=== PATIENT | male | born 1935 | race Caucasian/White ===

== ENCOUNTER 2016-04-25 06:14 | Inpatient (IN) | payer OTHER ==
[~2016-04-25] VITALS: Ht 172.7 cm; Wt 81.6 kg
[~2016-04-25 06:14] MED LIST: ASPI-COR81 M1 PO; ATIVAN0.5 M1 PO; BENICAR HCT 12.1 TA1 PO; BENICAR HCT 251 TAB PO; BENICAR40 M1 PO; GABAPENTIN100 M2 PO; HYDROCODONE/ACE1 TA2 PO; LASIX40 MG PO; METOPROLOL SUCC25 M1 PO; NEURONTIN400 M1 PO; OMEPRAZOLE40 MG PO; POTASSIUM CHLO10 ME1 PO; WARFARIN SOD2 MG PO; XARELTO20 MG PO; ZOCOR 40MG TAB40 MG PO
--- NOTE | 2016-04-25 06:28 | ED CARDIAC/CP/PALPITATIONS ---
See Addendum History of Present Illness General Chief Complaint: Chest Pain Stated Complaint: PT C/O CHEST PAIN CARDIAC HX Source: patient Exam Limitations: no limitations Vital Signs & Intake/Output Vital Signs & Intake/Output . Allergies Coded Allergies: NO KNOWN ALLERGIES (03/09/16) Reconcile Medications Furosemide (Lasix) 40 MG TAB 1 TAB PO DAILY HEART HEALTH Gabapentin 400 MG CAPSULE 1 CAP PO QPM NEUROPATHY (Reported) Gabapentin 100 MG CAPSULE 2 CAP PO 1200 NEUROPATHY (Reported) HYDROCODONE/ACETAMINOPHEN (Hydrocodon-Acetaminoph 7.5-325) 1 TAB TAB 1 TAB PO Q8H PAIN (Reported) Lorazepam (Ativan) 0.5 MG TAB 1 TAB PO BID ANXIETY (Reported) Metoprolol Succinate 25 MG TAB 0.5 TAB PO DAILY HIGH BP (Reported) Olmesartan Medoxomil (Benicar) 40 MG TABLET 1 TAB PO DAILY HEART (Reported) Omeprazole 40 MG ECC 1 CAP PO DAILY GI (Reported) Potassium Chloride [address] 1 TAB PO DAILY SUPPLEMENT (Reported) Rivaroxaban (Xarelto) 20 MG TAB 1 TAB PO QPM BLOOD THINNER (Reported) with food Simvastatin (Zocor 40MG Tab) 40 MG TAB 1 TAB PO QPM CHOLESTEROL (Reported) Triage Nurses Notes Reviewed? yes Onset: Gradual Duration: day(s):, waxing and waning Timing: recent history Quality/Severity: moderate Location: central Radiation: no radiation Activities at Onset: none Prior Chest Pain/Card Workup: cardiac cath, heart attack Modifying Factors: Improves With: rest. Associated Symptoms: diaphoresis, dizziness, chest pain HPI: 80 yo gentleman h/o cad, cardiac arrest (1993), presents with 7-8/10 of substernal chest pain, associated with shortness of breath, diaphoresis and dizziness. Non radiating. His symptoms began 1 day ago, "and they've been coming and going." Mild "congestion" and "pressure" feeling. No fever, chills, cough, wheezing, sputum, lower extremity swelling. Past History Medical History Any Pertinent Medical History? see below for history Neurological: NONE EENT: NONE Cardiovascular: AFIB, CHF, hypertension, [place] WITH STENTS Respiratory: NONE Gastrointestinal: NONE Hepatic: NONE Renal: NONE Musculoskeletal: disk herniation Psychiatric: NONE Endocrine: NONE Blood Disorders: NONE Cancer(s): NONE FINANCIAL ANALYSIS CONSULTANT/Reproductive: NONE History of MRSA: No History of VRE: No History of CDIFF: No Surgical History Surgical History: non-contributory Psychosocial History Who do you live with Spouse Services at Home None What is your primary language Kuwaiti Family History Hx Contributory? No Review of Systems Review of Systems Constitutional: Reports: no symptoms. EENTM: Reports: no symptoms. Respiratory: Reports: no symptoms. Cardiovascular: Reports: no symptoms. GI: Reports: no symptoms. Genitourinary: Reports: no symptoms. Musculoskeletal: Reports: no symptoms. Skin: Reports: no symptoms. Neurological/Psychological: Reports: no symptoms. Hematologic/Endocrine: Reports: no symptoms. Immunologic/Allergic: Reports: no symptoms. All Other Systems: Reviewed and Negative Physical Exam Physical Exam General Appearance: well developed/nourished, mild distress Head: atraumatic, normal appearance Eyes: Bilateral: normal appearance. Ears, Nose, Throat: normal pharynx, normal ENT inspection Neck: normal inspection, supple, full range of motion Respiratory: normal breath sounds, chest non-tender, no respiratory distress, quiet respiration, lungs clear Cardiovascular: regular rate/rhythm Gastrointestinal: normal bowel sounds, soft, non-tender, no organomegaly Back: normal inspection, normal range of motion Extremities: normal inspection, normal capillary refill, normal range of motion, no edema Neurologic/Psych: no motor/sensory deficits, awake, alert, oriented x 3 Skin: intact, normal color, warm/dry Core Measures ACS in differential dx? Yes Severe Sepsis Present: No Septic Shock Present: No Progress Differential Diagnosis: AMI, musculoskeletal pain, pneumonia, unstable angina Plan of Care: Orders Procedure Date/time Status XRY-PORTABLE CHEST XRAY 04/25 627 Active TROPONIN LEVEL 04/25 627 Active D-DIMER 04/25 627 Active COMPREHENSIVE METABOLIC PANEL 04/25 627 Active CBC WITHOUT DIFFERENTIAL 04/25 627 Active EKG 04/25 614 Active Current Medications Sig/[place] Start time Last Medication Dose Stop Time Status Admin Aspirin 325 MG ONCE ONE 04/25 0545 UNVr (Aspirin) 04/25 645 Labetalol HCl 10 MG ONCE ONE 04/25 0545 UNVr (Trandate) 04/25 06 Nitroglycerin 0.4 MG ONCE ONE 04/25 0545 UNVr (Nitrostat) 04/25 0646 Diagnostic Imaging: Viewed by Me: Radiology Read. Discussed w/RAD: Radiology Read. Initial ED EKG: afib with diffuse st depressions... unchanged from prior. Hand-Off Endorsed To: ABE JOHNS MD Endorsed Time: 0700 Pending: labs, Xray Departure Departure Disposition: STILL A PATIENT Condition: Stable Clinical Impression Primary Impression: Chest pain Referrals: GINA BARCENAS MD (PCP/Family) Referred to [facility] as new patient No Departure Forms: Customer Survey General Discharge Information Critical Care Note Critical Care Note Critical Care Time: non-applicable
--- NOTE | 2016-04-25 06:53 | RADIOLOGY REPORT ---
EXAMINATION: XR PORTABLE CHEST CLINICAL INFORMATION: Chest pain COMPARISON: 11/04/2015 TECHNIQUE: AP portable upright view of the chest FINDINGS: Cardiac silhouette is enlarged. Calcific atherosclerosis is present in the thoracic aorta. Airspace opacities are present in the medial aspect of the lung bases, most likely atelectasis. Superimposed consolidation is less likely. Pulmonary vasculature is normal. No pneumothorax or pleural effusion. Osseous thorax is unremarkable. IMPRESSION: 1. Unchanged cardiomegaly. 2. Opacities in the medial aspects of the lower lobes, most likely due to atelectasis and underpenetration. Superimposed consolidation is less likely.
[2016-04-25 07:04] LABS: ABSOLUTE BASOPHIL COUNT 0 /CUMM (0.0-0.2); ABSOLUTE EOSINOPHIL COUNT 0.1 /CUMM (0.0-0.7); ABSOLUTE GRANULOCYTE CT 4.6 /CUMM (1.4-6.5); ABSOLUTE LYMPH COUNT 1.1 /CUMM (1.2-3.4); ABSOLUTE MONOCYTE COUNT 0.6 /CUMM (0.10-0.60); BASOPHIL % 0.5 % (0.0-2.0); EOSINOPHIL % 0.8 % (0-5); GRANULOCYTE % 72.7 % (42.2-75.2); HEMATOCRIT 34.2 % (42-52); MEAN CORPUSCULAR HGB 25.1 PG (27.0-31.0); MEAN CORPUSCULAR VOLUME 78.6 FL (80.0-94.0); MEAN PLATELET VOLUME 9.1 FL (7.4-10.4); PLATELET COUNT 151 /CUMM (130-400); RBC DISTRIBUTION WIDTH 18.8 % (11.5-14.5); RED BLOOD CELL CT 4.35 /CUMM (4.70-6.10); WHITE BLOOD CELL COUNT 6.4 /CUMM (4.8-10.8)
[2016-04-25] MEDS ORDERED: TYLENOL EXTRA500 M2 PO (07:49)
--- NOTE | 2016-04-25 08:51 | History & Physical ---
See Addendum General Information and HPI MD Statement: I have seen and personally examined HARLAN BLAIR and documented this H& P. The patient is a 80 year old M who presented with a patient stated chief complaint of indigestion. Source of Information: patient Exam Limitations: no limitations History of Present Illness: 80-year-old man with a past medical history of paroxysmal A. fib on several to and metoprolol, coronary artery disease status post myocardial infarction in 1993, cardiac cath at [facility] 2003, [id number] aortic regurgitation, status post laminectomy in January 2004, went into rapid ventricular rate after surgery, and amiodarone and reverted to sinus rhythm, history of hyperlipidemia and hypertension, presented with a two-day history of symptoms of indigestion. Accorded the patient started having symptoms of indigestion 2 days ago, that included burping, burning in the chest, pressure in the chest, feeling that he won't be able to eat anything however he was able to keep it down, nausea or vomiting, intermittent, no specific aggravating or relieving factors, at rest as well as on exertion. The pressure on the chest but really was last night, became more constant, 6-7/10 in intensity, no radiation, associated with lightheadedness and dizziness. Also reported a feeling that he is unable to place and wanted to walk out of the house to be able to breathe. He denies any orthopnea, trace leg swelling that has not changed. No headaches, visual changes. Has been experiencing some weakness on and off since the past month, and started using a cane on and off. According to the patient's , the patient's last nuclear stress test and echocardiogram was last year, early 2015, was what she said, however according to the integration specialist boluses that were in 2014. Allergies/Medications Allergies: Coded Allergies: NO KNOWN ALLERGIES (03/09/16) Home Med list Acetaminophen (Tylenol Extra Strength) 500 MG TABLET 1 TAB PO TID PAIN ( Reported) Furosemide (Lasix) 40 MG TAB 1 TAB PO DAILY HEART HEALTH Gabapentin 100 MG CAPSULE 2 CAP PO SEE ADMIN CRITERIA NEUROPATHY (Reported) 400 IN AM 200 AT LUNCH TIME 800 AT NIGHT Gabapentin (Neurontin) 400 MG CAPSULE 2 CAP PO QPM NEUROPATHY (Reported) HYDROCODONE/ACETAMINOPHEN (Hydrocodon-Acetaminoph 7.5-325) 1 TAB TAB 1 TAB PO Q8H PAIN (Reported) Lorazepam (Ativan) 0.5 MG TABLET 1 TAB PO BID ANXIETY (Reported) Metoprolol Succinate 25 MG TAB 0.5 TAB PO DAILY HIGH BP (Reported) Olmesartan Medoxomil (Benicar) 40 MG TABLET 1 TAB PO DAILY HEART (Reported) Omeprazole 40 MG ECC 1 CAP PO DAILY GI (Reported) Potassium Chloride [address] 1 TAB PO DAILY SUPPLEMENT (Reported) Rivaroxaban (Xarelto) 20 MG TAB 1 TAB PO QPM BLOOD THINNER (Reported) with food Simvastatin (Zocor 40MG Tab) 40 MG TAB 1 TAB PO QPM CHOLESTEROL (Reported) Compliance With Home Meds: GOOD Past History Travel History Traveled to [place] past 21 day No Medical History Neurological: NONE EENT: NONE Cardiovascular: AFIB, CHF, hypertension, hyperlipidemia, NSTEMI, [place] WITH STENTS Respiratory: NONE Gastrointestinal: NONE Hepatic: NONE Renal: NONE Musculoskeletal: disk herniation Psychiatric: NONE Endocrine: NONE Blood Disorders: NONE Cancer(s): NONE SAMPLE WRAPPER/Reproductive: NONE History of MRSA: No History of VRE: No History of CDIFF: No Surgical History Surgical History: laminectomy, cardiac cath Past Family/Social History Family History Relations & Conditions if any BROTHER (2 Brothers had premature coronary artery disease. One brother of pulmonary embolism.). Psychosocial History Where do you live? Home Who Do You Live With? spouse Services at Home: None ETOH Use: occasional use Illicit Drug Use: denies illicit drug use Living Will? yes Functional Ability ADLs Independent: dressing, eating, toileting, bathing. Ambulation: independent IADLs Independent: shopping, housework, finances, food prep, telephone, transportation , medication admin. Review of Systems Review of Systems Constitutional: Reports: weakness. EENTM: Reports: no symptoms. Cardiovascular: Reports: chest pain. Denies: orthopena, palpitations. Respiratory: Denies: cough, orthopnea, short of breath, sputum production, wheezing. GI: Reports: no symptoms. Genitourinary: Reports: no symptoms. Musculoskeletal: Reports: back pain. Neurological/Psychological: Reports: no symptoms. Hematologic/Endocrine: Reports: no symptoms. Immunologic/Allergic: Reports: no symptoms. Exam & Diagnostic Data Last 24 Hrs of Vital Signs/I&O Vital Signs Date Time Temp Pulse Resp B/P Pulse O2 O2 Flow FiO2 Ox Delivery Rate 04/25 1115 97.7 62 18 170/73 04/25 1115 97.7 62 18 170/73 04/25 1044 97.7 62 18 170/73 93 Room Air 04/25 0815 99.2 75 20 167/88 95 Room Air Room Air 04/25 0737 72 20 156/67 95 Room Air Room Air 04/25 0720 99.2 77 20 148/67 97 Room Air Room Air 04/25 0707 68 166/69 97 Room Air 04/25 0706 180/60 04/25 0640 98.1 80 18 206/50 98 Room Air Intake & Output 04/25 1600 04/25 0800 04/25 0000 Intake Total 0 Output Total Balance 0 Intake, Oral 0 Patient 181 lb Weight Physical Exam General Appearance Alert, Oriented X3, Cooperative, No Acute Distress Skin macular, irregular, small, erythema bilateral anterior shins HEENT Atraumatic, PERRLA, EOMI, Mucous Membr. moist/pink Neck Supple, No JVD Cardiovascular Normal S1, Normal S2, irregularly irregular, diastolic murmur Lungs Clear to Auscultation, Normal Air Movement Abdomen Normal Bowel Sounds, Soft, No Tenderness Neurological Normal Speech, Strength at 5/5 X4 Ext, Normal Tone, Sensation Intact Extremities Normal Pulses, trace ankle edema bilateral Vascular Pulses Symmetrical Last 24 Hrs of Labs/Teo: Laboratory Tests 04/25/16 0645: Anion Gap 18 H, Estimated GFR > 60, BUN/Creatinine Ratio 18.0, Glucose 138 H, Calcium 9.7, Total Bilirubin 1.1, AST 28, ALT 18 L, Alkaline Phosphatase 76, Troponin I 0.02, Total Protein 7.2, Albumin 4.4, Globulin 2.8, Albumin/Globulin Ratio 1.6, D-Dimer < 200, CBC w Diff NO MAN DIFF REQ, RBC 4.35 L, MCV 78.6 L, MCH 25.1 L, RDW 18.8 H, MPV 9.1, Gran % 72.7, Lymphocytes % 17.3 L, Monocytes % 8.7, Eosinophils % 0.8, Basophils % 0.5, Absolute Granulocytes 4.6, Absolute Lymphocytes 1.1 L, Absolute Monocytes 0.6, Absolute Eosinophils 0.1, Absolute Basophils 0, PUBS MCHC 32.0 L Diagnostic Data EKG Results A. fib is rate of 87, T-wave inversions in leads V4 through V6 that are unchanged from the previous EKG CXR Results IMPRESSION: 1. Unchanged cardiomegaly. 2. Opacities in the medial aspects of the lower lobes, most likely due to atelectasis and underpenetration. Superimposed consolidation is less likely. Assessment/Plan Assessment: 80-year-old man with a past medical history of paroxysmal A. fib on several to and metoprolol, coronary artery disease status post myocardial infarction in 1993, cardiac cath at [facility] 2003, [id number] aortic regurgitation, status post laminectomy in January 2004, went into rapid ventricular rate after surgery, and amiodarone and reverted to sinus rhythm, history of hyperlipidemia and hypertension, presented with a two-day history of symptoms of intermittent chest pain, waxing and waning, and he changes, first were negative, being admitted to telemetry for unstable angina. Assessment and plan: Admit to telemetry Vitals every shift 1. Unstable angina: The patient presented with intermittent chest pain, waxing and waning, negative troponins, no new EKG changes, previous history of myocardial infarction, status post cath in 2003, last echocardiogram and nuclear stress test in 2014, no clinical signs of cardiac failure. - We'll monitor on telemetry - We'll check troponins and EKGs at 1 PM and 7 PM and trend them, first negative - We'll check an echocardiogram, last was done in 2014 - We'll give aspirin 81 mg by mouth daily, the patient, despite having a history of CAD is not on aspirin at home - We will keep on nitroglycerin sublingual tablet 0.5 mg every 5 minutes when necessary for chest pain - We'll check lipid panel in the morning - The patient will likely benefit from cardiac cath, will follow cardiology recommendations - In anticipation for possible cardiac cath, will hold the rectal and start IV heparin - The patient is guaiac NEGATIVE! - Continue to consult placed (the patient normally follows Dr. Hays) - We'll continue with metoprolol - NPO after midnight order is not in yet. It has been communicated to the team to clarify and confirm trey time of tranfer to [facility] for cardiac cath and place an order accordingly as the patient is particular about getting his food in time. And this is important for patient satisfaction. 2. Paroxysmal A. fib: - Rate controlled, rate of 87 on the EKG done on admission - We'll continue with metoprolol 25 mg extended release by mouth daily - For now will hold off on Benavides to, as the patient might go for cardiac cath, instead will start IV heparin in anticipation for cardiac cath tomorrow 3. Hypertension: The patient has history of hypertension, is uncontrolled - 206/50 on admission, decreased to 140/67 with increased to 170s again - We'll continue with metoprolol and Benicar for now - If required may need optimizing off his blood pressure, or an IV dose 4. 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 Hyperlipidemia: - She takes simvastatin 40 mg at home, will continue with atorvastatin 20 mg which is a pharmacy substitution 6. Heartburn: - Continue all present 40 mg by mouth daily 7. Anxiety: - We'll continue with Ativan 0.5 mg twice a day 8. History of stage I diastolic heart failure: - Continue with Lasix 40 mg by mouth daily - Last EF in 2014 was 55% - Currently is not in acute heart failure, no clinical signs of fluid overload - No orthopnea, mild trace bilateral ankle edema which is at baseline 9. Heart healthy diet 10. Pain pathway, patient is an acetaminophen [id number], isn't Vicodin [id number], these are the home doses. Have also placed on Percocet 1 tablet when necessary for [id number] pain and 2 tablets Percocet when necessary for severe pain 11. DVT prophylaxis: Patient is on Xarelto at home, for now will hold it in activation of cardiac cath, and start an IV heparin 12. Full CODE STATUS It is important to note that the patient was admitted to [facility] in Feb 2016 and stated he had a very bad experience, he did not get his food in time, he wasnt cleaned, his Burt coat wasnt changed in 3 days, and that his needs were not looked into. Although last time it was a different floor, but as the patient is currently in the ED, and may stay there untill a bed is available on Tele and we all work as a team in the hospital, I personally made sure the ED nurse, Sharmin, is aware of patient's needs and the situation that occurred last time, does not happen again, and that this information should be forwarded on sign out to the floor as well. This is important for patient satisfaction. As Ranked By This Provider Problem List: 1. Unstable angina 2. Hypertension 3. Atrial fibrillation with controlled ventricular response 4. Spinal stenosis Core Measures/Miscellaneous Acute Coronary Syndrome ACS Diagnosis: Yes Date of most recent Echo 04/23/14 Last Known EF % 55 GEORGE/ARB For EF <40% No No GEORGE/ARB d/t EF > 40% ASA W/I 24hr of admit Yes Beta-Yobani W/I 24hrs Yes LDL assessed W/I 24 hrs Yes Currently on Statin Yes Cerebrovascular Accident CVA/TIA Diagnosis: No Congestive Heart Failure CHF Diagnosis: No Venous Thromboembolism VTE Risk Factors: Acute medical illness, Age > 40, Obesity VTE Prophylaxis Ordered Inpt: Pharm- Heparin (on Xarelto at home) No [facility] VTE prophylaxis d/t: No contraindications No VTE Pharm Prophylaxis d/t: No contraindications VTE Diagnosis: No VTE Type: NONE VTE Confirmed by (Test): NONE Severe Sepsis Severe Sepsis Present: No Septic Shock Septic Shock Present: No Miscellaneous Documentation Attending Case Discussed With: GINA BARCENAS MD Primary Care Physician: GINA BARCENAS MD Patient sees these Specialists Dr. Gio Wilson Level of Patient Care: Telemetry Consults Needed: Consulting Specialty: Cardiology Consulting Physician: Dr. Santiago Reason for Consult: Unstable Angina Resident Review Statement Resident Statement: examined this patient, discussed with international tax manager, reviewed EMR data (avail), reviewed images Other Findings: Stella as Above
--- NOTE | 2016-04-25 09:46 | Admission Certification ---
Admission Certification Certification Statement - As attending physician, I certify that at the time of - admission, based on clinical presentation, severity of - symptoms, need for further diagnostic testing and - therapeutic interventions, and risk of adverse outcomes - without in-hospital treatment, in my clinical assessment, - this patient requires an acute hospital stay for a minimum - of two nights or longer. I have also considered psychsocial - factors such as support system, advanced age, financial - issues, cognitive issues, and failed out-patient treatments, - past re-admission history, safety of patient, and lack of - compliance as applicable. Specific rationale supporting this admission is: Chest pain in a patient with history of coronary artery disease
--- NOTE | 2016-04-25 09:49 | PN- Att Addend ---
Attending Addendum Attending Brief Note 80-year-old white male history of coronary artery disease is again had severe chest pain made him come to the emergency room at first not relieved with nitroglycerin. After that cut stronger analgesics at the time I saw him, he was free of pain patient will be admitted and have serial EKGs and serial troponins will be seen by the casting cleaner and will follow cardiology's recommendations Laboratory Tests 04/25 644 Chemistry Sodium (137 - 145 mmol/L) 142 Potassium (3.5 - 5.1 mmol/L) 3.8 Chloride (98 - 107 mmol/L) 102 Carbon Dioxide (22 - 30 mmol/L) 21 L Anion Gap (5 - 16) 18 H BUN (9 - 20 mg/dL) 18 Creatinine (0.7 - 1.2 mg/dL) 1.0 Estimated GFR (>60 ml/min) > 60 BUN/Creatinine Ratio (7 - 25 %) 18.0 Glucose (65 - 99 mg/dL) 138 H Calcium (8.4 - 10.2 mg/dL) 9.7 Total Bilirubin (0.2 - 1.3 mg/dL) 1.1 AST (17 - 59 U/L) 28 ALT (21 - 72 U/L) 18 L Alkaline Phosphatase (< 127 U/L) 76 Troponin I (<0.11 ng/ml) 0.02 Total Protein (6.3 - 8.2 g/dL) 7.2 Albumin (3.5 - 5.0 g/dL) 4.4 Globulin (1.9 - 4.2 gm/dL) 2.8 Albumin/Globulin Ratio (1.1 - 2.2 %) 1.6 Coagulation D-Dimer (70 - 232 ng/ml) < 200 Hematology CBC w Diff NO MAN DIFF REQ WBC (4.8 - 10.8 /CUMM) 6.4 RBC (4.70 - 6.10 /CUMM) 4.35 L Hgb (14.0 - 18.0 G/DL) 10.9 L Hct (42 - 52 %) 34.2 L MCV (80.0 - 94.0 FL) 78.6 L MCH (27.0 - 31.0 PG) 25.1 L RDW (11.5 - 14.5 %) 18.8 H Plt Count (130 - 400 /CUMM) 151 MPV (7.4 - 10.4 FL) 9.1 Gran % (42.2 - 75.2 %) 72.7 Lymphocytes % (20.5 - 51.1 %) 17.3 L Monocytes % (1.7 - 9.3 %) 8.7 Eosinophils % (0 - 5 %) 0.8 Basophils % (0.0 - 2.0 %) 0.5 Absolute Granulocytes (1.4 - 6.5 /CUMM) 4.6 Absolute Lymphocytes (1.2 - 3.4 /CUMM) 1.1 L Absolute Monocytes (0.10 - 0.60 /CUMM) 0.6 Absolute Eosinophils (0.0 - 0.7 /CUMM) 0.1 Absolute Basophils (0.0 - 0.2 /CUMM) 0 PUBS MCHC (33.0 - 37.0 G/DL) 32.0 L Chest x-ray showed unchanged cardiomegaly and bibasilar atelectasis.
--- NOTE | 2016-04-25 11:19 | Cons- Cardiology ---
General Information and HPI Consulting Request Date of Consult: 04/25/16 Requested By: GINA BARCENAS MD Reason for Consult: Chest pain or shortness of breath Source of Information: patient, family Exam Limitations: no limitations History of Present Illness: Patient 80-year-old male with history of coronary disease status post myocardial infarction with PTCA in 1993, chronic diastolic heart failure ejection fraction 55%, hypertension, hyperlipidemia, persistent atrial fibrillation on Xarelto, who now presents with increasing shortness of breath and epigastric discomfort. He states that he's been noting increased dyspnea with minimal exertion. He denied PND or orthopnea. He then noted epigastric discomfort which is similar to his symptoms prior to his myocardial infarction. At that time, according to his , he had presented to the emergency room and coded 3 times requiring defibrillation. He was transferred to [facility] where he underwent PTCA. In the emergency room the patient was given sublingual nitroglycerin with relief of his discomfort. He has not had any recurrence. The patient's most recent nuclear stress test was 2014 which demonstrated an area of anterior infarct but no reversible ischemia His most recent echocardiogram was also 2014 demonstrating ejection fraction 55% with mild to moderate aortic insufficiency. Allergies/Medications Allergies: Coded Allergies: NO KNOWN ALLERGIES (03/09/16) Home Med List: Acetaminophen (Tylenol Extra Strength) 500 MG TABLET 1 TAB PO TID PAIN ( Reported) Furosemide (Lasix) 40 MG TAB 1 TAB PO DAILY HEART HEALTH Gabapentin 100 MG CAPSULE 2 CAP PO SEE ADMIN CRITERIA NEUROPATHY (Reported) 400 IN AM 200 AT LUNCH TIME 800 AT NIGHT Gabapentin (Neurontin) 400 MG CAPSULE 2 CAP PO QPM NEUROPATHY (Reported) HYDROCODONE/ACETAMINOPHEN (Hydrocodon-Acetaminoph 7.5-325) 1 TAB TAB 1 TAB PO Q8H PAIN (Reported) Lorazepam (Ativan) 0.5 MG TABLET 1 TAB PO BID ANXIETY (Reported) Metoprolol Succinate 25 MG TAB 0.5 TAB PO DAILY HIGH BP (Reported) Olmesartan Medoxomil (Benicar) 40 MG TABLET 1 TAB PO DAILY HEART (Reported) Omeprazole 40 MG ECC 1 CAP PO DAILY GI (Reported) Potassium Chloride [address] 1 TAB PO DAILY SUPPLEMENT (Reported) Rivaroxaban (Xarelto) 20 MG TAB 1 TAB PO QPM BLOOD THINNER (Reported) with food Simvastatin (Zocor 40MG Tab) 40 MG TAB 1 TAB PO QPM CHOLESTEROL (Reported) Current Medications: Current Medications Sig/[place] Start time Last Medication Dose Route Stop Time Status Admin Acetaminophen 500 MG TID 04/25 1600 UNVr PO Acetaminophen 650 MG Q6P PRN 04/25 1015 AC PO Acetaminophen/ 1 TAB Q8 04/25 1400 UNVr Hydrocodone Bitart PO Aspirin 0 .STK-MED ONE 04/25 0649 DC PO Aspirin 0 .STK-MED ONE 04/25 0647 DC PO Aspirin 325 MG ONCE ONE 04/25 0645 DC 04/25 PO 04/25 0646 0652 Atorvastatin Calcium 20 MG 1700 04/25 1700 AC PO Furosemide 0 .STK-MED ONE 04/25 1105 DC PO Furosemide 40 MG DAILY 04/25 1029 AC PO Gabapentin 800 MG QPM 04/25 2200 UNVr PO Gabapentin 200 MG .[LUNCH TIME] 04/25 1115 UNVr PO Gabapentin 400 MG QAM 04/25 1102 UNVr PO Gabapentin 200 MG SEE ADMIN CRITERIA 04/25 1045 DCr PO Labetalol HCl 10 MG ONCE ONE 04/25 0645 CAN IV 04/25 0646 Lorazepam 0.5 MG BID 04/25 1035 AC PO 05/02 1034 Losartan Potassium 100 MG DAILY 04/25 1036 AC PO Metoprolol Tartrate 0 .STK-MED ONE 04/25 1104 DC PO Metoprolol Tartrate 12.5 MG DAILY 04/25 1036 UNVr PO Morphine Sulfate 0 .STK-MED ONE 04/25 0813 DC .ROUTE Morphine Sulfate 2 MG ONCE ONE 04/25 0800 DC 04/25 IV 04/25 0801 0815 Nitroglycerin 0.4 MG Q 5 MINUTES X 3 DO.. 04/25 1045 AC SL Nitroglycerin 1 GM ONCE ONE 04/25 0915 DC 04/25 TOP 04/25 0916 0915 Nitroglycerin 0 .STK-MED ONE 04/25 0849 DC TOP Nitroglycerin 0.4 MG ONCE ONE 04/25 0800 DC 04/25 SL 04/25 0801 0815 Nitroglycerin 0.4 MG ONCE ONE 04/25 0745 DC 04/25 SL 04/25 0746 0745 Nitroglycerin 0.4 MG ONCE ONE 04/25 0715 DC 04/25 SL 04/25 0716 0712 Nitroglycerin 0 .STK-MED ONE 04/25 0647 DC SL Nitroglycerin 0.4 MG ONCE ONE 04/25 0645 DC 04/25 SL 04/25 0646 0652 Omeprazole 0 .STK-MED ONE 04/25 1105 DC PO Omeprazole 40 MG DAILY AC 04/25 1037 AC PO Oxycodone/ 1 TAB Q6P PRN 04/25 1015 AC Acetaminophen PO Oxycodone/ 2 TAB Q6P PRN 04/25 1015 AC Acetaminophen PO Polyethylene Glycol 17 GM AT BEDTIME PRN 04/25 1015 AC PO Potassium Chloride 0 .STK-MED ONE 04/25 1105 DC PO Potassium Chloride 10 MEQ DAILY 04/25 1037 AC PO Rivaroxaban 20 MG QPM 04/25 2200 AC PO Review of Systems Review of Systems: Eyes no blurred or double vision Ears no deafness or ringing Nose and throat no recurrent sinusitis Lungs per history of present illness Heart per history of present illness Abdomen no nausea vomiting Musculoskeletal occasional muscle and joint pains Psych no anxiety or depression Neuro without recurrent headache or seizures Endocrine no heat or cold intolerance Past History Travel History Traveled to [place] past 21 day No Medical History Neurological: NONE EENT: NONE Cardiovascular: AFIB, CHF, hypertension, CO WITH STENTS Respiratory: NONE Gastrointestinal: NONE Hepatic: NONE Renal: NONE Musculoskeletal: disk herniation Psychiatric: NONE Endocrine: NONE Blood Disorders: NONE Cancer(s): NONE 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 spouse Services at Home: None ETOH Use: occasional use Illicit Drug Use: denies illicit drug use Functional Ability ADLs Independent: dressing, eating, toileting, bathing. Ambulation: independent IADLs Independent: shopping, housework, finances, food prep, telephone, transportation , medication admin. Exam & Diagnostic Data Vital Signs and I&O Vital Signs Date Time Temp Pulse Resp B/P Pulse O2 O2 Flow FiO2 Ox Delivery Rate 04/25 1044 97.7 62 18 170/73 93 Room Air 04/25 0815 99.2 75 20 167/88 95 Room Air Room Air 04/25 0737 72 20 156/67 95 Room Air Room Air 04/25 0720 99.2 77 20 148/67 97 Room Air Room Air 04/25 0707 68 166/69 97 Room Air 04/25 0706 180/60 04/25 0640 98.1 80 18 206/50 98 Room Air Intake & Output 04/25 0804/25 0000 04/24 1600 04/24 0804/24 0000 Intake Total 0 Output Total Balance 0 Intake, Oral 0 Patient 181 lb Weight Physical Exam: Patient is a well-developed well-nourished male appearing in no acute distress HEENT is unremarkable Neck is supple there is no JVD Lungs are clear Heart irregular rhythm S1 and S2 are normal no gallops or rubs 1/6 diastolic murmur Abdomen bowel sounds positive Extremities without edema Labs/Teo Results: Laboratory Tests 04/25 0645 Chemistry Sodium (137 - 145 mmol/L) 142 Potassium (3.5 - 5.1 mmol/L) 3.8 Chloride (98 - 107 mmol/L) 102 Carbon Dioxide (22 - 30 mmol/L) 21 L Anion Gap (5 - 16) 18 H BUN (9 - 20 mg/dL) 18 Creatinine (0.7 - 1.2 mg/dL) 1.0 Estimated GFR (>60 ml/min) > 60 BUN/Creatinine Ratio (7 - 25 %) 18.0 Glucose (65 - 99 mg/dL) 138 H Calcium (8.4 - 10.2 mg/dL) 9.7 Total Bilirubin (0.2 - 1.3 mg/dL) 1.1 AST (17 - 59 U/L) 28 ALT (21 - 72 U/L) 18 L Alkaline Phosphatase (< 127 U/L) 76 Troponin I (<0.11 ng/ml) 0.02 Total Protein (6.3 - 8.2 g/dL) 7.2 Albumin (3.5 - 5.0 g/dL) 4.4 Globulin (1.9 - 4.2 gm/dL) 2.8 Albumin/Globulin Ratio (1.1 - 2.2 %) 1.6 Coagulation D-Dimer (70 - 232 ng/ml) < 200 Hematology CBC w Diff NO MAN DIFF REQ WBC (4.8 - 10.8 /CUMM) 6.4 RBC (4.70 - 6.10 /CUMM) 4.35 L Hgb (14.0 - 18.0 G/DL) 10.9 L Hct (42 - 52 %) 34.2 L MCV (80.0 - 94.0 FL) 78.6 L MCH (27.0 - 31.0 PG) 25.1 L RDW (11.5 - 14.5 %) 18.8 H Plt Count (130 - 400 /CUMM) 151 MPV (7.4 - 10.4 FL) 9.1 Gran % (42.2 - 75.2 %) 72.7 Lymphocytes % (20.5 - 51.1 %) 17.3 L Monocytes % (1.7 - 9.3 %) 8.7 Eosinophils % (0 - 5 %) 0.8 Basophils % (0.0 - 2.0 %) 0.5 Absolute Granulocytes (1.4 - 6.5 /CUMM) 4.6 Absolute Lymphocytes (1.2 - 3.4 /CUMM) 1.1 L Absolute Monocytes (0.10 - 0.60 /CUMM) 0.6 Absolute Eosinophils (0.0 - 0.7 /CUMM) 0.1 Absolute Basophils (0.0 - 0.2 /CUMM) 0 PUBS MCHC (33.0 - 37.0 G/DL) 32.0 L Diagnostic Data EKG Results Atrial fibrillation interval myocardial infarction age undetermined CXR Results IMPRESSION: 1. Unchanged cardiomegaly. 2. Opacities in the medial aspects of the lower lobes, most likely due to atelectasis and underpenetration. Superimposed consolidation is less likely. Assessment/Plan Assessment/Plan 1. Coronary disease by history status post myocardial infarctions 1993 with PTCA now with chest discomfort similar to his prior presentation. The etiology is most likely unstable angina given his history. His initial troponin is negative. 2. Persistent atrial fibrillation on Xarelto 3. Hypertension 4. Chronic diastolic heart failure currently stable 5. Chronic back pain Recommendations 1. Patient will be placed on telemetry 2. Obtain serial EKGs and troponins 3. I had a long discussion with the patient and his , given his presentation and history of prior myocardial infarction I do recommend early cardiac catheterization. They both agree to proceed. Will plan to [facility] 4. Would hold Xarelto preparation for cardiac catheterization and start heparin 5. Continue his other medications 6. Would place him on daily aspirin Thank you for allowing [facility] to participate in the care of your patient. Consult Acknowledgment - Thank you for your consult request.
[2016-04-25 17:06] VITALS: BP 164/60
--- NOTE | 2016-04-25 18:05 | Event Note ---
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 The nurse stated the patient was asymptomatic. The resident concrete pipe machine operator was made aware. A lab add on of magnesium was ordered. An EKG was ordered. This was signed out to the night team.
[2016-04-25 19:40] LABS: PT 19.8 SEC (9.4-12.5); PTT 61 SEC (25-37)
--- NOTE | 2016-04-25 22:04 | Discharge Summary ---
See Addendum Visit Information Visit Dates Admission Date: 04/25/16 Discharge Date: 04/27/16 Hospital Course Course Attending Physician: GINA BARCENAS MD Primary Care Physician: GINA BARCENAS MD Consulting Request: Consulting Specialty: Cardiology Consulting Physician: Dr. Santiago Reason for Consult: Unstable Angina Hospital Course: This is a 80-year-old male with PMH significant for coronary disease; myocardial infarction s/p PTCA in 1993, chronic diastolic heart failure, hypertension, hyperlipidemia, persistent atrial fibrillation on Xarelto, who presented with increasing exertional shortness of breath and epigastric discomfort. Most recent nuclear stress test in 2014 demonstrated an area of anterior infarct but no reversible ischemia. Most recent echocardiogram in 2015 demonstrated ejection fraction 55% with mild to moderate aortic insufficiency. In the emergency room the patient was given sublingual nitroglycerin with relief of his discomfort. Vital signs on admission: Date Time Temp Pulse Resp B/P Pulse O2 O2 Flow FiO2 Ox Delivery Rate 04/25 1115 97.7 62 18 170/73 04/25 1115 97.7 62 18 170/73 04/25 1044 97.7 62 18 170/73 93 Room Air 04/25 0815 99.2 75 20 167/88 95 Room Air Room Air 04/25 0737 72 20 156/67 95 Room Air Room Air 04/25 0720 99.2 77 20 148/67 97 Room Air Room Air 04/25 0707 68 166/69 97 Room Air 04/25 0706 180/60 / 0640 98.1 80 18 206/50 98 Room Air Pertinent physical exam at the time of admission: General Appearance Alert, Oriented X3, Cooperative, No Acute Distress Skin macular, irregular, small, erythema bilateral anterior shins HEENT Atraumatic, PERRLA, EOMI, Mucous Membr. moist/pink Neck Supple, No JVD Cardiovascular Normal S1, Normal S2, irregularly irregular, diastolic murmur Lungs Clear to Auscultation, Normal Air Movement Abdomen Normal Bowel Sounds, Soft, No Tenderness Neurological Normal Speech, Strength at 5/5 X4 Ext, Normal Tone, Sensation Intact Extremities Normal Pulses, No LE edema Vascular Pulses Symmetrical Pertinent Lab Data on admission: Anion Gap 18 H, Estimated GFR > 60, BUN/Creatinine Ratio 18.0, Glucose 138 H, Calcium 9.7, Total Bilirubin 1.1, AST 28, ALT 18 L, Alkaline Phosphatase 76, Troponin I 0.02, Total Protein 7.2, Albumin 4.4, Globulin 2.8, Albumin/Globulin Ratio 1.6, D-Dimer < 200, CBC w Diff NO MAN DIFF REQ, RBC 4.35 L, MCV 78.6 L, MCH 25.1 L, RDW 18.8 H, MPV 9.1, Gran % 72.7, Lymphocytes % 17.3 L, Monocytes % 8.7, Eosinophils % 0.8, Basophils % 0.5, Absolute Granulocytes 4.6, Absolute Lymphocytes 1.1 L, Absolute Monocytes 0.6, Absolute Eosinophils 0.1, Absolute Basophils 0, PUBS MCHC 32.0 L Diagnostic Data EKG Results: A. fib is rate of 87, T-wave inversions in leads V4 through V6 that are unchanged from the previous EKG CXR Results:IMPRESSION: 1. Unchanged cardiomegaly. 2. Opacities in the medial aspects of the lower lobes, most likely due to atelectasis and underpenetration. Superimposed consolidation is less likely. The patient was admitted to telemety monitored service. The following problems were addressed during the course of his hospital stay: #NSTE-ACS: Cardiology was consulted who recommended serial troponin/ EKG and IV heparin. Home medication of Xarelto was held on admission. The patient was placed on aspirin. Early cardiac catheterization was suggested by cardiology. Echocardiogram was ordered. Troponins: 0.02, 0.12, 0.13, 0.08 EKGs did not reveal any significant change. #Persistent atrial fibrillation: Home medication of Xarelton was held on admission(Last dose was April 24 at around 6:30 PM). The patient was maintained on IV heparin. Home medication of metoprolol was continued. #Hypertension,Hyperlipidemia, chronic pain, anxiety, diastolic heart failure: The rest of patient's home medications including gabapentin, furosemide, omeprazole, lorazepam, statin, hydrocodone/acetaminophen were continued. Home medication of Olmesartan, was replaced with losartan as Olmesartan is not available in our pharmacy. Morning doses of PO Furosemide and PO Losartan were held on 04/27/16 in anticipation of cardiac cath. #DVT prophylaxis: On IV heparin. #CODE STATUS: Full code. Complications: None Allergies: Coded Allergies: NO KNOWN ALLERGIES (03/09/16) Disposition Summary Disposition Principal Diagnosis: NSTE-ACS Additional Diagnosis: Persistent atrial fibrillation Discharge Disposition: other general hospital Discharge Instructions General Discharge Information Code Status: Full Code Patient's Diet: Cardiac diet Patient's Activity: As tolerated Follow-Up Instructions/Appts: -To follow-up with PCP within a week of discharge. -Follow-up with guard captain, Dr. Santiago within a week of discharge. -To return to the hospital if symptoms not improved/worsen. -Decision to be made after cardiac cath regarding when to restart Xarelto. Medications at Discharge Discharge Medications: Stop taking the following medications: Rivaroxaban (Xarelto) 20 MG TAB ORAL Every night Continue taking these medications: Metoprolol Succinate (Metoprolol Succinate) 25 MG TAB 0.5 Tablet ORAL DAILY Comments: Last Taken: 04/27/16 Time: 840 AM Omeprazole (Omeprazole) 40 MG ECC 1 Capsule ORAL DAILY Qty = 30 Comments: GIVEN 06/14/15 @ 0600 Lorazepam (Ativan) 0.5 MG TABLET 1 Tablet ORAL TWICE DAILY Comments: Last Taken: 04/27/16 Time: 840 AM Simvastatin (Zocor 40MG Tab) 40 MG TAB 1 Tablet ORAL Every night Qty = 90 Comments: GIVEN 06/13/15 @ 4:45 PM HYDROCODONE/ACETAMINOPHEN (Hydrocodon-Acetaminoph 7.5-325) 1 TAB TAB 1 Tablet ORAL Q8H Qty = 90 Comments: GIVEN 06/14/15 @ 0930 Potassium Chloride (Potassium Chloride) [address] Tablet ORAL DAILY Qty = 90 Comments: GIVEN 06/14/15 @ 0930 Gabapentin (Neurontin) 400 MG CAPSULE 2 Capsule ORAL Every night Comments: Last Taken: 04/26/16 Time: 915 PM Furosemide (Lasix) 40 MG TAB 1 Tablet ORAL DAILY Qty = 30 Comments: GIVEN 06/14/15 @ 0930 Olmesartan Medoxomil (Benicar) 40 MG TABLET 1 Tablet ORAL DAILY Qty = 90 Comments: NOT GIVEN IN THE HOSPITAL Gabapentin (Gabapentin) 100 MG CAPSULE 2 Capsule ORAL SEE INSTRUCTIONS Instructions: 400 IN AM 200 AT LUNCH TIME 800 AT NIGHT Comments: Last Taken: 04/27/16 Time: 615 AM Acetaminophen (Tylenol Extra Strength) 500 MG TABLET 1 Tablet ORAL THREE TIMES DAILY Comments: Last Taken: 04/27/16 Time: 615 AM Start taking the following new medications: Atorvastatin Calcium (Atorvastatin Calcium) 20 MG TABLET 1 Tablet ORAL DAILY Qty = 30 No Refills Comments: Last Taken: 04/26/16 Time: 445 PM Aspirin (Ecotrin*) 81 MG TABLET.DR 1 Tablet ORAL DAILY Qty = 30 No Refills Comments: Last Taken: 04/27/16 Time: 840 AM Copies To: ROBINSON CHUNG,ERIN Fisher; NARINDER CHUNG,GINA
--- NOTE | 2016-04-25 22:17 | Patient Discharge Instructions ---
Discharge Instructions General Discharge Information You were seen/treated for: Worsening shortness of breath Chest discomfort Special Instructions: -To follow-up with PCP within a week of discharge. -Follow-up with acds block 1 operator, Dr. Santiago within a week of discharge. -To return to the hospital if symptoms not improved/worsen. -Decision to be made after your cardiac cath regarding when to restart your Xarelto. - xaralto on hold for now as patient is going to cardiac catheterisation on . -morning doses of lasix and losartan were on hold. can continue after the procedure. Diet Continue normal diet: Yes Recommended Diet: Heart Healthy Activity Additional ACTIVITY Info: As tolerated Acute Coronary Syndrome Inclusion Criteria At DC or during hospital stay patient has or had the following: ACS DIAGNOSIS Yes Discharge Core Measures Meds if any: Prescribed or Continued at Discharge GEORGE/ARB if EF <40% Yes (pt is on ARB at home) Aspirin Yes Beta-Yobani Yes Statin Yes Meds if any: NOT Prescribed or Continued at Discharge Congestive Heart Failure Inclusion Criteria At DC or during hospital stay patient has or had the following: CHF DIAGNOSIS No Discharge Core Measures Meds if any: Prescribed or Continued at Discharge Meds if any: NOT Prescribed or Continued at Discharge Cerebrovascular accident Inclusion Criteria At DC or during hospital stay patient has or had the following: CVA/TIA Diagnosis No Discharge Core Measures Meds if any: Prescribed or Continued at Discharge Meds if any: NOT Prescribed or Continued at Discharge Venous thromboembolism Inclusion Criteria VTE Diagnosis No VTE Type NONE VTE Confirmed by (Test) NONE Discharge Core Measures - Per Current guidelines, there needs to be overlap - treatment for the first 5 days of Warfarin therapy. - If discharged on Warfarin prior to 5 days of - overlap therapy, the patient will need to be - assessed for post discharge needs including - *Post discharge parental anticoagulation - *Warfarin and/or parental anticoagulation education - *Follow up date to check INR post discharge At least 5 days overlap therapy as Inpatient No Meds if any: Prescribed or Continued at Discharge Note: Overlap Therapy is Warfarin and Anticoagulant Meds if any: NOT Prescribed or Continued at Discharge
[2016-04-25] MEDS ORDERED: ASPIRIN EC81 M1 PO (22:19)
[2016-04-25 22:54] VITALS: BP 160/58
--- NOTE | 2016-04-26 07:29 | PN- Housestaff ---
Subjective Follow-up For: Chest pain/unstable angina Persistent atrial fibrillation Chronic diastolic heart failure-stable Complaints: pain scale (0-10) Tele-Events Since Last Visit: Atrial fibrillation Rate 40-60 2.8 second pAUSE early in the morning around 3 AM PVC No other events Subjective: Patient was seen and examined this morning. He is alert awake and oriented to time place and person. No other acute events noticed overnight. He denied any chest pain, palpitations, short of breath, sweating, headache, dizziness or lightheadedness. Patient was on IV heparin drip. He denied any other complaints. Vitals were stable. Afebrile. Heart rate 80, blood pressure 160/58, saturating at 94% on room air. Review of Systems Constitutional: Denies: see HPI. Objective Last 24 Hrs of Vital Signs/I&O Vital Signs Date Time Temp Pulse Resp B/P Pulse O2 O2 Flow FiO2 Ox Delivery Rate 04/26 0926 78 180/80 04/26 0923 78 180/80 04/26 0823 98.2 78 20 180/80 94 Room Air 04/25 2254 98.1 80 20 160/58 94 Room Air 04/25 1706 98.4 70 20 164/60 95 Room Air Intake & Output 04/26 1600 04/26 0800 04/26 0000 Intake Total 257.6 456.8 Output Total 650 450 Balance -392.4 6.8 Intake, IV 157.6 156.8 Intake, Oral 100 300 Number 0 0 Bowel Movements Output, Urine 650 450 Patient 81.647 kg Weight Physical Exam General Appearance: Alert, Oriented X3, Cooperative, No Acute Distress Skin: No Rashes, No Breakdown HEENT: Atraumatic, Mucous Membr. moist/pink Neck: Supple, No JVD Lymphatic: Cervical nl Cardiovascular: Normal S1, Normal S2, No Murmurs, irregular rhythm Lungs: Normal Air Movement Abdomen: Normal Bowel Sounds, Soft, No Tenderness Extremities: No Clubbing, No Cyanosis, No Edema Vascular: Normal Pulses Current Medications: Current Medications Sig/[place] Start time Last Medication Dose Route Stop Time Status Admin Acetaminophen 500 MG 0600,1200,2200 04/26 1200 AC 04/26 PO 1213 Acetaminophen 500 MG TID 04/25 1600 DC 04/25 PO 2124 Acetaminophen/ 1 TAB 0600,1200,2200 04/26 1200 AC 04/26 Hydrocodone Bitart PO 1213 Acetaminophen/ 1 TAB Q8 04/25 1400 DC 04/26 Hydrocodone Bitart PO 0603 Aspirin 81 MG DAILY 04/25 1123 AC 04/26 PO 0925 Atorvastatin Calcium 20 MG 1700 04/25 1700 AC 04/25 PO 1612 Furosemide 40 MG DAILY 04/25 1029 AC 04/26 PO 0926 Gabapentin 400 MG 0600 04/27 0600 AC PO Gabapentin 800 MG QPM 04/25 2200 AC 04/25 PO 2124 Gabapentin 200 MG 1200 04/25 1200 AC 04/26 PO 1321 Gabapentin 400 MG QAM 04/25 1102 DC 04/26 PO 0928 Heparin Sodium 25,000 UNIT Q24H 04/25 1130 AC 04/26 (Porcine) IV 0603 Sodium Chloride 500 ML Lorazepam 0.5 MG BID 04/25 1035 AC 04/26 PO 05/02 1034 0925 Losartan Potassium 100 MG DAILY 04/25 1036 AC 04/26 PO 0926 Metoprolol Succinate 12.5 MG DAILY 04/25 1036 AC 04/26 PO 0923 Nitroglycerin 0.4 MG Q 5 MINUTES X 3 DO.. 04/25 1045 AC SL Omeprazole 40 MG DAILY AC 04/25 1037 AC 04/26 PO 0603 Oxycodone/ 1 TAB Q6P PRN 04/25 1015 AC Acetaminophen PO Oxycodone/ 2 TAB Q6P PRN 04/25 1015 AC Acetaminophen PO Polyethylene Glycol 17 GM AT BEDTIME PRN 04/25 1015 AC PO Potassium Chloride 10 MEQ DAILY 04/25 1037 AC 04/26 PO 0926 Sodium Chloride 2 SPRAY Q4P PRN 04/25 2300 AC MELI Last 24 Hrs of Lab/Teo Results Last 24 Hrs of Labs/Mics: Laboratory Tests 04/26/16 0702: Anion Gap 14, Estimated GFR > 60, BUN/Creatinine Ratio 20.0, Triglycerides 103, Cholesterol 112, LDL Cholesterol, Calc 52 L, HDL Cholesterol 40, Cholesterol/ HDL Ratio 3, APTT 71 H, CBC w Diff NO MAN DIFF REQ, RBC 3.94 L, MCV 78.8 L, MCH 25.6 L, RDW 18.0 H, MPV 9.4, Gran % 63.0, Lymphocytes % 21.6, Monocytes % 12.6 H, Eosinophils % 2.2, Basophils % 0.6, Absolute Granulocytes 3.4, Absolute Lymphocytes 1.2, Absolute Monocytes 0.7 H, Absolute Eosinophils 0.1, Absolute Basophils 0, PUBS MCHC 32.5 L 04/26/16 0100: Troponin I 0.08 04/25/16 1850: Troponin I 0.13 *H, PT 19.8 H, INR 1.90 H, APTT 61 H Assessment/Plan Assessment: 80-year-old man with a past medical history of paroxysmal A. fib on xaralto and metoprolol, coronary artery disease status post myocardial infarction in 1993, cardiac cath at [facility] 2003, [id number] aortic regurgitation, status post laminectomy in January 2004, went into rapid ventricular rate after surgery , and amiodarone and reverted to sinus rhythm, history of hyperlipidemia and hypertension, presented with a two-day history of symptoms of intermittent chest pain, waxing and waning. 1. Unstable angina: The patient presented with intermittent chest pain, waxing and waning, elevtaed troponins, no new EKG changes, previous history of myocardial infarction, status post cath in 2003, last echocardiogram and nuclear stress test in 2014, no clinical signs of cardiac failure. - We'll monitor on telemetry -Serial EKGs were negative -Serial troponins 0.02, 0.12, 0.13, 0.08 -aspirin 81 mg by mouth daily -on nitroglycerin sublingual tablet 0.5 mg every 5 minutes when necessary for chest pain - The patient will likely benefit from cardiac cath, will follow cardiology recommendations - In anticipation for possible cardiac cath, xaralto on hold and started IV heparin,The patient is guaiac NEGATIVE! - We'll continue with metoprolol - NPO after midnight. 2. Paroxysmal A. fib: - Rate controlled - We'll continue with metoprolol 25 mg extended release by mouth daily - For now will hold off xaralto, as the patient might go for cardiac cath - started IV heparin in anticipation for cardiac cath tomorrow 3. Hypertension: The patient has history of hypertension - We'll continue with metoprolol and Benicar for now 4. 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 Hyperlipidemia: - She takes simvastatin 40 mg at home, will continue with atorvastatin 20 mg which is a pharmacy substitution 6. Heartburn: - Continue omeprazole 40 mg by mouth daily 7. Anxiety: - We'll continue with Ativan 0.5 mg twice a day 8. History of stage I diastolic heart failure: - Continue with Lasix 40 mg by mouth daily - Last EF in 2014 was 55% - Currently is not in acute heart failure, no clinical signs of fluid overload - No orthopnea, mild trace bilateral ankle edema which is at baseline Heart healthy diet Pain pathway- tylinol, percocet, gabapentin DVT prophylaxis: Patient is on Xarelto at home, for now will hold it in activation of cardiac cath, and started on IV heparin full code npo tonight Problem List: 1. Unstable angina 2. Chest pain Pain Ratin Pain Location: none Pain Goal: Remain pain free Pain Plan: tylinol gabapentin Tomorrow's Labs & Rationales: none Consulting Request: Consulting Specialty: Cardiology Consulting Physician: Dr. Santiago Reason for Consult: Unstable Angina
[2016-04-26 08:05] LABS: ABSOLUTE BASOPHIL COUNT 0 /CUMM (0.0-0.2); ABSOLUTE EOSINOPHIL COUNT 0.1 /CUMM (0.0-0.7); ABSOLUTE GRANULOCYTE CT 3.4 /CUMM (1.4-6.5); ABSOLUTE LYMPH COUNT 1.2 /CUMM (1.2-3.4); ABSOLUTE MONOCYTE COUNT 0.7 /CUMM (0.10-0.60); BASOPHIL % 0.6 % (0.0-2.0); EOSINOPHIL % 2.2 % (0-5); MEAN CORPUSCULAR HGB 25.6 PG (27.0-31.0); MEAN CORPUSCULAR HGB CONC 32.5 G/DL (33.0-37.0); MEAN CORPUSCULAR VOLUME 78.8 FL (80.0-94.0); MEAN PLATELET VOLUME 9.4 FL (7.4-10.4); PLATELET COUNT 138 /CUMM (130-400); RED BLOOD CELL CT 3.94 /CUMM (4.70-6.10); WHITE BLOOD CELL COUNT 5.3 /CUMM (4.8-10.8)
[2016-04-26 08:21] LABS: PTT 71 SEC (25-37)
[2016-04-26 08:23] VITALS: BP 180/80
--- NOTE | 2016-04-26 15:02 | PN- Cardiology ---
Subjective Subjective: Comfortable, denies recurrent symptoms. Remains on IV Heparin gtt. His last dose of Xarelto was April 24 around 6:30 PM. Objective Vital Signs and I&Os Vital Signs Date Time Temp Pulse Resp B/P Pulse O2 O2 Flow FiO2 Ox Delivery Rate 04/26 1659 98.2 77 20 150/70 95 Room Air 04/26 0926 78 180/80 04/26 0923 78 180/80 04/26 0823 98.2 78 20 180/80 94 Room Air 04/25 2254 98.1 80 20 160/58 94 Room Air Intake & Output 04/26 1600 04/26 0800 04/26 0000 04/25 1600 04/25 0800 04/25 0000 Intake Total 557.6 257.6 456.8 0 Output Total 200 650 450 400 Balance 357.6 -392.4 6.8 -400 0 Intake, IV 157.6 157.6 156.8 Intake, Oral 400 100 300 0 Number 0 0 Bowel Movements Output, Urine 200 650 450 400 Patient 180 lb 181 lb Weight Physical Exam: General: No distress at rest. Eyes: No obvious scleral icterus. HEENT: No jugular venous distention or abnormal jugular venous pulsations. Cardiovascular: Normal intensity S1/S2. Irregular. Respiratory: no rales or ronchi Abdomen: soft, no rebound tenderness Musculoskeletal: No cyanosis noted Skin: Warm Neurologic: No gross focal deficits noted. Current Medications: Current Medications Sig/[place] Start time Last Medication Dose Route Stop Time Status Admin Acetaminophen 500 MG 0600,1200,2200 04/26 1200 AC 04/26 PO 2113 Acetaminophen 500 MG TID 04/25 1600 DC 04/25 PO 2124 Acetaminophen/ 1 TAB 0600,1200,2200 04/26 1200 AC 04/26 Hydrocodone Bitart PO 2112 Acetaminophen/ 1 TAB Q8 04/25 1400 DC 04/26 Hydrocodone Bitart PO 0603 Aspirin 81 MG DAILY 04/25 1123 AC 04/26 PO 0925 Atorvastatin Calcium 20 MG 1700 04/25 1700 AC 04/26 PO 1645 Furosemide 40 MG DAILY 04/25 1029 AC 04/26 PO 0926 Gabapentin 400 MG 0600 04/27 0600 AC PO Gabapentin 800 MG QPM 04/25 2200 AC 04/26 PO 2113 Gabapentin 200 MG 1200 04/25 1200 AC 04/26 PO 1321 Gabapentin 400 MG QAM 04/25 1102 DC 04/26 PO 0928 Heparin Sodium 25,000 UNIT Q24H 04/25 1130 AC 04/26 (Porcine) IV 0603 Sodium Chloride 500 ML Lorazepam 0.5 MG BID 04/25 1035 AC 04/26 PO 05/02 1034 2113 Losartan Potassium 100 MG DAILY 04/25 1036 AC 04/26 PO 0926 Metoprolol Succinate 12.5 MG DAILY 04/25 1036 AC 04/26 PO 0923 Nitroglycerin 0.4 MG Q 5 MINUTES X 3 DO.. 04/25 1045 AC SL Omeprazole 40 MG DAILY AC 04/25 1037 AC 04/26 PO 0603 Oxycodone/ 1 TAB Q6P PRN 04/25 1015 AC Acetaminophen PO Oxycodone/ 2 TAB Q6P PRN 04/25 1015 AC Acetaminophen PO Polyethylene Glycol 17 GM AT BEDTIME PRN 04/25 1015 AC PO Potassium Chloride 10 MEQ DAILY 04/25 1037 AC 04/26 PO 0926 Sodium Chloride 2 SPRAY Q4P PRN 04/25 2300 AC MELI Results Last 48 Hrs of Labs/Mics: Laboratory Tests 04/26/16 1925: APTT 65 H 04/26/16 0702: Anion Gap 14, Estimated GFR > 60, BUN/Creatinine Ratio 20.0, Triglycerides 103, Cholesterol 112, LDL Cholesterol, Calc 52 L, HDL Cholesterol 40, Cholesterol/ HDL Ratio 3, APTT 71 H, CBC w Diff NO MAN DIFF REQ, RBC 3.94 L, MCV 78.8 L, MCH 25.6 L, RDW 18.0 H, MPV 9.4, Gran % 63.0, Lymphocytes % 21.6, Monocytes % 12.6 H, Eosinophils % 2.2, Basophils % 0.6, Absolute Granulocytes 3.4, Absolute Lymphocytes 1.2, Absolute Monocytes 0.7 H, Absolute Eosinophils 0.1, Absolute Basophils 0, PUBS MCHC 32.5 L 04/26/16 0100: Troponin I 0.08 04/25/16 1850: Troponin I 0.13 *H, PT 19.8 H, INR 1.90 H, APTT 61 H 04/25/16 1255: Magnesium 1.8, Troponin I 0.12 *H 04/25/16 0645: Anion Gap 18 H, Estimated GFR > 60, BUN/Creatinine Ratio 18.0, Glucose 138 H, Calcium 9.7, Total Bilirubin 1.1, AST 28, ALT 18 L, Alkaline Phosphatase 76, Troponin I 0.02, Total Protein 7.2, Albumin 4.4, Globulin 2.8, Albumin/Globulin Ratio 1.6, D-Dimer < 200, CBC w Diff NO MAN DIFF REQ, RBC 4.35 L, MCV 78.6 L, MCH 25.1 L, RDW 18.8 H, MPV 9.1, Gran % 72.7, Lymphocytes % 17.3 L, Monocytes % 8.7, Eosinophils % 0.8, Basophils % 0.5, Absolute Granulocytes 4.6, Absolute Lymphocytes 1.1 L, Absolute Monocytes 0.6, Absolute Eosinophils 0.1, Absolute Basophils 0, PUBS MCHC 32.0 L Recent Imaging Studies: Telemetry shows afib with grossly controlled VRR Assessment/Plan Assessment/Plan 1. Coronary disease by history status post myocardial infarctions 1993 with PTCA now with chest discomfort similar to his prior presentation. The etiology is most likely unstable angina given his history. Troponins are mildly elevated. 2. Persistent atrial fibrillation on Xarelto 3. Hypertension 4. Chronic diastolic heart failure currently stable 5. Chronic back pain Needs full 48 hours off Xarelto prior to cardiac cath. Last dose was April 24 at around 6:30 PM. Continue IV Heparin gtt. Keep NPO after midnight for cath tomorrow. Echo is pending. If BP remains above goal can increase Toprol to 25 mg daily. Would hold AM Lasix and ARB in anticipation of cardiac cath tomorrow. Keep NPO after midnight. Continue ASA and statin. Continue telemetry. Remains in afib with controlled VRR. HD status is stable. Steffen Orta MD [facility] Continue telemetry? Yes
--- NOTE | 2016-04-26 15:14 | PN- Att Addend ---
Attending Addendum Attending Brief Note Patient comfortable in the chair, no more chest pain, and IV heparin, has been off Xarelto for 1 day. Appreciate cardiology's input and recommendations are that he needs to be off the [place] anticoagulation for 48 hours for going for his cardiac catheterization she's gone to be tomorrow no major changes on physical , monitoring troponins Current Medications Sig/[place] Start time Last Medication Dose Route Stop Time Status Admin Acetaminophen 500 MG 0600,1200,2200 04/26 1200 AC 04/26 PO 1213 Acetaminophen 0 .STK-MED ONE 04/25 1610 DC PO Acetaminophen 0 .STK-MED ONE 04/25 1608 DC PO Acetaminophen 500 MG TID 04/25 1600 DC 04/25 PO 2124 Acetaminophen/ 1 TAB 0600,1200,2200 04/26 1200 AC 04/26 Hydrocodone Bitart PO 1213 Acetaminophen/ 1 TAB Q8 04/25 1400 DC 04/26 Hydrocodone Bitart PO 0603 Aspirin 81 MG DAILY 04/25 1123 AC 04/26 PO 0925 Atorvastatin Calcium 20 MG 1700 04/25 1700 AC 04/25 PO 1612 Furosemide 40 MG DAILY 04/25 1029 AC 04/26 PO 0926 Gabapentin 400 MG 0600 04/27 0600 AC PO Gabapentin 800 MG QPM 04/25 2200 AC 04/25 PO 2124 Gabapentin 200 MG 1200 04/25 1200 AC 04/26 PO 1321 Gabapentin 400 MG QAM 04/25 1102 DC 04/26 PO 0928 Heparin Sodium 25,000 UNIT Q24H 04/25 1130 AC 04/26 (Porcine) IV 0603 Sodium Chloride 500 ML Lorazepam 0.5 MG BID 04/25 1035 AC 04/26 PO 05/02 1034 0925 Losartan Potassium 100 MG DAILY 04/25 1036 AC 04/26 PO 0926 Metoprolol Succinate 12.5 MG DAILY 04/25 1036 AC 04/26 PO 0923 Nitroglycerin 0.4 MG Q 5 MINUTES X 3 DO.. 04/25 1045 AC SL Omeprazole 40 MG DAILY AC 04/25 1037 AC 04/26 PO 0603 Oxycodone/ 1 TAB Q6P PRN 04/25 1015 AC Acetaminophen PO Oxycodone/ 2 TAB Q6P PRN 04/25 1015 AC Acetaminophen PO Polyethylene Glycol 17 GM AT BEDTIME PRN 04/25 1015 AC PO Potassium Chloride 10 MEQ DAILY 04/25 1037 AC 04/26 PO 0926 Sodium Chloride 2 SPRAY Q4P PRN 04/25 2300 AC MELI Laboratory Tests 04/26/16 0702: Anion Gap 14, Estimated GFR > 60, BUN/Creatinine Ratio 20.0, Triglycerides 103, Cholesterol 112, LDL Cholesterol, Calc 52 L, HDL Cholesterol 40, Cholesterol/ HDL Ratio 3, APTT 71 H, CBC w Diff NO MAN DIFF REQ, RBC 3.94 L, MCV 78.8 L, MCH 25.6 L, RDW 18.0 H, MPV 9.4, Gran % 63.0, Lymphocytes % 21.6, Monocytes % 12.6 H, Eosinophils % 2.2, Basophils % 0.6, Absolute Granulocytes 3.4, Absolute Lymphocytes 1.2, Absolute Monocytes 0.7 H, Absolute Eosinophils 0.1, Absolute Basophils 0, PUBS MCHC 32.5 L 04/26/16 0100: Troponin I 0.08 04/25/16 1850: Troponin I 0.13 *H, PT 19.8 H, INR 1.90 H, APTT 61 H 04/25/16 1255: Magnesium 1.8, Troponin I 0.12 *H 04/25/16 0645: Anion Gap 18 H, Estimated GFR > 60, BUN/Creatinine Ratio 18.0, Glucose 138 H, Calcium 9.7, Total Bilirubin 1.1, AST 28, ALT 18 L, Alkaline Phosphatase 76, Troponin I 0.02, Total Protein 7.2, Albumin 4.4, Globulin 2.8, Albumin/Globulin Ratio 1.6, D-Dimer < 200, CBC w Diff NO MAN DIFF REQ, RBC 4.35 L, MCV 78.6 L, MCH 25.1 L, RDW 18.8 H, MPV 9.1, Gran % 72.7, Lymphocytes % 17.3 L, Monocytes % 8.7, Eosinophils % 0.8, Basophils % 0.5, Absolute Granulocytes 4.6, Absolute Lymphocytes 1.1 L, Absolute Monocytes 0.6, Absolute Eosinophils 0.1, Absolute Basophils 0, PUBS MCHC 32.0 L Vital Signs Date Time Temp Pulse Resp B/P Pulse O2 O2 Flow FiO2 Ox Delivery Rate 04/26 925 78 180/80 04/26 922 78 180/80 04/26 08 98.2 78 20 180/80 94 Room Air 04/25 2254 98.1 80 20 160/58 94 Room Air 04/25 1706 98.4 70 20 164/60 95 Room Air 04/25 1546 99.0 58 20 155/67 96 Room Air Intake & Output 04/26 1600 04/26 0800 04/26 0000 Intake Total 257.6 456.8 Output Total 650 450 Balance -392.4 6.8 Intake, IV 157.6 156.8 Intake, Oral 100 300 Number 0 0 Bowel Movements Output, Urine 650 450 Patient 180 lb Weight
[2016-04-26 16:59] VITALS: BP 150/70
[2016-04-26 20:46] LABS: PTT 65 SEC (25-37)
[2016-04-26 23:30] VITALS: BP 138/62
--- NOTE | 2016-04-27 07:32 | PN- Housestaff ---
Subjective Follow-up For: Chest pain/unstable angina Persistent atrial fibrillation Chronic diastolic heart failure-stable Complaints: pain scale (0-10) Tele-Events Since Last Visit: Atrial fibrillation Rate 44-66 Subjective: Patient was seen and examined this morning. He is alert awake and oriented to time place and person. No other acute events noticed overnight. He denied any chest pain, palpitations, short of breath, sweating, headache, dizziness or lightheadedness. Patient was on IV heparin drip. He denied any other complaints. Vitals were stable. Afebrile. Heart rate 64, blood pressure 130/60, saturating at 94% on room air. Patient is NPO, waiting to go for cardiac catheterisation this morning. Review of Systems Constitutional: Denies: see HPI. Objective Last 24 Hrs of Vital Signs/I&O Vital Signs Date Time Temp Pulse Resp B/P Pulse O2 O2 Flow FiO2 Ox Delivery Rate 04/26 2330 97.7 64 20 138/62 95 04/26 1659 98.2 77 20 150/70 95 Room Air 04/26 0926 78 180/80 04/26 0923 78 180/80 04/26 0823 98.2 78 20 180/80 94 Room Air Intake & Output 04/27 0800 04/27 0000 04/26 1600 Intake Total 257.6 760 557.6 Output Total 450 700 200 Balance -192.4 60 357.6 Intake, IV 157.6 160 157.6 Intake, Oral 100 600 400 Output, Urine 450 700 200 Physical Exam General Appearance: Alert, Oriented X3, Cooperative, No Acute Distress Skin: No Rashes, No Breakdown HEENT: Atraumatic, Mucous Membr. moist/pink Neck: Supple, No JVD Lymphatic: Cervical nl Cardiovascular: Normal S1, Normal S2, irregular rhythm Lungs: Normal Air Movement Abdomen: Normal Bowel Sounds, Soft, No Tenderness Extremities: No Clubbing, No Cyanosis, No Edema Vascular: Normal Pulses Current Medications: Current Medications Sig/[place] Start time Last Medication Dose Route Stop Time Status Admin Acetaminophen 500 MG 0600,1200,2200 04/26 1200 AC 04/27 PO 0617 Acetaminophen 500 MG TID 04/25 1600 DC 04/25 PO 2124 Acetaminophen/ 1 TAB 0600,1200,2200 04/26 1200 AC 04/27 Hydrocodone Bitart PO 0618 Acetaminophen/ 1 TAB Q8 04/25 1400 DC 04/26 Hydrocodone Bitart PO 0603 Aspirin 81 MG DAILY 04/25 1123 AC 04/26 PO 0925 Atorvastatin Calcium 20 MG 1700 04/25 1700 AC 04/26 PO 1645 Furosemide 40 MG DAILY 04/25 1029 DC 04/26 PO 0926 Gabapentin 400 MG 0600 04/27 0600 AC 04/27 PO 0617 Gabapentin 800 MG QPM 04/25 2200 AC 04/26 PO 2113 Gabapentin 200 MG 1200 04/25 1200 AC 04/26 PO 1321 Gabapentin 400 MG QAM 04/25 1102 DC 04/26 PO 0928 Heparin Sodium 25,000 UNIT Q24H 04/25 1130 AC 04/26 (Porcine) IV 0603 Sodium Chloride 500 ML Lorazepam 0.5 MG BID 04/25 1035 AC 04/26 PO 05/02 1034 2113 Losartan Potassium 100 MG DAILY 04/25 1036 DC 04/26 PO 0926 Metoprolol Succinate 12.5 MG DAILY 04/25 1036 AC 04/26 PO 0923 Nitroglycerin 0.4 MG Q 5 MINUTES X 3 DO.. 04/25 1045 AC SL Omeprazole 40 MG DAILY AC 04/25 1037 AC 04/27 PO 0617 Oxycodone/ 1 TAB Q6P PRN 04/25 1015 AC Acetaminophen PO Oxycodone/ 2 TAB Q6P PRN 04/25 1015 AC Acetaminophen PO Polyethylene Glycol 17 GM AT BEDTIME PRN 04/25 1015 AC PO Potassium Chloride 10 MEQ DAILY 04/25 1037 AC 04/26 PO 0926 Sodium Chloride 2 SPRAY Q4P PRN 04/25 2300 AC MELI Last 24 Hrs of Lab/Teo Results Last 24 Hrs of Labs/Mics: Laboratory Tests 04/27/16 0742: APTT Pending 04/26/16 1925: APTT 65 H Assessment/Plan Assessment: 80-year-old man with a past medical history of paroxysmal A. fib on xaralto and metoprolol, coronary artery disease status post myocardial infarction in 1993, cardiac cath at [facility] 2003, [id number] aortic regurgitation, status post laminectomy in January 2004, went into rapid ventricular rate after surgery , and amiodarone and reverted to sinus rhythm, history of hyperlipidemia and hypertension, presented with a two-day history of symptoms of intermittent chest pain, waxing and waning. 1. Unstable angina: The patient presented with intermittent chest pain, waxing and waning, elevtaed troponins, no new EKG changes, previous history of myocardial infarction, status post cath in 2003, last echocardiogram and nuclear stress test in 2014, no clinical signs of cardiac failure. -monitor on telemetry -Serial EKGs were negative -Serial troponins 0.02, 0.12, 0.13, 0.08 -aspirin 81 mg by mouth daily -atorvastatin 20 daily. -on nitroglycerin sublingual tablet 0.5 mg every 5 minutes when necessary for chest pain - The patient will likely benefit from cardiac cath, will follow cardiology recommendations - In anticipation for possible cardiac cath, xaralto on hold for 48 hours and started on IV heparin,The patient is guaiac NEGATIVE! - We'll continue with metoprolol. - NPO after midnight-possible catheterisation on 04/27/16. 2. Paroxysmal A. fib: - Rate controlled - We'll continue with metoprolol 25 mg extended release by mouth daily - For now will hold off xaralto, as the patient might go for cardiac cath - started IV heparin in anticipation for cardiac cath. 3. Hypertension: The patient has history of hypertension - We'll continue with metoprolol. losartan on hold this morning( anticipated cath). 4. 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 Hyperlipidemia: - She takes simvastatin 40 mg at home, will continue with atorvastatin 20 mg which is a pharmacy substitution 6. Heartburn: - Continue omeprazole 40 mg by mouth daily 7. Anxiety: - We'll continue with Ativan 0.5 mg twice a day 8. History of stage I diastolic heart failure: - Continued with Lasix 40 mg by mouth daily - Last EF in 2014 was 55% - Currently is not in acute heart failure, no clinical signs of fluid overload - No orthopnea, mild trace bilateral ankle edema which is at baseline -lasix on hold this morning( anticipated cath). Heart healthy diet Pain pathway- tylinol, percocet, gabapentin DVT prophylaxis: Patient is on Xarelto at home, for now it was on hold in activation of cardiac cath, and started on IV heparin. full code npo since midnight for possible cath this morning Problem List: 1. Unstable angina 2. Chest pain 3. Atrial fibrillation 4. Hypertension 5. DVT prophylaxis 6. Full code status Pain Ratin Pain Location: none Pain Goal: Remain pain free Pain Plan: tylinol percocet gabapentin Tomorrow's Labs & Rationales: none Consulting Request: Consulting Specialty: Cardiology Consulting Physician: Dr. Santiago Reason for Consult: Unstable Angina
[2016-04-27] MEDS ORDERED: ATORVASTATIN CA20 M1 PO (07:49)
[2016-04-27 08:00] VITALS: BP 150/50
[2016-04-27 08:23] LABS: PTT 71 SEC (25-37)
[2016-04-27 08:40] VITALS: BP 150/50
--- NOTE | 2016-04-27 10:28 | PN- Cardiology ---
Subjective Subjective: Tele Atrial fib with controlled rate. No chest pain and comfortable sitting in a chair. Objective Vital Signs and I&Os Vital Signs Date Time Temp Pulse Resp B/P Pulse O2 O2 Flow FiO2 Ox Delivery Rate 04/27 0840 64 150/50 04/27 0800 97.6 63 20 150/50 98 Room Air 04/26 2330 97.7 64 20 138/62 95 04/26 1659 98.2 77 20 150/70 95 Room Air Intake & Output 04/27 0000 04/26 1600 04/26 0000 Intake Total 257.6 760 557.6 257.6 456.8 Output Total 450 700 200 650 450 Balance -192.4 60 357.6 -392.4 6.8 Intake, IV 157.6 160 157.6 157.6 156.8 Intake, Oral 100 600 400 100 300 Number 0 0 Bowel Movements Output, Urine 450 700 200 650 450 Patient 180 lb Weight Physical Exam: In exam patient comfortable Head normocephalic/atraumatic Eyes sclera anicteric conjunctiva showed no pallor extraocular muscles were normal Neck no jugular venous distention no thyroid masses no palpable nodes Chest lungs were clear bilaterally Heart irregular rhythm with a ventricle rate around 86 grade 2/6 systolic murmur Abdomen soft no organomegaly bowel sounds normal Extremities no clubbing cyanosis or pedal edema Neurological no obvious neurological deficit. Assessment/Plan Assessment/Plan In summary this 80-year-old gentleman has the following problems . Coronary disease by history status post myocardial infarctions 1993 with PTCA now with chest discomfort similar to his prior presentation. The etiology is most likely unstable angina given his history. Troponins are mildly elevated. 2. Persistent atrial fibrillation on Xarelto 3. Hypertension 4. Chronic diastolic heart failure currently stable 5. Chronic back pain He is being transferred momentarily for for cardiac catheterization at [facility]. Continue telemetry? No
--- NOTE | 2016-04-27 11:51 | PN- Att Addend ---
Attending Addendum Attending Brief Note No new complaints, patient nothing by mouth, now that his of his [place] anticoagulation for 48 hours going for his cardiac catheterization at 11:00 today. See discharge summary W 10 and CMR will follow patient once his home as an outpatient. Current Medications Sig/[place] Start time Last Medication Dose Route Stop Time Status Admin Acetaminophen 500 MG 0600,1200,2200 04/26 1200 AC 04/27 PO 0617 Acetaminophen/ 1 TAB 0600,1200,2200 04/26 1200 AC 04/27 Hydrocodone Bitart PO 0618 Aspirin 81 MG DAILY 04/25 1123 AC 04/27 PO 0840 Atorvastatin Calcium 20 MG 1700 04/25 1700 AC 04/26 PO 1645 Furosemide 40 MG DAILY 04/25 1029 DC 04/26 PO 0926 Gabapentin 400 MG 0600 04/27 0600 AC 04/27 PO 0617 Gabapentin 800 MG QPM 04/25 2200 AC 04/26 PO 2113 Gabapentin 200 MG 1200 04/25 1200 AC 04/26 PO 1321 Heparin Sodium 25,000 UNIT Q24H 04/25 1130 AC 04/27 (Porcine) IV 0841 Sodium Chloride 500 ML Lorazepam 0.5 MG BID 04/25 1035 AC 04/27 PO 05/02 1034 0840 Losartan Potassium 100 MG DAILY 04/25 1036 DC 04/26 PO 0926 Metoprolol Succinate 12.5 MG DAILY 04/25 1036 AC 04/27 PO 0840 Nitroglycerin 0.4 MG Q 5 MINUTES X 3 DO.. 04/25 1045 AC SL Omeprazole 40 MG DAILY AC 04/25 1037 AC 04/27 PO 0617 Oxycodone/ 1 TAB Q6P PRN 04/25 1015 AC Acetaminophen PO Oxycodone/ 2 TAB Q6P PRN 04/25 1015 AC Acetaminophen PO Polyethylene Glycol 17 GM AT BEDTIME PRN 04/25 1015 AC PO Potassium Chloride 10 MEQ DAILY 04/25 1037 AC 04/27 PO 0849 Sodium Chloride 2 SPRAY Q4P PRN 04/25 2300 AC MELI Laboratory Tests 04/27/16 0742: APTT 71 H 04/26/16 1925: APTT 65 H Vital Signs Date Time Temp Pulse Resp B/P Pulse O2 O2 Flow FiO2 Ox Delivery Rate 04/27 0840 64 150/50 04/27 0800 97.6 63 20 150/50 98 Room Air 04/26 2330 97.7 64 20 138/62 95 04/26 1659 98.2 77 20 150/70 95 Room Air Intake & Output 04/27 1600 04/27 0804/27 0000 Intake Total 257.6 760 Output Total 450 700 Balance -192.4 60 Intake, IV 157.6 160 Intake, Oral 100 600 Output, Urine 450 700 Vital Signs Date Time Temp Pulse Resp B/P Pulse O2 O2 Flow FiO2 Ox Delivery Rate 04/27 0840 64 150/50 04/27 799 97.6 63 20 150/50 98 Room Air 04/26 2330 97.7 64 20 138/62 95 04/26 1659 98.2 77 20 150/70 95 Room Air
== END 2016-04-27 11:35 | disposition short-term general hospital (02) | DRG 303 ==
LOC: ERH 06:14 → 1NO 08:13 → ERHI 08:13 → 1NO 16:47
PROVIDERS: Emergency Medicine; Pediatrics; Student in an Organized Health Care Education/Training Program; ADMIT Internal Medicine
DX: I25.110 Atherosclerotic heart disease of native coronary artery with unstable angina pectoris (principal); I50.32 Chronic diastolic (congestive) heart failure; I48.0 Paroxysmal atrial fibrillation; I11.0 Hypertensive heart disease with heart failure; M48.00 Spinal stenosis, site unspecified; Z95.5 Presence of coronary angioplasty implant and graft; Z79.01 Long term (current) use of anticoagulants; M54.9 Dorsalgia, unspecified
CPT/HCPCS: 1NSP; 82436; 93005; 93010; 96374; J1644; J3490

== ENCOUNTER 2016-05-01 12:11 | Emergency (ER) | payer OTHER ==
[~2016-05-01] VITALS: Ht 172.7 cm; Wt 80.3 kg
[~2016-05-01 12:11] MED LIST changes: +ASPIRIN EC81 M1 PO; +ATORVASTATIN CA20 M1 PO; +TYLENOL EXTRA500 M2 PO
[2016-05-01] MEDS ORDERED: CLOPIDOGREL75 M1 PO (12:33)
[2016-05-01] MEDS ORDERED: ASPIRIN EC81 M1 PO (12:34)
--- NOTE | 2016-05-01 13:19 | ED MVC/FALL/TRAUMA COMPLAINT ---
History of Present Illness General Chief Complaint: Low Back Pain/Injury Stated Complaint: BACK PAIN Source: patient, family, old records Exam Limitations: no limitations Vital Signs & Intake/Output Vital Signs & Intake/Output Vital Signs Date Time Temp Pulse Resp B/P Pulse O2 O2 Flow FiO2 Ox Delivery Rate 05/01 1510 85 15 133/60 97 Room Air Room Air 05/01 1412 90 18 194/77 98 Room Air 05/01 1331 Room Air Room Air 05/01 1218 97.5 98 18 179/80 98 Room Air Allergies Coded Allergies: NO KNOWN ALLERGIES (03/09/16) Reconcile Medications Acetaminophen (Tylenol Extra Strength) 500 MG TABLET 1 TAB PO TID PAIN ( Reported) Aspirin (Ecotrin*) 81 MG TABLET.DR 1 TAB PO DAILY BLOOD THINNER (Reported) Aspirin (Ecotrin*) 81 MG TABLET.DR 1 TAB PO DAILY Heart Atorvastatin Calcium 20 MG TABLET 1 TAB PO DAILY heart health Clopidogrel Bisulfate (Clopidogrel) 75 MG TABLET 1 TAB PO DAILY BLOOD THINNER (Reported) Furosemide (Lasix) 40 MG TAB 1 TAB PO DAILY HEART HEALTH Gabapentin (Neurontin) 400 MG CAPSULE 2 CAP PO QPM NEUROPATHY (Reported) Gabapentin 100 MG CAPSULE 2 CAP PO SEE ADMIN CRITERIA NEUROPATHY (Reported) 400 IN AM 200 AT LUNCH TIME 800 AT NIGHT HYDROCODONE/ACETAMINOPHEN (Hydrocodon-Acetaminoph 7.5-325) 1 TAB TAB 1 TAB PO Q8H PAIN (Reported) Hydrocodone/Acetaminophen (Lorcet Hd 10-325 MG Tablet) 10 MG-325 MG TABLET 1 TAB PO TID BACK PAIN Lorazepam (Ativan) 0.5 MG TABLET 1 TAB PO BID ANXIETY (Reported) Metoprolol Succinate 25 MG TAB 0.5 TAB PO DAILY HIGH BP (Reported) Olmesartan Medoxomil (Benicar) 40 MG TABLET 1 TAB PO DAILY HEART (Reported) Omeprazole 40 MG ECC 1 CAP PO DAILY GI (Reported) Potassium Chloride [address] 1 TAB PO DAILY SUPPLEMENT (Reported) Simvastatin (Zocor 40MG Tab) 40 MG TAB 1 TAB PO QPM CHOLESTEROL (Reported) Triage Note: PT COMPLAINS OF LOW BACK PAIN THAT SHOOTS DOWN HIS R LEG SINCE SUNDAY AFTER INCIDENT AT ANOTHER HOSPITAL Triage Nurses Notes Reviewed? yes HPI: Patient presents for evaluation of injury sustained status post fall on of last week. Patient states that he was in the postoperative phase after cardiac stent when he was dropped by hospital staff. They were transferring him from one stretcher to the next 20 fell in between the stretchers. Since then he has had a severe low back pain (bilateral) and right lower extremity pain particularly of the right foot with associated right foot swelling. The pains are described as mild to moderate but becomes severe with any attempt to ambulate. In fact the patient is unable to ambulate due to pain despite the use of Vicodin and gabapentin and Tylenol. He denies any urinary or fecal incontinence or urinary retention. He has noted however a dark colored urine. Past History Travel History Traveled to [place] past 21 day No Medical History Any Pertinent Medical History? 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 One brother of pulmonary embolism.). Hx Contributory? No Review of Systems Review of Systems Constitutional: Reports: no symptoms. Eyes: Reports: no symptoms. Ears, Nose, Throat, Mouth: Reports: no symptoms. Respiratory: Reports: no symptoms. Cardiovascular: Reports: no symptoms. Gastrointestinal/Abdominal: Reports: no symptoms. Genitourinary: Reports: no symptoms. Musculoskeletal: Reports: see HPI. Skin: Reports: no symptoms. Neurological/Psychological: Reports: no symptoms. All Other Systems: Reviewed and Negative Physical Exam Physical Exam General Appearance: SEE BELOW Comments: Gen.: Well-nourished, well-developed, no acute respiratory distress. Head: Normocephalic, atraumatic. Eyes: Normal inspection bilaterally Ears: Normal inspection bilaterally Nose: Normal inspection, nasal cannula in place Throat/mouth : Moist mucosa Neck: Supple, full range of motion, no goiter Heart: Regular rate and rhythm Lungs: Quiet respirations Back: Normal range of motion, nontender to palpation, no soft tissue swelling or ecchymoses. Prior surgical scar. Extremities: Right foot: Tenderness and soft tissue swelling diffusely. The remainder of the right lower extremity examination is unremarkable. Neurologic: Cranial nerves grossly intact, speech is clear Skin: warm and dry Psychiatric: Calm, cooperative, no apparent delusions or hallucinations Core Measures ACS in differential dx? No Severe Sepsis Present: No Septic Shock Present: No Progress Differential Diagnosis: LUMBOSACRAL SPRAIN/CONTUSION/FRACTURE, RIGHT FOOT FRACTURE, SPRAINS, STRAINS, HEMOGLOBINURIA, MYOGLOBINURIA Plan of Care: Orders Procedure Date/time Status URINALYSIS 05/01 1316 Complete COMPREHENSIVE METABOLIC PANEL 05/01 1316 Complete CREATINE PHOSPHOKINASE 05/01 1316 Complete CBC WITHOUT DIFFERENTIAL 05/01 1316 Complete Laboratory Tests 05/01/16 1420: Urinalysis LIGHT H, Urine Color YEL, Urine Clarity CLEAR, Urine pH 6.0, Ur Specific [place] >= 1.030, Urine Protein 100 H, Urine Ketones NEG, Urine Nitrite NEG, Urine Bilirubin NEG, Urine Urobilinogen 1.0, Ur Leukocyte Esterase NEG, Ur Microscopic SEDIMENT EXAMINED, Urine RBC 1-3, Urine WBC 1-3 H, Ur Epithelial Cells FEW, Urine Mucus MOD H, Urine Hemoglobin TRACE-LYSED H, Urine Glucose NEG 05/01/16 1325: Anion Gap 18 H, Estimated GFR > 60, BUN/Creatinine Ratio 17.8, Glucose 108 H, Calcium 9.2, Total Bilirubin 1.3, AST 33, ALT 26, Alkaline Phosphatase 88, Creatine Kinase 209 H, Total Protein 7.1, Albumin 4.0, Globulin 3.1, Albumin/ Globulin Ratio 1.3, CBC w Diff NO MAN DIFF REQ, RBC 4.03 L, MCV 78.7 L, MCH 25.1 L, RDW 19.3 H, MPV 8.9, Gran % 71.9, Lymphocytes % 12.3 L, Monocytes % 14.5 H, Eosinophils % 0.6, Basophils % 0.7, Absolute Granulocytes 6.3, Absolute Lymphocytes 1.1 L, Absolute Monocytes 1.3 H, Absolute Eosinophils 0.1, Absolute Basophils 0.1, PUBS MCHC 31.9 L Diagnostic Imaging: Discussed w/RAD: Radiology Read. Radiology Impression: PATIENT: ROSSY,KIRIT J PRESENT AGE: 80 PATIENT ACCOUNT NO: [id number] : 36 LOCATION: ER ORDERING PHYSICIAN: CHEPE RIOS MD SERVICE DATE: 05/01/16 EXAM TYPE: RAD - XRY-LUMBOSACRAL SPINE 4 VIEWS EXAMINATION: XR LUMBOSACRAL SPINE CLINICAL INFORMATION: Fall with pain. COMPARISON: CT abdomen pelvis 01/22/2012. TECHNIQUE : 4 views lumbosacral spine FINDINGS: There is grade 1 spondylolisthesis with forward slippage of L5 upon S1. Dense calcification is noted at the L2-L3 disc space. The disc spaces, however, are well maintained. Marked aortic calcification is present. No acute fractures or bony destructive lesions seen. IMPRESSION: Grade 1 spondylolisthesis L5 upon S1 as described above. Calcification in the L2-L3 disc space. DICTATED BY: HERNANDO DOBSON MD DATE/TIME DICTATED:05/01/161413 WINDER HELPER:CHRISTIE DATE/TIME TRANSCRIBED:1413 CONFIDENTIAL, DO NOT COPY WITHOUT APPROPRIATE AUTHORIZATION. < Electronically signed in Other Vendor System> SIGNED BY: HERNANDO DOBSON MD 05/01/16 1431, PATIENT: KIRIT BLAIR PRESENT AGE: 80 PATIENT ACCOUNT NO: [id number] : 36 LOCATION: [facility] ORDERING PHYSICIAN: CHEPE RIOS MD SERVICE DATE: 05/01/16 EXAM TYPE: RAD - XRY-FOOT COMPLETE, R EXAMINATION: XR FOOT, RIGHT CLINICAL INFORMATION: Status post fall with foot pain. COMPARISON: None. TECHNIQUE: AP, lateral, and oblique views of the right foot. FINDINGS: There is mild hallux valgus with associated degenerative changes present at the 1st metatarsophalangeal joint, as well as to a lesser extent at the DIP joints. No acute fracture is seen. Diffuse vascular calcifications are noted. Spurring is noted off the undersurface of the calcaneus as well as at the Achilles insertion. IMPRESSION: Mild degenerative change. Calcaneal spurring. No acute finding is present. DICTATED BY: HERNANDO DOBSNO MD DATE/TIME DICTATED:05/01/161420 WINDER HELPER:CHRISTIE DATE/TIME TRANSCRIBED:05/01/161420 CONFIDENTIAL, DO NOT COPY WITHOUT APPROPRIATE AUTHORIZATION. <Electronically signed in Other Vendor System> SIGNED BY: HERNANDO DOBSON MD 05/01/16 1431, PATIENT: KIRIT BLAIR PRESENT AGE: 80 PATIENT ACCOUNT NO: [id number] : 36 LOCATION: [facility] ORDERING PHYSICIAN: CHEPE RIOS MD SERVICE DATE: 05/01/16 EXAM TYPE: RAD - XRY-AP PELVIS EXAMINATION: XR PELVIS CLINICAL INFORMATION: Status post fall with pelvic pain. COMPARISON: None. TECHNIQUE: AP view of the pelvis. FINDINGS: No acute abnormality is seen. Some degenerative changes are noted in the spine. No bony destructive lesion is seen. IMPRESSION: No acute finding. DICTATED BY: HERNANDO DOBSON MD DATE/TIME DICTATED:05/01/161419 WINDER HELPER:MELANIE DATE/TIME TRANSCRIBED:05/01/161419 CONFIDENTIAL, DO NOT COPY WITHOUT APPROPRIATE AUTHORIZATION. <Electronically signed in Other Vendor System> SIGNED BY: HERNANDO DOBSON MD 05/01/16 1427 Comments: 05/01/2016 3:01:05 PM I have updated Kirit on his test results. Although he is feeling a little better with his usual afternoon medications she is still experiencing significant back pain gets worse with movement. I have ordered subcutaneous morphine. I will increase his current pain medication to 10 mg hydrocodone every 8 hours. 05/01/2016 4:01:51 PM Kirit has tolerated morphine well and appears more comfortable. Departure Departure Disposition: HOME OR SELF CARE Condition: Stable Clinical Impression Primary Impression: Low back strain Qualifiers: Encounter type: initial encounter Qualified Code: S39.012A - Strain of muscle, fascia and tendon of lower back, initial encounter Secondary Impressions: Anemia Qualifiers: Anemia type: unspecified type Qualified Code: D64.9 - Anemia, unspecified Contusion of right foot Qualifiers: Encounter type: initial encounter Qualified Code: S90.31XA - Contusion of right foot, initial encounter Spondylolisthesis of lumbar region Referrals: GINA BARCENAS MD (PCP/Family) Additional Instructions: Discontinue your current Vicodin dose and instead begin taking the prescription. Once the prescription runs out convert back to your prior Vicodin dose. Rest, no exertion. Follow-up with your primary care doctor this week for reevaluation. Notify your statuary painter of this current treatment plan. Return if any concerns or sudden worsening. Please note that there might be incidental findings in your evaluation that are unrelated to the current emergency department visit. Please notify your primary care doctor about this emergency department visit in order to obtain and review all of the testing performed so that these incidental findings can be monitored as needed. If you had an x-ray performed, please understand that some fractures may not be seen on the initial set of x-rays. If your symptoms persist you might need a repeat set of x-rays to check for such a fracture. If you had a laceration evaluated, please understand that foreign bodies such as glass or wood may not be visible to the naked eye or on plain x-rays. If the wound becomes red, swollen, increasingly more painful or if there is any drainage from the wound, please have it reevaluated by a physician for the possibility of a retained foreign body. Thank you for choosing the [facility] Emergency Department for your care. It was a pleasure to serve you today. Chepe Rios M.D. [facility] Departure Forms: Customer Survey General Discharge Information Prescriptions: Current Visit Scripts Hydrocodone/Acetaminophen (Lorcet Hd 10-325 MG Tablet) 1 TAB PO TID #9 TAB Critical Care Note Critical Care Note Critical Care Time: 30-74 min
[2016-05-01 13:41] LABS: ABSOLUTE BASOPHIL COUNT 0.1 /CUMM (0.0-0.2); ABSOLUTE EOSINOPHIL COUNT 0.1 /CUMM (0.0-0.7); ABSOLUTE GRANULOCYTE CT 6.3 /CUMM (1.4-6.5); ABSOLUTE LYMPH COUNT 1.1 /CUMM (1.2-3.4); ABSOLUTE MONOCYTE COUNT 1.3 /CUMM (0.10-0.60); BASOPHIL % 0.7 % (0.0-2.0); EOSINOPHIL % 0.6 % (0-5); GRANULOCYTE % 71.9 % (42.2-75.2); HEMATOCRIT 31.7 % (42-52); MEAN CORPUSCULAR HGB 25.1 PG (27.0-31.0); MEAN CORPUSCULAR HGB CONC 31.9 G/DL (33.0-37.0); MEAN CORPUSCULAR VOLUME 78.7 FL (80.0-94.0); MEAN PLATELET VOLUME 8.9 FL (7.4-10.4); PLATELET COUNT 189 /CUMM (130-400); RBC DISTRIBUTION WIDTH 19.3 % (11.5-14.5); RED BLOOD CELL CT 4.03 /CUMM (4.70-6.10)
[2016-05-01 13:45] LABS: WHITE BLOOD CELL COUNT 8.8 /CUMM (4.8-10.8)
--- NOTE | 2016-05-01 14:27 | RADIOLOGY REPORT ---
EXAMINATION: XR PELVIS CLINICAL INFORMATION: Status post fall with pelvic pain. COMPARISON: None. TECHNIQUE: AP view of the pelvis. FINDINGS: No acute abnormality is seen. Some degenerative changes are noted in the spine. No bony destructive lesion is seen. IMPRESSION: No acute finding.
--- NOTE | 2016-05-01 14:31 | RADIOLOGY REPORT ---
EXAMINATION: XR LUMBOSACRAL SPINE CLINICAL INFORMATION: Fall with pain. COMPARISON: CT abdomen pelvis 01/22/2012. TECHNIQUE: 4 views lumbosacral spine FINDINGS: There is grade 1 spondylolisthesis with forward slippage of L5 upon S1. Dense calcification is noted at the L2-L3 disc space. The disc spaces, however, are well maintained. Marked aortic calcification is present. No acute fractures or bony destructive lesions seen. IMPRESSION: Grade 1 spondylolisthesis L5 upon S1 as described above. Calcification in the L2-L3 disc space.
--- NOTE | 2016-05-01 14:31 | RADIOLOGY REPORT ---
EXAMINATION: XR FOOT, RIGHT CLINICAL INFORMATION: Status post fall with foot pain. COMPARISON: None. TECHNIQUE: AP, lateral, and oblique views of the right foot. FINDINGS: There is mild hallux valgus with associated degenerative changes present at the 1st metatarsophalangeal joint, as well as to a lesser extent at the DIP joints. No acute fracture is seen. Diffuse vascular calcifications are noted. Spurring is noted off the undersurface of the calcaneus as well as at the Achilles insertion. IMPRESSION: Mild degenerative change. Calcaneal spurring. No acute finding is present.
[2016-05-01] MEDS ORDERED: LORCET HD 10-31 EACH PO (14:57)
[2016-05-01 15:10] VITALS: BP 133/60
== END 2016-05-01 16:13 ==
LOC: ERH 12:11
PROVIDERS: Emergency Medicine
DX: S39.012A Strain of muscle, fascia and tendon of lower back, initial encounter (principal); S90.31XA Contusion of right foot, initial encounter; D64.9 Anemia, unspecified; M43.16 Spondylolisthesis, lumbar region; W19.XXXA Unspecified fall, initial encounter
CPT/HCPCS: 72110; 72170; 73630-RT; 81001; 96372; J1165

== ENCOUNTER 2016-05-10 06:32 | Emergency (ER) | payer OTHER ==
[~2016-05-10 06:32] MED LIST changes: +CLOPIDOGREL75 M1 PO; +LORCET HD 10-31 EACH PO
--- NOTE | 2016-05-10 06:43 | ED DYSPNEA/ASTHMA COMPLAINT ---
History of Present Illness General Chief Complaint: Dyspnea (COPD, CHF, Other) Stated Complaint: PER ,"HE IS HAVING TROUBLE BREATHING" Source: patient, family, old records Exam Limitations: no limitations Vital Signs & Intake/Output Vital Signs & Intake/Output Vital Signs Date Time Temp Pulse Resp B/P Pulse O2 O2 Flow FiO2 Ox Delivery Rate 05/10 0653 97.0 88 22 182/78 97 Room Air (LUZ CHUNG,FRANK Farmer) Allergies Coded Allergies: NO KNOWN ALLERGIES (03/09/16) Reconcile Medications Acetaminophen (Tylenol Extra Strength) 500 MG TABLET 1 TAB PO TID PAIN ( Reported) Aspirin (Ecotrin*) 81 MG TABLET.DR 1 TAB PO DAILY BLOOD THINNER (Reported) Atorvastatin Calcium 20 MG TABLET 1 TAB PO DAILY heart health Clopidogrel Bisulfate (Clopidogrel) 75 MG TABLET 1 TAB PO DAILY BLOOD THINNER (Reported) Furosemide (Lasix) 40 MG TAB 1 TAB PO DAILY HEART HEALTH Gabapentin (Neurontin) 400 MG CAPSULE 2 CAP PO QPM NEUROPATHY (Reported) Gabapentin 100 MG CAPSULE 2 CAP PO SEE ADMIN CRITERIA NEUROPATHY (Reported) 400 IN AM 200 AT LUNCH TIME 800 AT NIGHT HYDROCODONE/ACETAMINOPHEN (Hydrocodon-Acetaminoph 7.5-325) 1 TAB TAB 1 TAB PO Q8H PAIN (Reported) Hydrocodone/Acetaminophen (Lorcet Hd 10-325 MG Tablet) 10 MG-325 MG TABLET 1 TAB PO TID BACK PAIN Lorazepam (Ativan) 0.5 MG TABLET 1 TAB PO BID ANXIETY (Reported) Metoprolol Succinate 25 MG TAB 0.5 TAB PO DAILY HIGH BP (Reported) Olmesartan Medoxomil (Benicar) 40 MG TABLET 1 TAB PO DAILY HEART (Reported) Omeprazole 40 MG ECC 1 CAP PO DAILY GI (Reported) Potassium Chloride [address] 1 TAB PO DAILY SUPPLEMENT (Reported) Triage Note: PERPT HAD A STENT PLACED FEW DAYS AGO,? CARDIAC STENT, SOB ALL NIGHT UNABLE TO SLEEP D/T SOB, DENEIS CP NO NAUSEA OR DIAPHORESIS APPEARS PALE. Triage Nurses Notes Reviewed? yes HPI: PT PRESENTS WITH DIFFICULTY BREATHING SINCE LAST NIGHT. PT HAD A CARDIAC STENT PLACED LAST WEEK AND HAS BEEN DOING FINE UNTIL LAST NIGHT. POSITIVE HUERTA, NO ORTHOPNEA-PT SLEPT ON 2 PILLOWS WHICH IS NORMAL FOR HIM OVER THE PAST FEW MONTHS. PT DENIES ANY CHEST PAIN. NO FEVERS OR CHILLS. NO COUGH, NO NAUSEA OR VOMITING. NO DYSURIA. (LUZ CHUNG,FRANK Farmer) Past History Travel History Traveled to [place] past 21 day No Medical History Any Pertinent Medical History? 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 One brother of pulmonary embolism.). Hx Contributory? Yes (LUZ CHUNG,FRANK Farmer) Review of Systems Review of Systems Constitutional: Reports: no symptoms. EENTM: Reports: no symptoms. Respiratory: Reports: see HPI, short of breath. Cardiovascular: Reports: no symptoms. GI: Reports: no symptoms. Genitourinary: Reports: no symptoms. Musculoskeletal: Reports: no symptoms. Skin: Reports: no symptoms. Neurological/Psychological: Reports: no symptoms. Hematologic/Endocrine: Reports: no symptoms. Immunologic/Allergic: Reports: no symptoms. All Other Systems: Reviewed and Negative (LUZ CHUNG,FRANK Farmer) Physical Exam Physical Exam General Appearance: well developed/nourished, alert, awake, anxious, moderate distress Head: atraumatic, normal appearance Eyes: Bilateral: PERRL, EOMI. Ears, Nose, Throat: normal pharynx, normal ENT inspection, hearing grossly normal Neck: normal inspection, supple, full range of motion, JVD Respiratory: normal breath sounds, chest non-tender, no respiratory distress, lungs clear Cardiovascular: normal peripheral pulses, systolic murmur, irregularly irregular Gastrointestinal: normal bowel sounds, soft, non-tender, no organomegaly Extremities: normal inspection, normal capillary refill, normal range of motion, pedal edema (RLE) Neurologic/Psych: no motor/sensory deficits, awake, alert, oriented x 3, normal mood/affect Skin: intact, normal color, warm/dry Lymphatic: no anterior cervical alistair Core Measures ACS in differential dx? Yes Severe Sepsis Present: No Septic Shock Present: No (LUZ CHUNG,FRANK Farmer) Progress Differential Diagnosis: asthma, AMI, altitude sickness, COPD, pneumonia Plan of Care: Orders Procedure Date/time Status PROTHROMBIN TIME 05/10 0550 Complete Telemetry/Food And Nutrition Services Assistant 05/10 646 Active URINALYSIS 05/10 646 Active TROPONIN LEVEL 05/10 646 Complete COMPREHENSIVE METABOLIC PANEL 05/10 646 Complete CBC WITHOUT DIFFERENTIAL 05/10 646 Complete B-TYPE NATRIURETIC PEP (BNP) 05/10 646 Complete EKG 05/10 0634 Active Laboratory Tests 05/10/16 0650: Anion Gap 16, Estimated GFR > 60, BUN/Creatinine Ratio 17.0, Glucose 126 H, Calcium 9.8, Total Bilirubin 1.0, AST 24, ALT 21, Alkaline Phosphatase 99, Troponin I 0.02, [id number]-[id number] Pept 4700 H, Total Protein 7.2, Albumin 4.3, Globulin 2.9, Albumin/Globulin Ratio 1.5, PT 24.2 H, INR 2.32 H, CBC w Diff NO MAN DIFF REQ, RBC 4.15 L, MCV 78.7 L, MCH 25.2 L, RDW 19.4 H, MPV 8.7, Gran % 70.1, Lymphocytes % 20.1 L, Monocytes % 8.8, Eosinophils % 0.6, Basophils % 0.4, Absolute Granulocytes 5.3, Absolute Lymphocytes 1.5, Absolute Monocytes 0.7 H, Absolute Eosinophils 0, Absolute Basophils 0, PUBS MCHC 32.0 L Initial ED EKG: AFIB, nonspecific ST T wave chg Prior EKG: unchanged Rhythm Strip: atrial fibrillation Hand-Off Endorsed To: ABE JOHNS MD Endorsed Time: 0700 Pending: labs, Xray (LUZ CHUNG,FRANK Farmer) Diagnostic Imaging: Viewed by Me: Radiology Read. Discussed w/RAD: Radiology Read. Radiology Impression: no acute abnormality Comments: Patient recently began physical activity after bedrest for 2 weeks after cardiac catheterization. Spouse reports lasix discontinued 2 weeks ago and restarted at half dose yesterday. Discussed with cardiology, resume previous dosage and follow up next week. (ABE JOHNS MD) Departure Departure Condition: Stable (FRANK ESCOBAR MD) Departure Time of Disposition: 943 Disposition: HOME OR SELF CARE Clinical Impression Primary Impression: Dyspnea Qualifiers: Dyspnea type: dyspnea on exertion Qualified Code: R06.09 - Other forms of dyspnea Secondary Impressions: Atrial fibrillation Qualifiers: Atrial fibrillation type: chronic Qualified Code: I48.2 - Chronic atrial fibrillation Referrals: BILL MUNIZ MD Call for appointment next week GINA BARCENAS MD (PCP/Family) Additional Instructions: Resume your furosemide 40 mg dosage daily. Departure Forms: Customer Survey General Discharge Information (ABE JOHNS MD) Critical Care Note Critical Care Note Critical Care Time: non-applicable (LUZ CHUNG,FRANK Farmer)
[2016-05-10 06:57] LABS: ABSOLUTE BASOPHIL COUNT 0 /CUMM (0.0-0.2); ABSOLUTE EOSINOPHIL COUNT 0 /CUMM (0.0-0.7); ABSOLUTE GRANULOCYTE CT 5.3 /CUMM (1.4-6.5); ABSOLUTE LYMPH COUNT 1.5 /CUMM (1.2-3.4); ABSOLUTE MONOCYTE COUNT 0.7 /CUMM (0.10-0.60); BASOPHIL % 0.4 % (0.0-2.0); EOSINOPHIL % 0.6 % (0-5); GRANULOCYTE % 70.1 % (42.2-75.2); HEMATOCRIT 32.7 % (42-52); MEAN CORPUSCULAR HGB 25.2 PG (27.0-31.0); MEAN CORPUSCULAR VOLUME 78.7 FL (80.0-94.0); MEAN PLATELET VOLUME 8.7 FL (7.4-10.4); PLATELET COUNT 261 /CUMM (130-400); RBC DISTRIBUTION WIDTH 19.4 % (11.5-14.5); RED BLOOD CELL CT 4.15 /CUMM (4.70-6.10); WHITE BLOOD CELL COUNT 7.5 /CUMM (4.8-10.8)
[2016-05-10 07:04] LABS: PT 24.2 SEC (9.4-12.5)
--- NOTE | 2016-05-10 07:57 | RADIOLOGY REPORT ---
EXAMINATION: XR PORTABLE CHEST CLINICAL INFORMATION: Pulmonary edema . Shortness of breath COMPARISON: 04/25/2016 TECHNIQUE: Portable view of the chest was obtained. FINDINGS: Cardiomegaly. No significant pulmonary edema. No pleural effusions. No focal airspace disease. IMPRESSION: Cardiomegaly. No acute cardiothoracic process.
[2016-05-10 10:14] VITALS: BP 180/80
--- NOTE | 2016-05-10 12:25 | Cons- Cardiology ---
General Information and HPI Consulting Request Date of Consult: 05/10/16 Requested By: Dr. Angulo Reason for Consult: cad, afib, dyspnea Source of Information: patient, family, old records History of Present Illness: This is a 80-year-old male with coronary disease by history status post myocardial infarctions 1993 with PTCA and recent NSTEMI status post drug-eluting stent to the LAD at [facility] 04/27/2016, atrial fibrillation on Xarelto , chronic diastolic CHF, and chronic back pain. He had recent chest discomfort with mild troponin elevation at [facility] and we sent him for cardiac catheterization at [facility]. Chest discomfort resolved post PCI but he did note some mild increased exertional dyspnea over the last 2 days. Lasix had been held at [facility] and restarted in my office yesterday (20mg) but he was still having some exertional dyspnea and difficulty sleeping so he decided to come to the emergency room for further evaluation. Denies recurrent chest discomfort, abdominal discomfort, palpitations, syncope, headache, slurring of speech, diarrhea, nausea, or vomiting. Activity is sometimes difficult for him given his chronic back pain. Allergies/Medications Allergies: Coded Allergies: NO KNOWN ALLERGIES (03/09/16) Home Med List: Acetaminophen (Tylenol Extra Strength) 500 MG TABLET 1 TAB PO TID PAIN ( Reported) Aspirin (Ecotrin*) 81 MG TABLET.DR 1 TAB PO DAILY BLOOD THINNER (Reported) Atorvastatin Calcium 20 MG TABLET 1 TAB PO DAILY heart health Clopidogrel Bisulfate (Clopidogrel) 75 MG TABLET 1 TAB PO DAILY BLOOD THINNER (Reported) Furosemide (Lasix) 40 MG TAB 1 TAB PO DAILY HEART HEALTH Gabapentin (Neurontin) 400 MG CAPSULE 2 CAP PO QPM NEUROPATHY (Reported) Gabapentin 100 MG CAPSULE 2 CAP PO SEE ADMIN CRITERIA NEUROPATHY (Reported) 400 IN AM 200 AT LUNCH TIME 800 AT NIGHT HYDROCODONE/ACETAMINOPHEN (Hydrocodon-Acetaminoph 7.5-325) 1 TAB TAB 1 TAB PO Q8H PAIN (Reported) Hydrocodone/Acetaminophen (Lorcet Hd 10-325 MG Tablet) 10 MG-325 MG TABLET 1 TAB PO TID BACK PAIN Lorazepam (Ativan) 0.5 MG TABLET 1 TAB PO BID ANXIETY (Reported) Metoprolol Succinate 25 MG TAB 0.5 TAB PO DAILY HIGH BP (Reported) Olmesartan Medoxomil (Benicar) 40 MG TABLET 1 TAB PO DAILY HEART (Reported) Omeprazole 40 MG ECC 1 CAP PO DAILY GI (Reported) Potassium Chloride [address] 1 TAB PO DAILY SUPPLEMENT (Reported) Review of Systems Review of Systems: Review of systems as per HPI. The remainder of a 10 point review of systems was reviewed and was otherwise negative. 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 One brother of pulmonary embolism.). Psychosocial History Who Do You Live With? spouse Services at Home: None ETOH Use: denies use Illicit Drug Use: denies illicit drug use Living Will? yes Functional Ability ADLs Independent: dressing, eating, toileting, bathing. Ambulation: independent IADLs Independent: shopping, housework, finances, food prep, telephone, transportation , medication admin. Exam & Diagnostic Data Vital Signs and I&O Vital Signs Date Time Temp Pulse Resp B/P Pulse O2 O2 Flow FiO2 Ox Delivery Rate 05/10 1014 97.7 78 16 180/80 98 Room Air 05/10 0653 97.0 88 22 182/78 97 Room Air Intake & Output 05/10 1600 05/10 0800 05/10 0000 05/09 1600 05/09 0800 05/09 0000 Intake Total 0 Output Total Balance 0 Intake, Oral 0 Patient 181 lb Weight Physical Exam: General: no apparent distress. Alert. Eyes: No obvious scleral icterus. HEENT: No jugular venous distention or abnormal jugular venous pulsations. Cardiovascular: Normal intensity S1/S2. Irregular. 1/6 SM. Respiratory: Lungs clear to auscultation bilaterally. Abdomen: Soft, nontender with no guarding or rebound tenderness. Musculoskeletal: No clubbing or cyanosis noted, trace lower extremity edema Skin: Warm Neurologic: No gross focal deficits noted. Labs/Teo Results: Laboratory Tests 05/10 05/10 1013 0650 Chemistry Sodium (137 - 145 mmol/L) 146 H Potassium (3.5 - 5.1 mmol/L) 4.1 Chloride (98 - 107 mmol/L) 109 H Carbon Dioxide (22 - 30 mmol/L) 21 L Anion Gap (5 - 16) 16 BUN (9 - 20 mg/dL) 17 Creatinine (0.7 - 1.2 mg/dL) 1.0 Estimated GFR (>60 ml/min) > 60 BUN/Creatinine Ratio (7 - 25 %) 17.0 Glucose (65 - 99 mg/dL) 126 H Calcium (8.4 - 10.2 mg/dL) 9.8 Total Bilirubin (0.2 - 1.3 mg/dL) 1.0 AST (17 - 59 U/L) 24 ALT (21 - 72 U/L) 21 Alkaline Phosphatase (< 127 U/L) 99 Troponin I (<0.11 ng/ml) 0.02 Boi-R-Ereucliepqd Pept (<125 pg/mL) 4700 H Total Protein (6.3 - 8.2 g/dL) 7.2 Albumin (3.5 - 5.0 g/dL) 4.3 Globulin (1.9 - 4.2 gm/dL) 2.9 Albumin/Globulin Ratio (1.1 - 2.2 %) 1.5 Coagulation PT (9.4 - 12.5 SEC) 24.2 H INR (0.90 - 1.17) 2.32 H Hematology CBC w Diff NO MAN DIFF REQ WBC (4.8 - 10.8 /CUMM) 7.5 RBC (4.70 - 6.10 /CUMM) 4.15 L Hgb (14.0 - 18.0 G/DL) 10.5 L Hct (42 - 52 %) 32.7 L MCV (80.0 - 94.0 FL) 78.7 L MCH (27.0 - 31.0 PG) 25.2 L RDW (11.5 - 14.5 %) 19.4 H Plt Count (130 - 400 /CUMM) 261 MPV (7.4 - 10.4 FL) 8.7 Gran % (42.2 - 75.2 %) 70.1 Lymphocytes % (20.5 - 51.1 %) 20.1 L Monocytes % (1.7 - 9.3 %) 8.8 Eosinophils % (0 - 5 %) 0.6 Basophils % (0.0 - 2.0 %) 0.4 Absolute Granulocytes (1.4 - 6.5 /CUMM) 5.3 Absolute Lymphocytes (1.2 - 3.4 /CUMM) 1.5 Absolute Monocytes (0.10 - 0.60 /CUMM) 0.7 H Absolute Eosinophils (0.0 - 0.7 /CUMM) 0 Absolute Basophils (0.0 - 0.2 /CUMM) 0 PUBS MCHC (33.0 - 37.0 G/DL) 32.0 L Urines Urinalysis LIGHT H Urine Color (YEL,AMB,STR) YEL Urine Clarity (CLEAR) CLEAR Urine pH (5.0 - 8.0) 6.0 Ur Specific [place] (1.001 - 1.035) >= 1.030 Urine Protein (NEG,<30 MG/DL) 100 H Urine Ketones (NEG) NEG Urine Nitrite (NEG) NEG Urine Bilirubin (NEG) NEG Urine Urobilinogen (0.1 - 1.0 EU/dl) 0.2 Ur Leukocyte Esterase (NEG) NEG Ur Microscopic SEDIMENT EXAMINED Urine RBC (0 - 5 /HPF) 1-3 Ur Epithelial Cells (NONE,FEW) FEW Urine Hemoglobin (NEG) TRACE-INTACT H Urine Glucose (N MG/DL) NEG Diagnostic Data EKG Results Tracing was personally reviewed and shows atrial fibrillation at 93 beats per minutes with possible old anteroseptal infarct and nonspecific ST abnormalities, isolated PVC CXR Results IMPRESSION: Cardiomegaly. No acute cardiothoracic process. Assessment/Plan Assessment/Plan 1. Coronary disease by history status post myocardial infarctions 1993 with PTCA and recent NSTEMI status post drug-eluting stent to the LAD at [facility] 04/27/2016 2. Persistent atrial fibrillation on Xarelto 3. Hypertension 4. Chronic diastolic heart failure 5. Chronic back pain 6. Dyspnea on exertion Mild dyspnea may be due to mild volume overload with also a component of deconditioning given recent hospitalization. Declines cardiac rehabilitation for now. Just started back on Lasix 20 mg daily yesterday but will go to 40 mg daily which he was on prior to recent transfer to [facility]. Blood pressure elevated today but was normal in the office yesterday, continue to monitor. No recurrent anginal symptoms and troponin level is negative. No indication for admission at this time. Patient should follow-up in our office next week for reassessment. Plan for outpatient echocardiogram as he did not have a recent Echo. If any new or worsening symptoms will return to the emergency room via 911 for further evaluation. Continue full AC with dual antiplatelet therapy, risks and benefits again reviewed. Steffen Orta MD [facility] Consult Acknowledgment - Thank you for your consult request.
== END 2016-05-10 10:10 ==
LOC: ERH 06:32
PROVIDERS: Emergency Medicine
DX: I48.91 Unspecified atrial fibrillation (principal)
CPT/HCPCS: 81001; 93005; 93010

== ENCOUNTER 2016-05-23 00:44 | Emergency (ER) | payer OTHER ==
--- NOTE | 2016-05-23 00:50 | ED UPPER/LOWER EXTREMITY COMPL ---
History of Present Illness General Chief Complaint: Shoulder Injury Stated Complaint: LT SHOULDER PAIN Source: patient, family, EMS Exam Limitations: no limitations Vital Signs & Intake/Output Vital Signs & Intake/Output Vital Signs Date Time Temp Pulse Resp B/P Pulse O2 O2 Flow FiO2 Ox Delivery Rate 05/23 0754 98.3 87 20 154/72 99 Room Air 05/23 0050 99 Room Air 05/23 0046 99.7 100 20 199/79 99 Room Air Allergies Coded Allergies: NO KNOWN ALLERGIES (03/09/16) Reconcile Medications Acetaminophen (Tylenol Extra Strength) 500 MG TABLET 1 TAB PO TID PAIN ( Reported) Amlodipine (Norvasc) 2.5 MG TABLET 2.5 MG PO D HTN (Reported) Aspirin (Ecotrin*) 81 MG TABLET.DR 1 TAB PO DAILY BLOOD THINNER (Reported) Atorvastatin Calcium 20 MG TABLET 1 TAB PO DAILY heart health Clopidogrel Bisulfate (Clopidogrel) 75 MG TABLET 1 TAB PO DAILY BLOOD THINNER (Reported) Furosemide (Lasix) 40 MG TAB 1 TAB PO DAILY HEART HEALTH Gabapentin (Neurontin) 400 MG CAPSULE 2 CAP PO QPM NEUROPATHY (Reported) Gabapentin 100 MG CAPSULE 2 CAP PO SEE ADMIN CRITERIA NEUROPATHY (Reported) 400 IN AM 200 AT LUNCH TIME 800 AT NIGHT HYDROCODONE/ACETAMINOPHEN (Hydrocodon-Acetaminoph 7.5-325) 1 TAB TAB 1 TAB PO Q8H PAIN (Reported) Hydrocodone/Acetaminophen (Lorcet Hd 10-325 MG Tablet) 10 MG-325 MG TABLET 1 TAB PO TID BACK PAIN Lorazepam (Ativan) 0.5 MG TABLET 1 TAB PO BID ANXIETY (Reported) Metoprolol Succinate 25 MG TAB 0.5 TAB PO DAILY HIGH BP (Reported) Olmesartan Medoxomil (Benicar) 40 MG TABLET 1 TAB PO DAILY HEART (Reported) Omeprazole 40 MG ECC 1 CAP PO DAILY GI (Reported) Potassium Chloride [address] 1 TAB PO DAILY SUPPLEMENT (Reported) Triage Note: ARRIVED ER 6 VIA AMBULANCE FROM HOME PT SUSTAIUNED FALL 2 WEEKS AGO AND HAS CONTINUED PAIN IN BACK ND LT SHOULDER Triage Nurses Notes Reviewed? yes Onset: Abrupt Duration: hour(s): (few), started on April 27 Timing: recent history Severity: severe Pain/Injury Location: Left: Shoulder. Method of Injury: DROPPED IN CARDIAC CATH ROOM PER PATIENT Modifying Factors: Worsens With: movement. Associated Symptoms: stiffness HPI: This is a 80 year old male who presents to the ER via EMS from home for chief complaint of persistent left shoulder pain and neck pain status post trauma and the hospital. He states he was being transferred to a cardiac catheterization table from an inpatient bed when they lost hold of him and he was wedged between the bed and the Table. He did not fall directly to the ground. Since then he has been having intractable left shoulder pain. He has never had any imaging done. In addition he complains of neck pain with range of motion making it worse. No head trauma or loss of consciousness. He states he's been taking Vicodin with some relief but tonight couldn't get any sleep. (ROCHELLE CHUA MD) Past History Travel History Traveled to [place] past 21 day No Medical History Any Pertinent Medical History? 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 One brother of pulmonary embolism.). Hx Contributory? No (ROCHELLE CHUA MD) Review of Systems Review of Systems Constitutional: Denies: chills, fever. EENTM: Reports: no symptoms. Respiratory: Reports: no symptoms. Cardiovascular: Denies: chest pain, palpitations. Gastrointestinal/Abdominal: Reports: no symptoms. Genitourinary: Reports: no symptoms. Musculoskeletal: Reports: muscle pain, muscle stiffness, neck pain. Skin: Reports: no symptoms. Neurological/Psychological: Reports: anxiety. Hematologic/Endocrine: Denies: bruising, bleeding, polyuria, polydipsia. Immunological: Denies: splenectomy. All Other Systems: Reviewed and Negative (ROCHELLE CHUA MD) Physical Exam Physical Exam General Appearance: well developed/nourished, alert, awake, anxious, moderate distress Head: atraumatic Eyes: Bilateral: PERRL, EOMI. Ears, Nose, Throat: normal pharynx, normal ENT inspection, hearing grossly normal Neck: normal inspection, supple Cardiovascular/Respiratory: regular rate/rhythm Peripheral Pulses: 2+ radial (R), 2+ radial (L) Gastrointestinal: SOFT NONTENDER Back: normal inspection Shoulder Left: normal inspection, pain (WITH RANGE OF MOTION) Shoulder Right: normal range of motion, normal inspection Elbow Left: normal range of motion, normal inspection Elbow Right: normal range of motion, normal inspection Neurologic/Tendon: normal sensation, normal motor functions, normal tendon functions Skin: intact, normal color, warm/dry Lymphatic: no anterior cervical alistair (HARSHIL CHUNG,ROCHELLE) Progress Differential Diagnosis: sprain, ROTATOR CUFF INJURY, CERVICAL RADICULOPATHY Plan of Care: Orders Procedure Date/time Status Heart Healthy Diet 05/23 B Active PT Evaluate & Treat 05/23 231 Active 2:35 AM Imaging is negative for acute pathology. Patiently better after Valium and Toradol administration. and son at bedside are very concerned as patient has not been able to walk or drive on his own since cardiac cath recent on April 27. They state that he is very shaky with a cane when he was walking differently prior. He should with history of previous polymyalgia rheumatica treated by Dr. Ramírez. He has been off steroids for 2 years. They went today to have outpatient blood work for white count and sedimentation rate that was requested by Dr. Ramírez. ESR is 90. Patient currently unable to ambulate and risk for falls at home. We will have him evaluated by physical therapy this morning. We will also attempt to contact Dr. Ramírez to weigh in on restarting his steroids. 6:39 am D/W Dr. Ramírez. He recommends a dose of IV Solu-Medrol 40 mg at this time. If the patient is placed in short-term rehabilitation facility he recommended starting him on 15 mg of prednisone daily and following up with him in the office. (HARSHIL CHUNG,ROCHELLE) Diagnostic Imaging: Viewed by Me: Radiology Read, CT Scan. Discussed w/RAD: Radiology Read, CT Scan. Radiology Impression: PATIENT: HARLAN BLAIR PRESENT AGE: 80 PATIENT ACCOUNT NO: [id number] : 36 LOCATION: [facility] ORDERING PHYSICIAN: ROCHELLE CHUA MD SERVICE DATE: 05/23/16 EXAM TYPE: RAD - XRY-SHOULDER COMPLETE-LEFT EXAMINATION: SHOULDER 3 VIEWS, LEFT CLINICAL INFORMATION: Left shoulder pain following injury. COMPARISON: None. TECHNIQUE: AP views of the left shoulder were obtained in internal and external rotation. In addition, a Y view was obtained. FINDINGS: There are no fractures or dislocations. The humeral head is seated within a well-formed glenoid. The AC joint is intact. IMPRESSION: Unremarkable left shoulder radiographs. DICTATED BY : KINGSLEY SUNG MD DATE/TIME DICTATED:05/23/16151 DOT COMPLIANCE MANAGER:MELANIE DATE/TIME TRANSCRIBED:05/23/16151 CONFIDENTIAL, DO NOT COPY WITHOUT APPROPRIATE AUTHORIZATION. <Electronically signed in Other Vendor System> SIGNED BY: KINGSLEY SUNG MD 05/23/16155, PATIENT: HARLAN BLAIR PRESENT AGE: 80 PATIENT ACCOUNT NO: [id number] : LOCATION: [facility] ORDERING PHYSICIAN: ROCHELLE CHUA MD SERVICE DATE: EXAM TYPE: CAT - CT CERV SPINE WO IV CONTRAST EXAMINATION: CT CERVICAL SPINE WITHOUT CONTRAST CLINICAL INFORMATION: Neck pain following injury. COMPARISON: None. TECHNIQUE: Contiguous helical images of the cervical spine were obtained without IV contrast. Multiplanar reconstructions were performed. FINDINGS: The cervical vertebra are in normal alignment. There is disc height loss at C3/C4, C4/C5, C5/C6 and C6/C7 with mild anterior osteophyte formation. Disc heights and vertebral heights are otherwise well-preserved. There are no fractures. There is no prevertebral soft tissue swelling. There is no cervical lymphadenopathy. There is age-appropriate dilation to the visualized lateral ventricles. The visualized base of the brain is otherwise unremarkable. The visualized lung apices are clear. IMPRESSION: Age-appropriate degenerative change to the cervical spine. No evidence for acute injury to the cervical spine. DICTATED BY: KINGSLEY SUNG MD DATE/TIME DICTATED:05/23/16146 DOT COMPLIANCE MANAGER:MELANIE DATE/TIME TRANSCRIBED:05/23/16146 CONFIDENTIAL, DO NOT COPY WITHOUT APPROPRIATE AUTHORIZATION. <Electronically signed in Other Vendor System> SIGNED BY: KINGSLEY SUNG MD 05/23/16154 Hand-Off Endorsed To: ABE JOHNS MD Endorsed Time: 0700 Pending: consult (PHYSICAL THERAPY, DR RAMÍREZ) (ROCHELLE CHUA MD) Comments: Feels better, declines hospitalization. (ABE JOHNS MD) Departure Departure Condition: Stable Referrals: GINA BARCENAS MD (PCP/Family) Departure Forms: Customer Survey General Discharge Information (ROCHELLE CHUA MD) Departure Time of Disposition: 1020 Disposition: HOME OR SELF CARE Clinical Impression Primary Impression: Polymyalgia rheumatica syndrome Secondary Impressions: Cervical strain, acute, Elevated erythrocyte sedimentation rate Prescriptions: Current Visit Scripts Prednisone 3 TAB PO DAILY #50 TAB Ref 1 Diazepam (Valium) 1-2 TAB PO Q6P PRN muscle strain/spasm #30 TAB Ref 1 Ketorolac Tromethamine 1 TAB PO Q6P PRN pain #20 TAB (ABE JOHNS MD)
[2016-05-23] MEDS ORDERED: NORVASC2.5 M1 PO (00:58)
--- NOTE | 2016-05-23 01:55 | CT SCAN REPORT ---
EXAMINATION: CT CERVICAL SPINE WITHOUT CONTRAST CLINICAL INFORMATION: Neck pain following injury. COMPARISON: None. TECHNIQUE: Contiguous helical images of the cervical spine were obtained without IV contrast. Multiplanar reconstructions were performed. FINDINGS: The cervical vertebra are in normal alignment. There is disc height loss at C3/C4, C4/C5, C5/C6 and C6/C7 with mild anterior osteophyte formation. Disc heights and vertebral heights are otherwise well-preserved. There are no fractures. There is no prevertebral soft tissue swelling. There is no cervical lymphadenopathy. There is age-appropriate dilation to the visualized lateral ventricles. The visualized base of the brain is otherwise unremarkable. The visualized lung apices are clear. IMPRESSION: Age-appropriate degenerative change to the cervical spine. No evidence for acute injury to the cervical spine.
--- NOTE | 2016-05-23 01:56 | RADIOLOGY REPORT ---
EXAMINATION: SHOULDER 3 VIEWS, LEFT CLINICAL INFORMATION: Left shoulder pain following injury. COMPARISON: None. TECHNIQUE: AP views of the left shoulder were obtained in internal and external rotation. In addition, a Y view was obtained. FINDINGS: There are no fractures or dislocations. The humeral head is seated within a well-formed glenoid. The AC joint is intact. IMPRESSION: Unremarkable left shoulder radiographs.
[2016-05-23] MEDS ORDERED: KETOROLAC TROME10 M1 PO (10:22)
[2016-05-23] MEDS ORDERED: PREDNISONE5 M1 PO (10:22)
[2016-05-23] MEDS ORDERED: VALIUM5 M2 PO (10:22)
[2016-05-23 10:32] VITALS: BP 152/84
== END 2016-05-23 10:32 ==
LOC: ERH 00:44
DX: S16.1XXA Strain of muscle, fascia and tendon at neck level, initial encounter (principal); M35.3 Polymyalgia rheumatica; R70.0 Elevated erythrocyte sedimentation rate; W23.0XXA Caught, crushed, jammed, or pinched between moving objects, initial encounter
CPT/HCPCS: 73030-LT; 96374; 96375; J1885; J2920; J3360

== ENCOUNTER 2016-10-23 08:37 | Inpatient (IN) | payer OTHER ==
[~2016-10-23] VITALS: Ht 175.3 cm; Wt 73.0 kg
[~2016-10-23 08:37] MED LIST changes: +KETOROLAC TROME10 M1 PO; +KLOR-CON M1010 ME1 PO; +NORVASC2.5 M1 PO; +OMEPRAZOLE40 M1 PO; -OMEPRAZOLE40 MG PO; -POTASSIUM CHLO10 ME1 PO; +PREDNISONE5 M1 PO; +VALIUM5 M2 PO
[2016-10-23 09:41] LABS: ABSOLUTE BASOPHIL COUNT 0 /CUMM (0.0-0.2); ABSOLUTE EOSINOPHIL COUNT 0 /CUMM (0.0-0.7); ABSOLUTE GRANULOCYTE CT 7.4 /CUMM (1.4-6.5); ABSOLUTE LYMPH COUNT 1.4 /CUMM (1.2-3.4); ABSOLUTE MONOCYTE COUNT 0.8 /CUMM (0.10-0.60); BASOPHIL % 0.3 % (0.0-2.0); EOSINOPHIL % 0.5 % (0-5); GRANULOCYTE % 76.5 % (42.2-75.2); HEMATOCRIT 38.5 % (42-52); MEAN CORPUSCULAR HGB 29.1 PG (27.0-31.0); MEAN CORPUSCULAR HGB CONC 32.8 G/DL (33.0-37.0); MEAN CORPUSCULAR VOLUME 88.8 FL (80.0-94.0); MEAN PLATELET VOLUME 8.6 FL (7.4-10.4); PLATELET COUNT 201 /CUMM (130-400); RBC DISTRIBUTION WIDTH 15.8 % (11.5-14.5); RED BLOOD CELL CT 4.34 /CUMM (4.70-6.10); WHITE BLOOD CELL COUNT 9.7 /CUMM (4.8-10.8)
--- NOTE | 2016-10-23 09:57 | ED CARDIAC/CP/PALPITATIONS ---
History of Present Illness General Chief Complaint: Upper Respiratory Sx/Fever Stated Complaint: C/O CONGESTION/CHEST HEAVINESS Source: patient Exam Limitations: no limitations Vital Signs & Intake/Output Vital Signs & Intake/Output Vital Signs Date Time Temp Pulse Resp B/P B/P Pulse O2 O2 Flow FiO2 Mean Ox Delivery Rate 10/23 1023 96 Room Air 10/23 1016 98.0 70 20 159/77 96 Room Air 10/23 0850 97.4 69 16 171/73 99 Room Air Allergies Coded Allergies: NO KNOWN ALLERGIES (03/09/16) Triage Note: PT STATES HE HAS HEAVINESS IN HIS CHEST THAT HAS BEEN GOING ON FOR A FEW DAYS. PT STATES HIS HEAVINESS IS GETTING WORSE TODAY AND THAT IS WHY HE CAME IN TODAY. Triage Nurses Notes Reviewed? yes Onset: Abrupt Duration: gone now, intermittent Timing: recent history Quality/Severity: severe, pressure Location: central Radiation: no radiation Activities at Onset: activity HPI: Patient is an 81-year-old male with a past medical history of CAD, myocardial infarction s/p PTCA in 1993, CHF, atrial fibrillation ON XARELTO, hypertension, hyperlipidemia, chronic pain who is admitted to [facility] in April 2016 for concerns of unstable angina hour patient was transferred to [facility] for cardiac catheterization in which he received at time times one drug -eluting cardiac stent in which patient currently is on Plavix. PT PRESENTS WITH complains of the 2 day history of chest heaviness THAT STARTED after cutting branches in his yard. Patient states that the past 2 days he's had intermittent episodes of exertional chest heaviness last episode was 3 hours prior to arrival. Patient has associated symptoms of dyspnea on exertion. Patient at rest currently denies any symptoms denies any chest heaviness fever chills shortness of breath hemoptysis leg swelling arm pain jaw pain palpitations diaphoresis Aspirin was administered prior to arrival (JOSÉ MANUEL FAUST) Reconcile Medications Acetaminophen (Tylenol Extra Strength) 500 MG TABLET 2 TAB PO TID PAIN ( Reported) Clopidogrel Bisulfate (Clopidogrel) 75 MG TABLET 1 TAB PO DAILY BLOOD THINNER (Reported) Furosemide (Lasix) 40 MG TABLET 1 TAB PO DAILY FLUID OVERLOAD Hydrocodone Bitartrate (Hysingla ER) 20 MG TAB.ER.24H 1 TAB PO DAILY BACK PAIN (Reported) Hydrocodone/Acetaminophen (Lorcet Hd 10-325 MG Tablet) 10 MG-325 MG TABLET 1 TAB PO TID BACK PAIN Lorazepam (Ativan) 0.5 MG TABLET 1 TAB PO BID ANXIETY (Reported) Metoprolol Succinate 25 MG TAB 1 TAB PO DAILY HIGH BP (Reported) Olmesartan Medoxomil (Benicar) 40 MG TABLET 1 TAB PO DAILY HEART (Reported) Omeprazole 40 MG CAPSULE.DR 1 CAP PO DAILY GERD (Reported) Potassium Chloride (Klor-Con M10) 10 MEQ TAB.ER.PRT 1 TAB PO DAILY SUPPLEMENT (Reported) Prednisone 2.5 MG TABLET 1 TAB PO DAILY PMR (Reported) Rivaroxaban (Xarelto) 20 MG TABLET 1 TAB PO QPM ATRIAL FIBRILLATION (Reported ) with food Simvastatin (Zocor*) 20 MG TABLET 1 TAB PO DAILY HLP (Reported) (LUZ CHUNG,FRANK Farmer) Past History Travel History Traveled to [place] past 21 day No Medical History Any Pertinent Medical History? 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 One brother of pulmonary embolism.). Hx Contributory? No (JOSÉ MANUEL FAUST) Review of Systems Review of Systems Constitutional: Reports: no symptoms. EENTM: Reports: no symptoms. Respiratory: Reports: see HPI, short of breath. Cardiovascular: Reports: see HPI, chest pain. GI: Reports: no symptoms. Genitourinary: Reports: no symptoms. Musculoskeletal: Reports: no symptoms. Skin: Reports: no symptoms. Neurological/Psychological: Reports: no symptoms. Hematologic/Endocrine: Reports: no symptoms. Immunologic/Allergic: Reports: no symptoms. All Other Systems: Reviewed and Negative (JOSÉ MANUEL FAUST) Physical Exam Physical Exam General Appearance: no apparent distress, alert, comfortable Cardiovascular: irregularly irregular Comments: Well-developed well-nourished person in no acute distress HEENT: Normal EENT exam Neck: Supple, no lymphadenopathy, normal range of motion without pain or tenderness Back: Nontender, no CVA tenderness. Respiratory: Chest nontender. No respiratory distress.breath sounds clear to auscultation bilaterally Abdomen: Soft, nontender nondistended, no appreciable organomegaly. Normal bowel sounds. No ascites Extremity: No edema, no calf tenderness to palpation, normal and equal pulses. Neuro: Alert oriented x3, motor sensory normal Skin: No appreciable rash on exposed skin, skin is warm and dry. Psych: Mood and affect is normal, memory and judgment is normal. Core Measures ACS in differential dx? Yes ASA ordered for poss ACS? Yes-ordered Severe Sepsis Present: No Septic Shock Present: No (RANDY AVENDANO,JOSÉ MANUEL) Progress Differential Diagnosis: AMI, aortic dissection, atrial fibrillation, cholecystitis, CHF/pulm edema, costochondritis, hyperkalemia, hypovolemia, hyperthyroid, hyperventilation, intracranial hemorrhage, musculoskeletal pain, myocarditis, pancreatitis, pericarditis, pneumonia, pneumothorax, PSVT, pulmonary embolism, PUD/GERD, PVCs/PACs, respiratory failure, rib fracture, sepsis, unstable angina, V-fib/V-Tach, WPW syndrome Plan of Care: Orders Procedure Date/time Status LIPID PANEL 10/24 0600 Active CBC WITHOUT DIFFERENTIAL 10/24 0600 Active BASIC ELECTROLYTES PLUS BUN&CR 10/24 0600 Active Heart Healthy Diet 10/23 L Complete Regular Diet 10/23 D Active TROPONIN LEVEL 10/23 2100 Active EKG 10/23 2100 Active TROPONIN LEVEL 10/23 1500 Active EKG 10/23 1500 Active OXYGEN SETUP (GEN) 10/23 1218 Active Saline Lock 10/23 1218 Active Misc Message 10/23 1218 Active ED Holding Orders 10/23 1218 Active Activity/Ambulation 10/23 1218 Active Code Status 10/23 1218 Active Code Status 10/23 1217 Complete OXYGEN SETUP (GEN) 10/23 1150 Active Pathway - chart 10/23 1148 Active Admit to inpatient 10/23 1125 Active Patient Data 10/23 1124 Active Telemetry/Basket Mender 10/23 1016 Active TROPONIN LEVEL 10/23 0930 Complete MAGNESIUM 10/23 0930 Complete COMPREHENSIVE METABOLIC PANEL 10/23 0930 Complete CHOLESTEROL 10/23 0930 Complete CBC WITHOUT DIFFERENTIAL 10/23 0930 Complete EKG 10/23 0841 Active TRC EVALUATION (GEN) 10/23 UNK Active Pathway - chart 10/23 UNK Active House Staff 10/23 UNK Active VTE Mechanical Prophylaxis 10/23 UNK Active Vital Signs 10/23 UNK Active Intake & Output 10/23 UNK Active ECHOCARDIOGRAM 10/23 UNK Active Current Medications Sig/[place] Start time Last Medication Dose Stop Time Status Admin Multivitamins 1 TAB DAILY 10/24 1000 CAN (Theragran Vitamins) Acetaminophen 650 MG Q6P PRN 10/23 1200 AC (Tylenol) Acetaminophen/ 1 TAB Q6P PRN 10/23 1200 AC Hydrocodone Bitart (Vicodin) Morphine Sulfate 2 MG Q4P PRN 10/23 1200 AC (Morphine) Laboratory Tests 10/23/16 0931: Anion Gap 13, Estimated GFR > 60, BUN/Creatinine Ratio 23.3, Glucose 110 H, Calcium 10.1, Magnesium 1.9, Total Bilirubin 1.1, AST 43, ALT 26, Alkaline Phosphatase 74, Troponin I 0.02, Total Protein 7.2, Albumin 4.8, Globulin 2.4, Albumin/Globulin Ratio 2.0, Cholesterol 165, CBC w Diff NO MAN DIFF REQ, RBC 4.34 L, MCV 88.8, MCH 29.1, RDW 15.8 H, MPV 8.6, Gran % 76.5 H, Lymphocytes % 14.6 L, Monocytes % 8.1, Eosinophils % 0.5, Basophils % 0.3, Absolute Granulocytes 7.4 H, Absolute Lymphocytes 1.4, Absolute Monocytes 0.8 H, Absolute Eosinophils 0, Absolute Basophils 0, PUBS MCHC 32.8 L Patient currently is resting currently at bedside and is asymptomatic. Patient has telemetry monitored noted to be atrial fibrillation 75 bpm. Patient was prophylactically administered aspirin for concerns of unstable angina in which today at rest he had chest heaviness this morning Patient had unremarkable initial EKG blood work and chest x-ray. Patient does have concerns of unstable angina in which I discussed admission with Dr. Spence and Leonel Orta MD who are aware of admission Discussed patient with Dr. Devries who is aware of admission (JOSÉ MANUEL FAUST) Diagnostic Imaging: Viewed by Me: Radiology Read. Initial ED EK BPM, AFIB Prior EKG: unchanged Comments: PATIENT: HARLAN BLAIR PRESENT AGE: 81 PATIENT ACCOUNT NO: [id number] : 36 LOCATION: [facility] ORDERING PHYSICIAN: JOSÉ MANUEL AVENDANO SERVICE DATE: 10/23/16 EXAM TYPE: RAD - XRY-PORTABLE CHEST XRAY EXAMINATION: XR PORTABLE CHEST CLINICAL INFORMATION: Chest heaviness. COMPARISON: 05/10/2016 TECHNIQUE: Portable frontal view of the chest was obtained. FINDINGS: Cardiac leads overlie the chest. There is no consolidation, edema, or effusion. No pneumothorax. The cardiomediastinal silhouette remains prominent, with a calcified aorta. No acute osseous abnormality. IMPRESSION: No acute pulmonary findings. DICTATED BY: MICHELLE BEE MD DATE/TIME DICTATED:10/23/161012 READING PROFESSOR:MELANIE DATE/TIME TRANSCRIBED:10/23/161012 (JOSÉ MANUEL FAUST) Departure Departure Disposition: STILL A PATIENT Condition: Fair Clinical Impression Primary Impression: Unstable angina Referrals: GINA SPENCE MD (PCP/Family) Departure Forms: Customer Survey General Discharge Information Admission Note Spoke With: GINA SPENCE MD Documentation of Exam: Documentation of any treatments & extenuating circumstances including Concerns Regarding Discharge (functional status, medication knowledge or non-compliance, living conditions, etc.) that warrant an admission rather than observation: [ Discussed patient with Dr. Spence who agrees with telemetry admission for concerns of unstable angina which patient requires repeat labs, cardiology consultation, repeat troponin, telemetry monitoring and pain monitoring and if symptoms worsen patient could transfer to cardiac catheterization and patient could require IV heparin] (JOSÉ MANUEL FAUST) Departure Prescriptions: Current Visit Scripts Furosemide (Lasix) 1 TAB PO DAILY #30 TAB PA/AS400 ANALYST Co-Sign Statement Statement: ED Attending supervision documentation- [X] I saw and evaluated the patient. I have also reviewed all the pertinent lab results and diagnostic results. I agree with the findings and the plan of care as documented in the PA's/AS400 ANALYST's documentation. [X] I have reviewed the ED Record and agree with the PA's/AS400 ANALYST's documentation. [] Additions or exceptions (if any) to the PAs/AS400 ANALYST's note and plan are summarized below: [] (LUZ CHUNG,FRANK Farmer) Critical Care Note Critical Care Note Critical Care Time: 30-74 min (RANDY AVENDANO,JOSÉ MANUEL)
--- NOTE | 2016-10-23 10:18 | RADIOLOGY REPORT ---
EXAMINATION: XR PORTABLE CHEST CLINICAL INFORMATION: Chest heaviness. COMPARISON: 05/10/2016 TECHNIQUE: Portable frontal view of the chest was obtained. FINDINGS: Cardiac leads overlie the chest. There is no consolidation, edema, or effusion. No pneumothorax. The cardiomediastinal silhouette remains prominent, with a calcified aorta. No acute osseous abnormality. IMPRESSION: No acute pulmonary findings.
--- NOTE | 2016-10-23 11:42 | History & Physical ---
General Information and HPI MD Statement: I have seen and personally examined HARLAN BLAIR and documented this H& P. The patient is a 81 year old M who presented with a patient stated chief complaint of [chest pain]. Source of Information: patient Exam Limitations: no limitations History of Present Illness: 81-year-old male with a past medical history of CAD, myocardial infarction s/p PTCA in 1993 and ALEJANDRA in Apr 2016 currently on Plavix, CHF, atrial fibrillation on Xarelto, hypertension, hyperlipidemia, chronic back pain, PMR (steroid dependent), anxiety, presents to the ED with c/o chest pressure for the past 2 days. According to the patient he was in his usual state of health until a couple of days ago when he started experience intermittent, substernal chest discomfort. Denies chest pain, radiation to the neck. Does endorse shortness of breath, that is worse on exertion while taking a flight of stairs. Denies diziziness, lower extremity edema, orthopnea, PND. States he was in his yard working when he first experienced chest discomfort. States he initially thought it was GI related and so took OTC meds to help but to no avail. Also states that he was previosuly able to ambulat eto the grocery store without getting HUERTA, but fo rth epast 2 days his SOB has worsened. Denies fevers, chills, productive cough, hx of sick contact. Much compliant with meds. OOnly chnage in medication was from Vicodin to Hydrocone long acting 20mg daily. Also endorses a sharp left sided chest pain that lasted a few seconds about 2 weeks. States it occured at rest. Uses a cane to ambulate. Allergies/Medications Allergies: Coded Allergies: NO KNOWN ALLERGIES (UNKNOWN 10/23/16) Home Med list Acetaminophen (Tylenol Extra Strength) 500 MG TABLET 2 TAB PO TID PAIN ( Reported) Clopidogrel Bisulfate (Clopidogrel) 75 MG TABLET 1 TAB PO DAILY BLOOD THINNER (Reported) Furosemide (Lasix) 40 MG TABLET 1 TAB PO DAILY FLUID OVERLOAD Hydrocodone Bitartrate (Hysingla ER) 20 MG TAB.ER.24H 1 TAB PO DAILY BACK PAIN (Reported) Hydrocodone/Acetaminophen (Lorcet Hd 10-325 MG Tablet) 10 MG-325 MG TABLET 1 TAB PO TID BACK PAIN Lorazepam (Ativan) 0.5 MG TABLET 1 TAB PO BID ANXIETY (Reported) Metoprolol Succinate 25 MG TAB 1 TAB PO DAILY HIGH BP (Reported) Olmesartan Medoxomil (Benicar) 40 MG TABLET 1 TAB PO DAILY HEART (Reported) Omeprazole 40 MG CAPSULE.DR 1 CAP PO DAILY GERD (Reported) Potassium Chloride (Klor-Con M10) 10 MEQ TAB.ER.PRT 1 TAB PO DAILY SUPPLEMENT (Reported) Prednisone 2.5 MG TABLET 1 TAB PO DAILY PMR (Reported) Rivaroxaban (Xarelto) 20 MG TABLET 1 TAB PO QPM ATRIAL FIBRILLATION (Reported ) with food Simvastatin (Zocor*) 20 MG TABLET 1 TAB PO DAILY HLP (Reported) Compliance With Home Meds: GOOD Past History Travel History Traveled to [place] past 21 day No Medical History Neurological: NONE EENT: NONE Cardiovascular: AFIB, CAD, CHF, hypertension, hyperlipidemia, NSTEMI, [place] STENT PLACED 2017 Respiratory: NONE Gastrointestinal: NONE Hepatic: NONE Renal: NONE Musculoskeletal: disk herniation, PMR Psychiatric: NONE Endocrine: NONE Blood Disorders: NONE Cancer(s): NONE CIRCULAR SAW FILER/Reproductive: NONE History of MRSA: No History of VRE: No History of CDIFF: No Surgical History Surgical History: laminectomy cardiac cath PTCA WITH STENT Past Family/Social History Family History Relations & Conditions if any BROTHER (2 Brothers had premature coronary artery disease. One brother of pulmonary embolism.). Psychosocial History Who Do You Live With? spouse Services at Home: None Smoking Status: Former Smoker (quit 50 years ago) ETOH Use: occasional use Illicit Drug Use: denies illicit drug use Living Will? yes Functional Ability ADLs Independent: dressing, eating, toileting, bathing. Ambulation: cane IADLs Independent: shopping, housework, finances, food prep, telephone, transportation , medication admin. Employment History Employment Retired Review of Systems Review of Systems Constitutional: Denies: chills, fever, weakness. EENTM: Denies: visual changes. Cardiovascular: Reports: chest pain, palpitations. Denies: edema, orthopena, peripheral edema, syncope. Respiratory: Denies: cough, orthopnea, short of breath, sputum production, wheezing. GI: Denies: abdominal pain, constipation, diarrhea, nausea, vomiting. Genitourinary: Reports: no symptoms. Musculoskeletal: Reports: back pain. Neurological/Psychological: Denies: headache, numbness, tingling, tremors, unable to move lower ext, unable to move upper ext, weakness. Exam & Diagnostic Data Last 24 Hrs of Vital Signs/I&O Vital Signs Date Time Temp Pulse Resp B/P B/P Pulse O2 O2 Flow FiO2 Mean Ox Delivery Rate 10/23 1023 96 Room Air 10/23 1016 98.0 70 20 159/77 96 Room Air 10/23 0850 97.4 69 16 171/73 99 Room Air Intake & Output 10/23 1600 10/23 0800 10/23 0000 Intake Total 60 Output Total Balance 60 Intake, Oral 60 Patient 161 lb Weight Weight Reported by Patient Measurement Method Physical Exam General Appearance Alert, Oriented X3, Cooperative, No Acute Distress HEENT Atraumatic, PERRLA, EOMI, dry mucous membranes Neck Supple, No JVD, No thryomegaly, +2 Carotid Pulse wo Bruit, No LAD Cardiovascular Normal S1, Normal S2, No Murmurs, irregularly irregular Lungs Clear to Auscultation, Normal Air Movement Abdomen Normal Bowel Sounds, Soft, No Tenderness, No Hepatospenomegaly, No Masses Neurological Normal Speech, Strength at 5/5 X4 Ext, Normal Tone, Sensation Intact, Cranial Nerves 3-12 NL, Reflexes 2+ Extremities No Clubbing, No Cyanosis, No Edema, Normal Pulses, No Tenderness/ Swelling Vascular Normal Pulses, Pulses Symmetrical Last 24 Hrs of Labs/Teo: Laboratory Tests 10/23/16 0931: Anion Gap 13, Estimated GFR > 60, BUN/Creatinine Ratio 23.3, Glucose 110 H, Calcium 10.1, Magnesium 1.9, Total Bilirubin 1.1, AST 43, ALT 26, Alkaline Phosphatase 74, Troponin I 0.02, Total Protein 7.2, Albumin 4.8, Globulin 2.4, Albumin/Globulin Ratio 2.0, Cholesterol 165, CBC w Diff NO MAN DIFF REQ, RBC 4.34 L, MCV 88.8, MCH 29.1, RDW 15.8 H, MPV 8.6, Gran % 76.5 H, Lymphocytes % 14.6 L, Monocytes % 8.1, Eosinophils % 0.5, Basophils % 0.3, Absolute Granulocytes 7.4 H, Absolute Lymphocytes 1.4, Absolute Monocytes 0.8 H, Absolute Eosinophils 0, Absolute Basophils 0, PUBS MCHC 32.8 L Diagnostic Data EKG Results Afib, HR: 74,T-wave inversions in lead II, III, aVF, ST-T depression in V4-V6 which is unchanged; poor R wave progression CXR Results FINDINGS: Cardiac leads overlie the chest. There is no consolidation, edema, or effusion. No pneumothorax. The cardiomediastinal silhouette remains prominent, with a calcified aorta. No acute osseous abnormality. IMPRESSION: No acute pulmonary findings. Assessment/Plan Assessment: 81-year-old male with a past medical history of CAD, myocardial infarction s/p PTCA in 1993 and ALEJANDRA in Apr 2016 currently on Plavix, CHF, atrial fibrillation on Xarelto, hypertension, hyperlipidemia, chronic pain secondary to PMR, anxiety , presents to the ED with c/o chest pressure. Vitals at the time of admission blood pressure 171/73, pulse 69, respiratory rate of 16 saturating 99% on RA. Labs pertinent for normocytic anemia with an H&H of 12.6/38.5, platelet count 201,000. Serum chemistries reveal sodium 142, potassium of 3.9, anion gap of 13 , BUN 21 and the creatinine 0.9. Serum calcium within normal limits at 10.1 and serum mag of 1.9. LFTs unremarkable with an AST/L2 43/26, total bili 1.1 and alkaline phosphatase of 74. First set of troponin 0.02. EKG revealed: Atrial fibrillation HR: 74, T-wave inversion in II, III, aVF and diagnosed with ST-T depression in V4 and V6 that are old; poor R-wave progression. Chest x-ray showed no acute pulmonary findings. In the ER he received 325 mg of aspirin 1. Assessment and plan Admit patient to telemetry. #Typical chest pain Most likely UA vs musculoskeletal vs stent thrombosis (no EKG changes) R/o ACS with trop and EKG @ 3:00pm and 9: 00pm Echo to r/o RWMA F/U lipid panel in AM Will start him on ASA 81mg daily, continue Plavix 75mg daily, Lasix 40mg daily, will increase to Atorvastatin 80mg daily Will start him on Imdur 30mg daily Will anticoagulate him with heparin in the afternoon as he took his Xarelto last night. F/U INR however being on Xarelto cannot rely on INR completely. Cardio on board. Plan for cardiac cath on Sun. Will be NPO after MN on Sunday for possible cardiac cath on Sunday. Will hold ARB on Sun morn. #Afib on Xarelto Currently rate controlled. Is on Xarelto 20mg daily whihc he took yesterday/ Will hold Xarelto fo rnow and start him on Heparini per ACS protocol. #Chronic back pain Is on Hydrocodone 20mg daily ER Will satrt him on Vicodin 5/325mg Q6 scheduled for now. - DVT prophylaxis Hepariin IV - Diet Heart Healthy fo rnow. NPO after MN on for possible cardiac cath on Sun - Code Status Full Code. As Ranked By This Provider Problem List: 1. Unstable angina 2. Polymyalgia rheumatica syndrome Core Measures/Miscellaneous Acute Coronary Syndrome ACS Diagnosis: Yes Date of most recent Echo 04/23/14 Last Known EF % 55 GEORGE/ARB For EF <40% Yes ASA W/I 24hr of admit Yes Beta-Yobani W/I 24hrs Yes LDL assessed W/I 24 hrs Yes Currently on Statin Yes Cerebrovascular Accident CVA/TIA Diagnosis: No Congestive Heart Failure CHF Diagnosis: No VTE (View Protocol) VTE Risk Factors: Age > 40 No Mech VTE prophylaxis d/t: No contraindications No VTE Pharm Prophylaxis d/t: No contraindications VTE Diagnosis: No VTE Type: NONE VTE Confirmed by (Test): NONE Sepsis (View Protocol) Severe Sepsis Present: No Septic Shock Septic Shock Present: No Miscellaneous Documentation Attending Case Discussed With: Dr. Spence Primary Care Physician: GINA SPENCE MD Patient sees these Specialists Dr. Gio Wilson - Resident Services Supervisor Dr. Rodriguez - PMR Dr. Rosario - Orthopeds Level of Patient Care: Telemetry Consults Needed: Consulting Specialty: Cardiology Resident Review Statement Resident Statement: admitted by resident
--- NOTE | 2016-10-23 11:51 | Cons- Cardiology ---
General Information and HPI Consulting Request Date of Consult: 10/23/16 Requested By: Dr. Devries Reason for Consult: CAD, chest pain Source of Information: patient, family, old records History of Present Illness: This is a pleasant 80-year-old male with coronary disease by history status post myocardial infarctions 1993 with PTCA and NSTEMI status post drug-eluting stent to the LAD at [facility] 04/27/2016, atrial fibrillation on Xarelto, chronic diastolic CHF, HTN, and chronic back pain presents to the [facility] emergency room with a chief complaint of moderate intensity exertional chest heaviness over the last 2 days. Denies associated dyspnea although does note some exertional dyspnea when climbing stairs but notes that has been present for some time now. He is unsure if the symptoms are similar to his myocardial infarction earlier this year. Denies any symptoms at rest. Denies associated nausea or diaphoresis but does have a decreased appetite. Reports no recent bleeding or falls. Compliant with his medications. Denies radiation of the chest discomfort to his jaw or back. Denies worsening edema or orthopnea. Denies headache, slurring of speech, dizziness, syncope, hematemesis, hematochezia, productive cough, or subjective fever. On my interview with him in the emergency room he was resting comfortably. He does suffer from chronic back pain for which he takes Vicodin currently. Allergies/Medications Allergies: Coded Allergies: NO KNOWN ALLERGIES (03/09/16) Home Med List: Acetaminophen (Tylenol Extra Strength) 500 MG TABLET 2 TAB PO TID PAIN ( Reported) Clopidogrel Bisulfate (Clopidogrel) 75 MG TABLET 1 TAB PO DAILY BLOOD THINNER (Reported) Furosemide (Lasix) 40 MG TABLET 1 TAB PO DAILY FLUID OVERLOAD Hydrocodone Bitartrate (Hysingla ER) 20 MG TAB.ER.24H 1 TAB PO DAILY BACK PAIN (Reported) Hydrocodone/Acetaminophen (Lorcet Hd 10-325 MG Tablet) 10 MG-325 MG TABLET 1 TAB PO TID BACK PAIN Lorazepam (Ativan) 0.5 MG TABLET 1 TAB PO BID ANXIETY (Reported) Metoprolol Succinate 25 MG TAB 1 TAB PO DAILY HIGH BP (Reported) Olmesartan Medoxomil (Benicar) 40 MG TABLET 1 TAB PO DAILY HEART (Reported) Omeprazole 40 MG CAPSULE.DR 1 CAP PO DAILY GERD (Reported) Potassium Chloride (Klor-Con M10) 10 MEQ TAB.ER.PRT 1 TAB PO DAILY SUPPLEMENT (Reported) Prednisone 2.5 MG TABLET 1 TAB PO DAILY PMR (Reported) Rivaroxaban (Xarelto) 20 MG TABLET 1 TAB PO QPM ATRIAL FIBRILLATION (Reported ) with food Simvastatin (Zocor*) 20 MG TABLET 1 TAB PO DAILY HLP (Reported) Current Medications: Current Medications Sig/[place] Start time Last Medication Dose Route Stop Time Status Admin Aspirin 0 .STK-MED ONE 10/23 1022 DC PO Aspirin 325 MG ONCE ONE 10/23 1015 DC 10/23 PO 10/23 1016 1022 Review of Systems Review of Systems: Review of systems as per HPI. The remainder of a 10 point review of systems was reviewed and was otherwise negative. Past History Travel History Traveled to [place] past 21 day No Medical History Neurological: NONE EENT: NONE Cardiovascular: AFIB, CAD, CHF, hypertension, hyperlipidemia, NSTEMI, [place] STENT PLACED 2017 Respiratory: NONE Gastrointestinal: NONE Hepatic: NONE Renal: NONE Musculoskeletal: disk herniation, PMR Psychiatric: NONE Endocrine: NONE Blood Disorders: NONE Cancer(s): NONE CAREER TRANSITION SPECIALIST/Reproductive: NONE Surgical History Surgical History: laminectomy cardiac cath PTCA WITH STENT Family History Relations & Conditions If Any: BROTHER (2 Brothers had premature coronary artery disease. One brother of pulmonary embolism.). Psychosocial History Who Do You Live With? spouse Services at Home: None ETOH Use: occasional use Illicit Drug Use: denies illicit drug use Living Will? yes Functional Ability ADLs Independent: dressing, eating, toileting, bathing. Ambulation: independent IADLs Independent: shopping, housework, finances, food prep, telephone, transportation , medication admin. Exam & Diagnostic Data Vital Signs and I&O Vital Signs Date Time Temp Pulse Resp B/P B/P Pulse O2 O2 Flow FiO2 Mean Ox Delivery Rate 10/23 1023 96 Room Air 10/23 1016 98.0 70 20 159/77 96 Room Air 10/23 0850 97.4 69 16 171/73 99 Room Air Intake & Output 10/23 1600 10/23 0800 / 0000 / 1600 10/22 0800 10/22 0000 Intake Total 60 Output Total Balance 60 Intake, Oral 60 Patient 161 lb Weight Weight Reported by Patient Measurement Method Physical Exam: General: no apparent distress. Alert. Eyes: No obvious scleral icterus. HEENT: No jugular venous distention or abnormal jugular venous pulsations. Cardiovascular: Normal intensity S1/S2. Irregular, one out of 6 systolic murmur Respiratory: Lungs clear to auscultation bilaterally. Abdomen: Soft, nontender with no guarding or rebound tenderness. Musculoskeletal: No clubbing or cyanosis noted, no edema Skin: Warm Neurologic: No gross focal deficits noted. Lymph: No gross lymphadenopathy. Labs/Teo Results: Laboratory Tests 10/23 0931 Chemistry Sodium (137 - 145 mmol/L) 142 Potassium (3.5 - 5.1 mmol/L) 3.9 Chloride (98 - 107 mmol/L) 105 Carbon Dioxide (22 - 30 mmol/L) 23 Anion Gap (5 - 16) 13 BUN (9 - 20 mg/dL) 21 H Creatinine (0.7 - 1.2 mg/dL) 0.9 Estimated GFR (>60 ml/min) > 60 BUN/Creatinine Ratio (7 - 25 %) 23.3 Glucose (65 - 99 mg/dL) 110 H Calcium (8.4 - 10.2 mg/dL) 10.1 Magnesium (1.6 - 2.3 mg/dL) 1.9 Total Bilirubin (0.2 - 1.3 mg/dL) 1.1 AST (17 - 59 U/L) 43 ALT (21 - 72 U/L) 26 Alkaline Phosphatase (< 127 U/L) 74 Troponin I (<0.11 ng/ml) 0.02 Total Protein (6.3 - 8.2 g/dL) 7.2 Albumin (3.5 - 5.0 g/dL) 4.8 Globulin (1.9 - 4.2 gm/dL) 2.4 Albumin/Globulin Ratio (1.1 - 2.2 %) 2.0 Cholesterol (< 200 MG/DL) 165 Hematology CBC w Diff NO MAN DIFF REQ WBC (4.8 - 10.8 /CUMM) 9.7 RBC (4.70 - 6.10 /CUMM) 4.34 L Hgb (14.0 - 18.0 G/DL) 12.6 L Hct (42 - 52 %) 38.5 L MCV (80.0 - 94.0 FL) 88.8 MCH (27.0 - 31.0 PG) 29.1 RDW (11.5 - 14.5 %) 15.8 H Plt Count (130 - 400 /CUMM) 201 MPV (7.4 - 10.4 FL) 8.6 Gran % (42.2 - 75.2 %) 76.5 H Lymphocytes % (20.5 - 51.1 %) 14.6 L Monocytes % (1.7 - 9.3 %) 8.1 Eosinophils % (0 - 5 %) 0.5 Basophils % (0.0 - 2.0 %) 0.3 Absolute Granulocytes (1.4 - 6.5 /CUMM) 7.4 H Absolute Lymphocytes (1.2 - 3.4 /CUMM) 1.4 Absolute Monocytes (0.10 - 0.60 /CUMM) 0.8 H Absolute Eosinophils (0.0 - 0.7 /CUMM) 0 Absolute Basophils (0.0 - 0.2 /CUMM) 0 PUBS MCHC (33.0 - 37.0 G/DL) 32.8 L Diagnostic Data EKG Results Tracing was personally reviewed and shows atrial fibrillation at 74 bpm with possible prior anterior infarct pattern and nonspecific STT abnormalities CXR Results No evidence of pneumonia or CHF Other Results Telemetry tracings in the emergency room Personally Reviewed and show atrial fibrillation Assessment/Plan Assessment/Plan 1. Chest discomfort with concern for unstable angina 2. Coronary disease by history status post myocardial infarctions 1993 with PTCA and NSTEMI status post drug-eluting stent to the LAD at [facility] 04/27/2016 3. Persistent atrial fibrillation on Xarelto 3. Hypertension 4. Chronic diastolic heart failure 5. Chronic back pain The patient's symptoms along with his history of coronary artery disease are concerning for an anginal etiology although his initial troponins are negative. Fortunately he is not having active anginal symptoms while at rest. No evidence of decompensated diastolic heart failure at this time. I had an extensive discussion with the patient and his in the emergency room regarding further assessment and treatment options. We are going to treat his angina medically for the time being and based on further test results and response to medical therapy we will then consider the possibility of repeat cardiac catheterization. Recommend initiating heparin drip without a bolus this afternoon as his last dose of Xarelto was last night. Continue on statin therapy along with aspirin and Plavix. Continue on his beta-sunny. Obtain an echocardiogram. Recommend adding Imdur or 30 milligrams p.o. daily. Monitor serial troponins and monitor on telemetry. Can continue outpatient Lasix dose for now. The patient should be kept after midnight on Sunday night for possible cardiac catheterization on Sunday. His ARB should be held Sunday morning in anticipation of possible cardiac catheterization. Steffen Orta MD FAC Consult Acknowledgment - Thank you for your consult request.
[2016-10-23] MEDS ORDERED: ZOCOR20 M1 PO (12:18)
[2016-10-23] MEDS ORDERED: PREDNISONE2.5 M1 PO (12:22)
[2016-10-23] MEDS ORDERED: XARELTO20 M2 PO (12:23)
[2016-10-23] MEDS ORDERED: LASIX40 M1 PO (12:24)
[2016-10-23] MEDS ORDERED: HYSINGLA ER20 MG PO (12:26)
[2016-10-23 13:27] LABS: PT 24.2 SEC (9.4-12.5)
[2016-10-23 14:33] VITALS: BP 134/64
[2016-10-23 16:07] LABS: PTT 38 SEC (25-37)
--- NOTE | 2016-10-23 18:09 | PN- Att Addend ---
Attending Addendum Attending Brief Note 81-year-old white male with known cardiac history, last event was in April when he had a stent (medicated) placed in his left anterior descending coronary artery was doing fairly well recent few days when he started having substernal chest discomfort and some shortness of breath concerning for unstable angina taken to the emergency room seen promptly by cardiology, was evaluated have EKGs. First troponin is negative the patient is free of pain at this moment monitored on telemetry with serial EKGs and troponins and consider cardiac catheterization if needed. Will be on IV heparin patient had chest x-ray showed no acute changes Laboratory Tests 10/23 10/23 1545 0931 Chemistry Sodium (137 - 145 mmol/L) 142 Potassium (3.5 - 5.1 mmol/L) 3.9 Chloride (98 - 107 mmol/L) 105 Carbon Dioxide (22 - 30 mmol/L) 23 Anion Gap (5 - 16) 13 BUN (9 - 20 mg/dL) 21 H Creatinine (0.7 - 1.2 mg/dL) 0.9 Estimated GFR (>60 ml/min) > 60 BUN/Creatinine Ratio (7 - 25 %) 23.3 Glucose (65 - 99 mg/dL) 110 H Calcium (8.4 - 10.2 mg/dL) 10.1 Magnesium (1.6 - 2.3 mg/dL) 1.9 Total Bilirubin (0.2 - 1.3 mg/dL) 1.1 AST (17 - 59 U/L) 43 ALT (21 - 72 U/L) 26 Alkaline Phosphatase (< 127 U/L) 74 Troponin I (<0.11 ng/ml) 0.02 0.02 Total Protein (6.3 - 8.2 g/dL) 7.2 Albumin (3.5 - 5.0 g/dL) 4.8 Globulin (1.9 - 4.2 gm/dL) 2.4 Albumin/Globulin Ratio (1.1 - 2.2 %) 2.0 Cholesterol (< 200 MG/DL) 165 Coagulation PT (9.4 - 12.5 SEC) 24.2 H INR (0.90 - 1.17) 2.32 H APTT (25 - 37 SEC) 38 H Hematology CBC w Diff NO MAN DIFF REQ WBC (4.8 - 10.8 /CUMM) 9.7 RBC (4.70 - 6.10 /CUMM) 4.34 L Hgb (14.0 - 18.0 G/DL) 12.6 L Hct (42 - 52 %) 38.5 L MCV (80.0 - 94.0 FL) 88.8 MCH (27.0 - 31.0 PG) 29.1 RDW (11.5 - 14.5 %) 15.8 H Plt Count (130 - 400 /CUMM) 201 MPV (7.4 - 10.4 FL) 8.6 Gran % (42.2 - 75.2 %) 76.5 H Lymphocytes % (20.5 - 51.1 %) 14.6 L Monocytes % (1.7 - 9.3 %) 8.1 Eosinophils % (0 - 5 %) 0.5 Basophils % (0.0 - 2.0 %) 0.3 Absolute Granulocytes (1.4 - 6.5 /CUMM) 7.4 H Absolute Lymphocytes (1.2 - 3.4 /CUMM) 1.4 Absolute Monocytes (0.10 - 0.60 /CUMM) 0.8 H Absolute Eosinophils (0.0 - 0.7 /CUMM) 0 Absolute Basophils (0.0 - 0.2 /CUMM) 0 PUBS MCHC (33.0 - 37.0 G/DL) 32.8 L
--- NOTE | 2016-10-23 23:01 | ECHOCARDIOGRAM REPORT ---
HARLAN BLAIR Age: 81 : 1935 Gender: M Exam Date: 10/23/2016 14:14 Exam Location: [place] Ht (in): 69 Wt (lb): 161 BSA: 1.89 BP: 159 / 77 Ordering Physician: IBRAHIMA KENDALL MD Referring Physician: Leonel Orta M.D. Technologist: Selma Collier RDCS Room Number: [id number] Indications: CHEST PAIN Rhythm: Technical Quality: FINDINGS Left Ventricle Left ventricular cavity size normal. Left ventricular wall thickness mildly increased. Mild mid to distal anteroseptal hypokinesis. Left ventricular ejection fraction is estimated at 55 %. Right Ventricle Normal right ventricular size and function. Right Atrium Moderate right atrial dilatation. Left Atrium Moderate left atrial dilatation. Mitral Valve No mitral stenosis. Mild mitral annular calcification. Mild-to- moderate mitral regurgitation. Aortic Valve Diffuse thickening of the aortic valve cusps with reduced excursion. Mild aortic stenosis. Mild aortic regurgitation. Tricuspid Valve Structurally normal tricuspid valve. Moderate tricuspid regurgitation. Unable to estimate the right ventricular systolic pressure. Pulmonic Valve Pulmonic valve not well visualized, grossly normal. Pericardium No pericardial effusion. Great Vessels Normal size aortic root. CONCLUSIONS Left ventricular cavity size normal. Left ventricular wall thickness mildly increased. Mild mid to distal anteroseptal hypokinesis. Left ventricular ejection fraction is estimated at 55 %. Moderate right atrial dilatation. Moderate left atrial dilatation. [id number] mitral regurgitation. Diffuse thickening of the aortic valve cusps with reduced excursion. Mild aortic stenosis. Moderate tricuspid regurgitation. Unable to estimate the right ventricular systolic pressure. Leonel Orta M.D. (Electronically Signed) Final Date: 23 October 2016 23:00 MEASUREMENTS (Male / Female) Normal Values 2D ECHO LV Diastolic Diameter PLAX 4.0 cm 4.2 - 5.9 / 3.9 - 5.3 cm LV Systolic Diameter PLAX 2.5 cm 2.1 - 4.0 cm LV Fractional Shortening PLAX 37.5 % 25 - 46 % LV Ejection Fraction 2D Teich 68.1 % IVS Diastolic Thickness 1.4 cm LVPW Diastolic Thickness 1.3 cm LV Relative Wall Thickness 0.7 RV Internal Dim ED PLAX 2.7 cm 1.9 - 3.8 cm LVOT Diameter 2.2 cm Aortic Root Diameter 3.2 cm LA Systolic Diameter LX 5.5 cm 3.0 - 4.0 / 2.7 - 3.8 cm LA Volume 75.0 cm 18 - 58 / 22 - 52 cm Ascending Aorta Diameter 3.5 cm DOPPLER AV Peak Velocity 236.0 cm/s AV Peak Gradient 22.3 mmHg AV Mean Velocity 155.0 cm/s AV Mean Gradient 11.0 mmHg AV Velocity Time Integral 53.3 cm AI Deceleration Hall 158.0 cm/s AI Peak Velocity 360.0 cm/s AI Pressure Half Time 667.0 ms AI Peak Gradient 51.8 mmHg LVOT Peak Velocity 153.0 cm/s LVOT Peak Gradient 9.4 mmHg LVOT Mean Velocity 114.0 cm/s LVOT Mean Gradient 6.0 mmHg LVOT Velocity Time Integral 35.0 cm LVOT Stroke Volume 133.0 cm AV Area Cont Eq vti 2.5 cm AV Area Cont Eq pk 2.5 cm MV Peak Velocity 120.0 cm/s MV Peak Gradient 5.8 mmHg MV Mean Velocity 53.9 cm/s MV Mean Gradient 2.0 mmHg Mitral E Point Velocity 121.0 cm/s MV PHT Velocity 124.0 cm/s MV Deceleration Hall 493.0 cm/s MV Pressure Half Time 75.5 ms MV Area PHT 2.9 cm MV Deceleration Time 162.0 ms TR Peak Velocity 317.0 cm/s TR Peak Gradient 40.2 mmHg Right Atrial Pressure 5.0 mmHg Pulmonary Artery Systolic Pressu 45.2 mmHg Right Ventricular Systolic Press 45.2 mmHg PV Peak Velocity 89.9 cm/s PV Peak Gradient 3.2 mmHg PV Mean Velocity 60.7 cm/s PV Mean Gradient 2.0 mmHg PV Velocity Time Integral 19.2 cm LV E' Lateral Velocity 10.8 cm/s Mitral E to LV E' Lateral Ratio 11.2 LV E' Septal Velocity 8.1 cm/s Mitral E to LV E' Septal Ratio 15.0
[2016-10-23 23:16] VITALS: BP 142/50
[2016-10-23 23:56] LABS: PTT 86 SEC (25-37)
[2016-10-24 06:46] VITALS: BP 150/60
[2016-10-24 07:55] LABS: ABSOLUTE BASOPHIL COUNT 0 /CUMM (0.0-0.2); ABSOLUTE EOSINOPHIL COUNT 0 /CUMM (0.0-0.7); ABSOLUTE GRANULOCYTE CT 2.7 /CUMM (1.4-6.5); ABSOLUTE LYMPH COUNT 1.6 /CUMM (1.2-3.4); ABSOLUTE MONOCYTE COUNT 0.7 /CUMM (0.10-0.60); BASOPHIL % 0.6 % (0.0-2.0); EOSINOPHIL % 0.9 % (0-5); GRANULOCYTE % 52.9 % (42.2-75.2); HEMATOCRIT 37.5 % (42-52); MEAN CORPUSCULAR HGB 29.2 PG (27.0-31.0); MEAN CORPUSCULAR HGB CONC 32.4 G/DL (33.0-37.0); MEAN CORPUSCULAR VOLUME 90.1 FL (80.0-94.0); MEAN PLATELET VOLUME 8.6 FL (7.4-10.4); PLATELET COUNT 170 /CUMM (130-400); RBC DISTRIBUTION WIDTH 15.6 % (11.5-14.5); RED BLOOD CELL CT 4.16 /CUMM (4.70-6.10); WHITE BLOOD CELL COUNT 5.2 /CUMM (4.8-10.8)
--- NOTE | 2016-10-24 07:56 | PN- Att Addend ---
Attending Addendum Attending Brief Note Covering attending note. Patient is sitting out of bed having breakfast this morning, denying any chest pain or any shortness of breath he feels comfortable, is currently in IV heparin. Intake & Output 10/24 0800 10/24 0000 10/23 1600 Intake Total 540 870 60 Output Total 400 475 Balance 140 395 60 Intake, IV 140 70 Intake, Oral 400 800 60 Output, Urine 400 475 Patient 161 lb Weight Weight Reported by Patient Measurement Method Current Medications Sig/[place] Start time Last Medication Dose Route Stop Time Status Admin Acetaminophen 650 MG Q6P PRN 10/23 1200 DC PO Acetaminophen/ 1.5 TAB Q8 10/24 0600 AC 10/24 Hydrocodone Bitart PO 0621 Acetaminophen/ 1.5 TAB Q8 10/23 1513 DC Hydrocodone Bitart PO Acetaminophen/ 1 TAB Q6 10/23 1310 DC Hydrocodone Bitart PO Acetaminophen/ 1 TAB Q6P PRN 10/23 1200 DC Hydrocodone Bitart PO Aspirin 81 MG DAILY 10/24 1000 AC PO Aspirin 0 .STK-MED ONE 10/23 1022 DC PO Aspirin 325 MG ONCE ONE 10/23 1015 DC 10/23 PO 10/23 1016 1022 Atorvastatin Calcium 80 MG 1700 10/23 1700 AC 10/23 PO 2007 Clopidogrel Bisulfate 75 MG DAILY 10/24 1000 AC PO Furosemide 40 MG DAILY 10/24 1000 AC PO Heparin Sodium 25,000 UNIT Q24H 10/23 1600 AC 10/23 (Porcine) IV 1644 Sodium Chloride 500 ML Isosorbide 30 MG DAILY 10/23 1346 AC Mononitrate PO Lorazepam 0.5 MG BID 10/23 2200 AC 10/23 PO 10/30 2159 2007 Losartan Potassium 100 MG DAILY 10/24 1000 AC PO 10/25 0000 Metoprolol Tartrate 25 MG DAILY 10/24 1000 AC PO Morphine Sulfate 2 MG Q4P PRN 10/23 1200 AC IV Multivitamins 1 TAB DAILY 10/24 1000 CAN PO Prednisone 2.5 MG DAILY 10/24 1000 AC PO Laboratory Tests 10/24 10/23 10/23 10/23 0701 2325 1545 0931 Chemistry Sodium (137 - 145 mmol/L) Pending 142 Potassium (3.5 - 5.1 mmol/L) Pending 3.9 Chloride (98 - 107 mmol/L) Pending 105 Carbon Dioxide (22 - 30 mmol/L) Pending 23 Anion Gap (5 - 16) Pending 13 BUN (9 - 20 mg/dL) Pending 21 H Creatinine (0.7 - 1.2 mg/dL) Pending 0.9 Estimated GFR (>60 ml/min) > 60 BUN/Creatinine Ratio (7 - 25 %) Pending 23.3 Glucose (65 - 99 mg/dL) 110 H Calcium (8.4 - 10.2 mg/dL) 10.1 Magnesium (1.6 - 2.3 mg/dL) 1.9 Total Bilirubin (0.2 - 1.3 mg/dL) 1.1 AST (17 - 59 U/L) 43 ALT (21 - 72 U/L) 26 Alkaline Phosphatase (< 127 U/L) 74 Troponin I (<0.11 ng/ml) 0.02 0.02 0.02 Total Protein (6.3 - 8.2 g/dL) 7.2 Albumin (3.5 - 5.0 g/dL) 4.8 Globulin (1.9 - 4.2 gm/dL) 2.4 Albumin/Globulin Ratio (1.1 - 2.2 %) 2.0 Triglycerides Pending Cholesterol (< 200 MG/DL) Pending 165 LDL Cholesterol, Calc Pending HDL Cholesterol Pending Cholesterol/HDL Ratio Pending Coagulation PT (9.4 - 12.5 SEC) 24.2 H INR (0.90 - 1.17) 2.32 H APTT (25 - 37 SEC) 86 H 38 H Hematology CBC w Diff Pending NO MAN DIFF REQ WBC (4.8 - 10.8 /CUMM) Pending 9.7 RBC (4.70 - 6.10 /CUMM) Pending 4.34 L Hgb (14.0 - 18.0 G/DL) Pending 12.6 L Hct (42 - 52 %) Pending 38.5 L MCV (80.0 - 94.0 FL) Pending 88.8 MCH (27.0 - 31.0 PG) Pending 29.1 RDW (11.5 - 14.5 %) Pending 15.8 H Plt Count (130 - 400 /CUMM) Pending 201 MPV (7.4 - 10.4 FL) Pending 8.6 Gran % (42.2 - 75.2 %) 76.5 H Lymphocytes % (20.5 - 51.1 %) 14.6 L Monocytes % (1.7 - 9.3 %) 8.1 Eosinophils % (0 - 5 %) 0.5 Basophils % (0.0 - 2.0 %) 0.3 Absolute Granulocytes (1.4 - 6.5 /CUMM) 7.4 H Absolute Lymphocytes (1.2 - 3.4 /CUMM) 1.4 Absolute Monocytes (0.10 - 0.60 /CUMM) 0.8 H Absolute Eosinophils (0.0 - 0.7 /CUMM) 0 Absolute Basophils (0.0 - 0.2 /CUMM) 0 PUBS MCHC (33.0 - 37.0 G/DL) Pending 32.8 L Vital Signs Date Time Temp Pulse Resp B/P B/P Pulse O2 O2 Flow FiO2 Mean Ox Delivery Rate 10/24 0646 98.4 63 20 150/60 97 Room Air / 2316 97.5 95 20 142/50 95 Room Air / 1849 Room Air / 1433 97.8 89 20 134/64 98 Room Air / 1023 96 Room Air 07/ 1016 98.0 70 20 159/77 96 Room Air 07/ 0850 97.4 69 16 171/73 99 Room Air Intake & Output 10/24 0800 07/04 0000 07/03 1600 Intake Total 540 870 60 Output Total 400 475 Balance 140 395 60 Intake, IV 140 70 Intake, Oral 400 800 60 Output, Urine 400 475 Patient 161 lb Weight Weight Reported by Patient Measurement Method On examination Patient is awake alert oriented 3. Neck is supple, JVD is not raised. S1-S2 is irregular S3 present Lungs shows diminished air entry both bases Abdomen is soft globular nontender bowel sounds are present Echo CONCLUSIONS Left ventricular cavity size normal. Left ventricular wall thickness mildly increased. Mild mid to distal anteroseptal hypokinesis. Left ventricular ejection fraction is estimated at 55 %. Moderate right atrial dilatation. Moderate left atrial dilatation. [id number] mitral regurgitation. Diffuse thickening of the aortic valve cusps with reduced excursion. Mild aortic stenosis. Moderate tricuspid regurgitation. Unable to estimate the right ventricular systolic pressure. Assessment #1 coronary artery disease status post LA is [id number] with PTCA and NEST LA comes to the hospital with the chest pressure is currently on IV heparin patient scheduled review be have a cardiac catheterization tomorrow. We'll continue to monitor his PTT History of atrial fibrillation he was on Reyna. Also history of chronic CHF which is diastolic ejection fraction is 55%.
--- NOTE | 2016-10-24 09:39 | PN- Housestaff ---
Subjective Follow-up For: Non-ST elevation NV, she did for cardiac catheterization on 10/25/2016 Complaints: no complaints Tele-Events Since Last Visit: Atrial fibrillation, heart rate between 48-77, no any overnight events Subjective: Patient is seen and examined at the bedside. Denies for any chest pressure, chest pain, shortness of breath, fullness in the body. Review of Systems Constitutional: Denies: no symptoms. Objective Last 24 Hrs of Vital Signs/I&O Vital Signs Date Time Temp Pulse Resp B/P B/P Pulse O2 O2 Flow FiO2 Mean Ox Delivery Rate 10/24 0851 144/72 10/24 0849 144/72 10/24 0849 144/72 10/24 0646 98.4 63 20 150/60 97 Room Air 10/23 2316 97.5 95 20 142/50 95 Room Air 10/23 1849 Room Air 10/23 1433 97.8 89 20 134/64 98 Room Air 10/23 1023 96 Room Air 10/23 1016 98.0 70 20 159/77 96 Room Air Intake & Output 10/24 1600 10/24 0800 10/24 0000 Intake Total 540 870 Output Total 400 475 Balance 140 395 Intake, IV 140 70 Intake, Oral 400 800 Output, Urine 400 475 Physical Exam General Appearance: Alert, Oriented X3, Cooperative, No Acute Distress Cardiovascular: Normal S1, Normal S2 Lungs: Clear to Auscultation, Normal Air Movement Abdomen: Soft, No Tenderness Neurological: Normal Speech Extremities: No Clubbing, No Cyanosis, No Edema Current Medications: Current Medications Sig/[place] Start time Last Medication Dose Route Stop Time Status Admin Acetaminophen 650 MG Q6P PRN 10/23 1200 DC PO Acetaminophen/ 1.5 TAB Q8 10/24 0600 AC 10/24 Hydrocodone Bitart PO 0621 Acetaminophen/ 1.5 TAB Q8 10/23 1513 DC Hydrocodone Bitart PO Acetaminophen/ 1 TAB Q6 10/23 1310 DC Hydrocodone Bitart PO Acetaminophen/ 1 TAB Q6P PRN 10/23 1200 DC Hydrocodone Bitart PO Aspirin 81 MG DAILY 10/24 1000 AC 10/24 PO 0849 Aspirin 0 .STK-MED ONE 10/23 1022 DC PO Aspirin 325 MG ONCE ONE 10/23 1015 DC 10/23 PO 10/23 1016 1022 Atorvastatin Calcium 80 MG 1700 10/23 1700 AC 10/23 PO 2007 Clopidogrel Bisulfate 75 MG DAILY 10/24 1000 AC 10/24 PO 0851 Furosemide 40 MG DAILY 10/24 1000 AC 10/24 PO 0849 Heparin Sodium 25,000 UNIT Q24H 10/23 1600 AC 10/23 (Porcine) IV 1644 Sodium Chloride 500 ML Isosorbide 30 MG DAILY 10/23 1346 AC 10/24 Mononitrate PO 0849 Lorazepam 0.5 MG BID 10/23 2200 AC 10/24 PO 10/30 2159 0854 Losartan Potassium 100 MG DAILY 10/24 1000 AC 10/24 PO 10/25 0000 0849 Metoprolol Tartrate 25 MG DAILY 10/24 1000 AC 10/24 PO 0851 Morphine Sulfate 2 MG Q4P PRN 10/23 1200 AC IV Multivitamins 1 TAB DAILY 10/24 1000 CAN PO Prednisone 2.5 MG DAILY 10/24 1000 AC 10/24 PO 0848 Last 24 Hrs of Lab/Teo Results Last 24 Hrs of Labs/Mics: Laboratory Tests 10/24/16 0701: Anion Gap 10, Estimated GFR > 60, BUN/Creatinine Ratio 22.2, Triglycerides 104, Cholesterol 145, LDL Cholesterol, Calc 75, HDL Cholesterol 50, Cholesterol/HDL Ratio 3, CBC w Diff NO MAN DIFF REQ, RBC 4.16 L, MCV 90.1, MCH 29.2, RDW 15.6 H, MPV 8.6, Gran % 52.9, Lymphocytes % 31.6, Monocytes % 14.0 H, Eosinophils % 0.9, Basophils % 0.6, Absolute Granulocytes 2.7, Absolute Lymphocytes 1.6, Absolute Monocytes 0.7 H, Absolute Eosinophils 0, Absolute Basophils 0, PUBS MCHC 32.4 L 10/23/16 2325: Troponin I 0.02, APTT 86 H 10/23/16 1545: Troponin I 0.02 Assessment/Plan Assessment: Patient is a 80-year-old male presented with chief complaints of exertional heaviness of the chest from 2 days. Past medical history- Chest pain under evaluation, possible unstable angina Coronary artery disease, NV (1993, PTCA), non-ST elevation NV( ALEJANDRA to LAD, 2016) Atrial fibrillation on Xarelto Diastolic heart failure Hypertension Chronic back pain Plan - * Continue telemetry monitoring * Continue heparin drip and regular checking of PTT * Keep nothing by mouth after midnight for possible cardiac catheterization on . We will hold ARB, on Sunday morning before cardiac catheterization * We will continue aspirin, Plavix, statin, beta sunny,Imdure, Lasix * Echocardiogram showed LVEF 55%, anteroseptal hypokinesia, mild LVH * Follow Cardiologic recommendation Problem List: 1. Unstable angina Pain Ratin Pain Location: Chest Pain Goal: Remain pain free Pain Plan: Avoid NSAIDs Tomorrow's Labs & Rationales: CBC, BEP, PT,PTT DVT/Prophylaxis: mechanical, pharmacological Consulting Request: Consulting Specialty: Cardiology
[2016-10-24 13:36] LABS: PTT > 120 SEC (25-37)
--- NOTE | 2016-10-24 14:31 | PN- Cardiology ---
Subjective Subjective: Feeling better. No further chest pain. No palpitations. No diaphoresis. Objective Vital Signs and I&Os Vital Signs Date Time Temp Pulse Resp B/P B/P Pulse O2 O2 Flow FiO2 Mean Ox Delivery Rate 10/24 0851 144/72 10/24 0849 144/72 10/24 0849 144/72 10/24 0646 98.4 63 20 150/60 97 Room Air 10/23 2316 97.5 95 20 142/50 95 Room Air 10/23 1849 Room Air 10/23 1433 97.8 89 20 134/64 98 Room Air Intake & Output 10/24 1600 10/24 0800 10/24 0000 10/23 1600 10/23 0800 10/23 0000 Intake Total 540 870 60 Output Total 400 475 Balance 140 395 60 Intake, IV 140 70 Intake, Oral 400 800 60 Output, Urine 400 475 Patient 161 lb Weight Weight Reported by Patient Measurement Method Physical Exam: Gen: The patient is in no acute distress HEENT: Normal nose, ears, and oropharynx. Pupils equal bilaterally. Conjunctiva normal. Neck: Supple with no JVD, no masses, and no thyromegaly Lungs: Clear to auscultation with normal respiratory effort Heart: Irregular S1, S2, 1/6 systolic murmur. No peripheral edema, 2+ pulses in the lower extremities bilaterally Abdomen: Soft, nontender, no masses. No hepatomegaly. No splenomegaly Extremities: No clubbing or cyanosis. Normal muscle strength in the upper and lower extremities Skin: Normal skin turgor with no skin ulcers or lesions noted. Neuro: Cranial nerves intact. Sensation intact Psych: Alert and oriented 3 with appropriate affect Current Medications: Current Medications Sig/[place] Start time Last Medication Dose Route Stop Time Status Admin Acetaminophen/ 1.5 TAB Q8 10/24 0600 AC 10/24 Hydrocodone Bitart PO 1326 Acetaminophen/ 1.5 TAB Q8 10/23 1513 DC Hydrocodone Bitart PO Acetaminophen/ 1 TAB Q6 10/23 1310 DC Hydrocodone Bitart PO Aspirin 81 MG DAILY 10/24 1000 AC 10/24 PO 0849 Atorvastatin Calcium 80 MG 1700 10/23 1700 AC 10/23 PO 2006 Clopidogrel Bisulfate 75 MG DAILY 10/24 1000 AC 10/24 PO 0851 Furosemide 40 MG DAILY 10/24 1000 AC 10/24 PO 0849 Heparin Sodium 25,000 UNIT Q24H 10/23 1600 AC 10/23 (Porcine) IV 1644 Sodium Chloride 500 ML Isosorbide 30 MG DAILY 10/23 1346 AC 10/24 Mononitrate PO 0849 Lorazepam 0.5 MG BID 10/23 2200 AC 10/24 PO 10/30 2159 0854 Losartan Potassium 100 MG DAILY 10/24 1000 AC 10/24 PO 10/25 0000 0849 Metoprolol Tartrate 25 MG DAILY 10/24 1000 AC 10/24 PO 0851 Morphine Sulfate 2 MG Q4P PRN 10/23 1200 AC IV Prednisone 2.5 MG DAILY 10/24 1000 AC 10/24 PO 0848 Results Last 48 Hrs of Labs/Mics: Laboratory Tests 10/24/16 1215: APTT > 120 *H 10/24/16 0701: Anion Gap 10, Estimated GFR > 60, BUN/Creatinine Ratio 22.2, Triglycerides 104, Cholesterol 145, LDL Cholesterol, Calc 75, HDL Cholesterol 50, Cholesterol/HDL Ratio 3, CBC w Diff NO MAN DIFF REQ, RBC 4.16 L, MCV 90.1, MCH 29.2, RDW 15.6 H, MPV 8.6, Gran % 52.9, Lymphocytes % 31.6, Monocytes % 14.0 H, Eosinophils % 0.9, Basophils % 0.6, Absolute Granulocytes 2.7, Absolute Lymphocytes 1.6, Absolute Monocytes 0.7 H, Absolute Eosinophils 0, Absolute Basophils 0, PUBS MCHC 32.4 L 10/23/16 2325: Troponin I 0.02, APTT 86 H 10/23/16 1545: Troponin I 0.02 10/23/16 0931: Anion Gap 13, Estimated GFR > 60, BUN/Creatinine Ratio 23.3, Glucose 110 H, Calcium 10.1, Magnesium 1.9, Total Bilirubin 1.1, AST 43, ALT 26, Alkaline Phosphatase 74, Troponin I 0.02, Total Protein 7.2, Albumin 4.8, Globulin 2.4, Albumin/Globulin Ratio 2.0, Cholesterol 165, PT 24.2 H, INR 2.32 H, APTT 38 H , CBC w Diff NO MAN DIFF REQ, RBC 4.34 L, MCV 88.8, MCH 29.1, RDW 15.8 H, MPV 8.6, Gran % 76.5 H, Lymphocytes % 14.6 L, Monocytes % 8.1, Eosinophils % 0.5, Basophils % 0.3, Absolute Granulocytes 7.4 H, Absolute Lymphocytes 1.4, Absolute Monocytes 0.8 H, Absolute Eosinophils 0, Absolute Basophils 0, PUBS MCHC 32.8 L Assessment/Plan Assessment/Plan Assessment: 1. CAD 2. Atrial fibrillation 3. Chest pain, possible unstable angina Plan: * Continue current cardiac medications. * Hold Xarelto and continue IV Lasix * Nothing by mouth after midnight for possible cardiac catheterization tomorrow * Hold Losartan in a.m. Continue telemetry? Yes
[2016-10-24 15:41] VITALS: BP 130/70
[2016-10-24 21:51] LABS: PTT 70 SEC (25-37)
[2016-10-24 22:00] VITALS: BP 138/70
--- NOTE | 2016-10-25 07:16 | Discharge Summary ---
Visit Information Visit Dates Admission Date: 10/23/16 Discharge Date: 10/25/16 Hospital Course Course Attending Physician: GINA BARCENAS MD Primary Care Physician: GINA BARCENAS MD Consulting Request: Consulting Specialty: Cardiology Hospital Course: 81-year-old male with a past medical history of CAD, myocardial infarction s/p PTCA in 1993 and ALEJANDRA in Apr 2016 currently on Plavix, CHF, atrial fibrillation on Xarelto, hypertension, hyperlipidemia, chronic pain secondary to PMR, anxiety , presents to the ED with c/o chest pressure. Vitals at the time of admission blood pressure 171/73, pulse 69, respiratory rate of 16 saturating 99% on RA. Labs pertinent for normocytic anemia with an H&H of 12.6/38.5, platelet count 201,000. Serum chemistries reveal sodium 142, potassium of 3.9, anion gap of 13 , BUN 21 and the creatinine 0.9. Serum calcium within normal limits at 10.1 and serum mag of 1.9. LFTs unremarkable with an AST/L2 43/26, total bili 1.1 and alkaline phosphatase of 74. First set of troponin 0.02. EKG revealed: Atrial fibrillation HR: 74, T-wave inversion in II, III, aVF and diagnosed with ST-T depression in V4 and V6 that are old; poor R-wave progression. Chest x-ray showed no acute pulmonary findings. In the ER he received 325 mg of aspirin 1. He was admitted to telemetry, and the following problems were addressed: #Typical chest pain Most likely UA vs musculoskeletal vs stent thrombosis (no EKG changes) R/o ACS with trop and EKG @ 3:00pm and 9: 00pm Echo to r/o RWMA F/U lipid panel in AM Will start him on ASA 81mg daily, continue Plavix 75mg daily, Lasix 40mg daily, will increase to Atorvastatin 80mg daily Will start him on Imdur 30mg daily Will anticoagulate him with heparin in the afternoon as he took his Xarelto last night. F/U INR however being on Xarelto cannot rely on INR completely. Cardio on board. Plan for cardiac cath on Sun. Will be NPO after MN on Sunday for possible cardiac cath on Sunday. Will hold ARB on Sun morn. #Afib on Xarelto Currently rate controlled. Is on Xarelto 20mg daily whihc he took yesterday/ Will hold Xarelto fo rnow and start him on Heparini per ACS protocol. #Chronic back pain Is on Hydrocodone 20mg daily ER Will satrt him on Vicodin 5/325mg Q6 scheduled for now. Allergies: Coded Allergies: NO KNOWN ALLERGIES (UNKNOWN 10/23/16) Discharge Instructions General Discharge Information Code Status: Full Code Patient's Diet: NPO for now Patient's Activity: As tolerated Medications at Discharge Discharge Medications: Continue taking these medications: Metoprolol Succinate (Metoprolol Succinate) 25 MG TAB 1 Tablet ORAL DAILY Comments: Last Taken: 04/27/16 Time: 840 AM Omeprazole (Omeprazole) 40 MG CAPSULE.DR 1 Capsule ORAL DAILY Qty = 90 Lorazepam (Ativan) 0.5 MG TABLET 1 Tablet ORAL TWICE DAILY Comments: Last Taken: 04/27/16 Time: 840 AM Potassium Chloride (Klor-Con M10) 10 MEQ TAB.ER.PRT 1 Tablet ORAL DAILY Qty = 60 Olmesartan Medoxomil (Benicar) 40 MG TABLET 1 Tablet ORAL DAILY Qty = 90 Comments: NOT GIVEN IN THE HOSPITAL Acetaminophen (Tylenol Extra Strength) 500 MG TABLET 2 Tablet ORAL THREE TIMES DAILY Comments: Last Taken: 04/27/16 Time: 615 AM Clopidogrel Bisulfate (Clopidogrel) 75 MG TABLET 1 Tablet ORAL DAILY Qty = 30 Simvastatin (Zocor*) 20 MG TABLET 1 Tablet ORAL DAILY Qty = 90 Prednisone (Prednisone) 2.5 MG TABLET 1 Tablet ORAL DAILY Qty = 90 Rivaroxaban (Xarelto) 20 MG TABLET 1 Tablet ORAL Every night Qty = 90 Instructions: with food Hydrocodone Bitartrate (Hysingla ER) 20 MG TAB.ER.24H 1 Tablet ORAL DAILY Qty = 30 Start taking the following new medications: Isosorbide Mononitrate (Isosorbide Mononitrate ER) 60 MG TAB.ER.24H 1 Tablet ORAL DAILY Qty = 30 No Refills The following medications have been changed: Old: Furosemide (Lasix) 40 MG TAB 1 Tablet ORAL DAILY Qty = 30 New: Furosemide (Lasix) 40 MG TABLET 1 Tablet ORAL DAILY Qty = 30
--- NOTE | 2016-10-25 07:17 | PN- Housestaff ---
Subjective Follow-up For: Unstable angina Complaints: no complaints Tele-Events Since Last Visit: Atrial fibrillation HR: 44-103, PVC's, HR down to 42. Subjective: Patient seen and examined at bedside. He is sitting comfortably, denies any chest discomfort, shortness of breath, palpitations. Eager on going home, however, is NPO in anticipation of a cardiac cath. His troponins have so far been negative. Review of Systems Constitutional: Denies: diaphoresis, fever, weakness. EENTM: Denies: visual changes. Cardiovascular: Denies: chest pain, edema, orthopena, palpitations, peripheral edema. Respiratory: Denies: cough, orthopnea, short of breath, wheezing. Gastrointestinal: Denies: abdominal pain, constipation, diarrhea, nausea, vomiting. Genitourinary: Denies: frequency, pain, urgency. Musculoskeletal: Reports: no symptoms. Neurological/Psychological: Denies: headache, numbness, tingling, tremors. Objective Last 24 Hrs of Vital Signs/I&O Vital Signs Date Time Temp Pulse Resp B/P B/P Pulse O2 O2 Flow FiO2 Mean Ox Delivery Rate 10/24 2200 98.0 70 18 138/70 96 Room Air 10/24 1541 98.1 70 20 130/70 96 Room Air 10/24 0851 144/72 07 0849 144/72 10/24 0849 144/72 Intake & Output 10/25 0800 07/05 0000 0704 1600 Intake Total 0 1220 560 Output Total 350 800 650 Balance -350 420 -90 Intake, IV 100 160 Intake, Oral 0 1120 400 Output, Urine 350 800 650 Physical Exam General Appearance: Alert, Oriented X3, Cooperative, No Acute Distress HEENT: Atraumatic, PERRLA, EOMI, Mucous Membr. moist/pink Neck: Supple, No JVD, No thryomegaly, +2 Carotid Pulse wo Bruit, No LAD Cardiovascular: Normal S1, Normal S2, No Murmurs, irregularly irregular pulse Lungs: Clear to Auscultation, Normal Air Movement Abdomen: Normal Bowel Sounds, Soft, No Tenderness Neurological: Normal Speech, Strength at 5/5 X4 Ext, Normal Tone, Sensation Intact, Cranial Nerves 3-12 NL, Reflexes 2+ Extremities: No Clubbing, No Cyanosis, No Edema, Normal Pulses, No Tenderness/ Swelling Vascular: Normal Pulses, Pulses Symmetrical Current Medications: Current Medications Sig/[place] Start time Last Medication Dose Route Stop Time Status Admin Acetaminophen/ 1.5 TAB Q8 10/24 0600 AC 10/25 Hydrocodone Bitart PO 0547 Aspirin 81 MG DAILY 10/24 1000 AC 10/24 PO 0849 Atorvastatin Calcium 80 MG 1700 10/23 1700 AC 10/24 PO 1718 Clopidogrel Bisulfate 75 MG DAILY 10/24 1000 AC 10/24 PO 0851 Furosemide 40 MG DAILY 10/24 1000 AC 10/24 PO 0849 Heparin Sodium 25,000 UNIT Q24H 10/23 1600 AC 10/24 (Porcine) IV 2343 Sodium Chloride 500 ML Isosorbide 30 MG DAILY 10/23 1346 AC 10/24 Mononitrate PO 0849 Lorazepam 0.5 MG BID 10/23 2200 AC 10/24 PO 10/30 2159 2106 Losartan Potassium 100 MG DAILY 10/24 1000 DC 10/24 PO 10/25 0100 0849 Metoprolol Tartrate 25 MG DAILY 10/24 1000 AC 10/24 PO 0851 Morphine Sulfate 2 MG Q4P PRN 10/23 1200 AC IV Prednisone 2.5 MG DAILY 10/24 1000 AC 10/24 PO 0848 Last 24 Hrs of Lab/Teo Results Last 24 Hrs of Labs/Mics: Laboratory Tests 10/24/16 2100: APTT 70 H 10/24/16 1215: APTT > 120 *H Orders ECHO Findings: FINDINGS Left Ventricle Left ventricular cavity size normal. Left ventricular wall thickness mildly increased. Mild mid to distal anteroseptal hypokinesis. Left ventricular ejection fraction is estimated at 55 %. Right Ventricle Normal right ventricular size and function. Right Atrium Moderate right atrial dilatation. Left Atrium Moderate left atrial dilatation. Mitral Valve No mitral stenosis. Mild mitral annular calcification. Mild-to- moderate mitral regurgitation. Aortic Valve Diffuse thickening of the aortic valve cusps with reduced excursion. Mild aortic stenosis. Mild aortic regurgitation. Tricuspid Valve Structurally normal tricuspid valve. Moderate tricuspid regurgitation. Unable to estimate the right ventricular systolic pressure. Pulmonic Valve Pulmonic valve not well visualized, grossly normal. Pericardium No pericardial effusion. Great Vessels Normal size aortic root. CONCLUSIONS Left ventricular cavity size normal. Left ventricular wall thickness mildly increased. Mild mid to distal anteroseptal hypokinesis. Left ventricular ejection fraction is estimated at 55 %. Moderate right atrial dilatation. Moderate left atrial dilatation. [id number] mitral regurgitation. Diffuse thickening of the aortic valve cusps with reduced excursion. Mild aortic stenosis. Moderate tricuspid regurgitation. Unable to estimate the right ventricular systolic pressure. Leonel Orta M.D. (Electronically Signed) Final Date: 23 October 2016 23:00 Radiology Findings: SERVICE DATE: 10/23/16 EXAM TYPE: RAD - XRY-PORTABLE CHEST XRAY FINDINGS: Cardiac leads overlie the chest. There is no consolidation, edema, or effusion. No pneumothorax. The cardiomediastinal silhouette remains prominent, with a calcified aorta. No acute osseous abnormality. IMPRESSION: No acute pulmonary findings. Assessment/Plan Assessment: 81-year-old male with a past medical history of CAD, myocardial infarction s/p PTCA in 1993 and ALEJANDRA in Apr 2016 currently on Plavix, CHF, atrial fibrillation on Xarelto, hypertension, hyperlipidemia, chronic pain secondary to PMR, anxiety , presents to the ED with c/o chest pressure. Vitals at the time of admission blood pressure 171/73, pulse 69, respiratory rate of 16 saturating 99% on RA. Labs pertinent for normocytic anemia with an H&H of 12.6/38.5, platelet count 201,000. Serum chemistries reveal sodium 142, potassium of 3.9, anion gap of 13 , BUN 21 and the creatinine 0.9. Serum calcium within normal limits at 10.1 and serum mag of 1.9. LFTs unremarkable with an AST/L2 43/26, total bili 1.1 and alkaline phosphatase of 74. First set of troponin 0.02. EKG revealed: Atrial fibrillation HR: 74, T-wave inversion in II, III, aVF and diagnosed with ST-T depression in V4 and V6 that are old; poor R-wave progression. Chest x-ray showed no acute pulmonary findings. In the ER he received 325 mg of aspirin 1. Assessment and plan #Typical chest pain Most likely angiina His trop and EKG did not suggest any ischemic changes. [place] done which showed mild mid to distal anteroseptal hypokinesis (unsure if new). Left ventricular ejection fraction estimated at 55 %. Continue on ASA 81mg daily, Plavix 75mg daily, Lasix 40mg daily, Atorvastatin 80mg daily, and Imdur 30mg daily Continue anticoagulation him with heparin and hold Xarelto for now. Plan for cardiac cath today pending cardiology recs. He is NPO after MN in anticipation of cardiac cath. Conitnue to hold ARB for now. #Afib on Xarelto Currently rate controlled. Conitinue to hold Xarelto for now and continue Heparin per ACS protocol. #Chronic back pain Is on Hydrocodone 20mg daily ER Will start him on Vicodin 5/325mg Q6 scheduled for now. - DVT prophylaxis - Heparin IV - Diet - Heart Healthy fo rnow. - NPO for possible cardiac cath today. - Code Status - Full Code. Problem List: 1. Unstable angina Pain Ratin Pain Location: n/a Pain Goal: Remain pain free Pain Plan: vicodin Tomorrow's Labs & Rationales: n/a Consulting Request: Consulting Specialty: Cardiology
[2016-10-25 07:28] VITALS: BP 152/68
[2016-10-25 08:24] LABS: ABSOLUTE BASOPHIL COUNT 0 /CUMM (0.0-0.2); ABSOLUTE EOSINOPHIL COUNT 0.1 /CUMM (0.0-0.7); ABSOLUTE GRANULOCYTE CT 3.4 /CUMM (1.4-6.5); ABSOLUTE LYMPH COUNT 2.2 /CUMM (1.2-3.4); ABSOLUTE MONOCYTE COUNT 0.8 /CUMM (0.10-0.60); BASOPHIL % 0.6 % (0.0-2.0); GRANULOCYTE % 52.6 % (42.2-75.2); HEMATOCRIT 40.2 % (42-52); MEAN CORPUSCULAR HGB 28.9 PG (27.0-31.0); MEAN CORPUSCULAR HGB CONC 32.1 G/DL (33.0-37.0); MEAN CORPUSCULAR VOLUME 90.1 FL (80.0-94.0); MEAN PLATELET VOLUME 8.7 FL (7.4-10.4); PLATELET COUNT 194 /CUMM (130-400); RED BLOOD CELL CT 4.47 /CUMM (4.70-6.10); WHITE BLOOD CELL COUNT 6.4 /CUMM (4.8-10.8)
[2016-10-25 08:39] LABS: PT 12.5 SEC (9.4-12.5); PTT 62 SEC (25-37)
[2016-10-25 09:16] VITALS: BP 150/78
[2016-10-25] MEDS ORDERED: ISOSORBIDE MONO60 M1 PO (11:16)
--- NOTE | 2016-10-25 11:21 | Patient Discharge Instructions ---
Discharge Instructions General Discharge Information You were seen/treated for: - Angina Special Instructions: Please F/U with your primary care phsyican in one week. Please follow up with your biochemistry teacher in one week. Diet Recommended Diet: Heart Healthy Activity Activity Self Limited: Yes Acute Coronary Syndrome Inclusion Criteria At DC or during hospital stay patient has or had the following: ACS DIAGNOSIS Yes Discharge Core Measures Meds if any: Prescribed or Continued at Discharge GEORGE/ARB if EF <40% Yes Aspirin No Beta-Yobani Yes Statin Yes Meds if any: NOT Prescribed or Continued at Discharge No Aspirin d/t Medical Contraindication (risk of bleeding) Congestive Heart Failure Inclusion Criteria At DC or during hospital stay patient has or had the following: CHF DIAGNOSIS No Discharge Core Measures Meds if any: Prescribed or Continued at Discharge Meds if any: NOT Prescribed or Continued at Discharge Cerebrovascular accident Inclusion Criteria At DC or during hospital stay patient has or had the following: CVA/TIA Diagnosis No Discharge Core Measures Meds if any: Prescribed or Continued at Discharge Meds if any: NOT Prescribed or Continued at Discharge Venous thromboembolism Inclusion Criteria VTE Diagnosis No VTE Type NONE VTE Confirmed by (Test) NONE Discharge Core Measures - Per Current guidelines, there needs to be overlap - treatment for the first 5 days of Warfarin therapy. - If discharged on Warfarin prior to 5 days of - overlap therapy, the patient will need to be - assessed for post discharge needs including - *Post discharge parental anticoagulation - *Warfarin and/or parental anticoagulation education - *Follow up date to check INR post discharge At least 5 days overlap therapy as Inpatient No Meds if any: Prescribed or Continued at Discharge Note: Overlap Therapy is Warfarin and Anticoagulant Meds if any: NOT Prescribed or Continued at Discharge
--- NOTE | 2016-10-25 11:56 | PN- Cardiology ---
Subjective Subjective: Patient feeling well. Ambulating without difficulty. Remains asymptomatic. Objective Vital Signs and I&Os Vital Signs Date Time Temp Pulse Resp B/P B/P Pulse O2 O2 Flow FiO2 Mean Ox Delivery Rate 10/25 09 72 150/78 10/25 09 78 150/74 10/25 0728 97.4 82 18 152/68 97 Room Air 10/24 2200 98.0 70 18 138/70 96 Room Air 10/24 1541 98.1 70 20 130/70 96 Room Air Intake & Output 10/25 1600 10/25 0800 07 0000 10/24 1600 10/24 0800 10/24 0000 Intake Total 0 1220 560 540 870 Output Total 350 800 650 400 475 Balance -350 420 -90 140 395 Intake, IV 100 160 140 70 Intake, Oral 0 1120 400 400 800 Output, Urine 350 800 650 400 475 Physical Exam: General: no apparent distress. Alert. Eyes: No obvious scleral icterus. HEENT: No jugular venous distention or abnormal jugular venous pulsations. Cardiovascular: Normal intensity S1/S2. Irregular, one out of 6 systolic murmur Respiratory: Lungs clear to auscultation bilaterally. Abdomen: Soft, nontender with no guarding or rebound tenderness. Musculoskeletal: No clubbing or cyanosis noted, no edema Skin: Warm Neurologic: No gross focal deficits noted. Lymph: No gross lymphadenopathy. Current Medications: Current Medications Sig/[place] Start time Last Medication Dose Route Stop Time Status Admin Acetaminophen/ 1.5 TAB Q8 10/24 0600 AC 10/25 Hydrocodone Bitart PO 0547 Aspirin 81 MG DAILY 10/24 1000 AC 10/25 PO 0915 Atorvastatin Calcium 80 MG 1700 10/23 1700 AC 10/24 PO 1718 Clopidogrel Bisulfate 75 MG DAILY 10/24 1000 AC 10/25 PO 0916 Furosemide 40 MG DAILY 10/24 1000 AC 10/25 PO 0916 Heparin Sodium 25,000 UNIT Q24H 10/23 1600 DC 10/24 (Porcine) IV 2343 Sodium Chloride 500 ML Isosorbide 30 MG DAILY 10/23 1346 AC 10/25 Mononitrate PO 0916 Lorazepam 0.5 MG BID 10/23 2200 AC 10/25 PO 10/30 2159 0915 Losartan Potassium 100 MG DAILY 10/24 1000 DC 10/24 PO 10/25 0100 0849 Metoprolol Tartrate 25 MG DAILY 10/24 1000 AC 10/25 PO 0916 Morphine Sulfate 2 MG Q4P PRN 10/23 1200 AC IV Prednisone 2.5 MG DAILY 10/24 1000 AC 10/25 PO 0916 Results Last 48 Hrs of Labs/Mics: Laboratory Tests 10/25/16 0619: Anion Gap 14, Estimated GFR > 60, BUN/Creatinine Ratio 19.0, PT 12.5, INR 1.19 H, APTT 62 H, CBC w Diff NO MAN DIFF REQ, RBC 4.47 L, MCV 90.1, MCH 28.9, RDW 16.0 H, MPV 8.7, Gran % 52.6, Lymphocytes % 33.9, Monocytes % 11.9 H, Eosinophils % 1.0, Basophils % 0.6, Absolute Granulocytes 3.4, Absolute Lymphocytes 2.2, Absolute Monocytes 0.8 H, Absolute Eosinophils 0.1, Absolute Basophils 0, PUBS MCHC 32.1 L 10/24/16 2100: APTT 70 H 10/24/16 1215: APTT > 120 *H 10/24/16 0701: Anion Gap 10, Estimated GFR > 60, BUN/Creatinine Ratio 22.2, Triglycerides 104, Cholesterol 145, LDL Cholesterol, Calc 75, HDL Cholesterol 50, Cholesterol/HDL Ratio 3, CBC w Diff NO MAN DIFF REQ, RBC 4.16 L, MCV 90.1, MCH 29.2, RDW 15.6 H, MPV 8.6, Gran % 52.9, Lymphocytes % 31.6, Monocytes % 14.0 H, Eosinophils % 0.9, Basophils % 0.6, Absolute Granulocytes 2.7, Absolute Lymphocytes 1.6, Absolute Monocytes 0.7 H, Absolute Eosinophils 0, Absolute Basophils 0, PUBS MCHC 32.4 L 10/23/16 2325: Troponin I 0.02, APTT 86 H 10/23/16 1545: Troponin I 0.02 Recent Imaging Studies: Telemetry tracings were personally reviewed and show atrial fibrillation with controlled ventricular response rate Echocardiogram Left ventricular cavity size normal. Left ventricular wall thickness mildly increased. Mild mid to distal anteroseptal hypokinesis. Left ventricular ejection fraction is estimated at 55 %. Moderate right atrial dilatation. Moderate left atrial dilatation. [id number] mitral regurgitation. Diffuse thickening of the aortic valve cusps with reduced excursion. Mild aortic stenosis. Moderate tricuspid regurgitation. Unable to estimate the right ventricular systolic pressure. Leonel Orta M.D. (Electronically Signed) Final Date: 23 October 2016 23:00 Assessment/Plan Assessment/Plan 1. Chest discomfort with concern for unstable angina 2. Coronary disease by history status post myocardial infarctions 1994 with PTCA and NSTEMI status post drug-eluting stent to the LAD at [facility] 04/27/2016 3. Persistent atrial fibrillation on Xarelto 3. Hypertension 4. Chronic diastolic heart failure 5. Chronic back pain 6. Mild aortic stenosis The patient denies any recurrent episodes of chest discomfort. Blood pressure slightly above goal. I again had an extensive discussion with the patient regarding cardiac catheterization versus continued medical therapy for the time being. He would like to continue medical therapy at this time but would consider cardiac catheterization in the future if he has recurrent symptoms despite medical therapy. Recommend increasing the Imdur to 60 mg by mouth daily. His oral anticoagulation should be resumed. He will follow-up in our office within one week of discharge but will return to the hospital via 911 with any new or recurrent symptoms. Ejection fraction by echocardiogram was 55%. Steffen Orta MD [facility] Continue telemetry? No
--- NOTE | 2016-10-25 17:03 | PN- Att Addend ---
Attending Addendum Attending Brief Note Patient is feeling well hasn't had any chest pain since admission, he was nothing by mouth after midnight for possible cardiac catheterization, but cardiology came this morning and had a long discussion with the patient was decided to treat him conservatively, increased Imdur, and if symptoms recurred then consider cardiac catheterization again. She will be going home see the discharge summary and CMR Intake & Output 10/25 040 Intake Total 0 1220 1100 870 60 Output Total 032 353 3665 475 Balance -350 420 50 395 60 Intake, IV 100 300 70 Intake, Oral 0 1120 800 800 60 Output, Urine 170 439 7571 475 Patient 161 lb Weight Weight Reported by Patient Measurement Method Laboratory Tests 10/25/16 0900: APTT Cancelled 10/25/16 0619: Anion Gap 14, Estimated GFR > 60, BUN/Creatinine Ratio 19.0, PT 12.5, INR 1.19 H, APTT 62 H, CBC w Diff NO MAN DIFF REQ, RBC 4.47 L, MCV 90.1, MCH 28.9, RDW 16.0 H, MPV 8.7, Gran % 52.6, Lymphocytes % 33.9, Monocytes % 11.9 H, Eosinophils % 1.0, Basophils % 0.6, Absolute Granulocytes 3.4, Absolute Lymphocytes 2.2, Absolute Monocytes 0.8 H, Absolute Eosinophils 0.1, Absolute Basophils 0, PUBS MCHC 32.1 L 10/24/16 2100: APTT 70 H 10/24/16 1215: APTT > 120 *H 10/24/16 0701: Anion Gap 10, Estimated GFR > 60, BUN/Creatinine Ratio 22.2, Triglycerides 104, Cholesterol 145, LDL Cholesterol, Calc 75, HDL Cholesterol 50, Cholesterol/HDL Ratio 3, CBC w Diff NO MAN DIFF REQ, RBC 4.16 L, MCV 90.1, MCH 29.2, RDW 15.6 H, MPV 8.6, Gran % 52.9, Lymphocytes % 31.6, Monocytes % 14.0 H, Eosinophils % 0.9, Basophils % 0.6, Absolute Granulocytes 2.7, Absolute Lymphocytes 1.6, Absolute Monocytes 0.7 H, Absolute Eosinophils 0, Absolute Basophils 0, PUBS MCHC 32.4 L 10/23/16 2325: Troponin I 0.02, APTT 86 H 10/23/16 1545: Troponin I 0.02 10/23/16 0931: Anion Gap 13, Estimated GFR > 60, BUN/Creatinine Ratio 23.3, Glucose 110 H, Calcium 10.1, Magnesium 1.9, Total Bilirubin 1.1, AST 43, ALT 26, Alkaline Phosphatase 74, Troponin I 0.02, Total Protein 7.2, Albumin 4.8, Globulin 2.4, Albumin/Globulin Ratio 2.0, Cholesterol 165, PT 24.2 H, INR 2.32 H, APTT 38 H , CBC w Diff NO MAN DIFF REQ, RBC 4.34 L, MCV 88.8, MCH 29.1, RDW 15.8 H, MPV 8.6, Gran % 76.5 H, Lymphocytes % 14.6 L, Monocytes % 8.1, Eosinophils % 0.5, Basophils % 0.3, Absolute Granulocytes 7.4 H, Absolute Lymphocytes 1.4, Absolute Monocytes 0.8 H, Absolute Eosinophils 0, Absolute Basophils 0, PUBS MCHC 32.8 L
--- NOTE | 2016-10-25 17:12 | Discharge Summary ---
Visit Information Visit Dates Admission Date: 10/23/16 Discharge Date: 10/25/16 Hospital Course Course Attending Physician: GINA SPENCE MD Primary Care Physician: GINA SPENCE MD Consulting Request: Consulting Specialty: Cardiology Consulting Physician: Leonel Orta MD Reason for Consult: chest pain Hospital Course: 81-year-old white male with history of coronary artery disease and history of PTCA, has had intermittent chest pain for the last 2 days prior to admission little shortness of breath is due to his known cardiac history was decided to be admitted to rule out acute coronary syndrome and if necessary transfer for cardiac catheterization that the patient did well in the hospital no chest pain was followed by cardiology closely. He was nothing by mouth after midnight, was reevaluated by cardiology this morning and after long discussion was decided to treat the patient medically to increase his Imdur to restart his [place] anticoagulation and to let the patient go home and as an outpatient if he gets the symptoms again then we'll consider cardiac catheterization while in the hospital patient was on heparin. Complications: None Allergies: Coded Allergies: NO KNOWN ALLERGIES (UNKNOWN 10/23/16) Significant Procedures: Patient had an echocardiogram many showed a left ventricular size to be normal some left ventricular wall thickness is increased and an ejection fraction of 55 % The chest x-ray showed no acute abnormalities Pertinent Lab Results: Laboratory Tests 10/25/16 0900: APTT Cancelled 10/25/16 0619: Anion Gap 14, Estimated GFR > 60, BUN/Creatinine Ratio 19.0, PT 12.5, INR 1.19 H, APTT 62 H, CBC w Diff NO MAN DIFF REQ, RBC 4.47 L, MCV 90.1, MCH 28.9, RDW 16.0 H, MPV 8.7, Gran % 52.6, Lymphocytes % 33.9, Monocytes % 11.9 H, Eosinophils % 1.0, Basophils % 0.6, Absolute Granulocytes 3.4, Absolute Lymphocytes 2.2, Absolute Monocytes 0.8 H, Absolute Eosinophils 0.1, Absolute Basophils 0, PUBS MCHC 32.1 L 10/24/16 2100: APTT 70 H 10/24/16 1215: APTT > 120 *H 10/24/16 0701: Anion Gap 10, Estimated GFR > 60, BUN/Creatinine Ratio 22.2, Triglycerides 104, Cholesterol 145, LDL Cholesterol, Calc 75, HDL Cholesterol 50, Cholesterol/HDL Ratio 3, CBC w Diff NO MAN DIFF REQ, RBC 4.16 L, MCV 90.1, MCH 29.2, RDW 15.6 H, MPV 8.6, Gran % 52.9, Lymphocytes % 31.6, Monocytes % 14.0 H, Eosinophils % 0.9, Basophils % 0.6, Absolute Granulocytes 2.7, Absolute Lymphocytes 1.6, Absolute Monocytes 0.7 H, Absolute Eosinophils 0, Absolute Basophils 0, PUBS MCHC 32.4 L 10/23/16 2325: Troponin I 0.02, APTT 86 H 10/23/16 1545: Troponin I 0.02 10/23/16 0931: Anion Gap 13, Estimated GFR > 60, BUN/Creatinine Ratio 23.3, Glucose 110 H, Calcium 10.1, Magnesium 1.9, Total Bilirubin 1.1, AST 43, ALT 26, Alkaline Phosphatase 74, Troponin I 0.02, Total Protein 7.2, Albumin 4.8, Globulin 2.4, Albumin/Globulin Ratio 2.0, Cholesterol 165, PT 24.2 H, INR 2.32 H, APTT 38 H , CBC w Diff NO MAN DIFF REQ, RBC 4.34 L, MCV 88.8, MCH 29.1, RDW 15.8 H, MPV 8.6, Gran % 76.5 H, Lymphocytes % 14.6 L, Monocytes % 8.1, Eosinophils % 0.5, Basophils % 0.3, Absolute Granulocytes 7.4 H, Absolute Lymphocytes 1.4, Absolute Monocytes 0.8 H, Absolute Eosinophils 0, Absolute Basophils 0, PUBS MCHC 32.8 L Disposition Summary Disposition Principal Diagnosis: Chest pain Coronary artery disease Additional Diagnosis: Status post [place] Status post PTCA History of congestive heart failure Atrial fibrillation Hypertension Hyperlipidemia Chronic back pain Anxiety Discharge Disposition: home or self care Discharge Instructions General Discharge Information Code Status: Full Code Patient's Diet: Healthy heart Patient's Activity: As tolerated Follow-Up Instructions/Appts: Follow-up with Dr. Spence and rod mill tender Medications at Discharge Discharge Medications: Continue taking these medications: Metoprolol Succinate (Metoprolol Succinate) 25 MG TAB 1 Tablet ORAL DAILY Comments: Last Taken: 10/25/16 Time: 9:15 AM Omeprazole (Omeprazole) 40 MG CAPSULE.DR 1 Capsule ORAL DAILY Qty = 90 Comments: Last Taken: NOT GIVEN IN HOSPITAL Time: Lorazepam (Ativan) 0.5 MG TABLET 1 Tablet ORAL TWICE DAILY Comments: Last Taken: 10/25/16 Time: 9:15 AM Potassium Chloride (Klor-Con M10) 10 MEQ TAB.ER.PRT 1 Tablet ORAL DAILY Qty = 60 Comments: Last Taken: NOT GIVEN IN HOSPITAL Time: Olmesartan Medoxomil (Benicar) 40 MG TABLET 1 Tablet ORAL DAILY Qty = 90 Comments: Last Taken: NOT GIVEN IN HOSPITAL Time: Acetaminophen (Tylenol Extra Strength) 500 MG TABLET 2 Tablet ORAL THREE TIMES DAILY Comments: Last Taken: NOT GIVEN IN HOSPITAL Time: Clopidogrel Bisulfate (Clopidogrel) 75 MG TABLET 1 Tablet ORAL DAILY Qty = 30 Comments: Last Taken: 10/25/16 Time: 9:15 AM Simvastatin (Zocor*) 20 MG TABLET 1 Tablet ORAL DAILY Qty = 90 Comments: Last Taken: 10/24/16 Time: 5:20 PM Prednisone (Prednisone) 2.5 MG TABLET 1 Tablet ORAL DAILY Qty = 90 Comments: Last Taken: 10/25/16 Time: 9:15 AM Rivaroxaban (Xarelto) 20 MG TABLET 1 Tablet ORAL Every night Qty = 90 Instructions: with food Comments: Last Taken: NOT GIVEN IN HOSPITAL Time: Hydrocodone Bitartrate (Hysingla ER) 20 MG TAB.ER.24H 1 Tablet ORAL DAILY Qty = 30 Comments: Last Taken: 10/25/16 Time: 5:50 AM (RECEIVED VICODIN) Start taking the following new medications: Isosorbide Mononitrate (Isosorbide Mononitrate ER) 60 MG TAB.ER.24H 1 Tablet ORAL DAILY Qty = 30 No Refills Comments: Last Taken: 10/25/16 Time: 9:15 AM The following medications have been changed: Old: Furosemide (Lasix) 40 MG TAB 1 Tablet ORAL DAILY Qty = 30 New: Furosemide (Lasix) 40 MG TABLET 1 Tablet ORAL DAILY Qty = 30 Comments: Last Taken: 10/25/16 Time: 9:15 AM Copies To: LEONEL ORTA MD; GINA SPENCE MD Attending Review Statement Documenting Attending: GINA SPENCE MD
== END 2016-10-25 12:25 | DRG 303 ==
LOC: ERH 08:37 → 1NO 11:25 → ERHI 11:25 → ENRESERV 12:54 → ENTRNSPT 13:58 → EDTRNSPTSTS 14:00 → 1NO 14:06 → CMPTRNSPT 14:29 → ENPENDDIS 10-25 11:22 → 1NO 10-25 12:25
PROVIDERS: Emergency Medicine; Internal Medicine Adolescent Medicine; Internal Medicine Infectious Disease; ADMIT Internal Medicine
DX: I25.110 Atherosclerotic heart disease of native coronary artery with unstable angina pectoris (principal); I11.0 Hypertensive heart disease with heart failure; I50.32 Chronic diastolic (congestive) heart failure; I48.1 Persistent atrial fibrillation; I35.0 Nonrheumatic aortic (valve) stenosis; I25.2 Old myocardial infarction; E78.5 Hyperlipidemia, unspecified; M35.3 Polymyalgia rheumatica; F41.9 Anxiety disorder, unspecified; G89.29 Other chronic pain; M54.9 Dorsalgia, unspecified; Z95.5 Presence of coronary angioplasty implant and graft; Z87.891 Personal history of nicotine dependence; Z79.01 Long term (current) use of anticoagulants
CPT/HCPCS: 1NP; 36415; 82436; 93005; 93010; 93306; J1644; J3490

== ENCOUNTER 2017-04-24 13:58 | Inpatient (IN) | payer OTHER ==
[~2017-04-24] VITALS: Ht 152.4 cm; Wt 74.4 kg
[~2017-04-24 13:58] MED LIST changes: +BACTRIM DS TAB1 EACH PO; +HYSINGLA ER20 MG PO; +ISOSORBIDE MONO60 M1 PO; +KEFLEX500 M1 PO; +LASIX40 M1 PO; +PREDNISONE2.5 M1 PO; +XARELTO20 M2 PO; +ZOCOR20 M1 PO
[2017-04-24 14:39] LABS: HEMATOCRIT 36.6 % (42-52); MEAN CORPUSCULAR HGB 23.9 PG (27.0-31.0); MEAN CORPUSCULAR HGB CONC 31.1 G/DL (33.0-37.0); MEAN CORPUSCULAR VOLUME 76.8 FL (80.0-94.0); MEAN PLATELET VOLUME 9.6 FL (7.4-10.4); PLATELET COUNT 304 /CUMM (130-400); RBC DISTRIBUTION WIDTH 20.1 % (11.5-14.5); RED BLOOD CELL CT 4.76 /CUMM (4.70-6.10); WHITE BLOOD CELL COUNT 8.1 /CUMM (4.8-10.8)
--- NOTE | 2017-04-24 16:49 | ED GI/GU/ABDOMINAL COMPLAINT ---
History of Present Illness General Chief Complaint: Abdominal Pain/Flank Pain Stated Complaint: ABD PAIN, CRAMPING AND WEAKNESS Source: patient, family, old records Exam Limitations: confusion Vital Signs & Intake/Output Vital Signs & Intake/Output Vital Signs Date Time Temp Pulse Resp B/P B/P Pulse O2 O2 Flow FiO2 Mean Ox Delivery Rate 04/26 0951 140/70 04/26 0951 140/70 04/26 0951 140/70 04/26 0621 97.5 78 20 136/48 99 04/25 2153 98.6 89 19 138/74 95 Room Air 04/25 1835 98.1 65 20 132/62 04/25 1754 96.5 78 18 136/59 99 Room Air 04/25 1535 98.3 69 18 138/60 99 Room Air ED Intake and Output 04/26 0000 04/25 1200 Intake Total 840 Output Total 300 Balance -300 840 Intake, IV 600 Intake, Oral 240 Output, Urine 300 Patient 163 lb Weight Allergies Coded Allergies: NO KNOWN ALLERGIES (UNKNOWN 12/18/16) Reconcile Medications Acetaminophen (Tylenol Extra Strength) 500 MG TABLET 2 TAB PO TID PAIN ( Reported) Clopidogrel Bisulfate (Clopidogrel) 75 MG TABLET 1 TAB PO DAILY BLOOD THINNER (Reported) Furosemide (Lasix) 40 MG TABLET 1 TAB PO DAILY FLUID OVERLOAD Hydrocodone Bitartrate (Hysingla ER) 20 MG TAB.ER.24H 1 TAB PO DAILY BACK PAIN (Reported) Hydrocodone/Acetaminophen (Hydrocodon-Acetaminophn 10-300) 10 MG-300 MG TABLET 1 TAB PO BID PRN Back pain (Reported) Isosorbide Mononitrate (Isosorbide Mononitrate ER) 60 MG TAB.ER.24H 1 TAB PO DAILY heart Lorazepam (Ativan) 0.5 MG TABLET 1 TAB PO BID ANXIETY (Reported) Metoprolol Succinate 25 MG TAB 1 TAB PO DAILY HIGH BP (Reported) Olmesartan Medoxomil (Benicar) 40 MG TABLET 1 TAB PO DAILY HEART (Reported) Omeprazole 40 MG CAPSULE.DR 1 CAP PO DAILY GERD (Reported) Potassium Chloride (Klor-Con M10) 10 MEQ TAB.ER.PRT 1 TAB PO DAILY SUPPLEMENT (Reported) Prednisone 2.5 MG TABLET 1 TAB PO DAILY PMR (Reported) Rivaroxaban (Xarelto) 20 MG TABLET 1 TAB PO QPM ATRIAL FIBRILLATION (Reported ) with food Simvastatin (Zocor*) 20 MG TABLET 1 TAB PO DAILY HLP (Reported) Sulfamethoxazole/Trimethoprim (Bactrim Ds Tablet) 800 MG-160 MG TABLET 1 TAB PO BID ABSCESS Triage Note: 81 Y/O MALE C/O DIFFUSE ABDOMINAL "CRAMPING" ACROSS LOWER ABDOMEN AND GENERAL WEAKNESS X FEW DAYS. PT RECENTLY EVAL'D IN ED AND STATES "ITS PRETTY MUCH THE SAME". PT DENIES ANY NEW COMPLAINTS. STATES HE ALSO HAS INTERMITTENT NAUSEA/VOMITING AND DIARRHEA. AFEBRILE EKG AND BLOODWORK COMPLETED IN TRIAGE Triage Nurses Notes Reviewed? yes Onset: Gradual Duration: day(s): (4) Timing: recent history Location: right lower quadrant Activities at Onset: none Associated Symptoms: weakness, confusion HPI: This is an 81-year-old male with history of A. fib, coronary disease, hypertension, alcohol dependence who presents to the ER with his and son for chief complaint of episodes of confusion, weakness, abdominal pain and difficulty walking. They were seen on Sunday in the ER had labs and cxr done and then sent home. THey felt he was not doing any better and called his PCP Dr. Spence who reviewed the blood work that was done and they were told to come to the ER for a Head CT, evaluation of abdominal pain and possible admission. Patient reports not feeling well, but unable to clearly state why. Son reports difficulty walking, on/off confusion and generalized weakness. His states he is not acting at his baseline. Past History Travel History Traveled to [place] past 21 day No Medical History Any Pertinent Medical History? see below for history Neurological: NONE EENT: NONE Cardiovascular: AFIB, CAD, CHF, hypertension, hyperlipidemia, NSTEMI, [place] STENT PLACED 2017 [place] 1993 Respiratory: NONE Gastrointestinal: NONE Hepatic: NONE Renal: NONE Musculoskeletal: disk herniation, PMR ARTHRITIS Psychiatric: anxiety Endocrine: NONE Blood Disorders: NONE Cancer(s): NONE WIRE SPINNER/Reproductive: NONE History of MRSA: No History of VRE: No History of CDIFF: No Surgical History Surgical History: laminectomy cardiac cath PTCA WITH STENT Psychosocial History Who do you live with Spouse Services at Home None What is your primary language Serbian Tobacco Use: Never used Family History Family History, If Any: BROTHER (2 Brothers had premature coronary artery disease. One brother of pulmonary embolism.). Hx Contributory? No Review of Systems Review of Systems Constitutional: Reports: chills, malaise, weakness. Denies: fever. EENTM: Reports: no symptoms. Respiratory: Denies: cough, short of breath, sputum production. Cardiovascular: Denies: chest pain, palpitations. GI: Reports: abdominal pain. Denies: diarrhea, nausea, vomiting. Genitourinary: Denies: discharge, dysuria, frequency, hematuria. Musculoskeletal: Reports: no symptoms. Skin: Reports: no symptoms. Neurological/Psychological: Reports: ataxia, confusion. Hematologic/Endocrine: Denies: bruising, bleeding, polyuria, polydipsia. Immunologic/Allergic: Reports: no symptoms. All Other Systems: Reviewed and Negative Physical Exam Physical Exam General Appearance: alert, awake, cachetic, mild distress, moderate distress, thin Head: atraumatic, normal appearance Eyes: Bilateral: normal appearance, PERRL, EOMI. Ears, Nose, Throat, Mouth: hearing grossly normal, DRY MUCUS MEMBRANES Neck: normal inspection, supple, full range of motion Respiratory: normal breath sounds, chest non-tender, no respiratory distress Cardiovascular: irregularly irregular Peripheral Pulses: 2+ radial (R), 2+ radial (L) Gastrointestinal: normal bowel sounds, soft, non-tender Back: normal inspection, normal range of motion Extremities: normal range of motion Neurologic/Psych: no motor/sensory deficits, awake, alert, ORIENTED X 2 Skin: intact, normal color, warm/dry Core Measures ACS in differential dx? Yes Sepsis Present: No Sepsis Focused Exam Completed? No Progress Differential Diagnosis: AMI, UTI/pyelo, LAUREN, DEHYDRATION, CVA, TIA, ALCOHOL DEPENDENCE, DIVERTICULITIS, INTRAABDOMINAL PROCESS, Plan of Care: Orders Procedure Date/time Status MAGNESIUM 04/27 599 Active HEPATIC FUNCTION PANEL 04/27 599 Active CBC WITHOUT DIFFERENTIAL 04/27 599 Active CALCIUM 04/27 599 Active BASIC ELECTROLYTES PLUS BUN&CR 04/27 599 Active Regular Diet 04/26 D Active Nothing by Mouth 04/26 B Complete CALCIUM 04/26 06 Complete MAGNESIUM 04/26 599 Complete HEPATIC FUNCTION PANEL 04/26 06 Complete CBC WITHOUT DIFFERENTIAL 04/26 06 Complete BASIC ELECTROLYTES PLUS BUN&CR 04/26 06 Complete MOBILITY D/C STATUS 04/26 UNK Complete MOBILITY GOAL STATUS 04/26 UNK Complete MOBILITY CURRENT STATUS 04/26 UNK Complete Gait Training, 15 Min 04/26 UNK Complete PT EVAL LOW COMPLEX 20 MIN 04/26 UNK Complete Lab Add-on Test 04/26 UNK Active MRI-ABD W/O-W GREYSON 04/26 UNK Active PHYSICIAN CONSULT 04/26 UNK Active Wound Care/Dressing 04/25 2039 Active PT Evaluate & Treat 04/25 UNK Active Current Medications Sig/[place] Start time Last Medication Dose Stop Time Status Admin Melatonin 5 MG AT BEDTIME 04/26 2200 AC (Melatonin) Lidocaine 1 PAT DAILY 04/26 1000 AC 04/26 (Lidoderm) 1133 Prednisone 4 MG DAILY 04/26 1000 AC 04/26 0949 Atorvastatin Calcium 20 MG 1700 04/25 1700 AC 04/25 (Lipitor) 2109 Diclofenac Sodium 1 KISHOR 4 TIMES/DAY 04/25 1146 AC 04/26 (Voltaren 1% Gel) 1133 Losartan Potassium 100 MG DAILY 04/25 1030 AC 04/26 (Cozaar) 0951 Clopidogrel Bisulfate 75 MG DAILY 04/25 1000 AC 04/26 (Plavix) 0950 Isosorbide 60 MG DAILY 04/25 1000 AC 04/26 Mononitrate 0951 (Imdur) Metoprolol Succinate 25 MG DAILY 04/25 1000 AC 04/26 (Toprol XL) 0951 Multivitamins 1 TAB DAILY 04/25 1000 AC 04/26 (Theragran Vitamins) 0950 Omeprazole 40 MG DAILY AC 04/25 0700 AC 04/26 (Prilosec) 0552 Lorazepam 0.5 MG BID PRN 04/25 0030 AC (Ativan) 05/02 0021 Rivaroxaban 20 MG QPM 04/24 2230 AC 04/25 (Xarelto) 2108 Laboratory Tests 04/26/17 0640: Anion Gap 15, Estimated GFR > 60, BUN/Creatinine Ratio 35.0 H, Calcium 10.8 H, Magnesium 1.7, Total Bilirubin 1.7 H, Direct Bilirubin 0.8 H, AST 392 H, ALT 38, Alkaline Phosphatase 226 H, Total Protein 6.7, Albumin 3.9, CBC w Diff MAN DIFF ORDERED, RBC 4.36 L, MCV 76.8 L, MCH 24.7 L, RDW 20.9 H, MPV 9.7, Segmented Neutrophils 75, Band Neutrophils 2, Lymphocytes 15 L, Monocytes 7, Eosinophils 1, Platelet Estimate VERIFIED BY SMEAR, Hypochromic-Microcytic 1+, Poikilocytosis 1+, Anisocytosis 1+, Target Cells FEW, PUBS MCHC 32.2 L Diagnostic Imaging: Viewed by Me: CT Scan. Discussed w/RAD: CT Scan. Radiology Impression: PATIENT: HARLAN BLAIR PRESENT AGE: 81 PATIENT ACCOUNT NO: [id number] : 36 LOCATION: ER ORDERING PHYSICIAN: Valentina Franks MD SERVICE DATE: 04/24/17 EXAM TYPE: CAT - CT HEAD WO IV CONTRAST EXAMINATION: CT HEAD WITHOUT CONTRAST CLINICAL INFORMATION: Confusion. COMPARISON: None. TECHNIQUE: Contiguous axial images of the brain were obtained without IV contrast. DLP: 618 mGy-cm. FINDINGS: There are no pathologic extra-axial fluid collections. The lateral, third, fourth ventricles are prominent, though age-appropriate and concordant with the appearance of the sulci. There is no evidence for acute intraparenchymal hemorrhage or infarct. There is neither mass nor mass effect. There is no shift of midline structures. The paranasal sinuses and mastoid air cells are clear. There are no osseous lesions. IMPRESSION: No evidence for acute intracranial injury. Age-appropriate appearance of the brain. DICTATED BY: Ryan Govea MD DATE/TIME DICTATED:04/24/171830 ACCOUNT REPRESENTATIVE:MELANIE DATE/TIME TRANSCRIBED:04/24/171830 CONFIDENTIAL, DO NOT COPY WITHOUT APPROPRIATE AUTHORIZATION. <Electronically signed in Other Vendor System> SIGNED BY: Ryan Govea MD 04/24/171837, PATIENT: HARLAN BLAIR PRESENT AGE: 81 PATIENT ACCOUNT NO: [id number] : 36 LOCATION: [facility] ORDERING PHYSICIAN: Valentina Franks MD SERVICE DATE: 04/24/17 EXAM TYPE: CAT - CT ABD & PELVIS W/O IV CONTRAS EXAMINATION: CT ABDOMEN AND PELVIS WITHOUT CONTRAST CLINICAL INFORMATION: Right-sided abdominal pain. COMPARISON: None. TECHNIQUE: Contiguous axial thin section helical images of the abdomen and pelvis were performed without oral or IV contrast. The data set was reformatted in the coronal and sagittal planes and reviewed on an independent workstation. DLP: 370 mGy-cm. FINDINGS: The visualized lung bases are clear. The visualized portions of the heart are unremarkable. The liver is of normal size and heterogeneous, though predominately decreased attenuation without intrahepatic biliary ductal dilation. Within the dome of the left lobe of the liver, there is a 2.2 cm low-attenuation lesion. A normal gallbladder is identified. There is no wall thickening or discernible pericholecystic fluid. The spleen, pancreas, adrenal glands are unremarkable. Both kidneys are of normal size and attenuation without hydronephrosis or nephrolithiasis. There is no abdominal free fluid. There is neither mesenteric nor retroperitoneal lymphadenopathy. There is extensive sigmoid diverticulosis without evidence of diverticulitis. Otherwise, unremarkable unopacified loops of small and large bowel are identified. There is no pelvic free fluid. The urinary bladder is unremarkable. There is neither pelvic nor inguinal lymphadenopathy. Bone windows: Neither sclerotic nor lytic bone lesions are identified. There is anterior displacement of L4 in relation to L5. No pars defects are identified. This is likely phone representative of pseudolisthesis. IMPRESSION: Sigmoid diverticulosis without evidence of diverticulitis. No evidence for acute abdominal or pelvic inflammatory or infectious processes. Hepatic steatosis. There is heterogeneity to the liver attenuation, though there is a discrete area of decreased attenuation within the dome of the left lobe of the liver. This is nonspecific. Consider correlation with abdominal MRI for further tissue characterization. DICTATED BY: Ryan Govea MD DATE/TIME DICTATED:04/24/171833 ACCOUNT REPRESENTATIVE:MELANIE DATE/TIME TRANSCRIBED:04/24/171833 CONFIDENTIAL, DO NOT COPY WITHOUT APPROPRIATE AUTHORIZATION. <Electronically signed in Other Vendor System> SIGNED BY: Ryan Govea MD 04/24/17 1845 Initial ED EKG: AFIB, DIFFUSE ST DEPRESSIONS/T WAVE INVERSIONS Prior EKG: unchanged Rhythm Strip: atrial fibrillation Departure Departure Time of Disposition: 1901 Disposition: STILL A PATIENT Condition: Stable Clinical Impression Primary Impression: Fatty liver Secondary Impressions: LAUREN (acute kidney injury), Confusion, Dehydration Referrals: Johnathan Spence MD (PCP/Family) Departure Forms: Customer Survey General Discharge Information Observation Note Spoke With: Johnathan Spence MD Physician Advisor Notified: LILIA CHUNG,CAMERON Farmer Place Patient In: Non-ED OBS Care Area Rationale for Observation: My rational for observation is as follows [IV HYDRATION, MONITOR I/O, PT EVALUATION, REPEAT ELECTROLYTES, CASE MANAGEMENT FOR POSSIBLE PLACEMENT IF NO IMPROVEMENT, CONSIDER NEURO EVALUATION FOR ANY PERSISTENT MENTAL STATUS CHANGES] .
[2017-04-24 17:48] LABS: PT 29.5 SEC (9.4-12.5); PTT 36 SEC (25-37)
--- NOTE | 2017-04-24 18:38 | CT SCAN REPORT ---
EXAMINATION: CT HEAD WITHOUT CONTRAST CLINICAL INFORMATION: Confusion. COMPARISON: None. TECHNIQUE: Contiguous axial images of the brain were obtained without IV contrast. DLP: 618 mGy-cm. FINDINGS: There are no pathologic extra-axial fluid collections. The lateral, third, fourth ventricles are prominent, though age-appropriate and concordant with the appearance of the sulci. There is no evidence for acute intraparenchymal hemorrhage or infarct. There is neither mass nor mass effect. There is no shift of midline structures. The paranasal sinuses and mastoid air cells are clear. There are no osseous lesions. IMPRESSION: No evidence for acute intracranial injury. Age-appropriate appearance of the brain.
--- NOTE | 2017-04-24 18:45 | CT SCAN REPORT ---
EXAMINATION: CT ABDOMEN AND PELVIS WITHOUT CONTRAST CLINICAL INFORMATION: Right-sided abdominal pain. COMPARISON: None. TECHNIQUE: Contiguous axial thin section helical images of the abdomen and pelvis were performed without oral or IV contrast. The data set was reformatted in the coronal and sagittal planes and reviewed on an independent workstation. DLP: 370 mGy-cm. FINDINGS: The visualized lung bases are clear. The visualized portions of the heart are unremarkable. The liver is of normal size and heterogeneous, though predominately decreased attenuation without intrahepatic biliary ductal dilation. Within the dome of the left lobe of the liver, there is a 2.2 cm low-attenuation lesion. A normal gallbladder is identified. There is no wall thickening or discernible pericholecystic fluid. The spleen, pancreas, adrenal glands are unremarkable. Both kidneys are of normal size and attenuation without hydronephrosis or nephrolithiasis. There is no abdominal free fluid. There is neither mesenteric nor retroperitoneal lymphadenopathy. There is extensive sigmoid diverticulosis without evidence of diverticulitis. Otherwise, unremarkable unopacified loops of small and large bowel are identified. There is no pelvic free fluid. The urinary bladder is unremarkable. There is neither pelvic nor inguinal lymphadenopathy. Bone windows: Neither sclerotic nor lytic bone lesions are identified. There is anterior displacement of L4 in relation to L5. No pars defects are identified. This is likely customer loyalty representative of pseudolisthesis. IMPRESSION: Sigmoid diverticulosis without evidence of diverticulitis. No evidence for acute abdominal or pelvic inflammatory or infectious processes. Hepatic steatosis. There is heterogeneity to the liver attenuation, though there is a discrete area of decreased attenuation within the dome of the left lobe of the liver. This is nonspecific. Consider correlation with abdominal MRI for further tissue characterization.
--- NOTE | 2017-04-24 23:30 | History & Physical ---
See Addendum General Information and HPI MD Statement: I have seen and personally examined HARLAN BLAIR and documented this H& P. The patient is a 81 year old M who presented with a patient stated chief complaint of abdominal discomfort, cramping Source of Information: patient, family, old records Exam Limitations: poor historian History of Present Illness: Mr Blair is an 81-year-old gentleman with a past history of Atrial fibrillation on DOAC, CAD s/p stent ( type unknown, Apr 2016 ), HTN, PMR, HFpEF was brought in with a chief concern of abdominal discomfort, cramping and generalized weakness. The history was limited, and most of it was obtained from the family and emergency room physician. He was known to be in his usual state of health until 2 days ago. He was found to have more generalized weakness in the last 2 days, and was more somnolent compared to before. He also had abdominal discomfort for the last few weeks, located mostly in the [place] area. He did not have any abdominal pain, nausea vomiting or diarrhea. He reported decreased by mouth intake in the last few days, and was more confused in the last 24 hours. He did not have any fever , chills, chest pain. However, he had exertional dyspnea which is chronic and has not changed recently. No orthopnea, PND. He sees Dr. Guevara(senior interactive producer). Reports using 3 cans of beer a day. Allergies/Medications Allergies: Coded Allergies: NO KNOWN ALLERGIES (UNKNOWN 12/18/16) Home Med list Acetaminophen (Tylenol Extra Strength) 500 MG TABLET 2 TAB PO TID PAIN ( Reported) Clopidogrel Bisulfate (Clopidogrel) 75 MG TABLET 1 TAB PO DAILY BLOOD THINNER (Reported) Furosemide (Lasix) 40 MG TABLET 1 TAB PO DAILY FLUID OVERLOAD Hydrocodone Bitartrate (Hysingla ER) 20 MG TAB.ER.24H 1 TAB PO DAILY BACK PAIN (Reported) Hydrocodone/Acetaminophen (Hydrocodon-Acetaminophn 10-300) 10 MG-300 MG TABLET 1 TAB PO 4 TIMES/DAY PAIN (Reported) Isosorbide Mononitrate (Isosorbide Mononitrate ER) 60 MG TAB.ER.24H 1 TAB PO DAILY heart Lorazepam (Ativan) 0.5 MG TABLET 1 TAB PO BID ANXIETY (Reported) Metoprolol Succinate 25 MG TAB 1 TAB PO DAILY HIGH BP (Reported) Olmesartan Medoxomil (Benicar) 40 MG TABLET 1 TAB PO DAILY HEART (Reported) Omeprazole 40 MG CAPSULE.DR 1 CAP PO DAILY GERD (Reported) Potassium Chloride (Klor-Con M10) 10 MEQ TAB.ER.PRT 1 TAB PO DAILY SUPPLEMENT (Reported) Prednisone 2.5 MG TABLET 1 TAB PO DAILY PMR (Reported) Rivaroxaban (Xarelto) 20 MG TABLET 1 TAB PO QPM ATRIAL FIBRILLATION (Reported ) with food Simvastatin (Zocor*) 20 MG TABLET 1 TAB PO DAILY HLP (Reported) Sulfamethoxazole/Trimethoprim (Bactrim Ds Tablet) 800 MG-160 MG TABLET 1 TAB PO BID ABSCESS Past History Travel History Traveled to [place] past 21 day No Medical History Neurological: NONE EENT: NONE Cardiovascular: AFIB, CAD, CHF, hypertension, hyperlipidemia, NSTEMI, [place] STENT PLACED 2017 [place] 1993 Respiratory: NONE Gastrointestinal: NONE Hepatic: NONE Renal: NONE Musculoskeletal: disk herniation, PMR ARTHRITIS Psychiatric: anxiety Endocrine: NONE Blood Disorders: NONE Cancer(s): NONE LINEMAN/Reproductive: NONE History of MRSA: No History of VRE: No History of CDIFF: No Surgical History Surgical History: laminectomy cardiac cath PTCA WITH STENT Past Family/Social History Family History Relations & Conditions if any BROTHER (2 Brothers had premature coronary artery disease. One brother of pulmonary embolism.). Psychosocial History Who Do You Live With? spouse Services at Home: None Living Will? yes Functional Ability ADLs Independent: dressing, eating, toileting, bathing. Ambulation: cane IADLs Independent: shopping, housework, finances, food prep, telephone, transportation , medication admin. Review of Systems Review of Systems Constitutional: Reports: see HPI. Denies: chills, fever. EENTM: Denies: visual changes. Cardiovascular: Denies: chest pain, orthopena. Respiratory: Reports: short of breath. Denies: cough. GI: Denies: abdominal pain, diarrhea. Genitourinary: Denies: frequency. Musculoskeletal: Denies: back pain. Skin: Denies: change in skin color. Hematologic/Endocrine: Denies: bruising. Exam & Diagnostic Data Last 24 Hrs of Vital Signs/I&O Vital Signs Date Time Temp Pulse Resp B/P B/P Pulse O2 O2 Flow FiO2 Mean Ox Delivery Rate 04/24 2317 97.8 78 18 147/77 97 Room Air 04/24 2133 98.6 74 18 118/58 98 Room Air 04/24 1827 98.6 71 18 130/58 98 Room Air 04/24 1403 96.3 82 18 144/63 100 Room Air Intake & Output 04/25 0800 04/25 0000 04/24 1600 Intake Total 1180 Output Total Balance 1180 Intake, IV 1000 Intake, Oral 180 Patient 163 lb Weight Weight Reported by Patient Measurement Method Physical Exam General Appearance Oriented X3, Cooperative, No Acute Distress, AAOx2 Skin No Rashes, No Breakdown, No Significant Lesion Skin Temp/Moisture Exam: Warm/Dry Sepsis Skin Exam (color): Normal for Ethnicity HEENT Atraumatic, PERRLA, EOMI Neck Supple, No JVD, No thryomegaly Lymphatic Axillary nl, Cervical nl Cardiovascular Regular Rate, Normal S1, Normal S2 Lungs Normal Air Movement Abdomen Normal Bowel Sounds, Soft, No Tenderness, No Hepatospenomegaly Neurological Normal Speech, Strength at 5/5 X4 Ext, Normal Tone, Sensation Intact, Cranial Nerves 3-12 NL, Reflexes 2+ Extremities No Clubbing, No Cyanosis, No Edema, Normal Pulses Vascular Pulses Symmetrical Sepsis Peripheral Pulse Location: Dorsalis Pedis Sepsis Peripheral Pulse Exam: Normal Diagnostic Data EKG Results T wave inversions in 2-3 aVF, which are new compared to previous EKGs. He also has T wave inversions in V4-V6 which are old. Other Results CAT - CT HEAD WO IV CONTRAST No evidence for acute intracranial injury. Age- appropriate appearance of the brain. CAT - CT ABD & PELVIS W/O IV CONTRAS Sigmoid diverticulosis without evidence of diverticulitis. No evidence for acute abdominal or pelvic inflammatory or infectious processes. Hepatic steatosis. There is heterogeneity to the liver attenuation, though there is a discrete area of decreased attenuation within the dome of the left lobe of the liver. This is nonspecific. Consider correlation with abdominal MRI for further tissue characterization. Assessment/Plan Assessment: Mr Blair is an 81-year-old gentleman with a past history of Atrial fibrillation on DOAC, CAD s/p stent ( type unknown, Apr 2016 ), HTN, PMR, HFpEF who is evaluated for generalized weakness, abdominal discomfort and decreased by mouth intake the last few days, likely secondary from electrolyte abnormalities. At the time of admission-vitals-'s temperature 96.3, pulse rate 82, respirations 18, blood pressure 144/63, 100% on room air. Pertinent lab findings: WBC 8.1, hemoglobin 11.4, hematocrit 36.6, platelets 304, MCV 76.8 (microcytic anemia), electrolytes potassium 5.3, bicarbonate 18, BUN 58, serum creatinine 1.4 ( baseline 1.0), calcium 10.4, lipase 208, troponin 0.01. Urinalysis revealed hyaline casts. CT abdomen revealed diverticulosis and hepatic steatosis. CT head was within normal limits, without any acute abnormality. Last echocardiogram done in 10/2016 revealed ejection fraction of 55%, with anteroseptal hypokinesis. Etiology of his decreased appetite, abdominal discomfort and increasing confusion is likely from dehydration ,electrolyte abnormalities, and acute kidney injury. He has hypercalcemia, likely from dehydration, for which he should be treated with intravenous fluids. He also has acute kidney injury, likely secondary from dehydration. Hepatocellular injury is consistent with alcohol-related, AST 350, ALT 31, alkaline phosphatase 259, Which could be contributing to his abdominal discomfort and nausea. In regards to his EKG changes, he has new T wave inversions in inferior leads, and in light of his recent stent placement, these need to be monitored with serial echocardiograms and cardiac enzymes checks. Plan: #1 AK I-likely from dehydration. -Normal saline at 100 mls an hour, reevaluate the need for more fluids in the a.m. -Check sodium, potassium, calcium in the a.m. which were elevated secondary to acute kidney injury. -Check urine lites, FeNa -Hold furosemide, and GEORGE inhibitor. #2 hepatic steatosis- -recheck liver function tests in the a.m. -Can consider right upper quadrant ultrasound, if persistent symptoms or worsening liver functions. -Regular diet at this time. -Discuss with the senior interactive producer, if statin could be held. Or else, continue for secondary prophylaxis. #3 history of atrial fibrillation and new T wave inversions- -no chest pain, palpitations or shortness of breath at this time. -Given aspirin 1. Monitor the pt on telemetry o/n for any arrythmias. -Check serial ekgs and trops. -Can restart metoprolol, statin and clopidogrel in the a.m. -Currently on riveroxaba for anticoagulation. -Deferred the decision to Dr. Spence, if cardiology consult is required. #4 microcytic anemia- -check iron studies and Hemoccult. #5 increasing lethargy- - PT evaluation for STR placement. Housekeeping: #1 DVT prophylaxis-riveroxaban #2 CODE STATUS- is full code at this time. Patient's family hopes to bring the paperwork in the a.m., if CODE STATUS needs to be updated. #3 As Ranked By This Provider Problem List: 1. Dehydration 2. LAUREN (acute kidney injury) 3. Fatty liver 4. Confusion Observation Initial Note - I have personally examined HARLAN BLAIR on 04/25/17 at 0419. The disposition of HARLAN BLAIR is uncertain at this time and before a determination can be made, he requires a period of observation for the following reasons - confusion Core Measures/Misc (01/07) Acute Coronary Syndrome ACS Diagnosis: No Congestive Heart Failure Congestive Heart Failure Diagnosis No Cerebrovascular Accident CVA/TIA Diagnosis: No VTE (View Protocol) VTE Risk Factors Acute Medical Illness No Mechanical VTE Prophylaxis d/t N/A MechProphylax Ordered No VTE Pharm Prophylaxis d/t NA PharmProphylax ordered Sepsis (View protocol) Sepsis Present: No
[2017-04-25] MEDS ORDERED: HYDROCODON-ACE1 EAC4 PO (00:40)
[2017-04-25 02:00] VITALS: BP 136/70
[2017-04-25 06:00] VITALS: BP 154/70
[2017-04-25 06:30] LABS: HEMATOCRIT 33.7 % (42-52); MEAN CORPUSCULAR HGB 24.2 PG (27.0-31.0); MEAN CORPUSCULAR HGB CONC 31.5 G/DL (33.0-37.0); MEAN CORPUSCULAR VOLUME 76.7 FL (80.0-94.0); MEAN PLATELET VOLUME 9.6 FL (7.4-10.4); PLATELET COUNT 275 /CUMM (130-400); RBC DISTRIBUTION WIDTH 20.5 % (11.5-14.5); WHITE BLOOD CELL COUNT 7.4 /CUMM (4.8-10.8)
--- NOTE | 2017-04-25 10:02 | PN- Att Addend ---
Attending Addendum Attending Brief Note Patient looking and feeling better no abdominal pain this morning and walked to the bathroom with assistance IV fluids progress his potassium was elevated this morning, repeat results are pending. Signs are stable no fever his abdomen is soft. Skin of the abdomen showed diverticulosis without diverticulitis, and a fatty liver. Skin of the head showed no acute abnormalities 24 TOTALS 04/25 0000 04/24 0000 Intake Total 1180 Output Total Balance 1180 Intake, IV 1000 Intake, Oral 180 Patient 163 lb Weight Weight Reported by Patient Measurement Method Current Medications Sig/[place] Start time Last Medication Dose Route Stop Time Status Admin Aspirin 0 .STK-MED ONE 04/24 2221 DC PO Aspirin 325 MG ONCE ONE 04/24 2215 DC 04/24 PO 04/24 2216 2219 Atorvastatin Calcium 20 MG 1700 04/25 1700 AC PO Clopidogrel Bisulfate 75 MG DAILY 04/25 1000 AC 04/25 PO 0952 Isosorbide 60 MG DAILY 04/25 1000 AC 04/25 Mononitrate PO 0952 Lorazepam 0.5 MG BID 04/25 1000 DC PO 05/02 0959 Lorazepam 0.5 MG BID PRN 04/25 0030 AC PO 05/02 0021 Losartan Potassium 50 MG DAILY 04/25 1000 CAN PO Metoprolol Succinate 25 MG DAILY 04/25 1000 AC 04/25 PO 0952 Multivitamins 1 TAB DAILY 04/25 1000 AC 04/25 PO 0952 Omeprazole 40 MG DAILY AC 04/25 0700 AC 04/25 PO 0636 Omeprazole 0 .STK-MED ONE 04/25 0636 DC PO Prednisone 2.5 MG DAILY 04/25 1000 AC PO Rivaroxaban 20 MG QPM 04/24 2230 AC 04/24 PO 2243 Sodium Chloride 1,000 ML ONCE ONE 04/24 2145 AC 04/24 IV 04/25 1104 2150 Sodium Chloride 1,000 ML BOLUS ONE 04/24 1730 DC 04/24 IV 04/24 1829 1822 Laboratory Tests 04/25/17 0720: Anion Gap 13, Estimated GFR 58 L, BUN/Creatinine Ratio 44.2 H, Troponin I 0.02 04/25/17 0617: CBC w Diff MAN DIFF ORDERED, RBC 4.40 L, MCV 76.7 L, MCH 24.2 L, RDW 20.5 H, MPV 9.6, Segmented Neutrophils 72, Band Neutrophils 1, Lymphocytes 20 L, Monocytes 6, Eosinophils 1, Hypochromic-Microcytic 2+, Anisocytosis 1+, Microcytic Cells 1+, Target Cells 2+, Stomatocytes 1+, Elliptocytes FEW, PUBS MCHC 31.5 L 04/24/17 2246: Troponin I 0.02 04/24/171820: Urine Color YEL, Urine Clarity CLEAR, Urine pH 5.5, Ur Specific [place] 1.025, Urine Protein TRACE H, Urine Ketones NEG, Urine Nitrite NEG, Urine Bilirubin NEG@ICTO, Urine Urobilinogen 0.2, Ur Leukocyte Esterase NEG, Ur Microscopic SEDIMENT EXAMINED, Urine RBC RARE, Urine WBC 1-3 H, Ur Epithelial Cells RARE, Urine Bacteria FEW H, Hyaline Casts 5-10 H, Urine Mucus FEW, Urine Hemoglobin NEG, Urine Glucose NEG 04/24/171820: Ur Random Creatinine 153.7, Ur Random Sodium 35, Ur Random Potassium 54.5, Fraction Sodium Excret 0.2 04/24/17 1657: Lipase Cancelled 04/24/17 1418: Anion Gap 14, Estimated GFR 49 L, BUN/Creatinine Ratio 41.4 H, Glucose 163 H, Calcium 10.4 H, Iron 47 L, TIBC 516 H, Ferritin 44.9, Total Bilirubin 1.2, AST 350 H, ALT 31, Alkaline Phosphatase 259 H, Troponin I < 0.01, Total Protein 6.8, Albumin 4.1, Globulin 2.7, Albumin/Globulin Ratio 1.5, Amylase 71, Lipase 208, PT 29.5 H, INR 2.84 H, APTT 36, CBC w Diff MAN DIFF ORDERED, RBC 4.76, MCV 76.8 L, MCH 23.9 L, RDW 20.1 H, MPV 9.6, Segmented Neutrophils 72, Lymphocytes 20 L, Monocytes 8, Platelet Estimate ADEQUATE, Hypochromic- Microcytic 1+, Poikilocytosis 1+, Anisocytosis 1+, Target Cells RARE, PUBS MCHC 31.1 L, Serum Alcohol < 10.0 Vital Signs Date Time Temp Pulse Resp B/P B/P Pulse O2 O2 Flow FiO2 Mean Ox Delivery Rate 04/25 954 98.9 75 19 / 100 Room Air 04/25 951 73 04/25 73 161/71 01/03 0603 96.8 74 20 154/70 99 Room Air 01/03 0600 96.8 74 18 154/70 01/03 0200 98.0 78 17 136/70 01/02 2317 97.8 78 18 147/77 97 Room Air 01/02 2133 98.6 74 18 118/58 98 Room Air 01/02 1827 98.6 71 18 130/58 98 Room Air 01/02 1403 96.3 82 18 144/63 100 Room Air
--- NOTE | 2017-04-25 10:03 | Admission Certification ---
Admission Certification Certification Statement - As attending physician, I certify that at the time of - admission, based on clinical presentation, severity of - symptoms, need for further diagnostic testing and - therapeutic interventions, and risk of adverse outcomes - without in-hospital treatment, in my clinical assessment, - this patient requires an acute hospital stay for a minimum - of two nights or longer. I have also considered psychsocial - factors such as support system, advanced age, financial - issues, cognitive issues, and failed out-patient treatments, - past re-admission history, safety of patient, and lack of - compliance as applicable. Specific rationale supporting this admission is: Abdominal pain , change in mental status, dehydration
--- NOTE | 2017-04-25 13:31 | PN- Housestaff ---
Subjective Follow-up For: AK I Hepatic steatosis History of atrial fibrillation Weakness Subjective: Patient was seen and examined at bedside. Denies any chest pain. Reports generalized weakness. Per , who was present at bedside, he was not able to tolerate his meal which contained chicken because of abdominal pain. Troponin has remained negative 3, EKG without any significant abnormalities. Review of Systems Constitutional: Reports: see HPI. Objective Last 24 Hrs of Vital Signs/I&O Vital Signs Date Time Temp Pulse Resp B/P B/P Pulse O2 O2 Flow FiO2 Mean Ox Delivery Rate 04/25 1754 96.5 78 18 136/59 99 Room Air 04/25 1535 98.3 69 18 138/60 99 Room Air 04/25 1111 74 154/74 04/25 0955 98.9 75 19 161/71 100 Room Air 04/25 0952 73 161/71 04/25 0952 73 161/71 04/25 0603 96.8 74 20 154/70 99 Room Air 04/25 0600 96.8 74 18 154/70 04/25 0200 98.0 78 17 136/70 02 2317 97.8 78 18 147/77 97 Room Air 04/24 2133 98.6 74 18 118/58 98 Room Air Intake & Output 04/25 1600 04/25 0800 04/25 0000 Intake Total 840 1180 Output Total Balance 840 1180 Intake, IV 600 1000 Intake, Oral 240 180 Patient 163 lb Weight Physical Exam General Appearance: Alert, Oriented X3, Cooperative, No Acute Distress Neck: Supple Cardiovascular: Regular Rate, Normal S1, Normal S2, No Murmurs, Gallops, Rubs Lungs: Clear to Auscultation, Normal Air Movement Assessment/Plan Assessment: Mr Lyon is an 81-year-old gentleman with a past history of Atrial fibrillation on DOAC, CAD s/p stent ( type unknown, Apr 2016 ), HTN, PMR, HFpEF who is evaluated for generalized weakness, abdominal discomfort and decreased by mouth intake the last few days, likely secondary from electrolyte abnormalities. CT abdomen revealed diverticulosis and hepatic steatosis. CT head was within normal limits, without any acute abnormality. Last echocardiogram done in 10/2016 revealed ejection fraction of 55%, with anteroseptal hypokinesis. Problem list/Plan: #AK I-likely from dehydration. -C/w Normal saline at 100 mls an hour, reevaluate the need for more fluids in the a.m. -Check sodium, potassium, calcium in the a.m. which were elevated secondary to acute kidney injury. -Urine lites checked, FeNa: 0.2 -Hold furosemide, and GEORGE inhibitor; reevaluate in the morning #hepatic steatosis-reports abdominal pain -check abd US tomorrow -recheck liver function tests in the a.m. -We'll order right upper quadrant ultrasound. -Regular diet at this time. #history of atrial fibrillation and reported new T wave inversions- -no chest pain, palpitations or shortness of breath at this time. -Given aspirin 1. on admission -Check serial ekgs and trops; negative -Can restart metoprolol, statin and clopidogrel in the a.m. -Currently on riveroxaba for anticoagulation. -Cardiology consult placed #microcytic anemia- -check iron studies and Hemoccult. #Unsteady gait: -PT eval #DVT prophylaxis: -Being addressed by rivaroxaban #CODE STATUS: -Pt is full code Plan of care were discussed at length with patient and his family who were present at bedside. Problem List: 1. LAUREN (acute kidney injury) 2. Dehydration 3. Fatty liver Pain Ratin Pain Location: abd Pain Goal: Pain 4 or less Pain Plan: PRN meds Tomorrow's Labs & Rationales: CBC to monitor H&H BEP to monitor electrolytes
--- NOTE | 2017-04-25 15:06 | Cons- Cardiology ---
General Information and HPI Consulting Request Date of Consult: 04/25/17 Requested By: Johnathan Spence MD Reason for Consult: Abnormal EKG Source of Information: patient, family, old records Exam Limitations: no limitations History of Present Illness: The patient is an 81-year-old gentleman with a past medical history of atrial fibrillation (on anticoagulation), coronary artery disease (status post stenting in April 2016), hypertension, chronic congestive heart failure with preserved LV systolic function. He presented to our emergency room with increasing analyzed weakness as well as abdominal discomfort, as well as increased confusion from baseline. While in the emergency room, he was noted to have an EKG which demonstrated diffuse T-wave inversions (no significant change from prior). The patient states having had increasing weakness over the past several days, and was noted to be more lethargic by family. There was as well concurrent abdominal pain, described as a generalized discomfort over the isacc-umbilicus area. No concurrent nausea nor bowel habit changes noted. Of note, there was possibly decreased oral intake of fluids per family. While in the emergency room, the patient had denied symptoms of chest pains, palpitations or dyspnea above baseline. He was given IV fluids for suspected dehydration; however, an EKG obtained in the emergency room demonstrated if use T-wave inversions, which was not significantly changed from his baseline. CAT scans performed in the emergency room demonstrated no acute intracranial bleeding. An abdominal CAT scan demonstrated sigmoid diverticulosis without diverticulitis. Of note, the patient had undergone an echocardiogram in October 2016 which demonstrated an LVEF of 55% and anteroseptal hypokinesis. At the time of my interview, the patient continues to deny symptoms of chest pain nor palpitations. He had subsequently ruled out for myocardial infarction via serial troponin isoenzymes. Allergies/Medications Allergies: Coded Allergies: NO KNOWN ALLERGIES (UNKNOWN 12/18/16) Home Med List: Acetaminophen (Tylenol Extra Strength) 500 MG TABLET 2 TAB PO TID PAIN ( Reported) Clopidogrel Bisulfate (Clopidogrel) 75 MG TABLET 1 TAB PO DAILY BLOOD THINNER (Reported) Furosemide (Lasix) 40 MG TABLET 1 TAB PO DAILY FLUID OVERLOAD Hydrocodone Bitartrate (Hysingla ER) 20 MG TAB.ER.24H 1 TAB PO DAILY BACK PAIN (Reported) Hydrocodone/Acetaminophen (Hydrocodon-Acetaminophn 10-300) 10 MG-300 MG TABLET 1 TAB PO 4 TIMES/DAY PAIN (Reported) Isosorbide Mononitrate (Isosorbide Mononitrate ER) 60 MG TAB.ER.24H 1 TAB PO DAILY heart Lorazepam (Ativan) 0.5 MG TABLET 1 TAB PO BID ANXIETY (Reported) Metoprolol Succinate 25 MG TAB 1 TAB PO DAILY HIGH BP (Reported) Olmesartan Medoxomil (Benicar) 40 MG TABLET 1 TAB PO DAILY HEART (Reported) Omeprazole 40 MG CAPSULE.DR 1 CAP PO DAILY GERD (Reported) Potassium Chloride (Klor-Con M10) 10 MEQ TAB.ER.PRT 1 TAB PO DAILY SUPPLEMENT (Reported) Prednisone 2.5 MG TABLET 1 TAB PO DAILY PMR (Reported) Rivaroxaban (Xarelto) 20 MG TABLET 1 TAB PO QPM ATRIAL FIBRILLATION (Reported ) with food Simvastatin (Zocor*) 20 MG TABLET 1 TAB PO DAILY HLP (Reported) Sulfamethoxazole/Trimethoprim (Bactrim Ds Tablet) 800 MG-160 MG TABLET 1 TAB PO BID ABSCESS Current Medications: Current Medications Sig/[place] Start time Last Medication Dose Route Stop Time Status Admin Aspirin 0 .STK-MED ONE 04/24 2221 DC PO Aspirin 325 MG ONCE ONE 04/24 2215 DC 04/24 PO 04/24 2216 2219 Atorvastatin Calcium 20 MG 1700 04/25 1700 AC PO Clopidogrel Bisulfate 75 MG DAILY 04/25 1000 AC 04/25 PO 0952 Diclofenac Sodium 1 KISHOR 4 TIMES/DAY 04/25 1146 AC 04/25 TOP 1258 Hydrocodone Bitart/ 0 .STK-MED ONE 04/25 1106 DC Acetaminophen PO Hydrocodone Bitart/ 2 TAB DAILY PRN 04/25 1030 AC 04/25 Acetaminophen PO 1111 Isosorbide 60 MG DAILY 04/25 1000 AC 04/25 Mononitrate PO 0952 Lorazepam 0.5 MG BID 04/25 1000 DC PO 05/02 0959 Lorazepam 0.5 MG BID PRN 04/25 0030 AC PO 05/02 0021 Losartan Potassium 0 .STK-MED ONE 04/25 1106 DC PO Losartan Potassium 100 MG DAILY 04/25 1030 AC 04/25 PO 1111 Losartan Potassium 50 MG DAILY 04/25 1000 CAN PO Metoprolol Succinate 25 MG DAILY 04/25 1000 AC 04/25 PO 0952 Multivitamins 1 TAB DAILY 04/25 1000 AC 04/25 PO 0952 Omeprazole 40 MG DAILY AC 04/25 0700 AC 04/25 PO 0636 Omeprazole 0 .STK-MED ONE 04/25 0636 DC PO Prednisone 4 MG DAILY 04/26 1000 AC PO Prednisone 2.5 MG DAILY 04/25 1000 DC PO Rivaroxaban 20 MG QPM 04/24 2230 AC 04/24 PO 2243 Sodium Chloride 1,000 ML ONCE ONE 04/24 2145 DC 04/24 IV 04/25 1104 2150 Sodium Chloride 1,000 ML BOLUS ONE 04/24 1730 DC 04/24 IV 04/24 1829 1822 Review of Systems Review of Systems: The review of systems is negative for chest pains, palpitations nor lightheadedness. The remainder of the 14 point review of systems is noncontributory with the exception of above. Past History Travel History Traveled to [place] past 21 day No Medical History Neurological: NONE EENT: NONE Cardiovascular: AFIB, CAD, CHF, hypertension, hyperlipidemia, NSTEMI, [place] STENT PLAC[place] 2017 [place] Respiratory: NONE Gastrointestinal: NONE Hepatic: NONE Renal: NONE Musculoskeletal: disk herniation, PMR ARTHRITIS Psychiatric: anxiety Endocrine: NONE Blood Disorders: NONE Cancer(s): NONE SPECIAL LIBRARIAN/Reproductive: NONE Surgical History Surgical History: laminectomy cardiac cath PTCA WITH STENT Family History Relations & Conditions If Any: BROTHER (2 Brothers had premature coronary artery disease. One brother of pulmonary embolism.). Psychosocial History Who Do You Live With? spouse Services at Home: None Smoking Status: Never Smoked Living Will? yes Functional Ability ADLs Independent: dressing, eating, toileting, bathing. Ambulation: cane IADLs Independent: shopping, housework, finances, food prep, telephone, transportation , medication admin. Exam & Diagnostic Data Vital Signs and I&O Vital Signs Date Time Temp Pulse Resp B/P B/P Pulse O2 O2 Flow FiO2 Mean Ox Delivery Rate 04/25 1111 74 154/74 04/25 0955 98.9 75 19 161/71 100 Room Air 04/25 0952 73 161/71 04/25 0952 73 161/71 04/25 0603 96.8 74 20 154/70 99 Room Air 04/25 0600 96.8 74 18 154/70 04/25 0200 98.0 78 17 136/70 04/24 2317 97.8 78 18 147/77 97 Room Air 04/243 98.6 74 18 118/58 98 Room Air 04/24 1827 98.6 71 18 130/58 98 Room Air Intake & Output 04/25 1600 04/25 0800 04/25 0000 04/24 1600 04/24 0800 04/24 0000 Intake Total 840 1180 Output Total Balance 840 1180 Intake, IV 600 1000 Intake, Oral 240 180 Patient 163 lb 163 lb Weight Weight Reported by Patient Measurement Method Physical Exam: General: Nontoxic, no apparent distress. HEENT: Sclera and conjunctiva within normal limits, without xanthelasmas. Neck: Carotids 2+ without bruits. Respiratory: Scattered rhonchi, air movement is good, without accessory respiratory muscle use. Heart: Regular rate and rhythm, without murmurs, without JVD. Abdomen: Soft, nontender, no masses, normoactive bowel sounds. Extremities: Without clubbing, cyanosis, without edema. Neuro: Nonfocal exam, strength, 5 out of 5 Skin: Within normal limits without lesions. Psych: Mood and affect: Normal Labs/Teo Results: Laboratory Tests 04/25 04/25 04/25 04/24 1156 0720 0617 2246 Chemistry Sodium (137 - 145 mmol/L) 143 Potassium (3.5 - 5.1 mmol/L) 5.3 H Chloride (98 - 107 mmol/L) 115 H Carbon Dioxide (22 - 30 mmol/L) 16 L Anion Gap (5 - 16) 13 BUN (9 - 20 mg/dL) 53 H Creatinine (0.7 - 1.2 mg/dL) 1.2 Estimated GFR (>60 ml/min) 58 L BUN/Creatinine Ratio (7 - 25 %) 44.2 H Troponin I (<0.11 ng/ml) < 0.01 0.02 0.02 Hematology CBC w Diff MAN DIFF ORDERED WBC (4.8 - 10.8 /CUMM) 7.4 RBC (4.70 - 6.10 /CUMM) 4.40 L Hgb (14.0 - 18.0 G/DL) 10.6 L Hct (42 - 52 %) 33.7 L MCV (80.0 - 94.0 FL) 76.7 L MCH (27.0 - 31.0 PG) 24.2 L RDW (11.5 - 14.5 %) 20.5 H Plt Count (130 - 400 /CUMM) 275 MPV (7.4 - 10.4 FL) 9.6 Segmented Neutrophils (42.2 - 75.2 %) 72 Band Neutrophils (0.0 - 5.0 %) 1 Lymphocytes (20.5 - 51.1 %) 20 L Monocytes (1.7 - 9.3 %) 6 Eosinophils (0 - 5.0 %) 1 Hypochromic-Microcytic 2+ Anisocytosis 1+ Microcytic Cells 1+ Target Cells 2+ Stomatocytes 1+ Elliptocytes FEW PUBS MCHC (33.0 - 37.0 G/DL) 31.5 L 04/24 04/24 04/24 1821 1821 1657 Chemistry Lipase Cancelled Urines Urine Color (YEL,AMB,STR) YEL Urine Clarity (CLEAR) CLEAR Urine pH (5.0 - 8.0) 5.5 Ur Specific [place] (1.001 - 1.035) 1.025 Urine Protein (NEG,<30 MG/DL) TRACE H Urine Ketones (NEG) NEG Urine Nitrite (NEG) NEG Urine Bilirubin (NEG) NEG@ICTO Urine Urobilinogen (0.1 - 1.0 EU/dl) 0.2 Ur Leukocyte Esterase (NEG) NEG Ur Microscopic SEDIMENT EXAMINED Urine RBC (0 - 5 /HPF) RARE Urine WBC (0 - 2 /HPF) 1-3 H Ur Epithelial Cells (NONE,FEW) RARE Urine Bacteria (NEG/NONE) FEW H Hyaline Casts (0/LPF) 5-10 H Urine Mucus (FEW,NONE) FEW Urine Hemoglobin (NEG) NEG Ur Random Creatinine (mg/dL) 153.7 Ur Random Sodium (30 - 90 mmol/L) 35 Ur Random Potassium (mmol/L) 54.5 Fraction Sodium Excret (<1% %) 0.2 Urine Glucose (N MG/DL) NEG 04/24 1418 Chemistry Sodium (137 - 145 mmol/L) 141 Potassium (3.5 - 5.1 mmol/L) 5.3 H Chloride (98 - 107 mmol/L) 109 H Carbon Dioxide (22 - 30 mmol/L) 18 L Anion Gap (5 - 16) 14 BUN (9 - 20 mg/dL) 58 H Creatinine (0.7 - 1.2 mg/dL) 1.4 H Estimated GFR (>60 ml/min) 49 L BUN/Creatinine Ratio (7 - 25 %) 41.4 H Glucose (65 - 99 mg/dL) 163 H Calcium (8.4 - 10.2 mg/dL) 10.4 H Iron (49 - 181 ug/dL) 47 L TIBC (261 - 462 ug/dL) 516 H Ferritin (17.9 - 464 ng/mL) 44.9 Total Bilirubin (0.2 - 1.3 mg/dL) 1.2 AST (17 - 59 U/L) 350 H ALT (21 - 72 U/L) 31 Alkaline Phosphatase (< 127 U/L) 259 H Troponin I (<0.11 ng/ml) < 0.01 Total Protein (6.3 - 8.2 g/dL) 6.8 Albumin (3.5 - 5.0 g/dL) 4.1 Globulin (1.9 - 4.2 gm/dL) 2.7 Albumin/Globulin Ratio (1.1 - 2.2 %) 1.5 Amylase (30 - 110 U/L) 71 Lipase (23 - 300 U/L) 208 Coagulation PT (9.4 - 12.5 SEC) 29.5 H INR (0.90 - 1.17) 2.84 H APTT (25 - 37 SEC) 36 Hematology CBC w Diff MAN DIFF ORDERED WBC (4.8 - 10.8 /CUMM) 8.1 RBC (4.70 - 6.10 /CUMM) 4.76 Hgb (14.0 - 18.0 G/DL) 11.4 L Hct (42 - 52 %) 36.6 L MCV (80.0 - 94.0 FL) 76.8 L MCH (27.0 - 31.0 PG) 23.9 L RDW (11.5 - 14.5 %) 20.1 H Plt Count (130 - 400 /CUMM) 304 MPV (7.4 - 10.4 FL) 9.6 Segmented Neutrophils (42.2 - 75.2 %) 72 Lymphocytes (20.5 - 51.1 %) 20 L Monocytes (1.7 - 9.3 %) 8 Platelet Estimate (ADEQUATE) ADEQUATE Hypochromic-Microcytic 1+ Poikilocytosis 1+ Anisocytosis 1+ Target Cells RARE PUBS MCHC (33.0 - 37.0 G/DL) 31.1 L Toxicology Serum Alcohol (<10 MG/DL) < 10.0 Assessment/Plan Assessment/Plan 81-year-old gentleman with a past medical history of atrial fibrillation (on anticoagulation), coronary artery disease (status post stenting in April 2016) , hypertension, chronic congestive heart failure with preserved LV systolic function. He presented to our emergency room with increasing analyzed weakness as well as abdominal discomfort, as well as increased confusion from baseline. While in the emergency room, he was noted to have an EKG which demonstrated diffuse T-wave inversions (no significant change from prior). New EKG changes: The patient has lateral lead T-wave inversions which parison with prior studies does not appear to be significantly changed. As he has ruled out for a myocardial infarction via serial troponin isoenzymes, we will continue to follow this as an outpatient. Generalized weakness/dehydration: The patient has improved with IV rehydration. The possible etiologies of his generalized weakness including questionable degree of alcohol consumption have been discussed. Atrial fibrillation: The patient has permanent atrial fibrillation and is on full anticoagulation. His gait is unsteady; however, he has not had falls. Continue with full anticoagulation and reassess with likely outpatient physical therapy. Thank you for allowing us to participate in the care of your patient. Please do not hesitate to contact us further with any questions. Sincerely, Angel Norris MD [facility] Consult Acknowledgment - Thank you for your consult request.
[2017-04-25 18:35] VITALS: BP 132/62
[2017-04-25 21:53] VITALS: BP 138/74
[2017-04-26 06:21] VITALS: BP 136/48
[2017-04-26 08:20] LABS: HEMATOCRIT 33.5 % (42-52); MEAN CORPUSCULAR HGB 24.7 PG (27.0-31.0); MEAN CORPUSCULAR HGB CONC 32.2 G/DL (33.0-37.0); MEAN CORPUSCULAR VOLUME 76.8 FL (80.0-94.0); MEAN PLATELET VOLUME 9.7 FL (7.4-10.4); PLATELET COUNT 282 /CUMM (130-400); RBC DISTRIBUTION WIDTH 20.9 % (11.5-14.5); RED BLOOD CELL CT 4.36 /CUMM (4.70-6.10); WHITE BLOOD CELL COUNT 7.9 /CUMM (4.8-10.8)
--- NOTE | 2017-04-26 11:44 | ULTRASOUND REPORT ---
EXAMINATION: US ABDOMEN LIMITED CLINICAL INFORMATION: Abdominal pain. Transaminitis. Hepatic steatosis. COMPARISON: CT scan of the abdomen and pelvis dated 04/24/2017. TECHNIQUE: Real-time imaging of the right upper quadrant abdominal viscera. FINDINGS: PANCREAS: The pancreatic body and portions of the head and tail are visualized and appear unremarkable. Remainder of pancreas is obscured by overlying bowel gas. LIVER: In the left lobe of the liver, a 0.9 x 0.8 x 0.9 cm hypoechoic avascular mass is seen, appearing solid. There is also a 3.3 x 2.1 x 3.9 cm lobulated hypoechoic solid mass in hepatic segment 6 of the liver. In addition, there is a large masslike area of markedly abnormal and heterogeneous echotexture nearly completely occupying the entire right lobe of the liver, corresponding to the masslike appearance on CT scan of the abdomen from 04/24/2017. This finding is new when compared to prior CT scan from 01/22/2012 and is highly suspicious for a infiltrative neoplasm. The ultrasound appearance is, however, nonspecific and conceivably, very heterogeneous and patchy hepatic steatosis may have a similar appearance. GALLBLADDER: Normal. The gallbladder is physiologically distended without evidence of stones, sludge, polyps, wall thickening or pericholecystic fluid. COMMON BILE DUCT: Normal in caliber measuring 0.4 cm in diameter. RIGHT KIDNEY: Normal. No hydronephrosis. There is a 0.3 cm lower pole right renal calcification suspected. No focal parenchymal lesions. The kidney measures 10.1 cm in maximum dimension. FREE FLUID: None. IMPRESSION: 1. Large infiltrative and heterogeneous echogenicity is seen throughout the right lobe of the liver, corresponding to the noncontrast CT scan findings. This finding remains indeterminate in etiology and is suspicious for an infiltrative neoplastic process. Also in the differential would be heterogeneous hepatic steatosis. Further assessment with MRI scan with and without contrast is recommended. This would also allow further assessment of the 2 additional more focal hypoechoic masses in the left and right lobes of the liver. 2. Incomplete view of the pancreatic head and tail. Visualized portions of pancreas unremarkable. 3. Nonobstructing lower pole right renal calcification is suspected on ultrasound. Recent CT scan, however, had shown no right renal calculi.
--- NOTE | 2017-04-26 11:58 | PN- Housestaff ---
See Addendum Subjective Follow-up For: AK I Hepatic steatosis History of atrial fibrillation Weakness Subjective: Patient was seen and examined. Reports occasional nausea. Has been NPO for abdominal US this AM. States that he experiences abdominal pain after he eats recently. Still has generalized weakness. Denies CP , SOB, vomiting, urinary symptoms. VSS, no overnight events. Review of Systems Constitutional: Reports: no symptoms. Objective Last 24 Hrs of Vital Signs/I&O Vital Signs Date Time Temp Pulse Resp B/P B/P Pulse O2 O2 Flow FiO2 Mean Ox Delivery Rate 04/26 0951 140/70 04/26 0951 140/70 04/26 0951 140/70 04/26 0621 97.5 78 20 136/48 99 04/25 2153 98.6 89 19 138/74 95 Room Air 04/25 1835 98.1 65 20 132/62 04/25 1754 96.5 78 18 136/59 99 Room Air 04/25 1535 98.3 69 18 138/60 99 Room Air Intake & Output 04/26 1600 04/26 0800 04/26 0000 Intake Total Output Total 200 550 300 Balance -200 -550 -300 Output, Urine 200 550 300 Patient 161 lb Weight Weight Bed scale Measurement Method Physical Exam General Appearance: Alert, Oriented X3, Cooperative, No Acute Distress Skin: No Rashes HEENT: Atraumatic, PERRLA, EOMI, Mucous Membr. moist/pink Neck: Supple, No JVD, No thryomegaly, +2 Carotid Pulse wo Bruit, No LAD Cardiovascular: Regular Rate, Normal S1, Normal S2, No Murmurs, Gallops, Rubs Lungs: Clear to Auscultation, Normal Air Movement Abdomen: mild LLQ tenderness Neurological: Normal Speech, Strength at 5/5 X4 Ext, Normal Tone, Sensation Intact, Cranial Nerves 3-12 NL, Reflexes 2+ Extremities: No Clubbing, No Cyanosis, No Edema, Normal Pulses, No Tenderness/ Swelling Vascular: Normal Pulses, Pulses Symmetrical Current Medications: Current Medications Sig/[place] Start time Last Medication Dose Route Stop Time Status Admin Atorvastatin Calcium 20 MG 1700 04/25 1700 AC 04/25 PO 2109 Clopidogrel Bisulfate 75 MG DAILY 04/25 1000 AC 04/26 PO 0950 Diclofenac Sodium 1 KISHOR 4 TIMES/DAY 04/25 1146 AC 01/04 TOP 1133 Hydrocodone Bitart/ 1 TAB BID PRN 04/26 0915 DC Acetaminophen PO Hydrocodone Bitart/ 2 TAB DAILY PRN 04/25 1030 DC 04/25 Acetaminophen PO 1111 Isosorbide 60 MG DAILY 04/25 1000 AC 04/26 Mononitrate PO 0951 Lidocaine 1 PAT DAILY 04/26 1000 AC 04/26 EXT 1133 Lorazepam 0.5 MG BID PRN 04/25 0030 AC PO 05/02 0021 Losartan Potassium 100 MG DAILY 04/25 1030 AC 04/26 PO 0951 Melatonin 5 MG AT BEDTIME 04/26 2200 AC PO Metoprolol Succinate 25 MG DAILY 04/25 1000 AC 04/26 PO 0951 Multivitamins 1 TAB DAILY 04/25 1000 AC 04/26 PO 0950 Omeprazole 40 MG DAILY AC 04/25 0700 AC 04/26 PO 0552 Oxycodone HCl 5 MG ONCE ONE 04/26 0945 DC 04/26 PO 04/26 0946 0950 Oxycodone HCl 3 MG Q8P PRN 04/26 0930 DC PO Prednisone 4 MG DAILY 04/26 1000 AC 04/26 PO 0949 Rivaroxaban 20 MG QPM 04/24 2230 AC 04/25 PO 2108 Last 24 Hrs of Lab/Teo Results Last 24 Hrs of Labs/Mics: Laboratory Tests 04/26/17 0640: Anion Gap 15, Estimated GFR > 60, BUN/Creatinine Ratio 35.0 H, Magnesium 1.7, Total Bilirubin 1.7 H, Direct Bilirubin 0.8 H, AST 392 H, ALT 38, Alkaline Phosphatase 226 H, Total Protein 6.7, Albumin 3.9, CBC w Diff MAN DIFF ORDERED, RBC 4.36 L, MCV 76.8 L, MCH 24.7 L, RDW 20.9 H, MPV 9.7, Segmented Neutrophils 75, Band Neutrophils 2, Lymphocytes 15 L, Monocytes 7, Eosinophils 1, Platelet Estimate VERIFIED BY SMEAR, Hypochromic-Microcytic 1+, Poikilocytosis 1+, Anisocytosis 1+, Target Cells FEW, PUBS MCHC 32.2 L Assessment/Plan Assessment: Mr Lyon is an 81-year-old gentleman with a past history of Atrial fibrillation on DOAC, CAD s/p stent ( type unknown, Apr 2016 ), HTN, PMR, HFpEF who is evaluated for generalized weakness, abdominal discomfort and decreased by mouth intake the last few days, likely secondary from electrolyte abnormalities. CT abdomen revealed diverticulosis and hepatic steatosis. CT head was within normal limits, without any acute abnormality. Last echocardiogram done in 10/2016 revealed ejection fraction of 55%, with anteroseptal hypokinesis. Problem list/Plan: #AK I-likely from dehydration-resolved -Status post IV fluid therapy, will discontinue IV fluids. -Today sodium 145, potassium 49, calcium pending. -Labs abnormality on admission which likely secondary to acute kidney injury. -Urine lites checked, FeNa: 0.2 -GEORGE inhibitor restarted -Plan to restart furosemide tomorrow #hepatic steatosis-reports abdominal pain -Abd US: Large infiltrative and heterogeneous mass right lobe of the liver. -GI consult placed, spoke to Dr. Echevarria via phone, he will see the patient tomorrow. Meanwhile will order MRI abdomen with and without contrast. -Lliver function tests: AST worsening, elevated total bilirubin to 1.7. #Chronic back pain: * On Vicodin and Lidoderm patch at home for chronic back pain. Given transaminitis would hold off Vicodin, can give oxycodone on an as-needed basis after assessment. Will continue Lidoderm patch. #History of atrial fibrillation and reported new T wave inversions- -no chest pain, palpitations or shortness of breath at this time. -Given aspirin 1. on admission -Check serial ekgs and trops; negative -C/w metoprolol, statin and clopidogrel. -Currently on riveroxaban for anticoagulation. -Cardiology consult appreciated #microcytic anemia -Iron 47, TIBC 516, ferritin 449 -Consider iron supplementation upon discharge -Check Hemoccult #Unsteady gait: -PT eval #DVT prophylaxis: -Being addressed by rivaroxaban #CODE STATUS: -Pt is full code Problem List: 1. PAF (paroxysmal atrial fibrillation) Pain Ratin Pain Location: back Pain Goal: Pain 4 or less Pain Plan: lidoderm patch, voltaren gel PRN oxycodone Tomorrow's Labs & Rationales: CBC to monitor H&H BEP, magnesium, calcium to monitor electrolytes. LFTs, trending.
--- NOTE | 2017-04-26 12:17 | PN- Att Addend ---
Attending Addendum Attending Brief Note Patient just returned from an abdominal ultrasound. Yesterday was still a little nauseous after having a diet. Will get a GI consult before starting disposition plans Vital signs are stable no fever his abdomen is benign. Is also little anemic. Depending on GI evaluation will continue evaluation in the hospital or as an outpatient. Intake & Output 04/26 1600 04/26 0400 04/25 1600 04/25 0400 04/24 1600 04/24 0400 Intake Total 840 1180 Output Total 850 300 Balance -850 -305 044 6565 Intake, IV 600 1000 Intake, Oral 240 180 Output, Urine 850 300 Patient 161 lb 163 lb 163 lb Weight Weight Bed scale Reported by Patient Measurement Method Current Medications Sig/[place] Start time Last Medication Dose Route Stop Time Status Admin Atorvastatin Calcium 20 MG 1700 04/25 1700 AC 04/25 PO 2109 Clopidogrel Bisulfate 75 MG DAILY 04/25 1000 AC 04/26 PO 0950 Diclofenac Sodium 1 KISHOR 4 TIMES/DAY 04/25 1146 AC 04/26 TOP 1133 Hydrocodone Bitart/ 1 TAB BID PRN 04/26 0915 DC Acetaminophen PO Hydrocodone Bitart/ 2 TAB DAILY PRN 04/25 1030 DC 04/25 Acetaminophen PO 1111 Isosorbide 60 MG DAILY 04/25 1000 AC 04/26 Mononitrate PO 0951 Lidocaine 1 PAT DAILY 04/26 1000 AC 04/26 EXT 1133 Lorazepam 0.5 MG BID PRN 04/25 0030 AC PO 05/02 0021 Losartan Potassium 100 MG DAILY 04/25 1030 AC 04/26 PO 0951 Melatonin 5 MG AT BEDTIME 04/26 2200 AC PO Metoprolol Succinate 25 MG DAILY 04/25 1000 AC 04/26 PO 0951 Multivitamins 1 TAB DAILY 04/25 1000 AC 04/26 PO 0950 Omeprazole 40 MG DAILY AC 04/25 0700 AC 04/26 PO 0552 Oxycodone HCl 5 MG ONCE ONE 04/26 0945 DC 04/26 PO 04/26 0946 0950 Oxycodone HCl 3 MG Q8P PRN 04/26 0930 DC PO Prednisone 4 MG DAILY 04/26 1000 AC 04/26 PO 0949 Rivaroxaban 20 MG QPM 04/24 2230 AC 04/25 PO 2108 Laboratory Tests 04/26/17 0640: Anion Gap 15, Estimated GFR > 60, BUN/Creatinine Ratio 35.0 H, Magnesium 1.7, Total Bilirubin 1.7 H, Direct Bilirubin 0.8 H, AST 392 H, ALT 38, Alkaline Phosphatase 226 H, Total Protein 6.7, Albumin 3.9, CBC w Diff MAN DIFF ORDERED, RBC 4.36 L, MCV 76.8 L, MCH 24.7 L, RDW 20.9 H, MPV 9.7, Segmented Neutrophils 75, Band Neutrophils 2, Lymphocytes 15 L, Monocytes 7, Eosinophils 1, Platelet Estimate VERIFIED BY SMEAR, Hypochromic-Microcytic 1+, Poikilocytosis 1+, Anisocytosis 1+, Target Cells FEW, PUBS MCHC 32.2 L 04/25/17 1156: Troponin I < 0.01 04/25/17 0720: Anion Gap 13, Estimated GFR 58 L, BUN/Creatinine Ratio 44.2 H, Troponin I 0.02 04/25/17 0617: CBC w Diff MAN DIFF ORDERED, RBC 4.40 L, MCV 76.7 L, MCH 24.2 L, RDW 20.5 H, MPV 9.6, Segmented Neutrophils 72, Band Neutrophils 1, Lymphocytes 20 L, Monocytes 6, Eosinophils 1, Hypochromic-Microcytic 2+, Anisocytosis 1+, Microcytic Cells 1+, Target Cells 2+, Stomatocytes 1+, Elliptocytes FEW, PUBS MCHC 31.5 L 04/24/17 2246: Troponin I 0.02 04/24/17 1821: Urine Color YEL, Urine Clarity CLEAR, Urine pH 5.5, Ur Specific [place] 1.025, Urine Protein TRACE H, Urine Ketones NEG, Urine Nitrite NEG, Urine Bilirubin NEG@ICTO, Urine Urobilinogen 0.2, Ur Leukocyte Esterase NEG, Ur Microscopic SEDIMENT EXAMINED, Urine RBC RARE, Urine WBC 1-3 H, Ur Epithelial Cells RARE, Urine Bacteria FEW H, Hyaline Casts 5-10 H, Urine Mucus FEW, Urine Hemoglobin NEG, Urine Glucose NEG 04/24/17 1821: Ur Random Creatinine 153.7, Ur Random Sodium 35, Ur Random Potassium 54.5, Fraction Sodium Excret 0.2 04/24/17 1657: Lipase Cancelled 04/24/17 1418: Anion Gap 14, Estimated GFR 49 L, BUN/Creatinine Ratio 41.4 H, Glucose 163 H, Calcium 10.4 H, Iron 47 L, TIBC 516 H, Ferritin 44.9, Total Bilirubin 1.2, AST 350 H, ALT 31, Alkaline Phosphatase 259 H, Troponin I < 0.01, Total Protein 6.8, Albumin 4.1, Globulin 2.7, Albumin/Globulin Ratio 1.5, Amylase 71, Lipase 208, PT 29.5 H, INR 2.84 H, APTT 36, CBC w Diff MAN DIFF ORDERED, RBC 4.76, MCV 76.8 L, MCH 23.9 L, RDW 20.1 H, MPV 9.6, Segmented Neutrophils 72, Lymphocytes 20 L, Monocytes 8, Platelet Estimate ADEQUATE, Hypochromic- Microcytic 1+, Poikilocytosis 1+, Anisocytosis 1+, Target Cells RARE, PUBS MCHC 31.1 L, Serum Alcohol < 10.0 Vital Signs Date Time Temp Pulse Resp B/P B/P Pulse O2 O2 Flow FiO2 Mean Ox Delivery Rate 04/26 0951 140/70 04/26 0951 140/70 04/26 0951 140/70 04/26 0621 97.5 78 20 136/48 99 04/25 2153 98.6 89 19 138/74 95 Room Air 04/25 1835 98.1 65 20 132/62 04/25 1754 96.5 78 18 136/59 99 Room Air 04/25 1535 98.3 69 18 138/60 99 Room Air
--- NOTE | 2017-04-26 14:47 | PN- Cardiology ---
Subjective Subjective: Patient just returned from MRI. No complaints he feels well and is off telemetry Objective Vital Signs and I&Os Vital Signs Date Time Temp Pulse Resp B/P B/P Pulse O2 O2 Flow FiO2 Mean Ox Delivery Rate 04/26 0951 140/70 04/26 0951 140/70 04/26 0951 140/70 04/26 0621 97.5 78 20 136/48 99 04/25 2153 98.6 89 19 138/74 95 Room Air 04/25 1835 98.1 65 20 132/62 04/25 1754 96.5 78 18 136/59 99 Room Air 04/25 1535 98.3 69 18 138/60 99 Room Air Intake & Output 04/26 1600 04/26 0800 04/26 0000 04/25 1600 04/25 0804/25 0000 Intake Total 897 206 4118 Output Total 300 550 300 Balance -60 -550 -060 342 7005 Intake, IV 0 600 1000 Intake, Oral 240 240 180 Output, Urine 300 550 300 Patient 161 lb 163 lb Weight Weight Bed scale Measurement Method Physical Exam: Gen. exam patient appears weak but comfortable Head normocephalic atraumatic Eyes sclera anicteric conjunctiva showed no pallor extraocular muscles were normal Neck no jugular venous distention no thyroid masses no palpable nodes Chest lungs were clear bilaterally Heart irregular rhythm with a ventricle rate around 81 and Abdomen soft no organomegaly bowel sounds normal Extremities no clubbing cyanosis or edema. Next neurological no gross motor or sensory deficits Current Medications: Current Medications Sig/[place] Start time Last Medication Dose Route Stop Time Status Admin Atorvastatin Calcium 20 MG 1700 04/25 1700 AC 04/25 PO 2109 Clopidogrel Bisulfate 75 MG DAILY 04/25 1000 AC 04/26 PO 0950 Diclofenac Sodium 1 KISHOR 4 TIMES/DAY 04/25 1146 AC 04/26 TOP 1133 Hydrocodone Bitart/ 1 TAB BID PRN 04/26 0915 DC Acetaminophen PO Hydrocodone Bitart/ 2 TAB DAILY PRN 04/25 1030 DC 04/25 Acetaminophen PO 1111 Isosorbide 60 MG DAILY 04/25 1000 AC 04/26 Mononitrate PO 0951 Lidocaine 1 PAT DAILY 04/26 1000 AC 04/26 EXT 1133 Lorazepam 0.5 MG BID PRN 04/25 0030 AC PO 05/02 0021 Losartan Potassium 100 MG DAILY 04/25 1030 AC 04/26 PO 0951 Melatonin 5 MG AT BEDTIME 04/26 2200 AC PO Metoprolol Succinate 25 MG DAILY 04/25 1000 AC 04/26 PO 0951 Multivitamins 1 TAB DAILY 04/25 1000 AC 04/26 PO 0950 Omeprazole 40 MG DAILY AC 04/25 0700 AC 04/26 PO 0552 Oxycodone HCl 5 MG ONCE ONE 04/26 0945 DC 04/26 PO 04/26 0946 0950 Oxycodone HCl 3 MG Q8P PRN 04/26 0930 DC PO Prednisone 4 MG DAILY 04/26 1000 AC 04/26 PO 0949 Rivaroxaban 20 MG QPM 04/24 2230 AC 04/25 PO 2108 Results Last 48 Hrs of Labs/Mics: Laboratory Tests 04/26/17 0640: Anion Gap 15, Estimated GFR > 60, BUN/Creatinine Ratio 35.0 H, Calcium 10.8 H, Magnesium 1.7, Total Bilirubin 1.7 H, Direct Bilirubin 0.8 H, AST 392 H, ALT 38, Alkaline Phosphatase 226 H, Total Protein 6.7, Albumin 3.9, CBC w Diff MAN DIFF ORDERED, RBC 4.36 L, MCV 76.8 L, MCH 24.7 L, RDW 20.9 H, MPV 9.7, Segmented Neutrophils 75, Band Neutrophils 2, Lymphocytes 15 L, Monocytes 7, Eosinophils 1, Platelet Estimate VERIFIED BY SMEAR, Hypochromic-Microcytic 1+, Poikilocytosis 1+, Anisocytosis 1+, Target Cells FEW, PUBS MCHC 32.2 L 04/25/17 1156: Troponin I < 0.01 04/25/17 0720: Anion Gap 13, Estimated GFR 58 L, BUN/Creatinine Ratio 44.2 H, Troponin I 0.02 04/25/17 0617: CBC w Diff MAN DIFF ORDERED, RBC 4.40 L, MCV 76.7 L, MCH 24.2 L, RDW 20.5 H, MPV 9.6, Segmented Neutrophils 72, Band Neutrophils 1, Lymphocytes 20 L, Monocytes 6, Eosinophils 1, Hypochromic-Microcytic 2+, Anisocytosis 1+, Microcytic Cells 1+, Target Cells 2+, Stomatocytes 1+, Elliptocytes FEW, PUBS MCHC 31.5 L 04/24/17 2246: Troponin I 0.02 01/02/18 1821: Urine Color YEL, Urine Clarity CLEAR, Urine pH 5.5, Ur Specific [place] 1.025, Urine Protein TRACE H, Urine Ketones NEG, Urine Nitrite NEG, Urine Bilirubin NEG@ICTO, Urine Urobilinogen 0.2, Ur Leukocyte Esterase NEG, Ur Microscopic SEDIMENT EXAMINED, Urine RBC RARE, Urine WBC 1-3 H, Ur Epithelial Cells RARE, Urine Bacteria FEW H, Hyaline Casts 5-10 H, Urine Mucus FEW, Urine Hemoglobin NEG, Urine Glucose NEG 04/24/171820: Ur Random Creatinine 153.7, Ur Random Sodium 35, Ur Random Potassium 54.5, Fraction Sodium Excret 0.2 04/24/17 1657: Lipase Cancelled Assessment/Plan Assessment/Plan In summary this 81-year-old gentle tleman with a past medical history of atrial fibrillation (on anticoagulation), coronary artery disease (status post stenting in April 2016), hypertension, chronic congestive heart failure with preserved LV systolic function. He presented to our emergency room with increasing analyzed weakness as well as abdominal discomfort, as well as increased confusion from baseline. While in the emergency room, he was noted to have an EKG which demonstrated diffuse T-wave inversions (no significant change from prior). His EKG abnormalities have been nonspecific and unrelated to any cardiac troponin elevation is main issue is abnormal liver functions which she received a CT scan and an ultrasound that showed heterogenic patches in the liver is suggestive of an infiltrative process or hepatic steatosis. This is confirmed been confirmed by MRI. From a cardiac standpoint he appears stable. Please call us if you need our assistance Continue telemetry? No
--- NOTE | 2017-04-26 15:07 | MRI REPORT ---
EXAMINATION: MRI ABDOMEN WITH AND WITHOUT CONTRAST CLINICAL INFORMATION: Abdominal pain. Liver neoplasm. COMPARISON: CT from 04/24/2017. Ultrasound from earlier today. TECHNIQUE: Multiple routine MRI sequences through the abdomen were obtained on a high-field 1.5 Alissa MRI before and after the uneventful administration of 7 mL of Gadavist gadolinium-based IV contrast. FINDINGS: The study is significantly motion limited. LUNG BASES: Lung bases are clear. LIVER: The liver is diffusely heterogeneous. There are multiple masses seen throughout the hepatic parenchyma. These demonstrate heterogeneously increased signal on T2-weighted imaging with decreased signal on T1-weighted imaging. Motion on the postcontrast sequences limits the evaluation. This significantly limits evaluation of the enhancement characteristics of the hepatic lesions. Prominent lesion in the central aspect of the liver centered in segment 4A measures 7.9 cm AP by 6.2 cm transverse by 8.1 cm CC. There is no significant hyperenhancement on the arterial phase, although there does appear to be some degree of washout on the later phases. There are multiple additional smaller lesions throughout the liver with somewhat of a confluent appearance, particularly in the right lobe. GALLBLADDER AND BILIARY TREE: The gallbladder appears grossly normal. No intra or extra-hepatic biliary ductal dilation. SPLEEN: Normal. Normal size. No focal lesion. PANCREAS: Evaluation of the pancreas is significantly limited due to the motion limitations of this study. No gross abnormality. ADRENAL GLANDS: Normal. No adrenal mass. KIDNEYS AND URETERS: Symmetric renal enhancement. No focal renal lesion identified. Minimal bilateral perinephric stranding is symmetric. LYMPHOVASCULAR STRUCTURES: Normal caliber aorta. IVC patent. No pathologically enlarged abdominal or retroperitoneal lymphadenopathy by CT size criteria. OSSEOUS STRUCTURES: No acute or suspicious osseous abnormalities. IMPRESSION: Study is limited by motion, particularly the postcontrast sequences. Numerous infiltrative lesions throughout the liver with a heterogeneous appearance. Enhancement characteristics are not well-defined, although there does appear to be washout involving at least the larger of the lesions. The appearance is most suspicious for adenocarcinoma metastatic disease, possibly from a gastrointestinal source, although no suspicious lesion is seen on the CT throughout the gastrointestinal tract.. Alternatively, primary cholangiocarcinoma with satellite lesions is possible. Tissue characterization may be needed to further clarify.
[2017-04-26 15:53] VITALS: BP 160/63
[2017-04-26 22:32] VITALS: BP 120/64
[2017-04-27] VITALS: BP 120/64
[2017-04-27 02:00] VITALS: BP 120/64
[2017-04-27 04:00] VITALS: BP 120/64
[2017-04-27 06:00] VITALS: BP 122/50; BP 122/55
--- NOTE | 2017-04-27 08:14 | PN- Housestaff ---
Subjective Follow-up For: Liver mass Hepatic steatosis History of atrial fibrillation Weakness Subjective: Patient seen and examined. He does not have much appetite. Reports feeling weak. Still reports occasional abdominal pain which is not related to eating. He states that he has an abscess on his right buttock which has been drained multiple times. He states that the last time it was drained was recent however is unsure of the exact date. He denies being on any antibiotic for the abscess. Denies having fever/chills. Reports occasional discomfort at the site of drainage. Denies having significant pain. Denies nausea, vomiting, dysphagia, kole colored stool, urinary symptoms. VSS. Losartan was restarted on Apr 25 after creatinine normalized (1.4 on , 1.2 on Apr 25, 1 on Apr 26). Today's creatinine increased to 2.2. Per our records, he was seen in the ED on 01/17/2017 for wound check of an abscess which was drained 2 days prior. Was discharged with AB and instructions to follow with Dr. Cisneros. Review of Systems Constitutional: Reports: see HPI. Objective Last 24 Hrs of Vital Signs/I&O Vital Signs Date Time Temp Pulse Resp B/P B/P Pulse O2 O2 Flow FiO2 Mean Ox Delivery Rate 04/271 98.0 69 19 124/60 97 Room Air 04/27 1412 97.9 64 18 120/62 99 Room Air 04/27 0600 97.5 60 16 122/55 04/27 0600 97.5 60 16 122/50 99 Room Air 04/27 0400 97.9 71 19 120/64 04/27 0200 97.9 71 19 120/64 04/27 0000 97.9 71 19 120/64 Intake & Output 04/27 1600 04/27 0800 04/27 0000 Intake Total 610 490 720 Output Total 200 Balance 410 490 720 Intake, IV 10 10 Intake, Oral 600 480 720 Number 0 0 Bowel Movements Output, Urine 200 Patient 162 lb 163 lb Weight Weight Reported by Patient Bed scale Measurement Method Physical Exam General Appearance: Alert, Oriented X3, Cooperative, No Acute Distress Skin: an area of open wound noted on right buttuck, well healing w/o pus or erythema. No sign of cellulitis. Multiple healed lesions noted on buttock. Other Physical Findings: HEENT: Atraumatic, PERRLA, EOMI, Mucous Membr. moist/pink Neck: Supple, No JVD, No thryomegaly, +2 Carotid Pulse wo Bruit, No LAD Cardiovascular: Irregular, No Murmurs, Gallops, Rubs Lungs: Clear to Auscultation, Normal Air Movement Abdomen: NL BS, NT, ND, No CVA tenderness Neurological: Normal Speech, Strength at 5/5 X4 Ext, Normal Tone, Sensation Intact, Cranial Nerves 3-12 NL, Reflexes 2+ Extremities: No Clubbing, No Cyanosis, No Edema, Normal Pulses, No Tenderness/ Swelling Vascular: Normal Pulses, Pulses Symmetrical Current Medications: Current Medications Sig/[place] Start time Last Medication Dose Route Stop Time Status Admin Atorvastatin Calcium 20 MG 1700 04/25 1700 AC 04/27 PO 1700 Clopidogrel Bisulfate 75 MG DAILY 04/25 1000 DC 04/26 PO 0950 Diclofenac Sodium 1 KISHOR 4 TIMES/DAY 04/25 1146 AC 04/27 TOP 1701 Isosorbide 60 MG DAILY 04/25 1000 AC 04/27 Mononitrate PO 1048 Lidocaine 1 PAT DAILY 04/26 1000 AC 04/27 EXT 1048 Lorazepam 0.5 MG BID PRN 04/25 0030 AC PO 05/02 0021 Losartan Potassium 100 MG DAILY 04/25 1030 DC 04/27 PO 1048 Melatonin 5 MG AT BEDTIME 04/26 2200 AC 04/27 PO 2020 Metoprolol Succinate 25 MG DAILY 04/25 1000 AC 04/27 PO 1048 Multivitamins 1 TAB DAILY 04/25 1000 AC 04/27 PO 1047 Omeprazole 40 MG DAILY AC 04/25 0700 AC 04/27 PO 0548 Prednisone 4 MG DAILY 04/26 1000 AC 04/27 PO 1048 Rivaroxaban 20 MG QPM 04/24 2230 DC 04/26 PO 2102 Sodium Chloride 1,000 ML Q10H 04/27 1515 AC 04/27 IV 1554 Last 24 Hrs of Lab/Teo Results Last 24 Hrs of Labs/Mics: Laboratory Tests 04/27/172014: Urine Color YEL, Urine Clarity CLEAR, Urine pH 6.0, Ur Specific [place] 1.020, Urine Protein 30 H, Urine Ketones NEG, Urine Nitrite NEG, Urine Bilirubin NEG, Urine Urobilinogen 0.2, Ur Leukocyte Esterase NEG, Ur Microscopic SEDIMENT EXAMINED, Urine RBC 3-5, Urine WBC 1-3 H, Ur Epithelial Cells FEW, Urine Crystals 1+ UR AC H, Hyaline Casts MOD H, Granular Casts RARE H, Urine Mucus FEW, Urine Hemoglobin MOD H, Urine Glucose NEG 04/27/17 0740: Anion Gap 18 H, Estimated GFR 29 L, BUN/Creatinine Ratio 20.0, Calcium 10.9 H , Magnesium 1.8, Total Bilirubin 1.8 H, Direct Bilirubin 1.0 H, AST 390 H, ALT 42, Alkaline Phosphatase 236 H, Total Protein 7.2, Albumin 4.3, CBC w Diff MAN DIFF ORDERED, RBC 4.52 L, MCV 76.9 L, MCH 24.4 L, RDW 20.9 H, MPV 9.5, Segmented Neutrophils 74, Band Neutrophils 2, Lymphocytes 13 L, Monocytes 9, Eosinophils 1, Basophils 1, Platelet Estimate ADEQUATE, Polychromasia 1+, Hypochromic-Microcytic 2+, Poikilocytosis 2+, Anisocytosis 2+, PUBS MCHC 31.8 L Assessment/Plan Assessment: Mr Lyon is an 81-year-old gentleman with a past history of Atrial fibrillation on DOAC, CAD s/p stent ( type unknown, Apr 2016 ), HTN, PMR, HFpEF who is evaluated for generalized weakness, abdominal discomfort and decreased by mouth intake the last few days, likely secondary from electrolyte abnormalities. CT abdomen revealed diverticulosis and hepatic steatosis. CT head was within normal limits, without any acute abnormality. Last echocardiogram done in 10/2016 revealed ejection fraction of 55%, with anteroseptal hypokinesis. Problem list/Plan: #LAUREN: -Presented with cr of 1.4 on admission was thought to be from dehydration -Losartan and furosemide were held on admission and he received IV fluids. -IV fluids stopped next day after creatinine normalized(Apr 25), losartan was restarted. Furosemide still held. -CT abd/pelvis on admission:Both kidneys are of normal size and attenuation without hydronephrosis or nephrolithiasis. -Creatinine today worsened to 2.2-likely 2/2 poor PO intake. -Will start IV fluids. -Will stop losartan. -Will consider nephrology consult of no improvement. #Hepatic steatosis-Liver mass -Abd US: Large infiltrative and heterogeneous mass right lobe of the liver. -MRI abdomen with and without contrast: Numerous infiltrative lesions throughout the liver with a heterogeneous appearance -Liver function tests: AST 390, ALT 42, ALP 236 elevated total bilirubin to 1.8. -IR BX to be done next week. DC xarelto and plavix(see event note) -Will need heparin bridge. -INR elevated, per IR INR should be below 1.5 -Per cardio INR cannot be assessed when patient is on xarelto -Given patient's underlying liver disease, it is hard to estimate if abnormal INR is only result of being on xarelto -Will recheck INR -May need hematology consult. #Wound on Rt buttock: -Well healing -wound care -Consider surgery/ID consult if worsen/develops abscess. #Hypercalcemia: -Ca 10.9, asymptomatic -Will check afer received IV fluids -Consider nephro consult if no improvement. #Chronic back pain: -On Vicodin and Lidoderm patch at home for chronic back pain. Given transaminitis would hold off Vicodin, can give oxycodone on an as-needed basis after assessment. Will continue Lidoderm patch. #History of atrial fibrillation and reported new T wave inversions- -no chest pain, palpitations or shortness of breath at this time. -Given aspirin 1. on admission -Check serial ekgs and trops; negative -C/w metoprolol, statin -Xarelto and plavix held in anticipation of IR bx -Cardiology consult appreciated #microcytic anemia -Iron 47, TIBC 516, ferritin 449 -Consider iron supplementation upon discharge -Check Hemoccult #Unsteady gait -PT eval #DVT prophylaxis: -ALPS, anticuagulated by rivaroxaban will need heparin bridge #CODE STATUS: -Pt is full code Problem List: 1. Atrial fibrillation 2. Liver mass 3. LAUREN (acute kidney injury) Pain Ratin Pain Location: NA Pain Goal: Remain pain free Pain Plan: Lidoderm patch PRN oxycodone Tomorrow's Labs & Rationales: CBC to monitor H&H BEP, Ca to monitor cr , electrolytes LFTs trend INR trend
--- NOTE | 2017-04-27 09:08 | Patient Discharge Instructions ---
Discharge Instructions General Discharge Information You were seen/treated for: Weakness Abdominal pain Acute kidney injury Liver mass Special Instructions: -Please follow-up with your PCP Dr. Spence within a week of discharge. -Please follow-up with press operator printing, Dr. Echevarria within a week of discharge. -Please follow-up with a machine scallop cutter, Dr. Wilson within a week of discharge. -Please follow-up with your PCP regarding outpatient physical therapy. -Please avoid acetaminophen and medications which contain acetaminophen including Vicodin because you had elevated liver enzymes. -Please follow up with pain managment. -Please avoid NSAIDs and nephrotoxins. -Plavix and Xarelto have been held in anticipation of liver biopsy. Please restart when appropriate after the procedure. Diet Recommended Diet: Heart Healthy Activity Additional ACTIVITY Info: As tolerated. Acute Coronary Syndrome Inclusion Criteria At DC or during hospital stay patient has or had the following: ACS DIAGNOSIS No Discharge Core Measures Meds if any: Prescribed or Continued at Discharge Meds if any: NOT Prescribed or Continued at Discharge Congestive Heart Failure Inclusion Criteria At DC or during hospital stay patient has or had the following: CHF DIAGNOSIS No Discharge Core Measures Meds if any: Prescribed or Continued at Discharge Meds if any: NOT Prescribed or Continued at Discharge Cerebrovascular accident Inclusion Criteria At DC or during hospital stay patient has or had the following: CVA/TIA Diagnosis No Discharge Core Measures Meds if any: Prescribed or Continued at Discharge Meds if any: NOT Prescribed or Continued at Discharge Venous thromboembolism Inclusion Criteria VTE Diagnosis No VTE Type NONE VTE Confirmed by (Test) NONE Discharge Core Measures - Per Current guidelines, there needs to be overlap - treatment for the first 5 days of Warfarin therapy. - If discharged on Warfarin prior to 5 days of - overlap therapy, the patient will need to be - assessed for post discharge needs including - *Post discharge parental anticoagulation - *Warfarin and/or parental anticoagulation education - *Follow up date to check INR post discharge At least 5 days overlap therapy as Inpatient No Meds if any: Prescribed or Continued at Discharge Note: Overlap Therapy is Warfarin and Anticoagulant Meds if any: NOT Prescribed or Continued at Discharge
[2017-04-27] MEDS ORDERED: PREDNISONE1 MG PO (09:28)
[2017-04-27 09:29] LABS: HEMATOCRIT 34.8 % (42-52); MEAN CORPUSCULAR HGB 24.4 PG (27.0-31.0); MEAN CORPUSCULAR HGB CONC 31.8 G/DL (33.0-37.0); MEAN CORPUSCULAR VOLUME 76.9 FL (80.0-94.0); MEAN PLATELET VOLUME 9.5 FL (7.4-10.4); PLATELET COUNT 284 /CUMM (130-400); RBC DISTRIBUTION WIDTH 20.9 % (11.5-14.5); RED BLOOD CELL CT 4.52 /CUMM (4.70-6.10); WHITE BLOOD CELL COUNT 9.1 /CUMM (4.8-10.8)
--- NOTE | 2017-04-27 10:58 | PN- Att Addend ---
Attending Addendum Attending Brief Note Patient sitting in the chair, vital signs are stable, no fever. Still weak. Acute kidney insufficiency has improved still anemic. Workup with CT scans and MRIs of the abdomen shows an abnormality in the liver which might be an adenocarcinoma metastatic to needs workup to find out the origin area will admit. Have GI see the patient, probably will have biopsy. Patient is on santo anticoagulation has to be held for a few hours before the procedure. Monitoring CBC for his anemia patient of acetaminophen from his pain medication due to his abnormal liver function tests Intake & Output 04/27 1600 04/27 0400 04/26 1600 04/26 0400 04/25 1600 04/25 0400 Intake Total 490 720 293 565 3341 Output Total 850 300 Balance 490 720 -610 -750 523 6072 Intake, IV 10 0 600 1000 Intake, Oral 480 720 240 240 180 Number 0 Bowel Movements Output, Urine 850 300 Patient 163 lb 161 lb 163 lb Weight Weight Bed scale Bed scale Measurement Method Current Medications Sig/[place] Start time Last Medication Dose Route Stop Time Status Admin Atorvastatin Calcium 20 MG 1700 04/25 1700 AC 04/26 PO 1751 Clopidogrel Bisulfate 75 MG DAILY 04/25 1000 AC 04/26 PO 0950 Diclofenac Sodium 1 KISHOR 4 TIMES/DAY 04/25 1146 AC 04/26 TOP 1751 Isosorbide 60 MG DAILY 04/25 1000 AC 04/27 Mononitrate PO 1048 Lidocaine 1 PAT DAILY 04/26 1000 AC 04/27 EXT 1048 Lorazepam 0.5 MG BID PRN 04/25 0030 AC PO 05/02 0021 Losartan Potassium 100 MG DAILY 04/25 1030 AC 04/27 PO 1048 Melatonin 5 MG AT BEDTIME 04/26 2200 AC 04/26 PO 2102 Metoprolol Succinate 25 MG DAILY 04/25 1000 AC 04/27 PO 1048 Multivitamins 1 TAB DAILY 04/25 1000 AC 04/27 PO 1047 Omeprazole 40 MG DAILY AC 04/25 0700 AC 04/27 PO 0548 Prednisone 4 MG DAILY 04/26 1000 AC 04/27 PO 1048 Rivaroxaban 20 MG QPM 04/24 2230 AC 04/26 PO 2102 Laboratory Tests 04/27/17 0740: Anion Gap 18 H, Estimated GFR 29 L, BUN/Creatinine Ratio 20.0, Calcium 10.9 H , Magnesium 1.8, Total Bilirubin 1.8 H, Direct Bilirubin 1.0 H, AST 390 H, ALT 42, Alkaline Phosphatase 236 H, Total Protein 7.2, Albumin 4.3, CBC w Diff MAN DIFF ORDERED, WBC Pending, RBC Pending, Hgb Pending, Hct Pending, MCV Pending, MCH Pending, RDW Pending, Plt Count Pending, MPV Pending, Segmented Neutrophils Pending, PUBS MCHC Pending 04/26/17 0640: Anion Gap 15, Estimated GFR > 60, BUN/Creatinine Ratio 35.0 H, Calcium 10.8 H, Magnesium 1.7, Total Bilirubin 1.7 H, Direct Bilirubin 0.8 H, AST 392 H, ALT 38, Alkaline Phosphatase 226 H, Total Protein 6.7, Albumin 3.9, CBC w Diff MAN DIFF ORDERED, RBC 4.36 L, MCV 76.8 L, MCH 24.7 L, RDW 20.9 H, MPV 9.7, Segmented Neutrophils 75, Band Neutrophils 2, Lymphocytes 15 L, Monocytes 7, Eosinophils 1, Platelet Estimate VERIFIED BY SMEAR, Hypochromic-Microcytic 1+, Poikilocytosis 1+, Anisocytosis 1+, Target Cells FEW, PUBS MCHC 32.2 L 04/25/17 1156: Troponin I < 0.01 04/25/17 0720: Anion Gap 13, Estimated GFR 58 L, BUN/Creatinine Ratio 44.2 H, Troponin I 0.02 04/25/17 0617: CBC w Diff MAN DIFF ORDERED, RBC 4.40 L, MCV 76.7 L, MCH 24.2 L, RDW 20.5 H, MPV 9.6, Segmented Neutrophils 72, Band Neutrophils 1, Lymphocytes 20 L, Monocytes 6, Eosinophils 1, Hypochromic-Microcytic 2+, Anisocytosis 1+, Microcytic Cells 1+, Target Cells 2+, Stomatocytes 1+, Elliptocytes FEW, PUBS MCHC 31.5 L 04/24/17 2246: Troponin I 0.02 04/24/17 1821: Urine Color YEL, Urine Clarity CLEAR, Urine pH 5.5, Ur Specific [place] 1.025, Urine Protein TRACE H, Urine Ketones NEG, Urine Nitrite NEG, Urine Bilirubin NEG@ICTO, Urine Urobilinogen 0.2, Ur Leukocyte Esterase NEG, Ur Microscopic SEDIMENT EXAMINED, Urine RBC RARE, Urine WBC 1-3 H, Ur Epithelial Cells RARE, Urine Bacteria FEW H, Hyaline Casts 5-10 H, Urine Mucus FEW, Urine Hemoglobin NEG, Urine Glucose NEG 04/24/17 1821: Ur Random Creatinine 153.7, Ur Random Sodium 35, Ur Random Potassium 54.5, Fraction Sodium Excret 0.2 04/24/17 1657: Lipase Cancelled 04/24/17 1418: Anion Gap 14, Estimated GFR 49 L, BUN/Creatinine Ratio 41.4 H, Glucose 163 H, Calcium 10.4 H, Iron 47 L, TIBC 516 H, Ferritin 44.9, Total Bilirubin 1.2, AST 350 H, ALT 31, Alkaline Phosphatase 259 H, Troponin I < 0.01, Total Protein 6.8, Albumin 4.1, Globulin 2.7, Albumin/Globulin Ratio 1.5, Amylase 71, Lipase 208, PT 29.5 H, INR 2.84 H, APTT 36, CBC w Diff MAN DIFF ORDERED, RBC 4.76, MCV 76.8 L, MCH 23.9 L, RDW 20.1 H, MPV 9.6, Segmented Neutrophils 72, Lymphocytes 20 L, Monocytes 8, Platelet Estimate ADEQUATE, Hypochromic- Microcytic 1+, Poikilocytosis 1+, Anisocytosis 1+, Target Cells RARE, PUBS MCHC 31.1 L, Serum Alcohol < 10.0 Vital Signs Date Time Temp Pulse Resp B/P B/P Pulse O2 O2 Flow FiO2 Mean Ox Delivery Rate 04/27 0600 97.5 60 16 122/55 04/27 0600 97.5 60 16 122/50 99 Room Air 04/27 0400 97.9 71 19 120/64 04/27 0200 97.9 71 19 120/64 04/27 0000 97.9 71 19 120/64 04/26 2232 97.9 71 120/64 100 Room Air 04/26 1553 97.8 50 20 160/63 98 Room Air
--- NOTE | 2017-04-27 12:42 | Cons- Gastroenterology ---
General Information and HPI Consulting Request Date of Consult: 04/27/17 Requested By: Johnathan Spence MD Reason for Consult: Increased LFTs, abnormal US and ct scan. Source of Information: patient, old records Exam Limitations: no limitations History of Present Illness: Mr. Lyon is a 81 year old male with multiple medical problems including afib on anticoagulation, CAD, and HTN who was admitted to on 04/24/16 after presenting with reports of abdominal discomfort and generalized weakness. He ( and his ) report that for the past 2 weeks he has been having intermittent crampy lower abdominal pain that is not consistently related to eating or his bowel movements which he reports have been normal. He denies any heartburn, dysphagia or vomiting, but he does have some nausea and his family notes that he has been using gaviscon for the past few months with some benefit. He has also been without any noticable jaundice, kole colored stool or dark urine. He is also without any RUQ pain with eating. 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 Allergies/Medications Allergies: Coded Allergies: NO KNOWN ALLERGIES (UNKNOWN 12/18/16) Home Med List: Acetaminophen (Tylenol Extra Strength) 500 MG TABLET 2 TAB PO TID PAIN ( Reported) Clopidogrel Bisulfate (Clopidogrel) 75 MG TABLET 1 TAB PO DAILY BLOOD THINNER (Reported) Furosemide (Lasix) 40 MG TABLET 1 TAB PO DAILY FLUID OVERLOAD Hydrocodone Bitartrate (Hysingla ER) 20 MG TAB.ER.24H 1 TAB PO DAILY BACK PAIN (Reported) Hydrocodone/Acetaminophen (Hydrocodon-Acetaminophn 10-300) 10 MG-300 MG TABLET 1 TAB PO BID PRN Back pain (Reported) Isosorbide Mononitrate (Isosorbide Mononitrate ER) 60 MG TAB.ER.24H 1 TAB PO DAILY heart Lorazepam (Ativan) 0.5 MG TABLET 1 TAB PO BID ANXIETY (Reported) Metoprolol Succinate 25 MG TAB 1 TAB PO DAILY HIGH BP (Reported) Olmesartan Medoxomil (Benicar) 40 MG TABLET 1 TAB PO DAILY HEART (Reported) Omeprazole 40 MG CAPSULE.DR 1 CAP PO DAILY GERD (Reported) Potassium Chloride (Klor-Con M10) 10 MEQ TAB.ER.PRT 1 TAB PO DAILY SUPPLEMENT (Reported) Prednisone 1 MG TABLET 4 TAB PO DAILY PMR (Reported) Rivaroxaban (Xarelto) 20 MG TABLET 1 TAB PO QPM ATRIAL FIBRILLATION (Reported ) with food Simvastatin (Zocor*) 20 MG TABLET 1 TAB PO DAILY HLP (Reported) Sulfamethoxazole/Trimethoprim (Bactrim Ds Tablet) 800 MG-160 MG TABLET 1 TAB PO BID ABSCESS Current Medications: Current Medications Sig/[place] Start time Last Medication Dose Route Stop Time Status Admin Atorvastatin Calcium 20 MG 1700 04/25 1700 AC 04/26 PO 1751 Clopidogrel Bisulfate 75 MG DAILY 04/25 1000 AC 04/26 PO 0950 Diclofenac Sodium 1 KISHOR 4 TIMES/DAY 04/25 1146 AC 04/26 TOP 1751 Isosorbide 60 MG DAILY 04/25 1000 AC 04/27 Mononitrate PO 1048 Lidocaine 1 PAT DAILY 04/26 1000 AC 04/27 EXT 1048 Lorazepam 0.5 MG BID PRN 04/25 0030 AC PO 05/02 0021 Losartan Potassium 100 MG DAILY 04/25 1030 AC 04/27 PO 1048 Melatonin 5 MG AT BEDTIME 04/26 2200 AC 04/26 PO 2102 Metoprolol Succinate 25 MG DAILY 04/25 1000 AC 04/27 PO 1048 Multivitamins 1 TAB DAILY 04/25 1000 AC 04/27 PO 1047 Omeprazole 40 MG DAILY AC 04/25 0700 AC 04/27 PO 0548 Prednisone 4 MG DAILY 04/26 1000 AC 04/27 PO 1048 Rivaroxaban 20 MG QPM 04/24 2230 AC 04/26 PO 2102 Past History Travel History Traveled to [place] past 21 day No Medical History Neurological: NONE EENT: NONE Cardiovascular: AFIB, CAD, CHF, hypertension, hyperlipidemia, NSTEMI, OR STENT PLACED 2017 [place] 1993 Respiratory: NONE Gastrointestinal: NONE Hepatic: NONE Renal: NONE Musculoskeletal: disk herniation, PMR ARTHRITIS Psychiatric: anxiety Endocrine: NONE Blood Disorders: NONE Cancer(s): NONE 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 One brother of pulmonary embolism.). Psychosocial History Who Do You Live With? spouse Services at Home: None Smoking Status: Never Smoked Living Will? yes Functional Ability ADLs Independent: dressing, eating, toileting, bathing. Ambulation: cane IADLs Independent: shopping, housework, finances, food prep, telephone, transportation , medication admin. Review of Systems Review of Systems Constitutional: Reports: malaise, weakness, unexplained weight loss. Denies: chills, diaphoresis. EENTM: Denies: no symptoms. Cardiovascular: Denies: no symptoms. Respiratory: Reports: short of breath. Denies: cough, hemoptysis, orthopnea. GI: Reports: see HPI. Genitourinary: Denies: no symptoms. Musculoskeletal: Denies: no symptoms. Skin: Denies: no symptoms. Neurological/Psychological: Denies: no symptoms. Hematologic/Endocrine: Denies: no symptoms. Immunologic/Allergic: Denies: no symptoms. All Other Systems: Reviewed and Negative Exam & Diagnostic Data Vital Signs and I&O Vital Signs Date Time Temp Pulse Resp B/P B/P Pulse O2 O2 Flow FiO2 Mean Ox Delivery Rate 04/27 0600 97.5 60 16 122/55 04/27 0600 97.5 60 16 122/50 99 Room Air 04/27 0400 97.9 71 19 120/64 04/27 0200 97.9 71 19 120/64 / 0000 97.9 71 19 120/64 04/26 2232 97.9 71 19 120/64 100 Room Air 04/26 1553 97.8 50 20 160/63 98 Room Air Intake & Output 04/27 1600 04/27 0400 04/26 1600 04/26 0400 04/25 1600 04/25 0400 Intake Total 490 720 651 464 4581 Output Total 850 300 Balance 490 720 -610 -381 448 2004 Intake, IV 10 0 600 1000 Intake, Oral 480 720 240 240 180 Number 0 Bowel Movements Output, Urine 850 300 Patient 163 lb 161 lb 163 lb Weight Weight Bed scale Bed scale Measurement Method Physical Exam General Appearance: well developed/nourished, no apparent distress Head: atraumatic, normal appearance Eyes: Bilateral: normal appearance. Ears, Nose, Throat: normal pharynx, normal ENT inspection, hearing grossly normal Neck: normal inspection, supple, full range of motion Respiratory: normal breath sounds, chest non-tender, no respiratory distress Cardiovascular: irregularly irregular Gastrointestinal: normal bowel sounds, soft, non-tender, no organomegaly Rectal: deferred Back: normal inspection, normal range of motion Extremities: normal inspection, normal capillary refill, no edema Neurologic/Psych: no motor/sensory deficits, awake, alert, oriented x 3 Skin: intact, normal color, warm/dry Results Pertinent Lab Results: Laboratory Tests 04/27 04/26 0740 0640 Chemistry Sodium (137 - 145 mmol/L) 146 H 145 Potassium (3.5 - 5.1 mmol/L) 5.0 4.9 Chloride (98 - 107 mmol/L) 111 H 112 H Carbon Dioxide (22 - 30 mmol/L) 17 L 18 L Anion Gap (5 - 16) 18 H 15 BUN (9 - 20 mg/dL) 44 H 35 H Creatinine (0.7 - 1.2 mg/dL) 2.2 H 1.0 Estimated GFR (>60 ml/min) 29 L > 60 BUN/Creatinine Ratio (7 - 25 %) 20.0 35.0 H Calcium (8.4 - 10.2 mg/dL) 10.9 H 10.8 H Magnesium (1.6 - 2.3 mg/dL) 1.8 1.7 Total Bilirubin (0.2 - 1.3 mg/dL) 1.8 H 1.7 H Direct Bilirubin (< 0.4 mg/dL) 1.0 H 0.8 H AST (17 - 59 U/L) 390 H 392 H ALT (21 - 72 U/L) 42 38 Alkaline Phosphatase (< 127 U/L) 236 H 226 H Total Protein (6.3 - 8.2 g/dL) 7.2 6.7 Albumin (3.5 - 5.0 g/dL) 4.3 3.9 Hematology CBC w Diff MAN DIFF ORDERED MAN DIFF ORDERED WBC (4.8 - 10.8 /CUMM) 9.1 7.9 RBC (4.70 - 6.10 /CUMM) 4.52 L 4.36 L Hgb (14.0 - 18.0 G/DL) 11.0 L 10.8 L Hct (42 - 52 %) 34.8 L 33.5 L MCV (80.0 - 94.0 FL) 76.9 L 76.8 L MCH (27.0 - 31.0 PG) 24.4 L 24.7 L RDW (11.5 - 14.5 %) 20.9 H 20.9 H Plt Count (130 - 400 /CUMM) 284 282 MPV (7.4 - 10.4 FL) 9.5 9.7 Segmented Neutrophils (42.2 - 75.2 %) 74 75 Band Neutrophils (0.0 - 5.0 %) 2 2 Lymphocytes (20.5 - 51.1 %) 13 L 15 L Monocytes (1.7 - 9.3 %) 9 7 Eosinophils (0 - 5.0 %) 1 1 Basophils (0.0 - 2.0 %) 1 Platelet Estimate (ADEQUATE) ADEQUATE VERIFIED BY SMEAR Polychromasia 1+ Hypochromic-Microcytic 2+ 1+ Poikilocytosis 2+ 1+ Anisocytosis 2+ 1+ Target Cells FEW PUBS MCHC (33.0 - 37.0 G/DL) 31.8 L 32.2 L 04/25 04/25 04/25 04/24 1156 0720 0617 2246 Chemistry Sodium (137 - 145 mmol/L) 143 Potassium (3.5 - 5.1 mmol/L) 5.3 H Chloride (98 - 107 mmol/L) 115 H Carbon Dioxide (22 - 30 mmol/L) 16 L Anion Gap (5 - 16) 13 BUN (9 - 20 mg/dL) 53 H Creatinine (0.7 - 1.2 mg/dL) 1.2 Estimated GFR (>60 ml/min) 58 L BUN/Creatinine Ratio (7 - 25 %) 44.2 H Troponin I (<0.11 ng/ml) < 0.01 0.02 0.02 Hematology CBC w Diff MAN DIFF ORDERED WBC (4.8 - 10.8 /CUMM) 7.4 RBC (4.70 - 6.10 /CUMM) 4.40 L Hgb (14.0 - 18.0 G/DL) 10.6 L Hct (42 - 52 %) 33.7 L MCV (80.0 - 94.0 FL) 76.7 L MCH (27.0 - 31.0 PG) 24.2 L RDW (11.5 - 14.5 %) 20.5 H Plt Count (130 - 400 /CUMM) 275 MPV (7.4 - 10.4 FL) 9.6 Segmented Neutrophils (42.2 - 75.2 %) 72 Band Neutrophils (0.0 - 5.0 %) 1 Lymphocytes (20.5 - 51.1 %) 20 L Monocytes (1.7 - 9.3 %) 6 Eosinophils (0 - 5.0 %) 1 Hypochromic-Microcytic 2+ Anisocytosis 1+ Microcytic Cells 1+ Target Cells 2+ Stomatocytes 1+ Elliptocytes FEW PUBS MCHC (33.0 - 37.0 G/DL) 31.5 L 04/24 04/24 04/24 1821 1821 1657 Chemistry Lipase Cancelled Urines Urine Color (YEL,AMB,STR) YEL Urine Clarity (CLEAR) CLEAR Urine pH (5.0 - 8.0) 5.5 Ur Specific [place] (1.001 - 1.035) 1.025 Urine Protein (NEG,<30 MG/DL) TRACE H Urine Ketones (NEG) NEG Urine Nitrite (NEG) NEG Urine Bilirubin (NEG) NEG@ICTO Urine Urobilinogen (0.1 - 1.0 EU/dl) 0.2 Ur Leukocyte Esterase (NEG) NEG Ur Microscopic SEDIMENT EXAMINED Urine RBC (0 - 5 /HPF) RARE Urine WBC (0 - 2 /HPF) 1-3 H Ur Epithelial Cells (NONE,FEW) RARE Urine Bacteria (NEG/NONE) FEW H Hyaline Casts (0/LPF) 5-10 H Urine Mucus (FEW,NONE) FEW Urine Hemoglobin (NEG) NEG Ur Random Creatinine (mg/dL) 153.7 Ur Random Sodium (30 - 90 mmol/L) 35 Ur Random Potassium (mmol/L) 54.5 Fraction Sodium Excret (<1% %) 0.2 Urine Glucose (N MG/DL) NEG 04/24 1418 Chemistry Sodium (137 - 145 mmol/L) 141 Potassium (3.5 - 5.1 mmol/L) 5.3 H Chloride (98 - 107 mmol/L) 109 H Carbon Dioxide (22 - 30 mmol/L) 18 L Anion Gap (5 - 16) 14 BUN (9 - 20 mg/dL) 58 H Creatinine (0.7 - 1.2 mg/dL) 1.4 H Estimated GFR (>60 ml/min) 49 L BUN/Creatinine Ratio (7 - 25 %) 41.4 H Glucose (65 - 99 mg/dL) 163 H Calcium (8.4 - 10.2 mg/dL) 10.4 H Iron (49 - 181 ug/dL) 47 L TIBC (261 - 462 ug/dL) 516 H Ferritin (17.9 - 464 ng/mL) 44.9 Total Bilirubin (0.2 - 1.3 mg/dL) 1.2 AST (17 - 59 U/L) 350 H ALT (21 - 72 U/L) 31 Alkaline Phosphatase (< 127 U/L) 259 H Troponin I (<0.11 ng/ml) < 0.01 Total Protein (6.3 - 8.2 g/dL) 6.8 Albumin (3.5 - 5.0 g/dL) 4.1 Globulin (1.9 - 4.2 gm/dL) 2.7 Albumin/Globulin Ratio (1.1 - 2.2 %) 1.5 Amylase (30 - 110 U/L) 71 Lipase (23 - 300 U/L) 208 Coagulation PT (9.4 - 12.5 SEC) 29.5 H INR (0.90 - 1.17) 2.84 H APTT (25 - 37 SEC) 36 Hematology CBC w Diff MAN DIFF ORDERED WBC (4.8 - 10.8 /CUMM) 8.1 RBC (4.70 - 6.10 /CUMM) 4.76 Hgb (14.0 - 18.0 G/DL) 11.4 L Hct (42 - 52 %) 36.6 L MCV (80.0 - 94.0 FL) 76.8 L MCH (27.0 - 31.0 PG) 23.9 L RDW (11.5 - 14.5 %) 20.1 H Plt Count (130 - 400 /CUMM) 304 MPV (7.4 - 10.4 FL) 9.6 Segmented Neutrophils (42.2 - 75.2 %) 72 Lymphocytes (20.5 - 51.1 %) 20 L Monocytes (1.7 - 9.3 %) 8 Platelet Estimate (ADEQUATE) ADEQUATE Hypochromic-Microcytic 1+ Poikilocytosis 1+ Anisocytosis 1+ Target Cells RARE PUBS MCHC (33.0 - 37.0 G/DL) 31.1 L Toxicology Serum Alcohol (<10 MG/DL) < 10.0 Imaging/Other Studies: Colonoscopy Procedure Date of Last Colonoscopy: 2008 Procedure Date: 05/26/15 Procedure Type: colonoscopy w/polypectomy Growth Hacker: MARK LOPEZ MD ASA Classification: III Indications: Colon cancer screening History of advanced adenomas Hematochezia Instrument (Colonoscope): single channel Meds Received: MAC Patient's Tolerance: good Complications: none Extent Reached: cecum Prep: good Procedure: The patient signed informed consent, was placed in the Bob position, and medicated. Examination of the rectum was treated external hemorrhoids. The prostate was normal. The Olympus high-definition variable stiffness colonoscope was inserted through the anus and advanced to the cecum, identified by the appendiceal orifice and ileocecal valve. Retroflexion was performed in order to examine the rectum and ascending colon. Careful examination was performed. There was adequate withdrawal time. Findings: There were enlarged internal hemorrhoids. The rectum was otherwise normal. Tattoo farrell were identified; there was no recurrent neoplasia. There were diverticula extending from sigmoid to right colon. At 35 cm was a 1 cm pedunculated polyp. This was resected with electrocautery snare, and 25 W coagulative current. A single Instinct clip was placed on the stalk. At 55 cm was a subcentimeter sessile polyp. This was resected with electrocautery snare. Tissue was not retrieved because of significant spasm ( despite IV glucagon and glycopyrrolate). In the ascending colon was a large sessile polyp on a fold. This was resected with electrocautery snare, piecemeal. There was good hemostasis. There was no gross neoplastic tissue remaining after the polypectomy, but mucosal edema may have obscured fine detail. The area was tattooed with Spot pigment. The remainder of the colon to the base of the cecum was normal. Impression: * Polyps * Diverticulosis * Enlarged internal and external hemorrhoids A. RIGHT COLON POLYP: TUBULAR ADENOMA. NEGATIVE FOR EVIDENCE OF INVASIVE CARCINOMA. B. COLON POLYP AT 55 CM.: COLONIC MUCOSA WITH THERMAL TISSUE ARTIFACT, AND ILL-DEFINED LYMPHOGLANDULAR COMPLEX. NEGATIVE FOR FEATURES DIAGNOSTIC OF MALIGNANCY. C. COLON POLYP AT 35 CM.: TUBULAR ADENOMA. NEGATIVE FOR EVIDENCE OF INVASIVE CARCINOMA. SMALL PORTION OF CAUTERIZED STALK MARGIN IS NEGATIVE FOR INVOLVEMENT BY ADENOMA. SERVICE DATE: 04/24/17 EXAM TYPE: CAT - CT ABD & PELVIS W/O IV CONTRAS EXAMINATION: CT ABDOMEN AND PELVIS WITHOUT CONTRAST CLINICAL INFORMATION: Right-sided abdominal pain. COMPARISON: None. TECHNIQUE: Contiguous axial thin section helical images of the abdomen and pelvis were performed without oral or IV contrast. The data set was reformatted in the coronal and sagittal planes and reviewed on an independent workstation. DLP: 370 mGy-cm. FINDINGS: The visualized lung bases are clear. The visualized portions of the heart are unremarkable. The liver is of normal size and heterogeneous, though predominately decreased attenuation without intrahepatic biliary ductal dilation. Within the dome of the left lobe of the liver, there is a 2.2 cm low-attenuation lesion. A normal gallbladder is identified. There is no wall thickening or discernible pericholecystic fluid. The spleen, pancreas, adrenal glands are unremarkable. Both kidneys are of normal size and attenuation without hydronephrosis or nephrolithiasis. There is no abdominal free fluid. There is neither mesenteric nor retroperitoneal lymphadenopathy. There is extensive sigmoid diverticulosis without evidence of diverticulitis. Otherwise, unremarkable unopacified loops of small and large bowel are identified. There is no pelvic free fluid. The urinary bladder is unremarkable. There is neither pelvic nor inguinal lymphadenopathy. Bone windows: Neither sclerotic nor lytic bone lesions are identified. There is anterior displacement of L4 in relation to L5. No pars defects are identified. This is likely commercial representative of pseudolisthesis. IMPRESSION: Sigmoid diverticulosis without evidence of diverticulitis. No evidence for acute abdominal or pelvic inflammatory or infectious processes. Hepatic steatosis. There is heterogeneity to the liver attenuation, though there is a discrete area of decreased attenuation within the dome of the left lobe of the liver. This is nonspecific. Consider correlation with abdominal MRI for further tissue characterization. SERVICE DATE: 04/26/17- EXAM TYPE: US - US-LIMITED ABDOMEN EXAMINATION: US ABDOMEN LIMITED CLINICAL INFORMATION: Abdominal pain. Transaminitis. Hepatic steatosis. COMPARISON: CT scan of the abdomen and pelvis dated 04/24/2017. TECHNIQUE: Real-time imaging of the right upper quadrant abdominal viscera. FINDINGS: PANCREAS: The pancreatic body and portions of the head and tail are visualized and appear unremarkable. Remainder of pancreas is obscured by overlying bowel gas. LIVER: In the left lobe of the liver, a 0.9 x 0.8 x 0.9 cm hypoechoic avascular mass is seen, appearing solid. There is also a 3.3 x 2.1 x 3.9 cm lobulated hypoechoic solid mass in hepatic segment 6 of the liver. In addition, there is a large masslike area of markedly abnormal and heterogeneous echotexture nearly completely occupying the entire right lobe of the liver, corresponding to the masslike appearance on CT scan of the abdomen from 04/24/2017. This finding is new when compared to prior CT scan from 01/22/2012 and is highly suspicious for a infiltrative neoplasm. The ultrasound appearance is, however, nonspecific and conceivably, very heterogeneous and patchy hepatic steatosis may have a similar appearance. GALLBLADDER: Normal. The gallbladder is physiologically distended without evidence of stones, sludge, polyps, wall thickening or pericholecystic fluid. COMMON BILE DUCT: Normal in caliber measuring 0.4 cm in diameter. RIGHT KIDNEY: Normal. No hydronephrosis. There is a 0.3 cm lower pole right renal calcification suspected. No focal parenchymal lesions. The kidney measures 10.1 cm in maximum dimension. FREE FLUID: None. IMPRESSION: 1. Large infiltrative and heterogeneous echogenicity is seen throughout the right lobe of the liver, corresponding to the noncontrast CT scan findings. This finding remains indeterminate in etiology and is suspicious for an infiltrative neoplastic process. Also in the differential would be heterogeneous hepatic steatosis. Further assessment with MRI scan with and without contrast is recommended. This would also allow further assessment of the 2 additional more focal hypoechoic masses in the left and right lobes of the liver. 2. Incomplete view of the pancreatic head and tail. Visualized portions of pancreas unremarkable. 3. Nonobstructing lower pole right renal calcification is suspected on ultrasound. Recent CT scan, however, had shown no right renal calculi. SERVICE DATE: 04/26/17- EXAM TYPE: MRI - MRI-ABD W/O-W GREYS[place] EXAMINATION: MRI ABDOMEN WITH AND WITHOUT CONTRAST CLINICAL INFORMATION: Abdominal pain. Liver neoplasm. COMPARISON: CT from 04/24/2017. Ultrasound from earlier today. TECHNIQUE: Multiple routine MRI sequences through the abdomen were obtained on a high-field 1.5 Alissa MRI before and after the uneventful administration of 7 mL of Gadavist gadolinium-based IV contrast. FINDINGS: The study is significantly motion limited. LUNG BASES: Lung bases are clear. LIVER: The liver is diffusely heterogeneous. There are multiple masses seen throughout the hepatic parenchyma. These demonstrate heterogeneously increased signal on T2-weighted imaging with decreased signal on T1-weighted imaging. Motion on the postcontrast sequences limits the evaluation. This significantly limits evaluation of the enhancement characteristics of the hepatic lesions. Prominent lesion in the central aspect of the liver centered in segment 4A measures 7.9 cm AP by 6.2 cm transverse by 8.1 cm CC. There is no significant hyperenhancement on the arterial phase, although there does appear to be some degree of washout on the later phases. There are multiple additional smaller lesions throughout the liver with somewhat of a confluent appearance, particularly in the right lobe. GALLBLADDER AND BILIARY TREE: The gallbladder appears grossly normal. No intra or extra-hepatic biliary ductal dilation. SPLEEN: Normal. Normal size. No focal lesion. PANCREAS: Evaluation of the pancreas is significantly limited due to the motion limitations of this study. No gross abnormality. ADRENAL GLANDS: Normal. No adrenal mass. KIDNEYS AND URETERS: Symmetric renal enhancement. No focal renal lesion identified. Minimal bilateral perinephric stranding is symmetric. LYMPHOVASCULAR STRUCTURES: Normal caliber aorta. IVC patent. No pathologically enlarged abdominal or retroperitoneal lymphadenopathy by CT size criteria. OSSEOUS STRUCTURES: No acute or suspicious osseous abnormalities. IMPRESSION: Study is limited by motion, particularly the postcontrast sequences. Numerous infiltrative lesions throughout the liver with a heterogeneous appearance. Enhancement characteristics are not well-defined, although there does appear to be washout involving at least the larger of the lesions. The appearance is most suspicious for adenocarcinoma metastatic disease, possibly from a gastrointestinal source, although no suspicious lesion is seen on the CT throughout the gastrointestinal tract.. Alternatively, primary cholangiocarcinoma with satellite lesions is possible. Tissue characterization may be needed to further clarify. Assessment/Plan Assessment/Recommendations: Assessment: Mr. Lyon is an 81 year old male with CAD (stents on plavix) and afib or xarelto who presented to with progressive weakness and intermittent abdominal cramping who has been found to have increased LFTs and imaging concerning for metastatic disease to his liver. It is possible the liver lesions could be a primary hepatic tumor or a lymphoma as no other obvious mass like lesions were seen and he just had a colonoscopy last May, but it is more likely the lesions are metstatic deposits from another primary such as a cholangiocarcinoma or a stomach lesion considering the dyspeptic symptoms he has been having and the recent negative colon. A pancreatic malignancy is also possible, but I would suspect this may have been seen on the MRI (as would a stomach cancer). In any case, at this point the next step is to get a liver biopsy and if deemd necessary by oncology it may ulitmately be necessary to search for a primary with an EGD or EUS, but would only consider this if it would alter the treatment options. A liver biopsy can be pursued as an outpatient, but it would not be unreasonable to do it as an inpatient if he is here for other resons (ie. unsteady gait). Of note, his bilirubin is mildly dilated, but he is without symptoms of obstructive jaundice and he is without any biliary dilatation so I don't think an ERCP is necessary at this time. Recommendations: 1. Consult IR for a ct scan or US guided liver biopsy and would ask them how long they would prefer him to be off plavix and xarelto before doing so (some mild renal insufficiency so it may be better to hold xarelto for 72 hours) 2. Follow daily LFTs. 3. Notify GI for signs of cholangitis and if this occurs he will need to be transferred as ERCP services will not be available here for the next week. I will continue to follow this patient and make further recommendations based on his clinical course and results of the liver biopsy which can be done as an outpatient if he is discharged. Problem List: 1. Liver mass Consult Acknowledgment - Thank you for your consult request.
[2017-04-27 14:12] VITALS: BP 120/62
--- NOTE | 2017-04-27 17:45 | Event Note ---
Event Note Event Note: GI recommended liver biopsy. Called IR, they required the patient to be off plavix for 5 days and off xarelto for 3 days. Discussed with nurses' association counselor electronic imager Dr. Orta, he mentioned that the risk of stopping plavix for 5 days in a patient with stent and A.fib is high. He mentioned that he would prefer IR to do the procedure on Plavix if they can.He also recommended that the patient will need heparin bridge, but given LAUREN, xarelto will take more time to clear from his system. Discussed with IR and was directed to speak with radiologist Dr. Yoo. Per Dr. Yoo a from needs to be signed by nurses' association counselor that the risk of stopping Plavix is high and procedure should be performed while the patient is on the medication. Per Dr. Yoo it was not acceptable if Dr. Spence or myself sign the form as it has to be signed by nurses' association counselor. Discussed with Ell Tutor, Dr. Orta. He stated that he will not sign any form but will mention his recommendations in his note. Discussed with Dr. Spence, who advised me to discuss with Dr. Roe. Discussed with Dr. Roe, he suggested that he would sign the form if necessary. Personally went to get the form from radiology and happened to see Dr. Yoo.Per Dr. Yoo the form needs to be signed by the nurses' association counselor not any other doctor; and that the patient needs to be cleared by cardiology before the procedure. She called Dr. Orta herself. Apparently, Dr. Orta mentioned to Dr. Yoo that he is okay with plavix to be stopped if risk of bleeding is high.He also mentioned that he will write it in his note. Per Dr. Yoo risk of bleeding with liver biopsy in this patient is very high especially that it is a core biopsy. Discussed with Dr. Spence, he is okay with stopping Plavix. Discussed with the patient at length, explained that we have to stop plavix and xarelto and explained of the possible risks of being off those meds. He expressed understanding and was agreeable to stopping meds before biopsy. Also discussed and explained via phone with patients son Viktor and patients . They also expressed understanding and were agreeable. Of note patient and his family refused plavix today and he did not receive the medication this morning. Will DC xarelto and plavix. I did sign out to the covering team to follow cardiolgoy recs regarding when to start heparin bridge.
--- NOTE | 2017-04-27 20:04 | PN- Cardiology ---
Subjective Subjective: Resting comfortably but still with poor appetite. No chest pain or dyspnea. No palpitations. Objective Vital Signs and I&Os Vital Signs Date Time Temp Pulse Resp B/P B/P Pulse O2 O2 Flow FiO2 Mean Ox Delivery Rate 04/27 1412 97.9 64 18 120/62 99 Room Air 04/27 0600 97.5 60 16 122/55 04/27 0600 97.5 60 16 122/50 99 Room Air 04/27 0400 97.9 71 19 120/64 04/27 0200 97.9 71 19 120/64 04/27 0000 97.9 71 19 120/64 04/26 2232 97.9 71 19 120/64 100 Room Air Intake & Output 04/27 1600 04/27 0800 04/27 0000 04/26 1600 04/26 0800 04/26 0000 Intake Total 610 490 720 240 Output Total 200 300 550 300 Balance 410 490 720 -60 -550 -300 Intake, IV 10 10 0 Intake, Oral 600 480 720 240 Number 0 0 Bowel Movements Output, Urine 200 300 550 300 Patient 162 lb 163 lb 161 lb Weight Weight Reported by Patient Bed scale Bed scale Measurement Method Physical Exam General Appearance: no apparent distress, alert, awake Head: atraumatic Ears, Nose, Throat: hearing grossly normal Neck: supple, full range of motion Respiratory: chest non-tender, no respiratory distress Cardiovascular: irregularly irregular Abdomen: non-tender Extremities: normal capillary refill, no edema Neurologic/Psychiatric: no motor/sensory deficits Skin: warm/dry Current Medications: Current Medications Sig/[place] Start time Last Medication Dose Route Stop Time Status Admin Atorvastatin Calcium 20 MG 1700 04/25 1700 AC 04/27 PO 1700 Clopidogrel Bisulfate 75 MG DAILY 04/25 1000 DC 04/26 PO 0950 Diclofenac Sodium 1 KISHOR 4 TIMES/DAY 04/25 1146 AC 04/27 TOP 1701 Isosorbide 60 MG DAILY 04/25 1000 AC 04/27 Mononitrate PO 1048 Lidocaine 1 PAT DAILY 04/26 1000 AC 04/27 EXT 1048 Lorazepam 0.5 MG BID PRN 04/25 0030 AC PO 05/02 0021 Losartan Potassium 100 MG DAILY 04/25 1030 DC 04/27 PO 1048 Melatonin 5 MG AT BEDTIME 04/26 2200 AC 04/26 PO 2102 Metoprolol Succinate 25 MG DAILY 04/25 1000 AC 04/27 PO 1048 Multivitamins 1 TAB DAILY 04/25 1000 AC 04/27 PO 1047 Omeprazole 40 MG DAILY AC 04/25 0700 AC 04/27 PO 0548 Prednisone 4 MG DAILY 04/26 1000 AC 04/27 PO 1048 Rivaroxaban 20 MG QPM 04/24 2230 DC 04/26 PO 2102 Sodium Chloride 1,000 ML Q10H 04/27 1515 AC 04/27 IV 1554 Results Last 48 Hrs of Labs/Mics: Laboratory Tests 04/27/17 0740: Anion Gap 18 H, Estimated GFR 29 L, BUN/Creatinine Ratio 20.0, Calcium 10.9 H , Magnesium 1.8, Total Bilirubin 1.8 H, Direct Bilirubin 1.0 H, AST 390 H, ALT 42, Alkaline Phosphatase 236 H, Total Protein 7.2, Albumin 4.3, CBC w Diff MAN DIFF ORDERED, RBC 4.52 L, MCV 76.9 L, MCH 24.4 L, RDW 20.9 H, MPV 9.5, Segmented Neutrophils 74, Band Neutrophils 2, Lymphocytes 13 L, Monocytes 9, Eosinophils 1, Basophils 1, Platelet Estimate ADEQUATE, Polychromasia 1+, Hypochromic-Microcytic 2+, Poikilocytosis 2+, Anisocytosis 2+, PUBS MCHC 31.8 L 04/26/17 0640: Anion Gap 15, Estimated GFR > 60, BUN/Creatinine Ratio 35.0 H, Calcium 10.8 H, Magnesium 1.7, Total Bilirubin 1.7 H, Direct Bilirubin 0.8 H, AST 392 H, ALT 38, Alkaline Phosphatase 226 H, Total Protein 6.7, Albumin 3.9, CBC w Diff MAN DIFF ORDERED, RBC 4.36 L, MCV 76.8 L, MCH 24.7 L, RDW 20.9 H, MPV 9.7, Segmented Neutrophils 75, Band Neutrophils 2, Lymphocytes 15 L, Monocytes 7, Eosinophils 1, Platelet Estimate VERIFIED BY SMEAR, Hypochromic-Microcytic 1+, Poikilocytosis 1+, Anisocytosis 1+, Target Cells FEW, PUBS MCHC 32.2 L Recent Imaging Studies: Abd MRI Study is limited by motion, particularly the postcontrast sequences. Numerous infiltrative lesions throughout the liver with a heterogeneous appearance. Enhancement characteristics are not well-defined, although there does appear to be washout involving at least the larger of the lesions. The appearance is most suspicious for adenocarcinoma metastatic disease, possibly from a gastrointestinal source, although no suspicious lesion is seen on the CT throughout the gastrointestinal tract.. Alternatively, primary cholangiocarcinoma with satellite lesions is possible. Tissue characterization may be needed to further clarify. Abd US: 1. Large infiltrative and heterogeneous echogenicity is seen throughout the right lobe of the liver, corresponding to the noncontrast CT scan findings. This finding remains indeterminate in etiology and is suspicious for an infiltrative neoplastic process. Also in the differential would be heterogeneous hepatic steatosis. Further assessment with MRI scan with and without contrast is recommended. This would also allow further assessment of the 2 additional more focal hypoechoic masses in the left and right lobes of the liver. 2. Incomplete view of the pancreatic head and tail. Visualized portions of pancreas unremarkable. 3. Nonobstructing lower pole right renal calcification is suspected on ultrasound. Recent CT scan, however, had shown no right renal calculi. Assessment/Plan Assessment/Plan 1. LAUREN, ? prerenal 2. Coronary disease by history status post myocardial infarctions 1993 with PTCA and NSTEMI status post drug-eluting stent to the LAD at [facility] 04/27/2016 3. Persistent atrial fibrillation on Xarelto 3. Hypertension 4. Chronic diastolic heart failure 5. Chronic back pain 6. Hx Mild aortic stenosis 7. Liver mass of unknown etiology AM labs show creatinine increased to 2.2? (1.0 yesterday); I notified housestaff of my concern regarding evidence of LAUREN. They informed me that they will investigate this finding on labs. I have been informed that nephrotoxic agents are on hold (per [employer] Losartan given at 10:48 am ? please confirm.) It appears the patient got Losartan 100 mg today, ARB should be held in the setting of LAUREN (?prenal but consider other etiology given acuity). I have informed the housestaff that ARB agents need to be held in LAUREN, they have informed me that they will consider this recommendation; I will defer final decision to the primary team. Consider Renal consult but would start on gentle fluids given poor PO intake. Would confirm acute rise in creatinine with a repeat metabolic panel but will defer to the medical team. I spoke to the IR attending personally this evening. Based on our current risk/ benefit assessment the patient is stable for biopsy from a cardiac standpoint ( no evidence of ACS). Can hold Plavix at this time with only mild cardiac risk ( as ALEJANDRA PCI was 1 year ago). As discussed with housestaff today would hold Xarelto for now and then start on IV Heparin gtt (bridge) WITHOUT a bolus in 48 hours while Plavix/Xarelto on hold. Per my discussion with IR this evening we will likely be able to resume APT/anticogulation shortly after the procedure. Steffen Orta MD [facility] Continue telemetry? Yes
[2017-04-27 22:21] VITALS: BP 124/60
[2017-04-28 07:15] VITALS: BP 144/54
[2017-04-28 08:11] LABS: HEMATOCRIT 31.8 % (42-52); MEAN CORPUSCULAR HGB 24.6 PG (27.0-31.0); MEAN CORPUSCULAR VOLUME 76.9 FL (80.0-94.0); MEAN PLATELET VOLUME 9.7 FL (7.4-10.4); PLATELET COUNT 241 /CUMM (130-400); RBC DISTRIBUTION WIDTH 21.5 % (11.5-14.5); RED BLOOD CELL CT 4.13 /CUMM (4.70-6.10)
[2017-04-28 08:14] LABS: PT 21.4 SEC (9.4-12.5)
--- NOTE | 2017-04-28 10:34 | PN- Housestaff ---
Subjective Follow-up For: Liver mass Hepatic steatosis History of atrial fibrillation Weakness Subjective: No acute events overnight. No complaints. Awaiting possible biopsy sunday / sunday Review of Systems Constitutional: Reports: no symptoms. Cardiovascular: Reports: no symptoms. Respiratory: Reports: no symptoms. Gastrointestinal: Reports: no symptoms. Genitourinary: Reports: no symptoms. Musculoskeletal: Reports: no symptoms. Skin: Reports: no symptoms. Objective Last 24 Hrs of Vital Signs/I&O Vital Signs Date Time Temp Pulse Resp B/P B/P Pulse O2 O2 Flow FiO2 Mean Ox Delivery Rate 04/28 1023 78 126/66 04/28 1022 78 126/66 04/28 0715 98.0 80 20 144/54 99 04/27 2221 98.0 69 19 124/60 97 Room Air Intake & Output 04/28 1600 04/28 0800 04/28 0000 Intake Total 800 1200 Output Total 350 300 Balance 450 900 Intake, IV 800 700 Intake, Oral 500 Output, Urine 350 300 Patient 162 lb Weight Physical Exam General Appearance: Alert, Oriented X3, Cooperative Skin: slight skin jaundice, eye jaundice Skin Temp/Moisture Exam: Warm/Dry Cardiovascular: Regular Rate, Normal S1, Normal S2 Lungs: Clear to Auscultation, Normal Air Movement Abdomen: Normal Bowel Sounds, Soft, No Tenderness Vascular: 2+ radial pulses Current Medications: Current Medications Sig/[place] Start time Last Medication Dose Route Stop Time Status Admin Atorvastatin Calcium 20 MG 1700 04/25 1700 AC 04/27 PO 1700 Clopidogrel Bisulfate 75 MG DAILY 04/25 1000 DC 04/26 PO 0950 Diclofenac Sodium 1 KISHOR 4 TIMES/DAY 04/25 1146 DC 04/27 TOP 1701 Heparin Sodium 25,000 UNIT Q24H 04/29 2000 AC (Porcine) IV Sodium Chloride 500 ML Isosorbide 60 MG DAILY 04/25 1000 AC 04/28 Mononitrate PO 1022 Lidocaine 1 PAT DAILY 04/26 1000 AC 04/28 EXT 1023 Lorazepam 0.5 MG BID PRN 04/25 0030 AC PO 05/02 0021 Melatonin 5 MG AT BEDTIME 04/26 2200 AC 04/27 PO 2020 Metoprolol Succinate 25 MG DAILY 04/25 1000 AC 04/28 PO 1023 Multivitamins 1 TAB DAILY 04/25 1000 AC 04/28 PO 1023 Omeprazole 40 MG DAILY AC 04/25 0700 AC 04/28 PO 0523 Prednisone 4 MG DAILY 04/26 1000 AC 04/28 PO 1136 Rivaroxaban 20 MG QPM 04/24 2230 DC 04/26 PO 2102 Sodium Chloride 1,000 ML Q10H 04/27 1515 AC 04/28 IV 1137 Last 24 Hrs of Lab/Teo Results Last 24 Hrs of Labs/Mics: Laboratory Tests 04/28/17 0607: Anion Gap 16, Estimated GFR 24 L, BUN/Creatinine Ratio 18.1, Calcium 10.3 H, Magnesium 1.7, Total Bilirubin 1.5 H, Direct Bilirubin 0.8 H, AST 329 H, ALT 49, Alkaline Phosphatase 212 H, Total Protein 6.4, Albumin 3.6, PT 21.4 H, INR 2.05 H, CBC w Diff MAN DIFF ORDERED, RBC 4.13 L, MCV 76.9 L, MCH 24.6 L, RDW 21.5 H, MPV 9.7, Segmented Neutrophils 76 H, Lymphocytes 16 L, Monocytes 7, Eosinophils 1, Platelet Estimate VERIFIED BY SMEAR, Polychromasia 1+, Hypochromic-Microcytic 2+, Poikilocytosis 1+, Anisocytosis 1+, Microcytic Cells 1+, Target Cells , PUBS MCHC 32.0 L 04/27/172014: Urine Color YEL, Urine Clarity CLEAR, Urine pH 6.0, Ur Specific [place] 1.020, Urine Protein 30 H, Urine Ketones NEG, Urine Nitrite NEG, Urine Bilirubin NEG, Urine Urobilinogen 0.2, Ur Leukocyte Esterase NEG, Ur Microscopic SEDIMENT EXAMINED, Urine RBC 3-5, Urine WBC 1-3 H, Ur Epithelial Cells FEW, Urine Crystals 1+ UR AC H, Hyaline Casts MOD H, Granular Casts RARE H, Urine Mucus FEW, Urine Hemoglobin MOD H, Urine Glucose NEG Assessment/Plan Assessment: Mr Lyon is an 81-year-old gentleman with a past history of Atrial fibrillation on DOAC, CAD s/p stent ( type unknown, Apr 2016 ), HTN, PMR, HFpEF who is evaluated for generalized weakness, abdominal discomfort and decreased by mouth intake the last few days, likely secondary from electrolyte abnormalities. CT abdomen revealed diverticulosis and hepatic steatosis. CT head was within normal limits, without any acute abnormality. Last echocardiogram done in 10/2016 revealed ejection fraction of 55%, with anteroseptal hypokinesis. Problem list/Plan: #LAUREN with hypernatreamia: -f/u nephrology consult for worsening LAUREN -Na increasing, 147 today -Presented with cr of 1.4 on admission was thought to be from dehydration -Losartan and furosemide were held on admission and he received IV fluids. -IV fluids stopped next day after creatinine normalized(Apr 25), losartan was restarted. Furosemide still held. -CT abd/pelvis on admission:Both kidneys are of normal size and attenuation without hydronephrosis or nephrolithiasis. -Creatinine today worsened to 2.4-likely 2/2 poor PO intake. -continue start IV fluids. -Will stop losartan. #Hepatic steatosis-Liver mass -follow cardiology recommendations for anticoagulation pre-op. -NPO sunday night for possible procedure sunday (possible sunday) -Abd US: Large infiltrative and heterogeneous mass right lobe of the liver. -MRI abdomen with and without contrast: Numerous infiltrative lesions throughout the liver with a heterogeneous appearance -Liver function tests: AST 329, ALT 49, ALP 212 elevated total bilirubin to 1.5, direct bili 0.8 -IR BX to be done next week. DC xarelto and plavix(see event note) -may need heparin bridge. -INR elevated, per IR INR should be below 1.5 -Per cardio INR cannot be assessed when patient is on xarelto -Given patient's underlying liver disease, it is hard to estimate if abnormal INR is only result of being on xarelto -Will recheck INR -May need hematology consult. #Wound on Rt buttock: -Well healing -wound care -Consider surgery/ID consult if worsen/develops abscess. #Hypercalcemia: -Ca 10.9, asymptomatic -Will check afer received IV fluids -Consider nephro consult if no improvement. #Chronic back pain: -On Vicodin and Lidoderm patch at home for chronic back pain. Given transaminitis would hold off Vicodin, can give oxycodone on an as-needed basis after assessment. Will continue Lidoderm patch. #History of atrial fibrillation and reported new T wave inversions- -no chest pain, palpitations or shortness of breath at this time. -Given aspirin 1. on admission -Check serial ekgs and trops; negative -C/w metoprolol, statin -Xarelto and plavix held in anticipation of IR bx -Cardiology consult appreciated #microcytic anemia -Iron 47, TIBC 516, ferritin 449 -Consider iron supplementation upon discharge -Check Hemoccult #Unsteady gait -PT eval #DVT prophylaxis: -ALPS, anticuagulated by rivaroxaban will need heparin bridge #CODE STATUS: -Pt is full code Problem List: 1. LAUREN (acute kidney injury) 2. Liver mass Pain Ratin Pain Location: none Pain Goal: Pain 4 or less Pain Plan: pain pathway Tomorrow's Labs & Rationales: cbc bep lft
--- NOTE | 2017-04-28 15:17 | PN- Att Addend ---
Attending Addendum Attending Brief Note Problems to be addressed today: -Abnormal liver on the multiple imaging modalities -Patient awaiting biopsy -Atrial fibrillation -Patient now on intravenous heparin with clopidogrel and Xarelto being held -LAUREN -Patient on IV fluids -Continue to follow electrolytes and renal function -Hypertension -BPs are stable while losartan is being withheld due to LAUREN -Continue his beta sunny -We are continuing his maintenance medications
[2017-04-28 15:49] VITALS: BP 130/48
--- NOTE | 2017-04-28 18:03 | Cons- Nephrology ---
General Information and HPI Consulting Request Date of Consult: 04/28/17 Requested By: Johnathan Spence MD History of Present Illness: Mr. Matias is a pleasant 81 yo gentleman whom I am asked to see for LAUREN. He was admitted on Apr 24 with abdominal discofort and poor po intake. He underwent CT of the head without IV contrast on Apr 24 then MRI of the abdomen with IV contrast (gadolinium) on Apr 26. Cr was 1.0 on Apr 26, 2.2 on Apr 27 and 2.6 today. He has not been on aminoglycosides or received NSAIDs. He was started on IVF and is voiding well. His appetite has improved since starting IVF. MRI is concerning for liver malignancy and the plan is for liver biopsy later this week. His other history is remarkable for HTN Afib, CAD/sp STENT, PMR. Allergies/Medications Allergies: Coded Allergies: NO KNOWN ALLERGIES (UNKNOWN 12/18/16) Home Med List: Acetaminophen (Tylenol Extra Strength) 500 MG TABLET 2 TAB PO TID PAIN ( Reported) Clopidogrel Bisulfate (Clopidogrel) 75 MG TABLET 1 TAB PO DAILY BLOOD THINNER (Reported) Furosemide (Lasix) 40 MG TABLET 1 TAB PO DAILY FLUID OVERLOAD Hydrocodone Bitartrate (Hysingla ER) 20 MG TAB.ER.24H 1 TAB PO DAILY BACK PAIN (Reported) Hydrocodone/Acetaminophen (Hydrocodon-Acetaminophn 10-300) 10 MG-300 MG TABLET 1 TAB PO BID PRN Back pain (Reported) Isosorbide Mononitrate (Isosorbide Mononitrate ER) 60 MG TAB.ER.24H 1 TAB PO DAILY heart Lorazepam (Ativan) 0.5 MG TABLET 1 TAB PO BID ANXIETY (Reported) Metoprolol Succinate 25 MG TAB 1 TAB PO DAILY HIGH BP (Reported) Olmesartan Medoxomil (Benicar) 40 MG TABLET 1 TAB PO DAILY HEART (Reported) Omeprazole 40 MG CAPSULE.DR 1 CAP PO DAILY GERD (Reported) Potassium Chloride (Klor-Con M10) 10 MEQ TAB.ER.PRT 1 TAB PO DAILY SUPPLEMENT (Reported) Prednisone 1 MG TABLET 4 TAB PO DAILY PMR (Reported) Rivaroxaban (Xarelto) 20 MG TABLET 1 TAB PO QPM ATRIAL FIBRILLATION (Reported ) with food Simvastatin (Zocor*) 20 MG TABLET 1 TAB PO DAILY HLP (Reported) Sulfamethoxazole/Trimethoprim (Bactrim Ds Tablet) 800 MG-160 MG TABLET 1 TAB PO BID ABSCESS Review of Systems Review of Systems: As in HPI appetite improved a bit poor appetite/intake prior to admission - in addition he was on lasix. other systems negative. Past History Travel History Traveled to [place] past 21 day No Medical History Neurological: NONE EENT: NONE Cardiovascular: AFIB, CAD, CHF, hypertension, hyperlipidemia, NSTEMI, [place]ENT PLACED 2017 [place] 1993 Respiratory: NONE Gastrointestinal: NONE Hepatic: NONE Renal: NONE Musculoskeletal: disk herniation, PMR ARTHRITIS Psychiatric: anxiety Endocrine: NONE Blood Disorders: NONE Cancer(s): NONE RETORT KILN BURNER/Reproductive: NONE Surgical History Surgical History: laminectomy cardiac cath PTCA WITH STENT Family History Relations & Conditions If Any: BROTHER (2 Brothers had premature coronary artery disease. One brother of pulmonary embolism.). Psychosocial History Where Do You Live? Home Who Do You Live With? spouse Services at Home: None Smoking Status: Never Smoked Living Will? yes Functional Ability ADLs Independent: dressing, eating, toileting, bathing. Ambulation: cane IADLs Independent: shopping, housework, finances, food prep, telephone, transportation , medication admin. Exam & Diagnostic Data Vital Signs and I&O Pleasant M NAD 130/48 98 Skin neg rash Eyes anicteric ENT moist Lungs clear Cor RRR Abd soft Ext neg edema Results Pertinent Lab Results: Laboratory Tests 04/28 Chemistry Sodium (137 - 145 mmol/L) 147 H Potassium (3.5 - 5.1 mmol/L) 4.8 Chloride (98 - 107 mmol/L) 116 H Carbon Dioxide (22 - 30 mmol/L) 15 L Anion Gap (5 - 16) 16 BUN (9 - 20 mg/dL) 47 H Creatinine (0.7 - 1.2 mg/dL) 2.6 H Estimated GFR (>60 ml/min) 24 L BUN/Creatinine Ratio (7 - 25 %) 18.1 Calcium (8.4 - 10.2 mg/dL) 10.3 H Magnesium (1.6 - 2.3 mg/dL) 1.7 Total Bilirubin (0.2 - 1.3 mg/dL) 1.5 H Direct Bilirubin (< 0.4 mg/dL) 0.8 H AST (17 - 59 U/L) 329 H ALT (21 - 72 U/L) 49 Alkaline Phosphatase (< 127 U/L) 212 H Total Protein (6.3 - 8.2 g/dL) 6.4 Albumin (3.5 - 5.0 g/dL) 3.6 Coagulation PT (9.4 - 12.5 SEC) 21.4 H INR (0.90 - 1.17) 2.05 H Hematology CBC w Diff MAN DIFF ORDERED WBC (4.8 - 10.8 /CUMM) 8.0 RBC (4.70 - 6.10 /CUMM) 4.13 L Hgb (14.0 - 18.0 G/DL) 10.2 L Hct (42 - 52 %) 31.8 L MCV (80.0 - 94.0 FL) 76.9 L MCH (27.0 - 31.0 PG) 24.6 L RDW (11.5 - 14.5 %) 21.5 H Plt Count (130 - 400 /CUMM) 241 MPV (7.4 - 10.4 FL) 9.7 Segmented Neutrophils (42.2 - 75.2 %) 76 H Lymphocytes (20.5 - 51.1 %) 16 L Monocytes (1.7 - 9.3 %) 7 Eosinophils (0 - 5.0 %) 1 Platelet Estimate (ADEQUATE) VERIFIED BY SMEAR Polychromasia 1+ Hypochromic-Microcytic 2+ Poikilocytosis 1+ Anisocytosis 1+ Microcytic Cells 1+ Target Cells PUBS MCHC (33.0 - 37.0 G/DL) 32.0 L Urines Urine Color (YEL,AMB,STR) YEL Urine Clarity (CLEAR) CLEAR Urine pH (5.0 - 8.0) 6.0 Ur Specific [place] (1.001 - 1.035) 1.020 Urine Protein (NEG,<30 MG/DL) 30 H Urine Ketones (NEG) NEG Urine Nitrite (NEG) NEG Urine Bilirubin (NEG) NEG Urine Urobilinogen (0.1 - 1.0 EU/dl) 0.2 Ur Leukocyte Esterase (NEG) NEG Ur Microscopic SEDIMENT EXAMINED Urine RBC (0 - 5 /HPF) 3-5 Urine WBC (0 - 2 /HPF) 1-3 H Ur Epithelial Cells (NONE,FEW) FEW Urine Crystals 1+ UR AC H Hyaline Casts (0/LPF) MOD H Granular Casts (NONE /LPF) RARE H Urine Mucus (FEW,NONE) FEW Urine Hemoglobin (NEG) MOD H Urine Glucose (N MG/DL) NEG 04/27 04/26 0740 0640 Chemistry Sodium (137 - 145 mmol/L) 146 H 145 Potassium (3.5 - 5.1 mmol/L) 5.0 4.9 Chloride (98 - 107 mmol/L) 111 H 112 H Carbon Dioxide (22 - 30 mmol/L) 17 L 18 L Anion Gap (5 - 16) 18 H 15 BUN (9 - 20 mg/dL) 44 H 35 H Creatinine (0.7 - 1.2 mg/dL) 2.2 H 1.0 Estimated GFR (>60 ml/min) 29 L > 60 BUN/Creatinine Ratio (7 - 25 %) 20.0 35.0 H Calcium (8.4 - 10.2 mg/dL) 10.9 H 10.8 H Magnesium (1.6 - 2.3 mg/dL) 1.8 1.7 Total Bilirubin (0.2 - 1.3 mg/dL) 1.8 H 1.7 H Direct Bilirubin (< 0.4 mg/dL) 1.0 H 0.8 H AST (17 - 59 U/L) 390 H 392 H ALT (21 - 72 U/L) 42 38 Alkaline Phosphatase (< 127 U/L) 236 H 226 H Total Protein (6.3 - 8.2 g/dL) 7.2 6.7 Albumin (3.5 - 5.0 g/dL) 4.3 3.9 Hematology CBC w Diff MAN DIFF ORDERED MAN DIFF ORDERED WBC (4.8 - 10.8 /CUMM) 9.1 7.9 RBC (4.70 - 6.10 /CUMM) 4.52 L 4.36 L Hgb (14.0 - 18.0 G/DL) 11.0 L 10.8 L Hct (42 - 52 %) 34.8 L 33.5 L MCV (80.0 - 94.0 FL) 76.9 L 76.8 L MCH (27.0 - 31.0 PG) 24.4 L 24.7 L RDW (11.5 - 14.5 %) 20.9 H 20.9 H Plt Count (130 - 400 /CUMM) 284 282 MPV (7.4 - 10.4 FL) 9.5 9.7 Segmented Neutrophils (42.2 - 75.2 %) 74 75 Band Neutrophils (0.0 - 5.0 %) 2 2 Lymphocytes (20.5 - 51.1 %) 13 L 15 L Monocytes (1.7 - 9.3 %) 9 7 Eosinophils (0 - 5.0 %) 1 1 Basophils (0.0 - 2.0 %) 1 Platelet Estimate (ADEQUATE) ADEQUATE VERIFIED BY SMEAR Polychromasia 1+ Hypochromic-Microcytic 2+ 1+ Poikilocytosis 2+ 1+ Anisocytosis 2+ 1+ Target Cells FEW PUBS MCHC (33.0 - 37.0 G/DL) 31.8 L 32.2 L Assessment/Plan Assessment/Recommendations Assessment: Pleasant 81 yo gentleman with poor po intake on lasix prior to admission now s/p MRI with gadolinium on 04/26. I suspect LAUREN is related to MRI contrast ( gadolinium). Altough the incidence of ATN with this is much lower than with iodinated contrast agents, LAUREN can and has been described to occur usually in the setting of intravascular volume depletion (poor po intake). The volume status at the time of the insult is the important factor. Since then he has been started on IVF and is feeling better with improved appetite (although not normal ). Part of his loss of appetite at the time of admission may have been related to volume depletion. CT and U/S show normal kidneys without hydronephrosis. Treatment at this time is supportive. IVF (maintenance) this will not hasten recover but he should be kept euvolemic especially with poor po intake Daily labs Avoid NSAIDs, additional contrast, aminoglycosides Thanks will follow. Myron Díaz MD Recommendations: .
[2017-04-28 23:23] VITALS: BP 130/30
[2017-04-29] VITALS (7 sets, daily range): BP systolic 124–142; BP diastolic 4–60
--- NOTE | 2017-04-29 09:35 | PN- Housestaff ---
[facility] 04[facility]29[facility]17 0934: Assessment/Plan Assessment: Mr Lyon is an 81-year-old gentleman with a past history of Atrial fibrillation on DOAC, CAD s/p stent ( type unknown, Apr 2016 ), HTN, PMR, HFpEF who is evaluated for generalized weakness, abdominal discomfort and decreased by mouth intake the last few days, likely secondary from electrolyte abnormalities. CT abdomen revealed diverticulosis and hepatic steatosis. CT head was within normal limits, without any acute abnormality. Last echocardiogram done in 10/2016 revealed ejection fraction of 55%, with anteroseptal hypokinesis. Problem list/Plan: #LAUREN with hypernatreamia: -f/u nephrology consult for worsening LAUREN -Na increasing, 147 today -Presented with cr of 1.4 on admission was thought to be from dehydration -Losartan and furosemide were held on admission and he received IV fluids. -IV fluids stopped next day after creatinine normalized(Apr 25), losartan was restarted. Furosemide still held. -CT abd/pelvis on admission:Both kidneys are of normal size and attenuation without hydronephrosis or nephrolithiasis. -Creatinine today worsened to 2.4-likely 2/2 poor PO intake. -continue start IV fluids. -Will stop losartan. #Hepatic steatosis-Liver mass -follow cardiology recommendations for anticoagulation pre-op. -NPO sunday night for possible procedure sunday (possible sunday) -Abd US: Large infiltrative and heterogeneous mass right lobe of the liver. -MRI abdomen with and without contrast: Numerous infiltrative lesions throughout the liver with a heterogeneous appearance -Liver function tests: AST 329, ALT 49, ALP 212 elevated total bilirubin to 1.5, direct bili 0.8 -IR BX to be done next week. DC xarelto and plavix(see event note) -may need heparin bridge. -INR elevated, per IR INR should be below 1.5 -Per cardio INR cannot be assessed when patient is on xarelto -Given patient's underlying liver disease, it is hard to estimate if abnormal INR is only result of being on xarelto -Will recheck INR -May need hematology consult. #Wound on Rt buttock: -Well healing -wound care -Consider surgery/ID consult if worsen/develops abscess. #Hypercalcemia: -Ca 10.9, asymptomatic -Will check afer received IV fluids -Consider nephro consult if no improvement. #Chronic back pain: -On Vicodin and Lidoderm patch at home for chronic back pain. Given transaminitis would hold off Vicodin, can give oxycodone on an as-needed basis after assessment. Will continue Lidoderm patch. #History of atrial fibrillation and reported new T wave inversions- -no chest pain, palpitations or shortness of breath at this time. -Given aspirin 1. on admission -Check serial ekgs and trops; negative -C/w metoprolol, statin -Xarelto and plavix held in anticipation of IR bx -Cardiology consult appreciated #microcytic anemia -Iron 47, TIBC 516, ferritin 449 -Consider iron supplementation upon discharge -Check Hemoccult #Unsteady gait -PT eval #DVT prophylaxis: -ALPS, anticuagulated by rivaroxaban will need heparin bridge #CODE STATUS: -Pt is full code Maty CHUNG,Myron 04/29/17 1329: Attending MD Review Statement Attending Statement Attending MD Statement: examined this patient, agreed w/resident/PA/CHIEF LOCK OPERATOR, discussed with family, reviewed EMR data (avail), amended to note Attending Assessment/Plan: Mr. Lyon was interviewed and examined. His EMR was reviewed. He notes abdominal bloating and "gas" but otherwise is asymptomatic. Is afebrile with stable vital signs. He is in no acute distress. Pulmonary and cardiac exams are benign. His abdomen has bowel sounds and is softly distended but nontender. His CBC remained stable. Sodium remains mildly elevated and renal function is slightly improved to unchanged. We are continuing anticoagulation with heparin pending his liver biopsy. LAUREN is being addressed with hydration. We're following his renal function and electrolytes. Dr. Díaz's note is much appreciated. We are continuing his maintenance medications.
[2017-04-29 09:47] LABS: HEMATOCRIT 31.1 % (42-52); MEAN CORPUSCULAR HGB 24.6 PG (27.0-31.0); MEAN CORPUSCULAR HGB CONC 31.7 G/DL (33.0-37.0); MEAN CORPUSCULAR VOLUME 77.5 FL (80.0-94.0); MEAN PLATELET VOLUME 9.7 FL (7.4-10.4); PLATELET COUNT 205 /CUMM (130-400); RBC DISTRIBUTION WIDTH 21.2 % (11.5-14.5); RED BLOOD CELL CT 4.02 /CUMM (4.70-6.10); WHITE BLOOD CELL COUNT 7.6 /CUMM (4.8-10.8)
[2017-04-30 07:01] VITALS: BP 130/70
[2017-04-30 08:47] LABS: PT 17.1 SEC (9.4-12.5)
--- NOTE | 2017-04-30 08:57 | PN- Housestaff ---
Subjective Follow-up For: Liver mass Hepatic steatosis History of atrial fibrillation Weakness Subjective: Patient was seen and examined. Still has low appetite with generalized weakness. Denies N/V, dizziness, lightheadedness, CP, SOB,urinary symptoms. Creatinine improving. Confirmed with IR, his liver BX is scheduled for Sunday;informed the patient and family including son, Viktor, and patient's , both present at bedside. IR will call me back to inform when to stop heparin before the surgery. Review of Systems Constitutional: Reports: see HPI. Objective Last 24 Hrs of Vital Signs/I&O Vital Signs Date Time Temp Pulse Resp B/P B/P Pulse O2 O2 Flow FiO2 Mean Ox Delivery Rate 04/30 1449 97.8 112 20 110/52 98 Room Air 04/30 1033 76 130/70 04/30 0701 97.8 103 20 130/70 100 04/29 2253 98.0 96 19 124/60 97 Room Air Intake & Output 04/30 1600 04/30 0800 04/30 0000 Intake Total 1412 756 300 Output Total 300 Balance 1112 756 300 Intake, IV 912 756 300 Intake, Oral 500 Output, Urine 300 Patient 164 lb Weight Physical Exam General Appearance: Alert, Oriented X3, Cooperative, No Acute Distress Other Physical Findings: Skin: an area of open wound present on right buttuck, well healing w/o pus or erythema. W/o any signs of cellulitis. Multiple healed lesions noted on buttock. HEENT: Atraumatic, PERRLA, EOMI, Mucous Membr. moist/pink Neck: Supple, No JVD, No thryomegaly, +2 Carotid Pulse wo Bruit, No LAD Cardiovascular: Irregular, No Murmurs, Gallops, Rubs Lungs: Clear to Auscultation, Normal Air Movement Abdomen: NL BS, NT, ND, No CVA tenderness Neurological: Normal Speech, Strength at 5/5 X4 Ext, Normal Tone, Sensation Intact, Cranial Nerves 3-12 NL, Reflexes 2+ Extremities: No Clubbing, No Cyanosis, No Edema, Normal Pulses, No Tenderness/ Swelling Vascular: Normal Pulses, Pulses Symmetrical Current Medications: Current Medications Sig/[place] Start time Last Medication Dose Route Stop Time Status Admin Atorvastatin Calcium 20 MG 1700 04/25 1700 AC 04/30 PO 1817 Dextrose/Water 1,000 ML Q20H 04/30 1430 AC 04/30 IV 1430 Dextrose/Water 1,000 ML ONCE ONE 04/30 1045 DC 04/30 IV 05/01 0004 1040 Dextrose/Water 1,000 ML ONCE ONE 04/30 1030 DC 04/30 IV 04/30 2029 1029 Heparin Sodium 25,000 UNIT Q24H 04/29 2000 AC 04/30 (Porcine) IV 0838 Sodium Chloride 500 ML Isosorbide 60 MG DAILY 04/25 1000 AC 04/30 Mononitrate PO 0831 Lidocaine 1 PAT DAILY 04/26 1000 AC 04/30 EXT 0831 Lorazepam 0.5 MG BID PRN 04/25 0030 AC 04/29 PO 05/02 0021 2236 Melatonin 5 MG AT BEDTIME 04/26 2200 AC 04/30 PO 2056 Metoprolol Succinate 25 MG DAILY 04/25 1000 AC 04/30 PO 1033 Multivitamins 1 TAB DAILY 04/25 1000 AC 04/30 PO 0831 Omeprazole 40 MG DAILY AC 04/25 0700 AC 04/30 PO 0611 Oxycodone HCl 10 MG ONCE ONE 04/30 1800 DC 04/30 PO 04/30 1801 1818 Oxycodone HCl 5 MG ONCE ONE 04/30 1030 DC 04/30 PO 04/30 1031 1033 Oxycodone HCl 5 MG ONCE ONE 04/30 0900 DC 04/30 PO 04/30 0901 0856 Prednisone 4 MG DAILY 04/26 1000 AC 04/30 PO 0827 Sodium Chloride 1,000 ML Q10H 04/27 1515 DC 04/30 IV 0348 Last 24 Hrs of Lab/Teo Results Last 24 Hrs of Labs/Mics: Laboratory Tests 04/30/17 1436: APTT 87 H 04/30/17 1206: Anion Gap 13, Estimated GFR 45 L, BUN/Creatinine Ratio 24.0 04/30/17 0814: Anion Gap 16, Estimated GFR 39 L, BUN/Creatinine Ratio 21.2, Total Bilirubin 1.5 H, Direct Bilirubin 0.8 H, AST 465 H, ALT 59, Alkaline Phosphatase 276 H , Total Protein 5.9 L, Albumin 3.4 L, PT 17.1 H, INR 1.64 H, CBC w Diff MAN DIFF ORDERED, RBC 3.92 L, MCV 77.9 L, MCH 24.5 L, RDW 21.9 H, MPV 9.6, Segmented Neutrophils 80 H, Lymphocytes 14 L, Monocytes 5, Eosinophils 1, Platelet Estimate ADEQUATE, Polychromasia , Hypochromic-Microcytic 1+, Anisocytosis 1+, Microcytic Cells 1+, Target Cells FEW, PUBS MCHC 31.5 L 04/30/17 0400: PT Cancelled, INR Cancelled Assessment/Plan Assessment: Mr Lyon is an 81-year-old gentleman with a past history of Atrial fibrillation on DOAC, CAD s/p stent ( type unknown, Apr 2016 ), HTN, PMR, HFpEF who is evaluated for generalized weakness, abdominal discomfort and decreased by mouth intake the last few days, likely secondary from electrolyte abnormalities. CT abdomen revealed diverticulosis and hepatic steatosis. CT head was within normal limits, without any acute abnormality. Last echocardiogram done in 10/2016 revealed ejection fraction of 55%, with anteroseptal hypokinesis. Problem list/Plan: #LAUREN: -Presented with cr of 1.4 on admission was thought to be from dehydration -Losartan and furosemide were held on admission and he received IV fluids. -IV fluids stopped next day after creatinine normalized(Apr 25), losartan was restarted. Furosemide still held. -CT abd/pelvis on admission:Both kidneys are of normal size and attenuation without hydronephrosis or nephrolithiasis. -Creatinine today improved to 1.7 -F/U nephro consult -Avoid nephrotoxins -Continue to hold losartan. #Hypernatreamia: -Na increasing, 151 today; discussed with street car inspector field sales consultant, Dr. Leal, will calculate patient's water deficit, will administer D5W; half of the amount in 24 hour and the rest in 48 hour. -DC NS -Daily BEP, adjust fluids based on water deficit #Hepatic steatosis-Liver mass: -Abd US: Large infiltrative and heterogeneous mass right lobe of the liver. -MRI abdomen with and without contrast: Numerous infiltrative lesions throughout the liver with a heterogeneous appearance -Check daily LFTs -IR BX to be done Sunday. -Last dose of plavix received Apr 26, 2016, 9:50 am. Last dose of Xarelto received: Apr 26; on heparin bridge now. -INR elevated, per IR INR should be below 1.5 -Per cardio INR cannot be assessed when patient is on xarelto -Given patient's underlying liver disease, it is hard to estimate if abnormal INR is only result of being on xarelto -Check daily INR: today:1.64 -May need hematology consult. #Wound on Rt buttock: -Well healing -wound care -Consider surgery/ID consult if worsen/develops abscess. #Hypercalcemia-resolved. -Asymptomatic #Chronic back pain: -On Vicodin and Lidoderm patch at home for chronic back pain. Given transaminitis would hold off Vicodin, can give oxycodone on an as-needed basis after assessment. Will continue Lidoderm patch. #History of atrial fibrillation and reported new T wave inversions -no chest pain, palpitations or shortness of breath at this time. -Given aspirin 1. on admission -Check serial ekgs and trops; negative -C/w metoprolol, statin -Xarelto and plavix held in anticipation of IR bx -Cardiology consult appreciated; confirmed with Dr. Orta, the patient does not need telemtry monitor(Dr. Orta's Apr 27 cardiology note was typed c/w telemetry by error) #microcytic anemia -Iron 47, TIBC 516, ferritin 449 -Consider iron supplementation upon discharge -Check Hemoccult #Unsteady gait -PT eval #DVT prophylaxis: -Heparin GTT #CODE STATUS: -Pt is full code Problem List: 1. Atrial fibrillation 2. LAUREN (acute kidney injury) 3. Liver mass Pain Ratin Pain Location: Abd neo Pain Goal: Pain 4 or less Pain Plan: c/w current plan Tomorrow's Labs & Rationales: CBC to monitor H&H BEP, Ca to monitor cr , electrolytes LFTs trend INR trend
--- NOTE | 2017-04-30 09:35 | PN- Nephrology ---
Assessment/Plan Assessment: 1. Acute kidney injury . Cause of the acute kidney injury is likely related to gadolinium. Please see Dr. Myron Díaz's consult. 2. Would continue with supportive care. The soaps that his serum creatinine will return to its previous baseline level of 1.0 Suggestion: 1. Continue with current regimen 2. Avoid nephrotoxins including contrast and nonsteroidal anti-inflammatory drugs. Subjective Subjective: The patient is sitting up and eating breakfast. He denies shortness of breath. Denies difficulty voiding. Objective Vital Signs and I&Os Vital Signs Date Time Temp Pulse Resp B/P B/P Pulse O2 O2 Flow FiO2 Mean Ox Delivery Rate 04/30 0601 97.8 103 20 130/70 100 04/29 2253 98.0 96 19 124/60 97 Room Air 04/29 1800 98.9 68 20 142/58 04/29 1545 98.9 68 20 142/58 97 Room Air 04/29 1200 97.8 74 20 128/56 04/29 1000 98.1 70 20 134/4 04/29 0953 70 134/48 04/29 0952 70 134/48 Intake & Output 04/30 1600 04/30 0400 04/29 1600 04/29 0400 04/28 1600 04/28 0400 Intake Total 073 032 8536 880 2200 1200 Output Total 1000 450 Balance 242 219 6812 880 1200 750 Intake, IV 173 461 5725 400 1600 700 Intake, Oral 740 480 600 500 Number 0 1 Bowel Movements Output, Urine 1000 450 Patient 164 lb 162 lb 162 lb 162 lb Weight Physical Exam General Appearance: well developed/nourished, no apparent distress, alert, awake , comfortable Head: atraumatic, normal appearance Ears, Nose, Throat: normal pharynx, normal ENT inspection, hearing grossly normal Neck: supple, full range of motion, JVD, trachea mid line Respiratory: normal breath sounds, chest non-tender, no respiratory distress, lungs clear Cardiovascular: regular rate/rhythm, edema, gallop Abdomen: normal bowel sounds, soft, non-tender, no organomegaly Back: normal inspection Extremities: normal inspection, normal capillary refill Neurologic/Psychiatric: awake, alert, oriented x 3, moving all extremities Skin: intact, normal color, no rash Current Medications: Current Medications Sig/[place] Start time Last Medication Dose Route Stop Time Status Admin Atorvastatin Calcium 20 MG 1700 04/25 1700 AC 04/29 PO 1723 Heparin Sodium 5,000 UNIT .STK-MED ONE 04/29 2018 DC (Porcine) IV 04/29 2019 Heparin Sodium 25,000 UNIT Q24H 04/29 1999 AC 04/30 (Porcine) IV 0838 Sodium Chloride 500 ML Isosorbide 60 MG DAILY 04/25 1000 AC 04/30 Mononitrate PO 0831 Lidocaine 1 PAT DAILY 04/26 1000 AC 04/30 EXT 0831 Lorazepam 0.5 MG BID PRN 04/25 0030 AC 04/29 PO 05/02 0021 2236 Melatonin 5 MG AT BEDTIME 04/26 2200 AC 04/29 PO 2137 Metoprolol Succinate 25 MG DAILY 04/25 1000 AC 04/29 PO 0953 Multivitamins 1 TAB DAILY 04/25 1000 AC 04/30 PO 0831 Omeprazole 40 MG DAILY AC 04/25 0700 AC 04/30 PO 0611 Oxycodone HCl 5 MG ONCE ONE 04/30 0900 DC 04/30 PO 04/30 0901 0856 Oxycodone HCl 5 MG ONCE ONE 04/29 1615 DC 04/29 PO 04/29 1616 1727 Prednisone 4 MG DAILY 04/26 1000 AC 04/30 PO 0827 Sodium Chloride 1,000 ML Q10H 04/27 1515 AC 04/30 IV 0348 Results Pertinent Lab Results: Laboratory Tests 04/30 04/30 0814 0400 Chemistry Sodium (137 - 145 mmol/L) 151 H Potassium (3.5 - 5.1 mmol/L) 4.6 Chloride (98 - 107 mmol/L) 118 H Carbon Dioxide (22 - 30 mmol/L) 17 L Anion Gap (5 - 16) 16 BUN (9 - 20 mg/dL) 36 H Creatinine (0.7 - 1.2 mg/dL) 1.7 H Estimated GFR (>60 ml/min) 39 L BUN/Creatinine Ratio (7 - 25 %) 21.2 Total Bilirubin (0.2 - 1.3 mg/dL) 1.5 H Direct Bilirubin (< 0.4 mg/dL) 0.8 H AST (17 - 59 U/L) 465 H ALT (21 - 72 U/L) 59 Alkaline Phosphatase (< 127 U/L) 276 H Total Protein (6.3 - 8.2 g/dL) 5.9 L Albumin (3.5 - 5.0 g/dL) 3.4 L Coagulation PT (9.4 - 12.5 SEC) 17.1 H Cancelled INR (0.90 - 1.17) 1.64 H Cancelled Hematology CBC w Diff MAN DIFF ORDERED WBC (4.8 - 10.8 /CUMM) Pending RBC (4.70 - 6.10 /CUMM) Pending Hgb (14.0 - 18.0 G/DL) Pending Hct (42 - 52 %) Pending MCV (80.0 - 94.0 FL) Pending MCH (27.0 - 31.0 PG) Pending RDW (11.5 - 14.5 %) Pending Plt Count (130 - 400 /CUMM) Pending MPV (7.4 - 10.4 FL) Pending Segmented Neutrophils (42.2 - 75.2 %) Pending PUBS MCHC (33.0 - 37.0 G/DL) Pending 04/29 04/28 0715 2318 Chemistry Sodium (137 - 145 mmol/L) 147 H 145 Potassium (3.5 - 5.1 mmol/L) 4.6 4.5 Chloride (98 - 107 mmol/L) 117 H 116 H Carbon Dioxide (22 - 30 mmol/L) 13 L 15 L Anion Gap (5 - 16) 17 H 14 BUN (9 - 20 mg/dL) 44 H 47 H Creatinine (0.7 - 1.2 mg/dL) 2.1 H 2.2 H Estimated GFR (>60 ml/min) 31 L 29 L BUN/Creatinine Ratio (7 - 25 %) 21.0 21.4 Calcium (8.4 - 10.2 mg/dL) 10.0 Total Bilirubin (0.2 - 1.3 mg/dL) 1.3 Direct Bilirubin (< 0.4 mg/dL) 0.7 H AST (17 - 59 U/L) 369 H ALT (21 - 72 U/L) 54 Alkaline Phosphatase (< 127 U/L) 263 H Total Protein (6.3 - 8.2 g/dL) 6.2 L Albumin (3.5 - 5.0 g/dL) 3.5 Coagulation PT (9.4 - 12.5 SEC) 17.0 H INR (0.90 - 1.17) 1.63 H Hematology CBC w Diff MAN DIFF ORDERED WBC (4.8 - 10.8 /CUMM) 7.6 RBC (4.70 - 6.10 /CUMM) 4.02 L Hgb (14.0 - 18.0 G/DL) 9.9 L Hct (42 - 52 %) 31.1 L MCV (80.0 - 94.0 FL) 77.5 L MCH (27.0 - 31.0 PG) 24.6 L RDW (11.5 - 14.5 %) 21.2 H Plt Count (130 - 400 /CUMM) 205 MPV (7.4 - 10.4 FL) 9.7 Segmented Neutrophils (42.2 - 75.2 %) 77 H Lymphocytes (20.5 - 51.1 %) 14 L Monocytes (1.7 - 9.3 %) 9 Platelet Estimate (ADEQUATE) VERIFIED BY SMEAR Polychromasia 1+ Hypochromic-Microcytic 2+ Poikilocytosis 1+ Anisocytosis 2+ Microcytic Cells 1+ Target Cells 1+ Ovalocytes 1+ PUBS MCHC (33.0 - 37.0 G/DL) 31.7 L 04/28 Chemistry Sodium (137 - 145 mmol/L) 147 H Potassium (3.5 - 5.1 mmol/L) 4.8 Chloride (98 - 107 mmol/L) 116 H Carbon Dioxide (22 - 30 mmol/L) 15 L Anion Gap (5 - 16) 16 BUN (9 - 20 mg/dL) 47 H Creatinine (0.7 - 1.2 mg/dL) 2.6 H Estimated GFR (>60 ml/min) 24 L BUN/Creatinine Ratio (7 - 25 %) 18.1 Calcium (8.4 - 10.2 mg/dL) 10.3 H Magnesium (1.6 - 2.3 mg/dL) 1.7 Total Bilirubin (0.2 - 1.3 mg/dL) 1.5 H Direct Bilirubin (< 0.4 mg/dL) 0.8 H AST (17 - 59 U/L) 329 H ALT (21 - 72 U/L) 49 Alkaline Phosphatase (< 127 U/L) 212 H Total Protein (6.3 - 8.2 g/dL) 6.4 Albumin (3.5 - 5.0 g/dL) 3.6 Coagulation PT (9.4 - 12.5 SEC) 21.4 H INR (0.90 - 1.17) 2.05 H Hematology CBC w Diff MAN DIFF ORDERED WBC (4.8 - 10.8 /CUMM) 8.0 RBC (4.70 - 6.10 /CUMM) 4.13 L Hgb (14.0 - 18.0 G/DL) 10.2 L Hct (42 - 52 %) 31.8 L MCV (80.0 - 94.0 FL) 76.9 L MCH (27.0 - 31.0 PG) 24.6 L RDW (11.5 - 14.5 %) 21.5 H Plt Count (130 - 400 /CUMM) 241 MPV (7.4 - 10.4 FL) 9.7 Segmented Neutrophils (42.2 - 75.2 %) 76 H Lymphocytes (20.5 - 51.1 %) 16 L Monocytes (1.7 - 9.3 %) 7 Eosinophils (0 - 5.0 %) 1 Platelet Estimate (ADEQUATE) VERIFIED BY SMEAR Polychromasia 1+ Hypochromic-Microcytic 2+ Poikilocytosis 1+ Anisocytosis 1+ Microcytic Cells 1+ Target Cells PUBS MCHC (33.0 - 37.0 G/DL) 32.0 L Urines Urine Color (YEL,AMB,STR) YEL Urine Clarity (CLEAR) CLEAR Urine pH (5.0 - 8.0) 6.0 Ur Specific [place] (1.001 - 1.035) 1.020 Urine Protein (NEG,<30 MG/DL) 30 H Urine Ketones (NEG) NEG Urine Nitrite (NEG) NEG Urine Bilirubin (NEG) NEG Urine Urobilinogen (0.1 - 1.0 EU/dl) 0.2 Ur Leukocyte Esterase (NEG) NEG Ur Microscopic SEDIMENT EXAMINED Urine RBC (0 - 5 /HPF) 3-5 Urine WBC (0 - 2 /HPF) 1-3 H Ur Epithelial Cells (NONE,FEW) FEW Urine Crystals 1+ UR AC H Hyaline Casts (0/LPF) MOD H Granular Casts (NONE /LPF) RARE H Urine Mucus (FEW,NONE) FEW Urine Hemoglobin (NEG) MOD H Urine Glucose (N MG/DL) NEG
[2017-04-30 09:56] LABS: HEMATOCRIT 30.5 % (42-52); MEAN CORPUSCULAR HGB 24.5 PG (27.0-31.0); MEAN CORPUSCULAR HGB CONC 31.5 G/DL (33.0-37.0); MEAN CORPUSCULAR VOLUME 77.9 FL (80.0-94.0); MEAN PLATELET VOLUME 9.6 FL (7.4-10.4); PLATELET COUNT 180 /CUMM (130-400); RBC DISTRIBUTION WIDTH 21.9 % (11.5-14.5); RED BLOOD CELL CT 3.92 /CUMM (4.70-6.10); WHITE BLOOD CELL COUNT 7.3 /CUMM (4.8-10.8)
--- NOTE | 2017-04-30 10:57 | PN- Att Addend ---
Attending Addendum Attending Brief Note Patient in bed, family at the bedside. Myles was put on hold, has been a discussion between radiologist the specialists to see what to do and when the present time is for the liver biopsy and was decided Sunday is today. Hopefully everything will go okay Intake & Output 04/30 1600 04/30 0400 04/29 1600 04/29 0400 04/28 1600 04/28 0400 Intake Total 840 393 3915 880 2200 1200 Output Total 1000 450 Balance 667 307 5407 880 1200 750 Intake, IV 120 421 0287 400 1600 700 Intake, Oral 740 480 600 500 Number 0 1 Bowel Movements Output, Urine 1000 450 Patient 164 lb 162 lb 162 lb 162 lb Weight Current Medications Sig/Darine Start time Last Medication Dose Route Stop Time Status Admin Atorvastatin Calcium 20 MG 1700 04/25 1700 AC 04/29 PO 1723 Dextrose/Water 1,000 ML ONCE ONE 04/30 1045 AC 04/30 IV 05/01 0004 1040 Dextrose/Water 1,000 ML ONCE ONE 04/30 1030 DC 04/30 IV 04/30 2029 1029 Heparin Sodium 5,000 UNIT .STK-MED ONE 04/29 2018 DC (Porcine) IV 04/29 2020 Heparin Sodium 25,000 UNIT Q24H 04/29 1999 AC 04/30 (Porcine) IV 0838 Sodium Chloride 500 ML Isosorbide 60 MG DAILY 04/25 1000 AC 04/30 Mononitrate PO 0831 Lidocaine 1 PAT DAILY 04/26 1000 AC 04/30 EXT 0831 Lorazepam 0.5 MG BID PRN 04/25 0030 AC 04/29 PO 05/02 0021 2236 Melatonin 5 MG AT BEDTIME 04/26 2200 AC 04/29 PO 2137 Metoprolol Succinate 25 MG DAILY 04/25 1000 AC 04/30 PO 1033 Multivitamins 1 TAB DAILY 04/25 1000 AC 04/30 PO 0831 Omeprazole 40 MG DAILY AC 04/25 0700 AC 04/30 PO 0611 Oxycodone HCl 5 MG ONCE ONE 04/30 1030 DC 04/30 PO 04/30 1031 1033 Oxycodone HCl 5 MG ONCE ONE 04/30 0900 DC 04/30 PO 04/30 0901 0856 Oxycodone HCl 5 MG ONCE ONE 04/29 1615 DC 04/29 PO 04/29 1616 1727 Prednisone 4 MG DAILY 04/26 1000 AC 04/30 PO 0827 Sodium Chloride 1,000 ML Q10H 04/27 1515 DC 04/30 IV 0348 Laboratory Tests 04/30/17 0814: Anion Gap 16, Estimated GFR 39 L, BUN/Creatinine Ratio 21.2, Total Bilirubin 1.5 H, Direct Bilirubin 0.8 H, AST 465 H, ALT 59, Alkaline Phosphatase 276 H , Total Protein 5.9 L, Albumin 3.4 L, PT 17.1 H, INR 1.64 H, CBC w Diff MAN DIFF ORDERED, RBC 3.92 L, MCV 77.9 L, MCH 24.5 L, RDW 21.9 H, MPV 9.6, Segmented Neutrophils 80 H, Lymphocytes 14 L, Monocytes 5, Eosinophils 1, Platelet Estimate ADEQUATE, Polychromasia , Hypochromic-Microcytic 1+, Anisocytosis 1+, Microcytic Cells 1+, Target Cells FEW, PUBS MCHC 31.5 L 04/30/17 0400: PT Cancelled, INR Cancelled 04/29/17 0715: Anion Gap 17 H, Estimated GFR 31 L, BUN/Creatinine Ratio 21.0, Calcium 10.0, Total Bilirubin 1.3, Direct Bilirubin 0.7 H, AST 369 H, ALT 54, Alkaline Phosphatase 263 H, Total Protein 6.2 L, Albumin 3.5, PT 17.0 H, INR 1.63 H, CBC w Diff MAN DIFF ORDERED, RBC 4.02 L, MCV 77.5 L, MCH 24.6 L, RDW 21.2 H, MPV 9.7, Segmented Neutrophils 77 H, Lymphocytes 14 L, Monocytes 9, Platelet Estimate VERIFIED BY SMEAR, Polychromasia 1+, Hypochromic-Microcytic 2+, Poikilocytosis 1+, Anisocytosis 2+, Microcytic Cells 1+, Target Cells 1+, Ovalocytes 1+, PUBS MCHC 31.7 L 04/28/17 2318: Anion Gap 14, Estimated GFR 29 L, BUN/Creatinine Ratio 21.4 04/28/17 0607: Anion Gap 16, Estimated GFR 24 L, BUN/Creatinine Ratio 18.1, Calcium 10.3 H, Magnesium 1.7, Total Bilirubin 1.5 H, Direct Bilirubin 0.8 H, AST 329 H, ALT 49, Alkaline Phosphatase 212 H, Total Protein 6.4, Albumin 3.6, PT 21.4 H, INR 2.05 H, CBC w Diff MAN DIFF ORDERED, RBC 4.13 L, MCV 76.9 L, MCH 24.6 L, RDW 21.5 H, MPV 9.7, Segmented Neutrophils 76 H, Lymphocytes 16 L, Monocytes 7, Eosinophils 1, Platelet Estimate VERIFIED BY SMEAR, Polychromasia 1+, Hypochromic-Microcytic 2+, Poikilocytosis 1+, Anisocytosis 1+, Microcytic Cells 1+, Target Cells , PUBS MCHC 32.0 L 04/27/172014: Urine Color YEL, Urine Clarity CLEAR, Urine pH 6.0, Ur Specific [place] 1.020, Urine Protein 30 H, Urine Ketones NEG, Urine Nitrite NEG, Urine Bilirubin NEG, Urine Urobilinogen 0.2, Ur Leukocyte Esterase NEG, Ur Microscopic SEDIMENT EXAMINED, Urine RBC 3-5, Urine WBC 1-3 H, Ur Epithelial Cells FEW, Urine Crystals 1+ UR AC H, Hyaline Casts MOD H, Granular Casts RARE H, Urine Mucus FEW, Urine Hemoglobin MOD H, Urine Glucose NEG Vital Signs Date Time Temp Pulse Resp B/P B/P Pulse O2 O2 Flow FiO2 Mean Ox Delivery Rate 04/30 1033 76 130/70 04/30 0701 97.8 103 20 130/70 100 04/29 2253 98.0 96 19 124/60 97 Room Air 04/29 1800 98.9 68 20 142/58 04/29 1545 98.9 68 20 142/58 97 Room Air 04/29 1200 97.8 74 20 128/56
[2017-04-30 14:49] VITALS: BP 110/52
[2017-04-30 16:55] LABS: PTT 87 SEC (25-37)
[2017-04-30 22:32] VITALS: BP 110/54
[2017-05-01 03:50] LABS: PTT > 120 SEC (25-37)
[2017-05-01 07:03] VITALS: BP 126/60
[2017-05-01 08:19] LABS: PT 19.1 SEC (9.4-12.5)
[2017-05-01 08:31] LABS: RBC DISTRIBUTION WIDTH 21.9 % (11.5-14.5)
[2017-05-01 08:38] LABS: HEMATOCRIT 32.1 % (42-52); MEAN CORPUSCULAR HGB 24.5 PG (27.0-31.0); MEAN CORPUSCULAR HGB CONC 31.6 G/DL (33.0-37.0); MEAN CORPUSCULAR VOLUME 77.6 FL (80.0-94.0); MEAN PLATELET VOLUME 10.2 FL (7.4-10.4); PLATELET COUNT 191 /CUMM (130-400); RED BLOOD CELL CT 4.14 /CUMM (4.70-6.10)
[2017-05-01 08:40] LABS: WHITE BLOOD CELL COUNT 12.1 /CUMM (4.8-10.8)
--- NOTE | 2017-05-01 10:17 | PN- Att Addend ---
Attending Addendum Attending Brief Note Patient sitting in the chair trying to moderation self with some protein. Vital signs are stable no fever and no major changes on physical. Patient will have his liver biopsy tomorrow morning after that able to start the plan of treatment depending on the results of the biopsy and hopefully able to return to take the medications prior to the biopsy. Intake & Output 05/01 1600 05/01 0400 04/30 1600 04/30 0400 04/29 1600 04/29 0400 Intake Total 232 926 8864 300 2240 880 Output Total 100 200 300 Balance 863 21 [id number] 106 5479 880 Intake, IV 600 3974 964 0881 400 Intake, Oral 240 240 500 740 480 Number 0 1 Bowel Movements Output, Urine 100 200 300 Patient 165 lb 164 lb 162 lb 162 lb Weight Weight Bed scale Measurement Method Current Medications Sig/[place] Start time Last Medication Dose Route Stop Time Status Admin Atorvastatin Calcium 20 MG 1700 04/25 1700 AC 04/30 PO 1817 Dextrose/Water 1,000 ML Q20H 04/30 1430 AC 05/01 IV 0457 Dextrose/Water 1,000 ML ONCE ONE 04/30 1045 DC 04/30 IV 05/01 0004 1040 Dextrose/Water 1,000 ML ONCE ONE 04/30 1030 DC 04/30 IV 04/30 2029 1029 Heparin Sodium 25,000 UNIT Q24H 04/29 2000 AC 05/01 (Porcine) IV 0457 Sodium Chloride 500 ML Isosorbide 60 MG DAILY 04/25 1000 AC 05/01 Mononitrate PO 0905 Lidocaine 1 PAT DAILY 04/26 1000 AC 05/01 EXT 0904 Lorazepam 0.5 MG BID PRN 04/25 0030 AC 04/29 PO 05/02 0021 2236 Melatonin 5 MG AT BEDTIME 04/26 2200 AC 04/30 PO 2056 Metoprolol Succinate 25 MG DAILY 04/25 1000 AC 05/01 PO 0905 Multivitamins 1 TAB DAILY 04/25 1000 AC 05/01 PO 0905 Omeprazole 40 MG DAILY AC 04/25 0700 AC 05/01 PO 0420 Oxycodone HCl 10 MG ONCE ONE 04/30 1800 DC 04/30 PO 04/30 1801 1818 Oxycodone HCl 5 MG ONCE ONE 04/30 1030 DC 04/30 PO 04/30 1031 1033 Prednisone 4 MG DAILY 01/04 1000 AC 05/01 PO 0905 Sodium Chloride 1,000 ML Q10H 04/27 1515 DC 04/30 IV 0348 Laboratory Tests 05/01/17 1010: APTT Pending 05/01/17 0651: Anion Gap 16, Estimated GFR 49 L, BUN/Creatinine Ratio 21.4, Calcium 9.6, Total Bilirubin 1.5 H, Direct Bilirubin 0.7 H, AST 559 H, ALT 61, Alkaline Phosphatase 256 H, Total Protein 5.9 L, Albumin 3.4 L, PT 19.1 H, INR 1.83 H, CBC w Diff MAN DIFF ORDERED, RBC 4.14 L, MCV 77.6 L, MCH 24.5 L, RDW 21.9 H, MPV 10.2, Segmented Neutrophils 76 H, Band Neutrophils 2, Lymphocytes 13 L, Monocytes 8, Basophils 1, Platelet Estimate ADEQUATE, Hypochromic-Microcytic 2+, Poikilocytosis 2+, Anisocytosis 2+, Microcytic Cells 1+, PUBS MCHC 31.6 L 05/01/17 0219: APTT > 120 *H 04/30/17 1436: APTT 87 H 04/30/17 1206: Anion Gap 13, Estimated GFR 45 L, BUN/Creatinine Ratio 24.0 04/30/17 0814: Anion Gap 16, Estimated GFR 39 L, BUN/Creatinine Ratio 21.2, Total Bilirubin 1.5 H, Direct Bilirubin 0.8 H, AST 465 H, ALT 59, Alkaline Phosphatase 276 H , Total Protein 5.9 L, Albumin 3.4 L, PT 17.1 H, INR 1.64 H, CBC w Diff MAN DIFF ORDERED, RBC 3.92 L, MCV 77.9 L, MCH 24.5 L, RDW 21.9 H, MPV 9.6, Segmented Neutrophils 80 H, Lymphocytes 14 L, Monocytes 5, Eosinophils 1, Platelet Estimate ADEQUATE, Polychromasia , Hypochromic-Microcytic 1+, Anisocytosis 1+, Microcytic Cells 1+, Target Cells FEW, PUBS MCHC 31.5 L 04/30/17 0400: PT Cancelled, INR Cancelled 04/29/17 0715: Anion Gap 17 H, Estimated GFR 31 L, BUN/Creatinine Ratio 21.0, Calcium 10.0, Total Bilirubin 1.3, Direct Bilirubin 0.7 H, AST 369 H, ALT 54, Alkaline Phosphatase 263 H, Total Protein 6.2 L, Albumin 3.5, PT 17.0 H, INR 1.63 H, CBC w Diff MAN DIFF ORDERED, RBC 4.02 L, MCV 77.5 L, MCH 24.6 L, RDW 21.2 H, MPV 9.7, Segmented Neutrophils 77 H, Lymphocytes 14 L, Monocytes 9, Platelet Estimate VERIFIED BY SMEAR, Polychromasia 1+, Hypochromic-Microcytic 2+, Poikilocytosis 1+, Anisocytosis 2+, Microcytic Cells 1+, Target Cells 1+, Ovalocytes 1+, PUBS MCHC 31.7 L 04/28/17 2318: Anion Gap 14, Estimated GFR 29 L, BUN/Creatinine Ratio 21.4 Vital Signs Date Time Temp Pulse Resp B/P B/P Pulse O2 O2 Flow FiO2 Mean Ox Delivery Rate 05/01 904 98 126/60 05/01 0905 98 126/60 05/01 0703 98.4 98 20 126/60 96 Room Air 04/30 2232 98.5 66 20 110/54 97 Room Air 04/30 1449 97.8 112 20 110/52 98 Room Air 04/30 1033 76 130/70
[2017-05-01 10:59] LABS: PTT 91 SEC (25-37)
--- NOTE | 2017-05-01 12:14 | PN- Housestaff ---
Subjective Follow-up For: Liver mass Hepatic steatosis LAUREN Hypernatremia History of atrial fibrillation Weakness Subjective: The patient was seen and examined. Family present at bedside. He reports that he feels sore all over his body especially his back. The patient has required multiple when necessary doses of 10 mg oxycodone. The patient still reports generalized weakness, mild abdominal discomfort and low appetite. He denies any headache, nausea, vomiting, dizziness, lightheadedness, chest pain, urinary symptoms. The patient has remained afebrile with stable vital signs. The patient is scheduled for ultrasound-guided liver biopsy tomorrow morning at 10:30 AM. He will need to be off heparin and 6:30 AM. Review of Systems Constitutional: Reports: see HPI. Objective Last 24 Hrs of Vital Signs/I&O Vital Signs Date Time Temp Pulse Resp B/P B/P Pulse O2 O2 Flow FiO2 Mean Ox Delivery Rate 05/01 1444 98.0 66 18 130/58 96 05/01 0905 98 126/60 05/01 0905 98 126/60 05/01 0703 98.4 98 20 126/60 96 Room Air 04/30 2232 98.5 66 20 110/54 97 Room Air Intake & Output 05/01 1600 05/01 0800 05/01 0000 Intake Total 1740 840 240 Output Total 100 200 Balance 1740 740 40 Intake, IV 600 600 Intake, Oral 1140 240 240 Number 0 Bowel Movements Output, Urine 100 200 Patient 164 lb 165 lb Weight Weight Bed scale Bed scale Measurement Method Physical Exam General Appearance: Alert, Oriented X3, Cooperative, Mild Distress Other Physical Findings: Skin: an area of open wound present on right buttuck, clean, well healing w/o pus or erythema or tenderness. Multiple healed lesions noted on buttock. HEENT: Atraumatic, PERRLA, EOMI, Mucous Membr. moist/pink Neck: Supple, No JVD, No thryomegaly, +2 Carotid Pulse wo Bruit, No LAD Cardiovascular: Irregular, No Murmurs, Gallops, Rubs Lungs: Clear to Auscultation, Normal Air Movement Abdomen: NL BS, mild tenderness to palpation on right upper quadrant and epigastrium, ND, No CVA tenderness Neurological: Normal Speech, Strength at 5/5 X4 Ext, Normal Tone, Sensation Intact, Cranial Nerves 3-12 NL, Reflexes 2+ Extremities: No Clubbing, No Cyanosis, No Edema, Normal Pulses, No Tenderness/ Swelling Vascular: Normal Pulses, Pulses Symmetrical Current Medications: Current Medications Sig/[place] Start time Last Medication Dose Route Stop Time Status Admin Atorvastatin Calcium 20 MG 1700 04/25 1700 AC 05/01 PO 1726 Dextrose/Water 1,000 ML Q20H 04/30 1430 AC 05/01 IV 0457 Heparin Sodium 25,000 UNIT Q24H 04/29 2000 AC 05/01 (Porcine) IV 05/02 0630 1217 Sodium Chloride 500 ML Isosorbide 60 MG DAILY 04/25 1000 AC 05/01 Mononitrate PO 0905 Lidocaine 1 PAT DAILY 04/26 1000 AC 05/01 EXT 0904 Lorazepam 0.5 MG BID PRN 04/25 0030 AC 04/29 PO 05/02 0021 2236 Melatonin 5 MG AT BEDTIME 04/26 2200 AC 04/30 PO 2056 Metoprolol Succinate 25 MG DAILY 04/25 1000 AC 05/01 PO 0905 Multivitamins 1 TAB DAILY 04/25 1000 AC 05/01 PO 0905 Nystatin 1 KISHOR BID 05/01 1409 AC 05/01 TOP 1727 Omeprazole 40 MG DAILY AC 04/25 0700 AC 05/01 PO 0420 Oxycodone HCl 10 MG Q8P PRN 05/01 1415 AC PO Oxycodone HCl 10 MG Q8 PRN 05/01 1230 DC PO Oxycodone HCl 10 MG ONCE ONE 05/01 1200 DC 05/01 PO 05/01 1201 1206 Prednisone 4 MG DAILY 04/26 1000 AC 05/01 PO 0905 Last 24 Hrs of Lab/Teo Results Last 24 Hrs of Labs/Mics: Laboratory Tests 05/01/17 1835: APTT Pending 05/01/17 1010: APTT 91 H 05/01/17 0651: Anion Gap 16, Estimated GFR 49 L, BUN/Creatinine Ratio 21.4, Calcium 9.6, Total Bilirubin 1.5 H, Direct Bilirubin 0.7 H, AST 559 H, ALT 61, Alkaline Phosphatase 256 H, Total Protein 5.9 L, Albumin 3.4 L, PT 19.1 H, INR 1.83 H, CBC w Diff MAN DIFF ORDERED, RBC 4.14 L, MCV 77.6 L, MCH 24.5 L, RDW 21.9 H, MPV 10.2, Segmented Neutrophils 76 H, Band Neutrophils 2, Lymphocytes 13 L, Monocytes 8, Basophils 1, Platelet Estimate ADEQUATE, Hypochromic-Microcytic 2+, Poikilocytosis 2+, Anisocytosis 2+, Microcytic Cells 1+, PUBS MCHC 31.6 L 05/01/17 0219: APTT > 120 *H Microbiology 05/01 1305 BLOOD: Blood Culture - RECD 05/01 1250 BLOOD: Blood Culture - RECD Assessment/Plan Assessment: Mr Lyon is an 81-year-old gentleman with a past history of Atrial fibrillation on DOAC, CAD s/p stent ( type unknown, Apr 2016 ), HTN, PMR, HFpEF who is evaluated for generalized weakness, abdominal discomfort and decreased by mouth intake the last few days, likely secondary from electrolyte abnormalities. CT abdomen revealed diverticulosis and hepatic steatosis. CT head was within normal limits, without any acute abnormality. Last echocardiogram done in 10/2016 revealed ejection fraction of 55%, with anteroseptal hypokinesis. Problem list/Plan: #LAUREN: -Presented with cr of 1.4 on admission was thought to be from dehydration. -Losartan and furosemide were held on admission and he received IV fluids. -IV fluids stopped next day after creatinine normalized(Apr 25), losartan was restarted. Furosemide still held. -CT abd/pelvis on admission:Both kidneys are of normal size and attenuation without hydronephrosis or nephrolithiasis. -Creatinine today improved to 1.4 -F/U nephro consult -Avoid nephrotoxins -Continue to hold losartan and furosemide. #Hypernatreamia: -Was started on D5W -Sodium level improvin today (yesterday 151). -Nephrology consult appreciated, recommended to continue current fluid therapy with dextrose water at 50 mL per hour. -Encourage by mouth intake. -Check daily BEP and adjust fluids based on water deficit. #Hepatic steatosis-Liver mass: -Abd US: Large infiltrative and heterogeneous mass right lobe of the liver. -MRI abdomen with and without contrast: Numerous infiltrative lesions throughout the liver with a heterogeneous appearance -Check daily LFTs -IR BX to be done on Sunday. -Last dose of plavix received Apr 26, 2016, 9:50 am. Last dose of Xarelto received: Apr 26; on heparin bridge now. -INR elevated, per IR INR should be below 1.5 -Per cardio INR cannot be assessed when patient is on xarelto -Given patient's underlying liver disease, it is hard to estimate if abnormal INR is only result of being on xarelto -Check daily INR: today:1.83(mild increased from yesterday: 1.64) -Spoke with radiologist, from IR, Dr. Eisenberg. INR slightly elevated. Will have to check a level tomorrow morning and inform radiologist. The patient may need FFP depending on INR results and radiologist opinion. -Spoke with the blood bank, FFP should be ordered 20 minutes before the transfusion time. -Type and crossmatch ordered for the morning in case patient needs FFP. -The patient needs to be off heparin drip 4 hours prior to procedure. - Discontinue heparin 6:30 AM 05/02/2017. #Leukocytosis: -The patient developed leukocytosis to 12.1, slight worsening of AST noted (559 from 465 yesterday), bilirubin 1.5, same level as yesterday. -Patient afebrile. -Discussed with woodenware assembler, Dr. Echevarria, he did not recommend any acute intervention, no imaging needed. Per Dr. Echevarria, this level of bilirubin and the fact that patient is afebrile, there is no concern for cholangitis at this point. -Blood cultures obtained. -ID recommended to follow off antibiotics. #Wound on Rt buttock: -Well healing -C/w wound care -ID consult appreciated -Surgery consult placed #Hypercalcemia-resolved. -Asymptomatic #Chronic back pain: -On Vicodin and Lidoderm patch at home for chronic back pain. Given transaminitis would hold off Vicodin -Will continue Lidoderm patch. -Patient and family state that the current when necessary doses of oxycodone is not managing patient's pain adequately. He seems to be in distress because of the pain. -Discussed with attending, Dr. Sepnce regarding the pain management. -Per his recommendation recommendation, will start the patient on oxycodone 10 mg every 8 when necessary. #History of atrial fibrillation and reported new T wave inversions -no chest pain, palpitations or shortness of breath at this time. -Given aspirin 1. on admission -Check serial ekgs and trops; negative -C/w metoprolol, statin -Xarelto and plavix held in anticipation of IR bx -Cardiology consult appreciated; confirmed with Dr. Orta, the patient does not need telemtry monitor(Dr. Orta's Apr 27 cardiology note was typed c/w telemetry by error) #microcytic anemia -Iron 47, TIBC 516, ferritin 449 -Consider iron supplementation upon discharge -Check Hemoccult #Unsteady gait -PT eval #DVT prophylaxis: -Heparin GTT and ALPS #CODE STATUS: -Full code Problem List: 1. Liver mass 2. Dehydration 3. LAUREN (acute kidney injury) Pain Ratin Pain Location: back Pain Goal: Pain 4 or less Pain Plan: Oxycodone 10 mg q8 PRN Lidoderm patch Tomorrow's Labs & Rationales: Type and screen CBC to monitor H&H BEP, Ca to monitor cr , electrolytes LFTs trend INR trend
--- NOTE | 2017-05-01 13:23 | PN- Nephrology ---
Assessment/Plan Assessment: 1. Acute kidney injury . Cause of the acute kidney injury is likely related to gadolinium. Please see Dr. Myron Díaz's consult. His serum creatinine today is 1.4. 2. Would continue with supportive care. The soaps that his serum creatinine will return to its previous baseline level of 1.0 3. Await the results of the planned biopsy Suggestion: 1. Continue with current regimen 2. Avoid nephrotoxins including contrast and nonsteroidal anti-inflammatory drugs. Subjective Subjective: Patient feels better. Objective Vital Signs and I&Os Vital Signs Date Time Temp Pulse Resp B/P B/P Pulse O2 O2 Flow FiO2 Mean Ox Delivery Rate 05/01 904 98 126/60 05/01 0905 98 126/60 05/01 0703 98.4 98 20 126/60 96 Room Air 04/30 2232 98.5 66 20 110/54 97 Room Air 04/30 1449 97.8 112 20 110/52 98 Room Air Intake & Output 05/01 1600 05/01 0400 04/30 1600 04/30 0400 04/29 1600 04/29 0400 Intake Total 801 103 5101 300 2240 880 Output Total 100 200 300 Balance 709 32 [id number] 084 5977 880 Intake, IV 600 6789 114 3381 400 Intake, Oral 240 240 500 740 480 Number 0 1 Bowel Movements Output, Urine 100 200 300 Patient 164 lb 164 lb 162 lb 162 lb Weight Weight Bed scale Measurement Method Physical Exam: General Appearance: well developed/nourished, no apparent distress, alert, awake , comfortable Head: atraumatic, normal appearance Ears, Nose, Throat: normal pharynx, normal ENT inspection, hearing grossly normal Neck: supple, full range of motion, JVD, trachea mid line Respiratory: normal breath sounds, chest non-tender, no respiratory distress, lungs clear Cardiovascular: regular rate/rhythm, edema, gallop Abdomen: normal bowel sounds, soft, non-tender, no organomegaly Extremities: normal inspection, normal capillary refill Neurologic/Psychiatric: awake, alert, oriented x 3, moving all extremities Skin: intact, normal color, no rash Current Medications: Current Medications Sig/[place] Start time Last Medication Dose Route Stop Time Status Admin Atorvastatin Calcium 20 MG 1700 04/25 1700 AC 04/30 PO 1817 Dextrose/Water 1,000 ML Q20H 04/30 1430 AC 05/01 IV 0457 Dextrose/Water 1,000 ML ONCE ONE 04/30 1045 DC 04/30 IV 05/01 0004 1040 Heparin Sodium 25,000 UNIT Q24H 04/29 1999 AC 05/01 (Porcine) IV 1217 Sodium Chloride 500 ML Isosorbide 60 MG DAILY 04/25 1000 AC 05/01 Mononitrate PO 09 Lidocaine 1 PAT DAILY 04/26 1000 AC 05/01 EXT 0904 Lorazepam 0.5 MG BID PRN 04/25 0030 AC 04/29 PO 05/02 0021 2236 Melatonin 5 MG AT BEDTIME 04/26 2200 AC 04/30 PO 205 Metoprolol Succinate 25 MG DAILY 04/25 1000 AC 05/01 PO 09 Multivitamins 1 TAB DAILY 04/25 1000 AC 05/01 PO 09 Omeprazole 40 MG DAILY AC 04/25 0700 AC 05/01 PO 0420 Oxycodone HCl 10 MG Q8 PRN 05/01 1230 AC PO Oxycodone HCl 10 MG ONCE ONE 05/01 1200 DC 05/01 PO 05/01 1201 1206 Oxycodone HCl 10 MG ONCE ONE 04/30 1800 DC 04/30 PO 04/30 1801 1818 Prednisone 4 MG DAILY 04/26 1000 AC 05/01 PO 0905 Results Pertinent Lab Results: Laboratory Tests 05/01 05/01 05/01 04/30 1010 0651 0219 1436 Chemistry Sodium (137 - 145 mmol/L) 146 H Potassium (3.5 - 5.1 mmol/L) 4.4 Chloride (98 - 107 mmol/L) 113 H Carbon Dioxide (22 - 30 mmol/L) 16 L Anion Gap (5 - 16) 16 BUN (9 - 20 mg/dL) 30 H Creatinine (0.7 - 1.2 mg/dL) 1.4 H Estimated GFR (>60 ml/min) 49 L BUN/Creatinine Ratio (7 - 25 %) 21.4 Calcium (8.4 - 10.2 mg/dL) 9.6 Total Bilirubin (0.2 - 1.3 mg/dL) 1.5 H Direct Bilirubin (< 0.4 mg/dL) 0.7 H AST (17 - 59 U/L) 559 H ALT (21 - 72 U/L) 61 Alkaline Phosphatase (< 127 U/L) 256 H Total Protein (6.3 - 8.2 g/dL) 5.9 L Albumin (3.5 - 5.0 g/dL) 3.4 L Coagulation PT (9.4 - 12.5 SEC) 19.1 H INR (0.90 - 1.17) 1.83 H APTT (25 - 37 SEC) 91 H > 120 *H 87 H Hematology CBC w Diff MAN DIFF ORDERED WBC (4.8 - 10.8 /CUMM) 12.1 H RBC (4.70 - 6.10 /CUMM) 4.14 L Hgb (14.0 - 18.0 G/DL) 10.2 L Hct (42 - 52 %) 32.1 L MCV (80.0 - 94.0 FL) 77.6 L MCH (27.0 - 31.0 PG) 24.5 L RDW (11.5 - 14.5 %) 21.9 H Plt Count (130 - 400 /CUMM) 191 MPV (7.4 - 10.4 FL) 10.2 Segmented Neutrophils (42.2 - 75.2 %) 76 H Band Neutrophils (0.0 - 5.0 %) 2 Lymphocytes (20.5 - 51.1 %) 13 L Monocytes (1.7 - 9.3 %) 8 Basophils (0.0 - 2.0 %) 1 Platelet Estimate (ADEQUATE) ADEQUATE Hypochromic-Microcytic 2+ Poikilocytosis 2+ Anisocytosis 2+ Microcytic Cells 1+ PUBS MCHC (33.0 - 37.0 G/DL) 31.6 L 04/30 04/30 04/30 1206 0814 0400 Chemistry Sodium (137 - 145 mmol/L) 146 H 151 H Potassium (3.5 - 5.1 mmol/L) 4.3 4.6 Chloride (98 - 107 mmol/L) 118 H 118 H Carbon Dioxide (22 - 30 mmol/L) 15 L 17 L Anion Gap (5 - 16) 13 16 BUN (9 - 20 mg/dL) 36 H 36 H Creatinine (0.7 - 1.2 mg/dL) 1.5 H 1.7 H Estimated GFR (>60 ml/min) 45 L 39 L BUN/Creatinine Ratio (7 - 25 %) 24.0 21.2 Total Bilirubin (0.2 - 1.3 mg/dL) 1.5 H Direct Bilirubin (< 0.4 mg/dL) 0.8 H AST (17 - 59 U/L) 465 H ALT (21 - 72 U/L) 59 Alkaline Phosphatase (< 127 U/L) 276 H Total Protein (6.3 - 8.2 g/dL) 5.9 L Albumin (3.5 - 5.0 g/dL) 3.4 L Coagulation PT (9.4 - 12.5 SEC) 17.1 H Cancelled INR (0.90 - 1.17) 1.64 H Cancelled Hematology CBC w Diff MAN DIFF ORDERED WBC (4.8 - 10.8 /CUMM) 7.3 RBC (4.70 - 6.10 /CUMM) 3.92 L Hgb (14.0 - 18.0 G/DL) 9.6 L Hct (42 - 52 %) 30.5 L MCV (80.0 - 94.0 FL) 77.9 L MCH (27.0 - 31.0 PG) 24.5 L RDW (11.5 - 14.5 %) 21.9 H Plt Count (130 - 400 /CUMM) 180 MPV (7.4 - 10.4 FL) 9.6 Segmented Neutrophils (42.2 - 75.2 %) 80 H Lymphocytes (20.5 - 51.1 %) 14 L Monocytes (1.7 - 9.3 %) 5 Eosinophils (0 - 5.0 %) 1 Platelet Estimate (ADEQUATE) ADEQUATE Polychromasia Hypochromic-Microcytic 1+ Anisocytosis 1+ Microcytic Cells 1+ Target Cells FEW PUBS MCHC (33.0 - 37.0 G/DL) 31.5 L 04/29 04/28 0715 2318 Chemistry Sodium (137 - 145 mmol/L) 147 H 145 Potassium (3.5 - 5.1 mmol/L) 4.6 4.5 Chloride (98 - 107 mmol/L) 117 H 116 H Carbon Dioxide (22 - 30 mmol/L) 13 L 15 L Anion Gap (5 - 16) 17 H 14 BUN (9 - 20 mg/dL) 44 H 47 H Creatinine (0.7 - 1.2 mg/dL) 2.1 H 2.2 H Estimated GFR (>60 ml/min) 31 L 29 L BUN/Creatinine Ratio (7 - 25 %) 21.0 21.4 Calcium (8.4 - 10.2 mg/dL) 10.0 Total Bilirubin (0.2 - 1.3 mg/dL) 1.3 Direct Bilirubin (< 0.4 mg/dL) 0.7 H AST (17 - 59 U/L) 369 H ALT (21 - 72 U/L) 54 Alkaline Phosphatase (< 127 U/L) 263 H Total Protein (6.3 - 8.2 g/dL) 6.2 L Albumin (3.5 - 5.0 g/dL) 3.5 Coagulation PT (9.4 - 12.5 SEC) 17.0 H INR (0.90 - 1.17) 1.63 H Hematology CBC w Diff MAN DIFF ORDERED WBC (4.8 - 10.8 /CUMM) 7.6 RBC (4.70 - 6.10 /CUMM) 4.02 L Hgb (14.0 - 18.0 G/DL) 9.9 L Hct (42 - 52 %) 31.1 L MCV (80.0 - 94.0 FL) 77.5 L MCH (27.0 - 31.0 PG) 24.6 L RDW (11.5 - 14.5 %) 21.2 H Plt Count (130 - 400 /CUMM) 205 MPV (7.4 - 10.4 FL) 9.7 Segmented Neutrophils (42.2 - 75.2 %) 77 H Lymphocytes (20.5 - 51.1 %) 14 L Monocytes (1.7 - 9.3 %) 9 Platelet Estimate (ADEQUATE) VERIFIED BY SMEAR Polychromasia 1+ Hypochromic-Microcytic 2+ Poikilocytosis 1+ Anisocytosis 2+ Microcytic Cells 1+ Target Cells 1+ Ovalocytes 1+ PUBS MCHC (33.0 - 37.0 G/DL) 31.7 L
[2017-05-01 14:44] VITALS: BP 130/58
--- NOTE | 2017-05-01 16:41 | Cons- Infect Disease ---
General Information and HPI Consulting Request Date of Consult: 05/01/17 Requested By: Johnathan Spence MD Reason for Consult: Right buttock wound/elevated white blood cell count Source of Information: patient, family, old records History of Present Illness: This is an 81-year-old man with a history of atrial fibrillation, maintained on Xarelto, coronary artery disease, status post a stent, hypertension, HFpEF, polymyalgia rheumatica, maintained on 5 mmol of prednisone daily, chronic back pain, maintained on Vicodin, and a history of recurrent right buttock abscesses, requiring periodic drainage, admitted on April 24 with several weeks of abdominal discomfort, decreased po intake, dysphagia and hoarseness and more acute onset of weakness, lethargy and confusion. On admission he was afebrile. Laboratory data revealed a white blood cell count of 8000, with occasional reactive/atypical lymphs, BUN/creatinine 58 and 1.4, alkaline phosphatase 259, AST/ALT 350 and 31, INR 2.84. Urinalysis rare RBCs/1-[address] of the head was negative for any acute process. CT of the abdomen and pelvis revealed a 2.3 cm low attenuation lesion in the left lobe of the liver. He was given IV fluids with an initial decrease in his BUN/creatinine. Further evaluation of the liver included a right upper quadrant ultrasound, which revealed a large infiltrative and heterogeneous echogenicity throughout the right lobe of the liver and 2 additional more focal hypoechoic masses in the left and right lobes of the liver , and an MRI of the abdomen which revealed numerous infiltrative lesions throughout the liver with a heterogeneous appearance, most suspicious for adenocarcinoma metastatic disease. His hospital course has been complicated by renal failure, attributed to the gadolinium used in the MRI, and this has been improving. He has been afebrile since admission. His white blood cell count has been normal until today, when it was found to be elevated to 12,000. He offers no complaints at this time. His abdominal pain and back pain have been well controlled with Oxycodone. Allergies/Medications Allergies: Coded Allergies: NO KNOWN ALLERGIES (UNKNOWN 12/18/16) Home Med List: Acetaminophen (Tylenol Extra Strength) 500 MG TABLET 2 TAB PO TID PAIN ( Reported) Clopidogrel Bisulfate (Clopidogrel) 75 MG TABLET 1 TAB PO DAILY BLOOD THINNER (Reported) Furosemide (Lasix) 40 MG TABLET 1 TAB PO DAILY FLUID OVERLOAD Hydrocodone Bitartrate (Hysingla ER) 20 MG TAB.ER.24H 1 TAB PO DAILY BACK PAIN (Reported) Hydrocodone/Acetaminophen (Hydrocodon-Acetaminophn 10-300) 10 MG-300 MG TABLET 1 TAB PO BID PRN Back pain (Reported) Isosorbide Mononitrate (Isosorbide Mononitrate ER) 60 MG TAB.ER.24H 1 TAB PO DAILY heart Lorazepam (Ativan) 0.5 MG TABLET 1 TAB PO BID ANXIETY (Reported) Metoprolol Succinate 25 MG TAB 1 TAB PO DAILY HIGH BP (Reported) Olmesartan Medoxomil (Benicar) 40 MG TABLET 1 TAB PO DAILY HEART (Reported) Omeprazole 40 MG CAPSULE.DR 1 CAP PO DAILY GERD (Reported) Potassium Chloride (Klor-Con M10) 10 MEQ TAB.ER.PRT 1 TAB PO DAILY SUPPLEMENT (Reported) Prednisone 1 MG TABLET 4 TAB PO DAILY PMR (Reported) Rivaroxaban (Xarelto) 20 MG TABLET 1 TAB PO QPM ATRIAL FIBRILLATION (Reported ) with food Simvastatin (Zocor*) 20 MG TABLET 1 TAB PO DAILY HLP (Reported) Past History Travel History Traveled to [place] past 21 day No Medical History Neurological: NONE EENT: NONE Cardiovascular: AFIB, CAD (stent), CHF, hypertension, hyperlipidemia, NSTEMI, [place] STENT PLACED 2017 [place] 1993 Respiratory: NONE Gastrointestinal: NONE Hepatic: NONE Renal: NONE Musculoskeletal: disk herniation, PMR ARTHRITIS Psychiatric: anxiety Endocrine: NONE Blood Disorders: NONE Cancer(s): NONE 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 One brother of pulmonary embolism.). Psychosocial History Where Do You Live? Home Who Do You Live With? spouse Services at Home: None Smoking Status: Never Smoked Living Will? yes Functional Ability ADLs Independent: dressing, eating, toileting, bathing. Ambulation: cane IADLs Independent: shopping, housework, finances, food prep, telephone, transportation , medication admin. Review of Systems Review of Systems All Other Systems: Reviewed and Negative Exam & Diagnostic Data Last 24 Hrs of Vital Signs/I&O Vital Signs Date Time Temp Pulse Resp B/P B/P Pulse O2 O2 Flow FiO2 Mean Ox Delivery Rate 05/01 1444 98.0 66 18 130/58 96 05/01 904 98 126/60 05/01 904 98 126/60 05/01 0703 98.4 98 20 126/60 96 Room Air 04/30 2232 98.5 66 20 110/54 97 Room Air Intake & Output 05/01 1600 05/01 0800 05/01 0000 Intake Total 840 240 Output Total 100 200 Balance 740 40 Intake, IV 600 Intake, Oral 240 240 Output, Urine 100 200 Patient 164 lb 165 lb Weight Weight Bed scale Bed scale Measurement Method Physical Exam Other Physical Findings: Afebrile. He is awake and alert in no acute distress. Skin reveals no rash. HEENT negative. Neck is supple with no adenopathy. Lungs are clear. Heart irregular rhythm with no murmur. Abdomen is soft, mildly tender on palpation over the right upper quadrant and epigastrium, with positive bowel sounds. Back no CVA tenderness; right buttock wound clean, with no surrounding erythema, induration or tenderness and with no active drainage. Extremities no cyanosis, clubbing or edema. Neuro is without focality. Last 24 Hours of Lab Results: Laboratory Tests 05/01 05/01 05/01 1010 0651 0219 Chemistry Sodium (137 - 145 mmol/L) 146 H Potassium (3.5 - 5.1 mmol/L) 4.4 Chloride (98 - 107 mmol/L) 113 H Carbon Dioxide (22 - 30 mmol/L) 16 L Anion Gap (5 - 16) 16 BUN (9 - 20 mg/dL) 30 H Creatinine (0.7 - 1.2 mg/dL) 1.4 H Estimated GFR (>60 ml/min) 49 L BUN/Creatinine Ratio (7 - 25 %) 21.4 Calcium (8.4 - 10.2 mg/dL) 9.6 Total Bilirubin (0.2 - 1.3 mg/dL) 1.5 H Direct Bilirubin (< 0.4 mg/dL) 0.7 H AST (17 - 59 U/L) 559 H ALT (21 - 72 U/L) 61 Alkaline Phosphatase (< 127 U/L) 256 H Total Protein (6.3 - 8.2 g/dL) 5.9 L Albumin (3.5 - 5.0 g/dL) 3.4 L Coagulation PT (9.4 - 12.5 SEC) 19.1 H INR (0.90 - 1.17) 1.83 H APTT (25 - 37 SEC) 91 H > 120 *H Hematology CBC w Diff MAN DIFF ORDERED WBC (4.8 - 10.8 /CUMM) 12.1 H RBC (4.70 - 6.10 /CUMM) 4.14 L Hgb (14.0 - 18.0 G/DL) 10.2 L Hct (42 - 52 %) 32.1 L MCV (80.0 - 94.0 FL) 77.6 L MCH (27.0 - 31.0 PG) 24.5 L RDW (11.5 - 14.5 %) 21.9 H Plt Count (130 - 400 /CUMM) 191 MPV (7.4 - 10.4 FL) 10.2 Segmented Neutrophils (42.2 - 75.2 %) 76 H Band Neutrophils (0.0 - 5.0 %) 2 Lymphocytes (20.5 - 51.1 %) 13 L Monocytes (1.7 - 9.3 %) 8 Basophils (0.0 - 2.0 %) 1 Platelet Estimate (ADEQUATE) ADEQUATE Hypochromic-Microcytic 2+ Poikilocytosis 2+ Anisocytosis 2+ Microcytic Cells 1+ PUBS MCHC (33.0 - 37.0 G/DL) 31.6 L Last 24 Hours of [place] Results: Blood cultures May 01 pending Diagnostic Data Recent Imaging Findings: CT of the head negative for any acute process. CT of the abdomen and pelvis revealed a 2.3 cm low attenuation lesion in the left lobe of the liver Right upper quadrant ultrasound April 26 revealed a large infiltrative and heterogeneous echogenicity throughout the right lobe of the liver and 2 additional more focal hypoechoic masses in the left and right lobes of the liver MRI of the abdomen April 26 revealed numerous infiltrative lesions throughout the liver with a heterogeneous appearance, most suspicious for adenocarcinoma metastatic disease. Assessment/Plan Assessment/Plan Impression: This is an 81-year-old man with a history of atrial fibrillation, maintained on Xarelto, coronary artery disease, status post a stent, hypertension, HFpEF, polymyalgia rheumatica, maintained on 5 mmol of prednisone daily, chronic back pain, maintained on Vicodin, and a history of recurrent right buttock abscesses admitted on April 24 with several weeks of abdominal discomfort, decreased po intake, dysphagia and hoarseness and more acute onset of weakness, lethargy and confusion, found to be afebrile with a normal white blood cell count and elevated liver enzymes, with workup, including MRI of the abdomen, revealing numerous infiltrative lesions throughout the liver with a heterogeneous appearance, most suspicious for adenocarcinoma metastatic disease. The presumed primary is of unclear origin. A recent colonoscopy was negative but, given his complaints of dysphagia and hoarseness, suspect an upper GI/pancreatic or ENT process. He has little evidence for any active infectious process. He has remained afebrile since admission and his white blood cell count, until today, has been normal. His right buttock wounds appear clean, with no evidence of any active infection. As he is stable he can be followed off antibiotics pending further evaluation. Suggestion: 1. Await liver biopsy, scheduled for the a.m. 2. Further evaluation for the primary source of his presumed metastases per Medicine 3. Continue to follow off antibiotics Consult Acknowledgment - Thank you for your consult request.
--- NOTE | 2017-05-01 18:11 | Cons- General Surgery ---
General Information and HPI Consulting Request Date of Consult: 05/01/17 Requested By: Johnathan Spence MD Reason for Consult: ABSCESS History of Present Illness: PATIENT SEEN PREVIOUSLY IN OFFICE FOR INFLAMMATION OF GLUTEUS. IT RESOLVED SPONTANEOUSLY. NOW ADMITTED FOR UNRELATED ISSURE. CONCERN THAT LEUKOCYTOSIS RELATED TO RECURRENT ABSCESS ON GLUTEUS. C/O PAIN AT SITE. DENIES DRAINAGE. Allergies/Medications Allergies: Coded Allergies: NO KNOWN ALLERGIES (UNKNOWN 12/18/16) Home Med List: Acetaminophen (Tylenol Extra Strength) 500 MG TABLET 2 TAB PO TID PAIN ( Reported) Clopidogrel Bisulfate (Clopidogrel) 75 MG TABLET 1 TAB PO DAILY BLOOD THINNER (Reported) Furosemide (Lasix) 40 MG TABLET 1 TAB PO DAILY FLUID OVERLOAD Hydrocodone Bitartrate (Hysingla ER) 20 MG TAB.ER.24H 1 TAB PO DAILY BACK PAIN (Reported) Hydrocodone/Acetaminophen (Hydrocodon-Acetaminophn 10-300) 10 MG-300 MG TABLET 1 TAB PO BID PRN Back pain (Reported) Isosorbide Mononitrate (Isosorbide Mononitrate ER) 60 MG TAB.ER.24H 1 TAB PO DAILY heart Lorazepam (Ativan) 0.5 MG TABLET 1 TAB PO BID ANXIETY (Reported) Metoprolol Succinate 25 MG TAB 1 TAB PO DAILY HIGH BP (Reported) Olmesartan Medoxomil (Benicar) 40 MG TABLET 1 TAB PO DAILY HEART (Reported) Omeprazole 40 MG CAPSULE.DR 1 CAP PO DAILY GERD (Reported) Potassium Chloride (Klor-Con M10) 10 MEQ TAB.ER.PRT 1 TAB PO DAILY SUPPLEMENT (Reported) Prednisone 1 MG TABLET 4 TAB PO DAILY PMR (Reported) Rivaroxaban (Xarelto) 20 MG TABLET 1 TAB PO QPM ATRIAL FIBRILLATION (Reported ) with food Simvastatin (Zocor*) 20 MG TABLET 1 TAB PO DAILY HLP (Reported) Past History Medical History Neurological: NONE EENT: NONE Cardiovascular: AFIB, CAD (stent), CHF, hypertension, hyperlipidemia, NSTEMI, [place] STENT PLACED 2017 [place] 1993 Respiratory: NONE Gastrointestinal: NONE Hepatic: NONE Renal: NONE Musculoskeletal: disk herniation, PMR ARTHRITIS Psychiatric: anxiety Endocrine: NONE Blood Disorders: NONE Cancer(s): NONE 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 One brother of pulmonary embolism.). Psychosocial History Where Do You Live? Home Who Do You Live With? spouse Services at Home: None Smoking Status: Never Smoked Living Will? yes Functional Ability ADLs Independent: dressing, eating, toileting, bathing. Ambulation: cane IADLs Independent: shopping, housework, finances, food prep, telephone, transportation , medication admin. Review of Systems Review of Systems: NO F/C/S. GLUTEAL PAIN. NO CONSTIPATION. Exam & Diagnostic Data Vital Signs and I&O Vital Signs Date Time Temp Pulse Resp B/P B/P Pulse O2 O2 Flow FiO2 Mean Ox Delivery Rate 05/01 1444 98.0 66 18 130/58 96 05/01 904 98 126/60 05/01 904 98 126/60 05/01 0703 98.4 98 20 126/60 96 Room Air 04/30 2232 98.5 66 20 110/54 97 Room Air Intake & Output 05/01 1600 05/01 0000 04/30 1600 04/30 0000 Intake Total 1740 370 473 1920 756 300 Output Total 100 200 300 Balance 1740 908 78 9782 756 300 Intake, IV 600 600 912 756 300 Intake, Oral 1140 240 240 500 Number 0 Bowel Movements Output, Urine 100 200 300 Patient 164 lb 165 lb 164 lb Weight Weight Bed scale Bed scale Measurement Method Physical Exam: GEN; LOOKS WELL. NAD HEENT; ANICTERIC, PERRL, EOMI ANUS NORMAL WITHOU HEMORRHOIDS OR MASS. ABSCESS RIGHT GLUTEUS. WITHOUT RETAINED PURULENCE. IT HAS EVACUATED SPONTANEOUSLY. Last 24 Hours of Labs: Laboratory Tests 05/01 05/01 05/01 1010 0651 0219 Chemistry Sodium (137 - 145 mmol/L) 146 H Potassium (3.5 - 5.1 mmol/L) 4.4 Chloride (98 - 107 mmol/L) 113 H Carbon Dioxide (22 - 30 mmol/L) 16 L Anion Gap (5 - 16) 16 BUN (9 - 20 mg/dL) 30 H Creatinine (0.7 - 1.2 mg/dL) 1.4 H Estimated GFR (>60 ml/min) 49 L BUN/Creatinine Ratio (7 - 25 %) 21.4 Calcium (8.4 - 10.2 mg/dL) 9.6 Total Bilirubin (0.2 - 1.3 mg/dL) 1.5 H Direct Bilirubin (< 0.4 mg/dL) 0.7 H AST (17 - 59 U/L) 559 H ALT (21 - 72 U/L) 61 Alkaline Phosphatase (< 127 U/L) 256 H Total Protein (6.3 - 8.2 g/dL) 5.9 L Albumin (3.5 - 5.0 g/dL) 3.4 L Coagulation PT (9.4 - 12.5 SEC) 19.1 H INR (0.90 - 1.17) 1.83 H APTT (25 - 37 SEC) 91 H > 120 *H Hematology CBC w Diff MAN DIFF ORDERED WBC (4.8 - 10.8 /CUMM) 12.1 H RBC (4.70 - 6.10 /CUMM) 4.14 L Hgb (14.0 - 18.0 G/DL) 10.2 L Hct (42 - 52 %) 32.1 L MCV (80.0 - 94.0 FL) 77.6 L MCH (27.0 - 31.0 PG) 24.5 L RDW (11.5 - 14.5 %) 21.9 H Plt Count (130 - 400 /CUMM) 191 MPV (7.4 - 10.4 FL) 10.2 Segmented Neutrophils (42.2 - 75.2 %) 76 H Band Neutrophils (0.0 - 5.0 %) 2 Lymphocytes (20.5 - 51.1 %) 13 L Monocytes (1.7 - 9.3 %) 8 Basophils (0.0 - 2.0 %) 1 Platelet Estimate (ADEQUATE) ADEQUATE Hypochromic-Microcytic 2+ Poikilocytosis 2+ Anisocytosis 2+ Microcytic Cells 1+ PUBS MCHC (33.0 - 37.0 G/DL) 31.6 L Assessment/Plan Assessment/Plan GLUTEAL ABSCESS HAS ALREADY SPONTANEOUSLY DRAINED. THERE IS NO INTERVENTION REQUIRED. IT IS NOT THE SOURCE OF LEUKOCYTOSIS. DUODERM DRESSING IN PLACE IS APPROPRIATE. Consult Acknowledgment - Thank you for your consult request.
[2017-05-01 21:26] LABS: PTT 104 SEC (25-37)
[2017-05-02 04:40] LABS: HEMATOCRIT 31.7 % (42-52); MEAN CORPUSCULAR HGB 24.3 PG (27.0-31.0); MEAN CORPUSCULAR HGB CONC 31.2 G/DL (33.0-37.0); MEAN CORPUSCULAR VOLUME 77.8 FL (80.0-94.0); MEAN PLATELET VOLUME 9.9 FL (7.4-10.4); PLATELET COUNT 174 /CUMM (130-400); RBC DISTRIBUTION WIDTH 22.6 % (11.5-14.5); RED BLOOD CELL CT 4.07 /CUMM (4.70-6.10); WHITE BLOOD CELL COUNT 10.7 /CUMM (4.8-10.8)
[2017-05-02 04:54] LABS: PT 20.4 SEC (9.4-12.5)
[2017-05-02 04:56] LABS: PTT 61 SEC (25-37)
[2017-05-02 07:04] VITALS: BP 126/64
--- NOTE | 2017-05-02 08:53 | Discharge Summary ---
Visit Information Visit Dates Admission Date: 04/27/17 Discharge Date: 05/02/17 Hospital Course Course Attending Physician: Johnathan Spence MD Primary Care Physician: Johnathan Spence MD Hospital Course: Mr. Lyon is an 81-year-old gentleman with past medical history significant for Atrial fibrillation on Xarelto, CAD s/p stent on Plavix, HTN, PMR maintained on prednisone, HFpEF, chronic back pain, maintained on Vicodin, recurrent right buttock abscesses, requiring periodic drainage who presented to the hospital with several weeks of abdominal discomfort, decreased PO intake, dysphagia and hoarseness and more acute onset of weakness, lethargy and confusion. On admission he was afebrile. Laboratory data revealed a white blood cell count of 8000, with occasional reactive/atypical lymphs, BUN/creatinine 58 and 1.4, alkaline phosphatase 259, AST/ALT 350 and 31, INR 2.84. Urinalysis rare RBCs/1- [address] of the head was negative for any acute pathology. CT of the abdomen and pelvis revealed a 2.3 cm low attenuation lesion in the left lobe of the liver. He received IV fluids with an initial decrease in his BUN/creatinine. Further evaluation of the liver included a right upper quadrant ultrasound, which revealed a large infiltrative and heterogeneous echogenicity throughout the right lobe of the liver and 2 additional more focal hypoechoic masses in the left and right lobes of the liver, and an MRI of the abdomen which revealed numerous infiltrative lesions throughout the liver with a heterogeneous appearance, most suspicious for adenocarcinoma metastatic disease. GI was consulted who recommended liver biopsy. Patient's CREW LEADER medications of Plavix and Xarelto were held per Cardio and IR in anticipation of the biopsy. The patient was started on IV heparin meanwhile. His INR continued to remain elevated. Per IR guidelines, biopsy could not be done with elevated INR. Per cardiology, INR level cannot be assessed when patient is on Xarelto. Given patient's underlying liver disease, it is hard to estimate if abnormal INR is only result of being on Xarelto. The patient to be transferred to [facility] for higher level of care. His hospital course has been complicated by renal failure, attributed to the gadolinium used in the MRI, and this has been improving. He has been afebrile since admission. His white blood cell count has been normal until 05/01/17 was found to be elevated to 12,000, he was asymptomatic. Blood cultrues were obtained. Leukocytosis resolved on 05/02/17. The patient is on Vicodin at home for chronic back pain. Per GI, Vicodin was discontinued and he was started on Oxycodone. His abdominal pain and back pain have been well controlled with Oxycodone. Other problems addressed: #History of atrial fibrillation and reported new T wave inversions Without any chest pain, palpitations or shortness of breath. He received aspirin ACS was ruled out. He was maintained on his home dose of metoprolol, and statin. Cardiology was consulted who did not recommend landscape architect and planner. Xarelto and Plavix were held in anticipation of IR liver biopsy as above. Xarelto and Plavix should be restarted after the procedure when appropriate. #Hepatic steatosis-Liver mass: As above-Plavix and Xarelto on hold. Daily LFTs were checked. #Wound on Rt buttock: An area of open wound present on right buttuck, clean, well healing w/o pus or erythema or tenderness. Multiple healed lesions noted on buttock. Wound care provided during hospital stay. ID consulted who recommended to monitor off ABs. #Fungal inguinal rash: The patient was started on Nystatin. #Leukocytosis-resolved As above #Hypercalcemia-resolved. Asymptomatic #Hypernatreamia-resolved The patient was evaluated nephrology. He was started on D5W, rate adjusted based on water deficit. #Chronic back pain: As above. #Unsteady gait: He was evaluated by physical therapy who did not recommended rehab or home health services. #DVT prophylaxis: Heparin GTT and ALPS while Xarelto on hold. Heparin GTT was held this morining in anticipation of biopsy. Per attending recommendations, will not restart heparin at this point given elevated INR. Allergies: Coded Allergies: NO KNOWN ALLERGIES (UNKNOWN 12/18/16) Significant Procedures: EXAMINATION: MRI ABDOMEN WITH AND WITHOUT CONTRAST CLINICAL INFORMATION: Abdominal pain. Liver neoplasm. COMPARISON: CT from 04/24/2017. Ultrasound from earlier today. TECHNIQUE: Multiple routine MRI sequences through the abdomen were obtained on a high-field 1.5 Alissa MRI before and after the uneventful administration of 7 mL of Gadavist gadolinium-based IV contrast. FINDINGS: The study is significantly motion limited. LUNG BASES: Lung bases are clear. LIVER: The liver is diffusely heterogeneous. There are multiple masses seen throughout the hepatic parenchyma. These demonstrate heterogeneously increased signal on T2-weighted imaging with decreased signal on T1-weighted imaging. Motion on the postcontrast sequences limits the evaluation. This significantly limits evaluation of the enhancement characteristics of the hepatic lesions. Prominent lesion in the central aspect of the liver centered in segment 4A measures 7.9 cm AP by 6.2 cm transverse by 8.1 cm CC. There is no significant hyperenhancement on the arterial phase, although there does appear to be some degree of washout on the later phases. There are multiple additional smaller lesions throughout the liver with somewhat of a confluent appearance, particularly in the right lobe. GALLBLADDER AND BILIARY TREE: The gallbladder appears grossly normal. No intra or extra-hepatic biliary ductal dilation. SPLEEN: Normal. Normal size. No focal lesion. PANCREAS: Evaluation of the pancreas is significantly limited due to the motion limitations of this study. No gross abnormality. ADRENAL GLANDS: Normal. No adrenal mass. KIDNEYS AND URETERS: Symmetric renal enhancement. No focal renal lesion identified. Minimal bilateral perinephric stranding is symmetric. LYMPHOVASCULAR STRUCTURES: Normal caliber aorta. IVC patent. No pathologically enlarged abdominal or retroperitoneal lymphadenopathy by CT size criteria. OSSEOUS STRUCTURES: No acute or suspicious osseous abnormalities. IMPRESSION: Study is limited by motion, particularly the postcontrast sequences. Numerous infiltrative lesions throughout the liver with a heterogeneous appearance. Enhancement characteristics are not well-defined, although there does appear to be washout involving at least the larger of the lesions. The appearance is most suspicious for adenocarcinoma metastatic disease, possibly from a gastrointestinal source, although no suspicious lesion is seen on the CT throughout the gastrointestinal tract.. Alternatively, primary cholangiocarcinoma with satellite lesions is possible. Tissue characterization may be needed to further clarify. Pertinent Lab Results: Laboratory Tests 05/02/17409: PT 20.4 H, INR 1.96 H 05/02/17409: Anion Gap 14, Estimated GFR 53 L, BUN/Creatinine Ratio 20.8, Calcium 9.4, Magnesium 1.5 L, Total Bilirubin 1.5 H, Direct Bilirubin 0.8 H, AST 688 H, ALT 63, Alkaline Phosphatase 253 H, Total Protein 6.0 L, Albumin 3.3 L, APTT 61 H, CBC w Diff MAN DIFF ORDERED, RBC 4.07 L, MCV 77.8 L, MCH 24.3 L, RDW 22.6 H, MPV 9.9, Segmented Neutrophils 73, Band Neutrophils 1, Lymphocytes 15 L, Monocytes 10 H, Eosinophils 1, Platelet Estimate ADEQUATE, Polychromasia 1+, Hypochromic-Microcytic 2+, Anisocytosis 2+, Microcytic Cells 1+, Target Cells 1+ , Stomatocytes FEW, PUBS MCHC 31.2 L 05/01/17 1835: APTT 104 *H 05/01/17 1010: APTT 91 H 05/01/17 0651: Anion Gap 16, Estimated GFR 49 L, BUN/Creatinine Ratio 21.4, Calcium 9.6, Total Bilirubin 1.5 H, Direct Bilirubin 0.7 H, AST 559 H, ALT 61, Alkaline Phosphatase 256 H, Total Protein 5.9 L, Albumin 3.4 L, PT 19.1 H, INR 1.83 H, CBC w Diff MAN DIFF ORDERED, RBC 4.14 L, MCV 77.6 L, MCH 24.5 L, RDW 21.9 H, MPV 10.2, Segmented Neutrophils 76 H, Band Neutrophils 2, Lymphocytes 13 L, Monocytes 8, Basophils 1, Platelet Estimate ADEQUATE, Hypochromic-Microcytic 2+, Poikilocytosis 2+, Anisocytosis 2+, Microcytic Cells 1+, PUBS MCHC 31.6 L 05/01/17 0219: APTT > 120 *H 04/30/17 1436: APTT 87 H 04/30/17 1206: Anion Gap 13, Estimated GFR 45 L, BUN/Creatinine Ratio 24.0 04/30/17 0814: Anion Gap 16, Estimated GFR 39 L, BUN/Creatinine Ratio 21.2, Total Bilirubin 1.5 H, Direct Bilirubin 0.8 H, AST 465 H, ALT 59, Alkaline Phosphatase 276 H , Total Protein 5.9 L, Albumin 3.4 L, PT 17.1 H, INR 1.64 H, CBC w Diff MAN DIFF ORDERED, RBC 3.92 L, MCV 77.9 L, MCH 24.5 L, RDW 21.9 H, MPV 9.6, Segmented Neutrophils 80 H, Lymphocytes 14 L, Monocytes 5, Eosinophils 1, Platelet Estimate ADEQUATE, Polychromasia , Hypochromic-Microcytic 1+, Anisocytosis 1+, Microcytic Cells 1+, Target Cells FEW, PUBS MCHC 31.5 L 04/30/17 0400: PT Cancelled, INR Cancelled Microbiology 05/01 1305 BLOOD: Blood Culture - RECD 05/01 1250 BLOOD: Blood Culture - RECD Disposition Summary Disposition Principal Diagnosis: Hepatic steatosis-Liver mass Additional Diagnosis: LAUREN Discharge Disposition: other general hospital Discharge Instructions General Discharge Information Code Status: Full Code Patient's Diet: Heart Healthy Patient's Activity: As tolerated. Follow-Up Instructions/Appts: -Please follow-up with your PCP Dr. Spence within a week of discharge. -Please follow-up with scarfer operator, Dr. Echevarria within a week of discharge. -Please follow-up with a hospice educator, Dr. Wilson within a week of discharge. -Please follow-up with your PCP regarding outpatient physical therapy. -Please avoid acetaminophen and medications which contain acetaminophen including Vicodin because you had elevated liver enzymes. -Please follow up with pain managment. -Please avoid NSAIDs and nephrotoxins. -Plavix and Xarelto have been held in anticipation of liver biopsy. Please restart when appropriate after the procedure. Medications at Discharge Discharge Medications: Stop taking the following medications: Acetaminophen (Tylenol Extra Strength) 500 MG TABLET ORAL THREE TIMES DAILY Clopidogrel Bisulfate (Clopidogrel) 75 MG TABLET ORAL DAILY Qty = 30 Rivaroxaban (Xarelto) 20 MG TABLET ORAL Every night Qty = 90 Hydrocodone/Acetaminophen (Hydrocodon-Acetaminophn 10-300) 10 MG-300 MG TABLET ORAL TWICE DAILY as needed for Back pain Qty = 90 Continue taking these medications: Metoprolol Succinate (Metoprolol Succinate) 25 MG TAB 1 Tablet ORAL DAILY Comments: Last Taken: 10/25/16 Time: 9:15 AM Omeprazole (Omeprazole) 40 MG CAPSULE.DR 1 Capsule ORAL DAILY Qty = 90 Comments: Last Taken: NOT GIVEN IN HOSPITAL Time: Lorazepam (Ativan) 0.5 MG TABLET 1 Tablet ORAL TWICE DAILY Comments: Last Taken: 10/25/16 Time: 9:15 AM Potassium Chloride (Klor-Con M10) 10 MEQ TAB.ER.PRT 1 Tablet ORAL DAILY Qty = 60 Comments: Last Taken: NOT GIVEN IN HOSPITAL Time: Olmesartan Medoxomil (Benicar) 40 MG TABLET 1 Tablet ORAL DAILY Qty = 90 Comments: Last Taken: NOT GIVEN IN HOSPITAL Time: Simvastatin (Zocor*) 20 MG TABLET 1 Tablet ORAL DAILY Qty = 90 Comments: Last Taken: 10/24/16 Time: 5:20 PM Furosemide (Lasix) 40 MG TABLET 1 Tablet ORAL DAILY Qty = 30 Comments: Last Taken: 10/25/16 Time: 9:15 AM Hydrocodone Bitartrate (Hysingla ER) 20 MG TAB.ER.24H 1 Tablet ORAL DAILY Qty = 30 Comments: Last Taken: 10/25/16 Time: 5:50 AM (RECEIVED VICODIN) Isosorbide Mononitrate (Isosorbide Mononitrate ER) 60 MG TAB.ER.24H 1 Tablet ORAL DAILY Qty = 30 Comments: Last Taken: 10/25/16 Time: 9:15 AM Prednisone (Prednisone) 1 MG TABLET 4 Tablet ORAL DAILY Start taking the following new medications: Oxycodone HCl (Oxycodone HCl) 10 MG TABLET 10 Milligram ORAL EVERY 8 HOURS NEEDED as needed for SEVERE PAIN Qty = 10 No Refills Nystatin (Nystatin) 100,000 UNIT/GRAM CREAM..G. 1 Application On the skin TWICE DAILY Qty = 1 No Refills Copies To: Jordy CHUNG,Johnathan
--- NOTE | 2017-05-02 09:15 | PN- Housestaff ---
Subjective Follow-up For: Follow-up For: Liver mass Hepatic steatosis LAUREN Hypernatremia History of atrial fibrillation Weakness Subjective: The patient was seen and examined. His back pain and abdominal pain is well controlled on current dose of oxycodone. No new complaints. He denies any headache, dizziness, lightheadedness, nausea, vomiting, chest pain, shortness of breath, abdominal pain. Plavix on hold, heparin on hold in anticipation of liver biopsy. INR increasing to 1.96 (yesterday 1.83). Sodium level normalized. Creatinine improving. Leukocytosis resolved. Please see today's events note. Review of Systems Constitutional: Reports: see HPI. Objective Last 24 Hrs of Vital Signs/I&O Vital Signs Date Time Temp Pulse Resp B/P B/P Pulse O2 O2 Flow FiO2 Mean Ox Delivery Rate 05/02 1416 98.5 88 18 124/60 96 Room Air 05/02 1018 130/70 05/02 1018 130/70 05/02 0704 98.5 76 18 126/64 94 Intake & Output 05/02 1600 05/02 0800 05/02 0000 Intake Total 500 478.4 311.3 Output Total 250 200 Balance 250 478.4 111.3 Intake, IV 400 478.4 251.3 Intake, Oral 100 0 60 Number 0 0 0 Bowel Movements Output, Urine 250 200 Patient 164 lb Weight Physical Exam General Appearance: Alert, Cooperative, No Acute Distress Other Physical Findings: Skin:ph/ex not changed from yesterday open wound present on right buttuck, clean , well healing w/o pus or erythema or tenderness. Multiple healed lesions noted on buttock. HEENT: Atraumatic, PERRLA, EOMI, Mucous Membr. moist/pink Neck: Supple, No JVD, No thryomegaly, +2 Carotid Pulse wo Bruit, No LAD Cardiovascular: Irregular, No Murmurs, Gallops, Rubs Lungs: Clear to Auscultation, Normal Air Movement Abdomen: NL BS, mild tenderness to palpation on right upper quadrant and epigastrium, ND, No CVA tenderness Neurological: Normal Speech, Strength at 5/5 X4 Ext, Normal Tone, Sensation Intact, Cranial Nerves 3-12 NL, Reflexes 2+ Extremities: No Clubbing, No Cyanosis, No Edema, Normal Pulses, No Tenderness/ Swelling Vascular: Normal Pulses, Pulses Symmetrical Current Medications: Current Medications Sig/[place] Start time Last Medication Dose Route Stop Time Status Admin Atorvastatin Calcium 20 MG 1700 04/25 1700 DCD 05/01 PO 1726 Dextrose/Water 1,000 ML Q20H 04/30 1430 DCD 05/02 IV 0434 Heparin Sodium 25,000 UNIT Q24H 04/29 2000 DC 05/01 (Porcine) IV 05/02 0630 1217 Sodium Chloride 500 ML Isosorbide 60 MG DAILY 04/25 1000 DCD 05/02 Mononitrate PO 1018 Lidocaine 1 PAT DAILY 04/26 1000 DCD 05/02 EXT 1017 Lorazepam 0.5 MG BID PRN 04/25 0030 DC 04/29 PO 05/02 0021 2236 Magnesium Oxide 400 MG ONE ONE 05/02 0730 DC 05/02 PO 05/02 0731 1018 Melatonin 5 MG AT BEDTIME 04/26 2200 DCD 05/01 PO 2100 Metoprolol Succinate 25 MG DAILY 04/25 1000 DCD 05/02 PO 1018 Multivitamins 1 TAB DAILY 04/25 1000 DCD 05/02 PO 1018 Nystatin 1 KISHOR BID 05/01 1409 DCD 05/02 TOP 1018 Omeprazole 40 MG DAILY AC 04/25 0700 DCD 05/01 PO 0420 Oxycodone HCl 10 MG Q8P PRN 05/01 1415 DCD 05/02 PO 1017 Patient Medication 1 ED ONE ONE 05/02 1145 DC Teaching ED 05/02 1146 Prednisone 4 MG DAILY 04/26 1000 DCD 05/02 PO 1018 Last 24 Hrs of Lab/Teo Results Last 24 Hrs of Labs/Mics: Laboratory Tests 05/02/17409: PT 20.4 H, INR 1.96 H 05/02/17409: Anion Gap 14, Estimated GFR 53 L, BUN/Creatinine Ratio 20.8, Calcium 9.4, Magnesium 1.5 L, Total Bilirubin 1.5 H, Direct Bilirubin 0.8 H, AST 688 H, ALT 63, Alkaline Phosphatase 253 H, Total Protein 6.0 L, Albumin 3.3 L, APTT 61 H, CBC w Diff MAN DIFF ORDERED, RBC 4.07 L, MCV 77.8 L, MCH 24.3 L, RDW 22.6 H, MPV 9.9, Segmented Neutrophils 73, Band Neutrophils 1, Lymphocytes 15 L, Monocytes 10 H, Eosinophils 1, Platelet Estimate ADEQUATE, Polychromasia 1+, Hypochromic-Microcytic 2+, Anisocytosis 2+, Microcytic Cells 1+, Target Cells 1+ , Stomatocytes FEW, PUBS MCHC 31.2 L Assessment/Plan Assessment: Mr. Lyon is an 81-year-old gentleman with past medical history significant for Atrial fibrillation on Xarelto, CAD s/p stent on Plavix, HTN, PMR maintained on prednisone, HFpEF, chronic back pain, maintained on Vicodin, recurrent right buttock abscesses, requiring periodic drainage who presented to the hospital with several weeks of abdominal discomfort, decreased PO intake, dysphagia and hoarseness and more acute onset of weakness, lethargy and confusion. Problem list/plan #LAUREN: -Presented with cr of 1.4 on admission was thought to be from dehydration. -Losartan and furosemide were held on admission and he received IV fluids. -IV fluids stopped next day after creatinine normalized(Apr 25), losartan was restarted. Furosemide still held. -CT abd/pelvis on admission:Both kidneys are of normal size and attenuation without hydronephrosis or nephrolithiasis. -Creatinine today improved to 1.3 -Nephrology consult appreciated -Continue to hold losartan and furosemide; consider to restart as an outpatient when creatinine normalizes. #Hypernatreamia: -Resolved -Encourage by mouth intake. #Hepatic steatosis-Liver mass: -Abd US: Large infiltrative and heterogeneous mass right lobe of the liver. -MRI abdomen with and without contrast: Numerous infiltrative lesions throughout the liver with a heterogeneous appearance -LFT worsening -INR increasing -See today's event note. Dr. Spence discussed with paper core machine operator; the decision was made to transfer the patient to a higher level of care so that the procedure can be done under better supervision. -The patient to be transferred to [facility]. #Leukocytosis: -Resolved -Blood cultures negative. #Wound on Rt buttock: -Well healing -C/w wound care -ID consult appreciated -Surgery consult appreciated #Fungal inguinal rash: The patient was started on Nystatin. #Hypercalcemia-resolved. -Asymptomatic #Chronic back pain: -On Vicodin and Lidoderm patch at home for chronic back pain. Given transaminitis would hold off Vicodin -Will continue Lidoderm patch. -Pain well controlled on oxycodone 10 mg every 8 when necessary. #History of atrial fibrillation and reported new T wave inversions -no chest pain, palpitations or shortness of breath at this time. -Given aspirin 1. on admission -Check serial ekgs and trops; negative -C/w metoprolol, statin -Xarelto and plavix held in anticipation of IR bx -Should be restarted after the procedure when appropriate. #microcytic anemia -Iron 47, TIBC 516, ferritin 449 -Outpatient follow-up with PCP #Unsteady gait -PT eval appreciated #DVT prophylaxis: - ALPS, heparin is on hold #CODE STATUS: -Full code Problem List: 1. Liver mass 2. Fatty liver Pain Ratin Pain Location: Back Pain Goal: Pain 4 or less Pain Plan: Oxycodone 10 mg q8 PRN Lidoderm patch Tomorrow's Labs & Rationales: NA
--- NOTE | 2017-05-02 09:50 | Event Note ---
Event Note Event Note: Heparin has been held this morning in anticipation of the procedure. He has been off Plavix. This morning INR came back 1.96, increased from yesterday (1.83). Called and informed IR; per radiologist, there is an increased risk of bleeding; the radiologist is not comfortable doing the procedure with this level of INR. He is suggesting to discharge the patient and wait until the INR normalizes as the procedure is not urgent. Patient's liver function is also worsening. Discussed with attending Dr. Spence. Dr. Spence discussed with dross skimmer; the decision was made to transfer the patient to a higher level of care so that the procedure can be done under better supervision. Dr. Spence discussed at length with family and the patient regarding possible complications. They expressed understanding and were agreeable.
[2017-05-02] MEDS ORDERED: OXYCODONE HCL10 M2 PO (10:20)
[2017-05-02] MEDS ORDERED: NYSTATIN15 G1 TOP (10:21)
--- NOTE | 2017-05-02 10:38 | PN- Att Addend ---
Attending Addendum Attending Brief Note Patient in bed. Was nothing by mouth. Vital signs are stable no fever. No major changes on physical. INR this morning is 1.9. His liver function tests are little worse. The heparin has been off. He has been off the Plavix. Cardiology still does not feel comfortable doing the liver biopsy with the INR of 1.9 which is high probably secondary to his liver disease and arrangements were made with [facility] to transfer the patient to [place] to get the procedure done under better supervision. Patient and family understand that there still could be complications that we need to know what the tissue diagnosis is to try and help.. I spoke to , and arrangements will be made for the patient to be transferred. See the CMR W 10 N discharge summary Intake & Output 05/02 1600 05/02 0400 05/01 1600 05/01 0400 04/30 1600 04/30 0400 Intake Total 478.4 311.3 2580 240 2168 300 Output Total 200 100 200 300 Balance 478.4 111.3 2480 40 1868 300 Intake, IV 478.4 251.3 1200 1668 300 Intake, Oral 0 60 1380 240 500 Number 0 0 0 Bowel Movements Output, Urine 200 100 200 300 Patient 164 lb 164 lb 164 lb Weight Weight Bed scale Measurement Method Current Medications Sig/[place] Start time Last Medication Dose Route Stop Time Status Admin Atorvastatin Calcium 20 MG 1700 04/25 1700 AC 05/01 PO 1726 Dextrose/Water 1,000 ML Q20H 04/30 1430 AC 05/02 IV 0434 Heparin Sodium 25,000 UNIT Q24H 04/29 2000 DC 05/01 (Porcine) IV 05/02 0630 1217 Sodium Chloride 500 ML Isosorbide 60 MG DAILY 04/25 1000 AC 05/02 Mononitrate PO 1018 Lidocaine 1 PAT DAILY 04/26 1000 AC 05/02 EXT 1017 Lorazepam 0.5 MG BID PRN 04/25 0030 DC 04/29 PO 05/02 0021 2236 Magnesium Oxide 400 MG ONE ONE 05/02 0730 DC 05/02 PO 05/02 0731 1018 Melatonin 5 MG AT BEDTIME 04/26 2200 AC 05/01 PO 2100 Metoprolol Succinate 25 MG DAILY 04/25 1000 AC 05/02 PO 1018 Multivitamins 1 TAB DAILY 04/25 1000 AC 05/02 PO 1018 Nystatin 1 KISHOR BID 05/01 1409 AC 05/02 TOP 1018 Omeprazole 40 MG DAILY AC 04/25 0700 AC 05/01 PO 0420 Oxycodone HCl 10 MG Q8P PRN 05/01 1415 AC 05/02 PO 1017 Oxycodone HCl 10 MG Q8 PRN 05/01 1230 DC PO Oxycodone HCl 10 MG ONCE ONE 05/01 1200 DC 05/01 PO 05/01 1201 1206 Prednisone 4 MG DAILY 04/26 1000 AC 05/02 PO 1018 Laboratory Tests 05/02/17 0410: PT 20.4 H, INR 1.96 H 05/02/17 0410: Anion Gap 14, Estimated GFR 53 L, BUN/Creatinine Ratio 20.8, Calcium 9.4, Magnesium 1.5 L, Total Bilirubin 1.5 H, Direct Bilirubin 0.8 H, AST 688 H, ALT 63, Alkaline Phosphatase 253 H, Total Protein 6.0 L, Albumin 3.3 L, APTT 61 H, CBC w Diff MAN DIFF ORDERED, RBC 4.07 L, MCV 77.8 L, MCH 24.3 L, RDW 22.6 H, MPV 9.9, Segmented Neutrophils 73, Band Neutrophils 1, Lymphocytes 15 L, Monocytes 10 H, Eosinophils 1, Platelet Estimate ADEQUATE, Polychromasia 1+, Hypochromic-Microcytic 2+, Anisocytosis 2+, Microcytic Cells 1+, Target Cells 1+ , Stomatocytes FEW, PUBS MCHC 31.2 L 05/01/17 1835: APTT 104 *H 05/01/17 1010: APTT 91 H 05/01/17 0651: Anion Gap 16, Estimated GFR 49 L, BUN/Creatinine Ratio 21.4, Calcium 9.6, Total Bilirubin 1.5 H, Direct Bilirubin 0.7 H, AST 559 H, ALT 61, Alkaline Phosphatase 256 H, Total Protein 5.9 L, Albumin 3.4 L, PT 19.1 H, INR 1.83 H, CBC w Diff MAN DIFF ORDERED, RBC 4.14 L, MCV 77.6 L, MCH 24.5 L, RDW 21.9 H, MPV 10.2, Segmented Neutrophils 76 H, Band Neutrophils 2, Lymphocytes 13 L, Monocytes 8, Basophils 1, Platelet Estimate ADEQUATE, Hypochromic-Microcytic 2+, Poikilocytosis 2+, Anisocytosis 2+, Microcytic Cells 1+, PUBS MCHC 31.6 L 05/01/17 0219: APTT > 120 *H 04/30/17 1436: APTT 87 H 04/30/17 1206: Anion Gap 13, Estimated GFR 45 L, BUN/Creatinine Ratio 24.0 04/30/17 0814: Anion Gap 16, Estimated GFR 39 L, BUN/Creatinine Ratio 21.2, Total Bilirubin 1.5 H, Direct Bilirubin 0.8 H, AST 465 H, ALT 59, Alkaline Phosphatase 276 H , Total Protein 5.9 L, Albumin 3.4 L, PT 17.1 H, INR 1.64 H, CBC w Diff MAN DIFF ORDERED, RBC 3.92 L, MCV 77.9 L, MCH 24.5 L, RDW 21.9 H, MPV 9.6, Segmented Neutrophils 80 H, Lymphocytes 14 L, Monocytes 5, Eosinophils 1, Platelet Estimate ADEQUATE, Polychromasia , Hypochromic-Microcytic 1+, Anisocytosis 1+, Microcytic Cells 1+, Target Cells FEW, PUBS MCHC 31.5 L 04/30/17 0400: PT Cancelled, INR Cancelled Microbiology 05/01 1305 BLOOD: Blood Culture - RECD 05/01 1250 BLOOD: Blood Culture - RECD Microbiology 05/01 1305 BLOOD: Blood Culture - RECD 05/01 1250 BLOOD: Blood Culture - RECD Vital Signs Date Time Temp Pulse Resp B/P B/P Pulse O2 O2 Flow FiO2 Mean Ox Delivery Rate 05/02 1018 130/70 05/02 1018 130/70 05/02 0704 98.5 76 18 126/64 94 05/01 1444 98.0 66 18 130/58 96
[2017-05-02 14:16] VITALS: BP 124/60
== END 2017-05-02 14:54 | disposition short-term general hospital (02) | DRG 683 ==
LOC: DELPENDDIS → ERH 13:58 → ERHI 19:02 → CANRESERV 21:25 → ENRESERV 21:25 → ENTRNSPT 21:47 → EDBEDREQ 22:53 → CMPTRNSPT 04-25 06:59 → EDBEDREQ 04-25 14:24 → ENRESERV 04-25 16:18 → ENTRNSPT 04-25 18:00 → EDTRNSPT 04-25 18:09 → EDTRNSPTSTS 04-25 18:09 → 2NB 04-25 18:25 → CMPTRNSPT 04-25 18:41 → 2NB 04-27 15:35 → ENPENDDIS 04-29 11:17 → 2NB 05-02 14:54
PROVIDERS: Emergency Medicine; Internal Medicine; Internal Medicine Endocrinology, Diabetes & Metabolism; Orthopaedic Surgery; Student in an Organized Health Care Education/Training Program
DX: N17.9 Acute kidney failure, unspecified (principal); E87.0 Hyperosmolality and hypernatremia; E87.5 Hyperkalemia; E83.52 Hypercalcemia; R16.0 Hepatomegaly, not elsewhere classified; I50.32 Chronic diastolic (congestive) heart failure; I48.0 Paroxysmal atrial fibrillation; I11.0 Hypertensive heart disease with heart failure; B36.9 Superficial mycosis, unspecified; R17 Unspecified jaundice; L02.31 Cutaneous abscess of buttock; E86.0 Dehydration; T50.8X5A Adverse effect of diagnostic agents, initial encounter; K76.0 Fatty (change of) liver, not elsewhere classified; R41.0 Disorientation, unspecified; Z79.01 Long term (current) use of anticoagulants; D50.9 Iron deficiency anemia, unspecified; I25.10 Atherosclerotic heart disease of native coronary artery without angina pectoris; Z95.5 Presence of coronary angioplasty implant and graft; Z79.02 Long term (current) use of antithrombotics/antiplatelets; G89.29 Other chronic pain; M54.9 Dorsalgia, unspecified; I25.2 Old myocardial infarction; F41.9 Anxiety disorder, unspecified; M35.3 Polymyalgia rheumatica; K57.90 Diverticulosis of intestine, part unspecified, without perforation or abscess without bleeding; R26.81 Unsteadiness on feet
CPT/HCPCS: 2NBP; 75661; 84133; 84300; 36415; 74176; 74183; 81001; 82436; 82570; 87040; 93005; 93010; 97116-GP; 97161-GP; A9579; G0480; G8978-GP; G8979-GP; G8980-GP; J1644; J3490; J7060